=== PATIENT | female | born 1935 | race Caucasian/White ===

== ENCOUNTER → 2017-01-30 | Outpatient (CLI) | payer MEDICARE, BC ==
--- NOTE | 2017-01-30 17:09 | CT ---
EXAMINATION TYPE: CT cervical spine wo con DATE OF EXAM: 01/30/2017 COMPARISON: NONE HISTORY: Bilateral arm and Right sided neck pain CT DLP: 812 mGycm Automated exposure control for dose reduction was used. TECHNIQUE: CT scan of the cervical spine is obtained without contrast, axial images are obtained, sa gittal and coronal reformatted images are also reviewed. FINDINGS: There is degenerative disc space narrowing throughout the cervical spine with variable spur ring of the endplates. This is more noticeable at C6-7. The skull base appears intact. There is multi level hypertrophic cervical facet arthropathy. There is some straightening of the spine at C4-5 level . I see no fracture. IMPRESSION: Multilevel spondylosis. There is some bony spinal stenosis at C5-6 C6-7 due to endplate s pur formation and facet arthropathy. No fracture.
== END | disposition home or self-care (01) ==
LOC: RADCTMAIN 16:34
PROVIDERS: ATTEND Psychiatry & Neurology Neurology
DX: M48.02 Spinal stenosis, cervical region (principal); M47.812 Spondylosis without myelopathy or radiculopathy, cervical region; M46.82 Other specified inflammatory spondylopathies, cervical region
CPT/HCPCS: 72125

== ENCOUNTER → 2017-06-01 | Outpatient (CLI) | payer MEDICARE, BC ==
[2017-06-01 14:05] LABS: INR 2.7 (<1.2); Prothrombin Time 24.2 sec (9.0-12.0)
== END | disposition home or self-care (01) ==
LOC: LABWHC1 13:15
PROVIDERS: ATTEND Psychiatry & Neurology Pain Medicine
DX: Z51.81 Encounter for therapeutic drug level monitoring (principal)
CPT/HCPCS: 36415; 85610

== ENCOUNTER → 2017-08-01 | Outpatient (CLI) | payer BC, MEDICARE ==
[2017-07-31 15:59] VITALS: BMI 33.5
[2017-08-01 13:21] VITALS: BP 115/55; PULSE 63; RESP 18
--- NOTE | 2017-08-01 14:14 | P.HPIM ---
History of Present Illness H&P Date: 08/01/17 Chief Complaint: "all over" pain, worst in neck This is a 81-year-old patient referred by Dr. Kenee for chronic pain all over , worst in neck and head. Patient has been taking medications from Dr. Keene including fentanyl patch 75 mcg/hr q72 and [place] 10 TID medications with very little relief, and the fentanyl patch was recently increased from 50 mcg/hr. Patient has undergone cervical ESIs and also a recent cervical SCS trial without relief. Patient denies adverse drug effects from medications. Patient also denies new-onset weakness, bowel/bladder incontinence, or any other signs or symptoms of cauda equina syndrome. There are no signs of acute intoxication, and no indications of medication diversion or overuse. Patient notes that pain worsens significantly with movement of any kind and improves with rest and occasionally with medication. Patient has used several types of medications for pain, including NSAIDS, OPIOIDS (several). Patient HAS NOT had surgery. Patient HAS had injections previously as indicated above. Patient HAS NOT had physical therapy recently. In addition to above, 13-point review of systems is also negative for chest pain , shortness of breath, changes in vision, changes in hearing, new onset weakness , abdominal pain, diarrhea, extreme fatigue, malaise, fever, skin changes, homicidal or suicidal ideation, or bowel or bladder incontinence. Vital Signs: Reviewed in EMR Gen: WDWN, AAOx3, NAD HEENT: NCAT, EOMI, hearing grossly normal Pulm: resp unlabored Abd: soft, NT, ND Neck: supple, trachea midline ROM in flexion cervical spine: reduced ROM in extension cervical spine: reduced Cervical paravertebral tenderness: + Cervical Facet tenderness: + bilateral There is pain with movement of the neck in any direction. Past Medical History Past Medical History: Atrial Fibrillation, Cancer, Diabetes Mellitus, Hypertension, Osteoarthritis (OA) Additional Past Medical History / Comment(s): PACEMAKER, DIABETES - DIET CONTROLLED, CHRONIC CONSTIPATION, NECK AND SHOULDER PAIN, LIMITED ROM SHOULDERS , HX OF UTERINE CANCER, USES WALKER AND W/C. History of Any Multi-Drug Resistant Organisms: None Reported Past Surgical History: Back Surgery, Cardiac Ablation, Hysterectomy, Joint Replacement, Pacemaker Additional Past Surgical History / Comment(s): JIE HIP REPLACEMENTS (2000 & 2005 ), JIE KNEE REPLACEMENT (1993), LEFT KNEE CAP (1994), PACEMAKER (2001), HYSTERECTOMY (1972), JIE CATARACTS (2004). Past Anesthesia/Blood Transfusion Reactions: Postoperative Nausea & Vomiting ( PONV) Type of Cardiac Device: Permanent Pacemaker Device Placement Date:: 2001 Past Psychological History: Anxiety Smoking Status: Former smoker Past Alcohol Use History: None Reported Additional Past Alcohol Use History / Comment(s): STARTED SMOKING AT 14 YRS OLD AND QUIT AT 34 YRS OLD. SMOKED 1PPD Past Drug Use History: None Reported - Past Family History Father Family Medical History: Cancer Additional Family Medical History / Comment(s): PROSTATE CA Son(s) Family Medical History: Cancer Additional Family Medical History / Comment(s): 2 SONS -PROSTATE CA Daughter(s) Family Medical History: Cancer Additional Family Medical History / Comment(s): BREAST CA Medications and Allergies Home Medications Medication Instructions Recorded Confirmed Type ALPRAZolam [Xanax] 0.5 mg PO BID 01/04/15 07/31/17 History Furosemide [Lasix] 40 mg PO DAILY 01/04/15 07/31/17 History Lisinopril [Zestril] 5 mg PO QAM 01/04/15 07/31/17 History Metoprolol Tartrate [Lopressor] 50 mg PO DAILY 01/04/15 07/31/17 History Multivitamins, Thera [Multivitamin 1 tab PO DAILY 01/04/15 07/31/17 History (formulary)] Spironolactone [Aldactone] 25 mg PO QAM 01/04/15 07/31/17 History Warfarin [Coumadin] 5 mg PO DAILY 01/04/15 07/31/17 History Hydrocodone/Acetaminophen [[place] 1 tab PO TID 12/22/15 08/01/17 History 10-325] Areds 2 tab PO DAILY 07/31/17 History fentaNYL 75MCG/HR PATCH [Duragesic 75 TRANSDERM 08/01/17 History 75MCG/HR] Allergies Allergy/AdvReac Type Severity Reaction Status Date / Time No Known Allergies Allergy Verified 08/01/17 13:00 Physical Exam Vitals: Vital Signs Pulse Resp BP Pulse Ox 08/01/17 13:06 63 18 115/55 93 L Intake and Output 07/31/17 08/01/17 08/01/17 22:59 06:59 14:59 Other: Weight 108.862 kg Results Comments: CT of the cervical spine without contrast dated 01/30/2017 demonstrates multilevel spondylosis with some bony spinal stenosis at C5-C6 and C6-C7 secondary to endplate spur formation and facet disease. Assessment and Plan (1) Cervical spondylosis Current Visit: Yes Status: Acute Code(s): M47.812 - SPONDYLOSIS W/O MYELOPATHY OR RADICULOPATHY, CERVICAL REGION SNOMED Code(s): 433415453 (2) Chronic pain syndrome Current Visit: Yes Status: Acute Code(s): G89.4 - CHRONIC PAIN SYNDROME SNOMED Code(s): 100824671 (3) Opioid-induced hyperalgesia Current Visit: Yes Status: Acute Code(s): R20.8 - OTHER DISTURBANCES OF SKIN SENSATION; T40.2X5A - ADVERSE EFFECT OF OTHER OPIOIDS, INITIAL ENCOUNTER SNOMED Code(s): 43355182 Plan: Plan: 1. Explanation: Opioid and psychological risk scores were reviewed. Diagnoses , prognoses, and multiple treatment options including but not limited to physical therapy, interventional therapies, adjuvant medical therapies, narcotic medication therapies, and surgery were discussed with the patient and all questions were answered to the patient's satisfaction. 2. Opioid agreement: no opioids prescribed today 3. Counseling: The patient was counseled extensively on BODY MASS INDEX, EXERCISE. Specifically, the patient was instructed regarding the importance of weight control, and exercise in the context of both chronic pain and overall health. 4. Procedures: offered cervical MBB, patient refused 5. Consultations: none for now 6. Investigations: none 7. Medications: none prescribed 8. Morphine equivalents per day prescribed: zero 9. Disposition: This patient has had numerous interventional procedures without substantial relief, and has also had increases in her chronic opioids without really any improvement in pain relief. Given the length of time she has been on narcotics, I believe that she has at least a component of opioid- induced hyperalgesia and that she may be better served with decreases in her opioid dosage. I offered cervical medial branch blocks to the patient, but the patient herself is convinced that positioning will be extremely challenging and she does not want to try it. Patient will return to Dr. Keene for further evaluation and will follow up with our clinic as needed. PQRS measures: 1-Patient's medications are documented in the chart. 2-Tobacco use is negative, counseling given 3-Patient has not had a pneumococcal vaccine. 4-Advanced care planning discussed, patient unable to give. 5-Opioid contract NOT signed with the patient. 6-Pain positive, follow-up visit or procedure scheduled 7-Patient's blood pressure measured and documented, and patient will follow up with the primary care due to hypertension. 8-Patient's weight was measured, and body mass index ABOVE the normal limits, and counseling was done. Patient instructed to follow up with PCP. 9-Patient WAS NOT identified as an unhealthy alcohol user. Time with Patient: Greater than 30
== END | disposition home or self-care (01) ==
LOC: PNWHC3 12:52
PROVIDERS: ATTEND Anesthesiology
DX: G89.4 Chronic pain syndrome (principal); M47.812 Spondylosis without myelopathy or radiculopathy, cervical region; T40.2X5A Adverse effect of other opioids, initial encounter; R20.8 Other disturbances of skin sensation; M19.90 Unspecified osteoarthritis, unspecified site; I48.91 Unspecified atrial fibrillation; I10 Essential (primary) hypertension; Z79.01 Long term (current) use of anticoagulants; Z79.891 Long term (current) use of opiate analgesic; Z79.899 Other long term (current) drug therapy; Z87.891 Personal history of nicotine dependence
CPT/HCPCS: 99211

== ENCOUNTER 2017-10-23 15:30 | Inpatient (IN) | payer MEDICARE, BC ==
--- NOTE | 2017-10-23 17:14 | ED ---
General Adult HPI - General Chief complaint: Extremity Injury, Lower Stated complaint: fluid retention sent by PCP Time Seen by Provider: 10/23/17 17:14 Source: patient, family Mode of arrival: ambulatory Limitations: no limitations - History of Present Illness Initial comments: Nikki Lea is an 82-year-old female with past medical history listed below who presents to the emergency department today from her primary care office for evaluation of bilateral lower extremity edema. She reports that she was previously healthy and able ambulate, over the past couple of months she's become increasingly dependent on using a walker and reports that over the past week she's completely limited in her ability to walk and requires assistance at all times. She's noticed progressively worsening in her bilateral lower extremities. She which her primary care physician's office today who noted some erythema and blistering to her lower extremities and expressed concern that she may have infection, he advised her to come to the emergency department for further evaluation. Patient denies any fevers, chills, nausea, vomiting any change in appetite. She denies any chest pain or shortness of breath. She admits that she is minimally active and can only take a few steps due to generalized weakness which is progressively worsened. - Related Data Home Medications Medication Instructions Recorded Confirmed ALPRAZolam [Xanax] 0.5 mg PO BID PRN 01/04/15 10/23/17 Furosemide [Lasix] 40 mg PO BID 01/04/15 10/23/17 Lisinopril [Zestril] 5 mg PO DAILY 01/04/15 10/23/17 Metoprolol Tartrate [Lopressor] 50 mg PO DAILY 01/04/15 10/23/17 Spironolactone [Aldactone] 25 mg PO DAILY 01/04/15 10/23/17 Warfarin [Coumadin] 5 mg PO SUTH 01/04/15 10/23/17 Hydrocodone/Acetaminophen [[place] 1 tab PO Q8H 12/22/15 10/23/17 10-325] fentaNYL 75MCG/HR PATCH [Duragesic 1 patch TRANSDERM Q72H 08/01/17 10/23/17 75MCG/HR] Metoprolol Tartrate [Lopressor] 25 mg PO HS 10/23/17 10/23/17 Vit C/E/Zn/Coppr/Lutein/Zeaxan 1 cap PO BID 10/23/17 10/23/17 [Preservision Areds 2 Softgel] Warfarin [Coumadin] 2.5 mg PO MOTUWEFRSA 10/23/17 10/23/17 Allergies Allergy/AdvReac Type Severity Reaction Status Date / Time No Known Allergies Allergy Verified 10/23/17 17:41 Review of Systems ROS Statement: Those systems with pertinent positive or pertinent negative responses have been documented in the HPI. ROS Other: All systems not noted in ROS Statement are negative. Constitutional: Denies: fever ENT: Denies: throat pain Respiratory: Denies: cough, dyspnea Cardiovascular: Reports: dyspnea on exertion. Denies: chest pain, palpitations Endocrine: Reports: fatigue Gastrointestinal: Denies: abdominal pain, nausea, vomiting Genitourinary: Denies: urgency Musculoskeletal: Reports: back pain (Chronic), arthralgia (Chronic) Skin: Reports: rash, lesions, change in color Neurological: Reports: weakness. Denies: numbness, paresthesias (Generalized) Psychiatric: Denies: anxiety, depression Past Medical History Past Medical History: Atrial Fibrillation, Cancer, Diabetes Mellitus, Hypertension, Osteoarthritis (OA) Additional Past Medical History / Comment(s): PACEMAKER, DIABETES - DIET CONTROLLED, CHRONIC CONSTIPATION, NECK AND SHOULDER PAIN, LIMITED ROM SHOULDERS , HX OF UTERINE CANCER, USES WALKER AND W/C. History of Any Multi-Drug Resistant Organisms: None Reported Past Surgical History: Back Surgery, Cardiac Ablation, Hysterectomy, Joint Replacement, Pacemaker Additional Past Surgical History / Comment(s): JIE HIP REPLACEMENTS (2000 & 2005 ), JIE KNEE REPLACEMENT (1993), LEFT KNEE CAP (1994), PACEMAKER (2001), HYSTERECTOMY (1972), JIE CATARACTS (2004). Past Anesthesia/Blood Transfusion Reactions: Postoperative Nausea & Vomiting ( PONV) Type of Cardiac Device: Permanent Pacemaker Device Placement Date:: 2001 Past Psychological History: Anxiety Smoking Status: Former smoker Past Alcohol Use History: None Reported Past Drug Use History: None Reported - Past Family History Father Family Medical History: Cancer Additional Family Medical History / Comment(s): PROSTATE CA Son(s) Family Medical History: Cancer Additional Family Medical History / Comment(s): 2 SONS -PROSTATE CA Daughter(s) Family Medical History: Cancer Additional Family Medical History / Comment(s): BREAST CA General Exam Limitations: no limitations General appearance: alert Head exam: Present: atraumatic, normocephalic Eye exam: Present: PERRL ENT exam: Present: normal exam Neck exam: Present: normal inspection Respiratory exam: Absent: respiratory distress Cardiovascular Exam: Present: regular rate GI/Abdominal exam: Present: soft. Absent: distended Rectal exam: Present: deferred Extremities exam: Present: tenderness, normal capillary refill, pedal edema (3+) , calf tenderness. Absent: full ROM Back exam: Present: normal inspection Neurological exam: Present: alert, oriented X3, abnormal gait. Absent: normal gait Psychiatric exam: Present: normal affect Skin exam: Present: warm, dry, rash, erythema. Absent: pallor, mottled Course Vital Signs 10/23/17 10/23/17 10/23/17 16:08 19:57 20:16 Temperature 98.2 F 97.6 F Pulse Rate 65 60 74 Respiratory 20 16 18 Rate Blood Pressure 131/56 138/64 141/90 O2 Sat by Pulse 94 L 95 100 Oximetry 10/23/17 21:02 Temperature Pulse Rate 63 Respiratory 16 Rate Blood Pressure 137/60 O2 Sat by Pulse 96 Oximetry Medical Decision Making - Medical Decision Making Patient was seen and evaluated, history was obtained from the patient and review of medical record Patient with progressively worsening inability to ambulate. Bilateral lower extremity edema. Noticed recently some lower extremity redness but no tenderness or weeping. Labs and imaging were ordered Labs with mild leukocytosis, elevated BNP consistent with a diagnosis of congestive heart failure Bilateral lower extremity venous Dopplers were negative for acute DVT During the patient's inability to ambulate, progressively worsening weakness and lower extremity edema I do feel that she needs admission to the hospital for treatment of CHF and evaluation by physical therapy patient care was discussed with her primary care physician Dr. Garcia who agrees with this plan and agrees to accept the patient to his service. - Lab Data Result diagrams: 10/23/17 18:35 10/23/17 18:35 Lab Results 10/23/17 10/23/17 10/23/17 Range/Units 18:35 18:35 18:35 WBC 8.1 (3.8-10.6) k/uL RBC 4.22 (3.80-5.40) m/uL Hgb 13.4 (11.4-16.0) gm/dL Hct 41.0 (34.0-46.0) % MCV 97.2 (80.0-100.0) fL MCH 31.7 (25.0-35.0) pg MCHC 32.6 (31.0-37.0) g/dL RDW 13.3 (11.5-15.5) % Plt Count 160 (150-450) k/uL Neutrophils % 62 % Lymphocytes % 26 % Monocytes % 8 % Eosinophils % 1 % Basophils % 1 % Neutrophils # 5.0 (1.3-7.7) k/uL Lymphocytes # 2.1 (1.0-4.8) k/uL Monocytes # 0.6 (0-1.0) k/uL Eosinophils # 0.1 (0-0.7) k/uL Basophils # 0.1 (0-0.2) k/uL PT (9.0-12.0) sec INR (<1.2) APTT (22.0-30.0) sec Sodium 140 (137-145) mmol/L Potassium 4.7 (3.5-5.1) mmol/L Chloride 100 (98-107) mmol/L Carbon Dioxide 32 H (22-30) mmol/L Anion Gap 8 mmol/L BUN 25 H (7-17) mg/dL Creatinine 0.90 (0.52-1.04) mg/dL Est GFR (CKD-EPI)AfAm 68 (>60 ml/min/1.73 sqM) Est GFR (CKD-EPI)NonAf 59 (>60 ml/min/1.73 sqM) Glucose 105 H (74-99) mg/dL Plasma Lactic Acid Daniel 0.9 (0.7-2.0) mmol/L Calcium 9.7 (8.4-10.2) mg/dL Magnesium 2.3 (1.6-2.3) mg/dL Total Bilirubin 1.2 (0.2-1.3) mg/dL AST 28 (14-36) U/L ALT 31 (9-52) U/L Alkaline Phosphatase 82 (38-126) U/L Troponin I (0.000-0.034) ng/mL NT-Pro-B Natriuret Pep pg/mL Total Protein 6.5 (6.3-8.2) g/dL Albumin 4.1 (3.5-5.0) g/dL Urine Color Urine Appearance (Clear) Urine pH (5.0-8.0) Ur Specific [place] (1.001-1.035) Urine Protein (Negative) Urine Glucose (UA) (Negative) Urine Ketones (Negative) Urine Blood (Negative) Urine Nitrite (Negative) Urine Bilirubin (Negative) Urine Urobilinogen (<2.0) mg/dL Ur Leukocyte Esterase (Negative) Urine RBC (0-5) /hpf Urine WBC (0-5) /hpf Ur Squamous Epith Cells (0-4) /hpf Urine Bacteria (None) /hpf 10/23/17 10/23/17 10/23/17 Range/Units 18:35 18:35 18:35 WBC (3.8-10.6) k/uL RBC (3.80-5.40) m/uL Hgb (11.4-16.0) gm/dL Hct (34.0-46.0) % MCV (80.0-100.0) fL MCH (25.0-35.0) pg MCHC (31.0-37.0) g/dL RDW (11.5-15.5) % Plt Count (150-450) k/uL Neutrophils % % Lymphocytes % % Monocytes % % Eosinophils % % Basophils % % Neutrophils # (1.3-7.7) k/uL Lymphocytes # (1.0-4.8) k/uL Monocytes # (0-1.0) k/uL Eosinophils # (0-0.7) k/uL Basophils # (0-0.2) k/uL PT 27.5 H (9.0-12.0) sec INR 3.1 H (<1.2) APTT 28.3 (22.0-30.0) sec Sodium (137-145) mmol/L Potassium (3.5-5.1) mmol/L Chloride (98-107) mmol/L Carbon Dioxide (22-30) mmol/L Anion Gap mmol/L BUN (7-17) mg/dL Creatinine (0.52-1.04) mg/dL Est GFR (CKD-EPI)AfAm (>60 ml/min/1.73 sqM) Est GFR (CKD-EPI)NonAf (>60 ml/min/1.73 sqM) Glucose (74-99) mg/dL Plasma Lactic Acid Daniel (0.7-2.0) mmol/L Calcium (8.4-10.2) mg/dL Magnesium (1.6-2.3) mg/dL Total Bilirubin (0.2-1.3) mg/dL AST (14-36) U/L ALT (9-52) U/L Alkaline Phosphatase (38-126) U/L Troponin I (0.000-0.034) ng/mL NT-Pro-B Natriuret Pep 2840 pg/mL Total Protein (6.3-8.2) g/dL Albumin (3.5-5.0) g/dL Urine Color Yellow Urine Appearance Cloudy H (Clear) Urine pH 8.0 (5.0-8.0) Ur Specific [place] 1.011 (1.001-1.035) Urine Protein Negative (Negative) Urine Glucose (UA) Negative (Negative) Urine Ketones Negative (Negative) Urine Blood Negative (Negative) Urine Nitrite Negative (Negative) Urine Bilirubin Negative (Negative) Urine Urobilinogen 2.0 (<2.0) mg/dL Ur Leukocyte Esterase Moderate H (Negative) Urine RBC 3 (0-5) /hpf Urine WBC 8 H (0-5) /hpf Ur Squamous Epith Cells 1 (0-4) /hpf Urine Bacteria Few H (None) /hpf 10/23/17 Range/Units 18:53 WBC (3.8-10.6) k/uL RBC (3.80-5.40) m/uL Hgb (11.4-16.0) gm/dL Hct (34.0-46.0) % MCV (80.0-100.0) fL MCH (25.0-35.0) pg MCHC (31.0-37.0) g/dL RDW (11.5-15.5) % Plt Count (150-450) k/uL Neutrophils % % Lymphocytes % % Monocytes % % Eosinophils % % Basophils % % Neutrophils # (1.3-7.7) k/uL Lymphocytes # (1.0-4.8) k/uL Monocytes # (0-1.0) k/uL Eosinophils # (0-0.7) k/uL Basophils # (0-0.2) k/uL PT (9.0-12.0) sec INR (<1.2) APTT (22.0-30.0) sec Sodium (137-145) mmol/L Potassium (3.5-5.1) mmol/L Chloride (98-107) mmol/L Carbon Dioxide (22-30) mmol/L Anion Gap mmol/L BUN (7-17) mg/dL Creatinine (0.52-1.04) mg/dL Est GFR (CKD-EPI)AfAm (>60 ml/min/1.73 sqM) Est GFR (CKD-EPI)NonAf (>60 ml/min/1.73 sqM) Glucose (74-99) mg/dL Plasma Lactic Acid Daniel (0.7-2.0) mmol/L Calcium (8.4-10.2) mg/dL Magnesium (1.6-2.3) mg/dL Total Bilirubin (0.2-1.3) mg/dL AST (14-36) U/L ALT (9-52) U/L Alkaline Phosphatase (38-126) U/L Troponin I 0.026 (0.000-0.034) ng/mL NT-Pro-B Natriuret Pep pg/mL Total Protein (6.3-8.2) g/dL Albumin (3.5-5.0) g/dL Urine Color Urine Appearance (Clear) Urine pH (5.0-8.0) Ur Specific [place] (1.001-1.035) Urine Protein (Negative) Urine Glucose (UA) (Negative) Urine Ketones (Negative) Urine Blood (Negative) Urine Nitrite (Negative) Urine Bilirubin (Negative) Urine Urobilinogen (<2.0) mg/dL Ur Leukocyte Esterase (Negative) Urine RBC (0-5) /hpf Urine WBC (0-5) /hpf Ur Squamous Epith Cells (0-4) /hpf Urine Bacteria (None) /hpf Disposition Clinical Impression: CHF (congestive heart failure), Lower extremity edema, Generalized weakness, Gait difficulty Disposition: ADMITTED IP TO THIS [facility] Referrals: Citlalli Garcia MD [Primary Care Provider] - 1-2 days Decision Time: 21:31
[2017-10-23 19:05] LABS: Basophils # (A) 0.1 k/uL (0-0.2); Basophils % (A) 1 %; Eosinophils # (A) 0.1 k/uL (0-0.7); Eosinophils % (A) 1 %; HGB 13.4 gm/dL (11.4-16.0); Lymphocytes # (A) 2.1 k/uL (1.0-4.8); Lymphocytes % (A) 26 %; MCH 31.7 pg (25.0-35.0); MCHC 32.6 g/dL (31.0-37.0); MCV 97.2 fL (80.0-100.0); Mean Platelet Volume 7.5; Monocytes # (A) 0.6 k/uL (0-1.0); Monocytes % (A) 8 %; Neutrophils % (A) 62 %; Platelet Count 160 k/uL (150-450); RBC 4.22 m/uL (3.80-5.40); RDW 13.3 % (11.5-15.5); WBC 8.1 k/uL (3.8-10.6)
[2017-10-23 19:11] LABS: Appearance,Urine Cloudy (Clear); Bacteria,Urine Few /hpf; Bilirubin,Urine Negative (Negative); Blood,Urine Negative (Negative); Color,Urine Yellow; Glucose,Urine (UA) Negative (Negative); Ketones,Urine Negative (Negative); Leukocyte Esterase,Urine Moderate (Negative); Nitrite,Urine Negative (Negative); Protein,Urine Negative (Negative); RBC,Urine 3 /hpf (0-5); Specific Gravity,Urine 1.011 (1.001-1.035); Squamous Epithelial Cell,Urine 1 /hpf (0-4); WBC,Urine 8 /hpf (0-5)
[2017-10-23 19:15] LABS: INR 3.1 (<1.2); Partial Thromboplastin Time 28.3 sec (22.0-30.0); Prothrombin Time 27.5 sec (9.0-12.0)
[2017-10-23 19:17] LABS: Albumin 4.1 g/dL (3.5-5.0); Calcium 9.7 mg/dL (8.4-10.2); Magnesium 2.3 mg/dL (1.6-2.3); Potassium 4.7 mmol/L (3.5-5.1); Total Bilirubin 1.2 mg/dL (0.2-1.3); Total Protein 6.5 g/dL (6.3-8.2)
[2017-10-23] MEDS ORDERED: FUROSEMIDE 10 MG/ML 2 ML VIAL IV ONE (19:55)
--- NOTE | 2017-10-23 20:17 | US ---
EXAMINATION TYPE: US venous doppler duplex LE BI DATE OF EXAM: 10/23/2017 8:14 PM COMPARISON: NONE CLINICAL HISTORY: Pain. Bilateral edema exam limitations due to body habitus. SIDE PERFORMED: Bilateral TECHNIQUE: The lower extremity deep venous system is examined utilizing real time linear array sonog gerard with graded compression, doppler sonography and color-flow sonography. VESSELS IMAGED: External Iliac Vein (EIV) Common Femoral Vein Deep Femoral Vein Greater Saphenous Vein * Femoral Vein Popliteal Vein Small Saphenous Vein * Proximal Calf Veins (* superficial vessels) Right Leg: Negative for DVT Left Leg: Negative for DVT No evidence of DVT bilateral legs. IMPRESSION: Negative exam. No evidence of deep venous thrombosis in both legs.
[2017-10-23] MEDS ORDERED: NALOXONE 0.4 MG/ML 1 ML VIAL IV PRN (21:33)
[2017-10-23] MEDS ORDERED: HYDROcodone/APAP 10-325MG 1 EACH TAB PO STA (21:47)
[2017-10-23] MEDS ORDERED: HYDROcodone/APAP 10-325MG 1 EACH TAB PO SCH (22:30)
[2017-10-23] MEDS: ceFAZolin 1,000 MG in DEXTROSE/WATER 1 50ML.BAG IVPB SCH (22:57)
[2017-10-23] MEDS: HYDROcodone/APAP 10-325MG 1 EACH TAB PO PRN (22:58)
[2017-10-23] MEDS: ALPRAZolam 0.5 MG TAB PO PRN (22:58)
[2017-10-24] MEDS: FUROSEMIDE 10 MG/ML 2 ML VIAL IV SCH ×4 (04:19→23:31)
[2017-10-24] MEDS: HYDROcodone/APAP 10-325MG 1 EACH TAB PO PRN ×3 (06:45→23:31)
[2017-10-24 09:22] LABS: Basophils % (A) 1 %; Eosinophils # (A) 0.1 k/uL (0-0.7); Eosinophils % (A) 1 %; HGB 12.3 gm/dL (11.4-16.0); Lymphocytes % (A) 18 %; MCH 30.7 pg (25.0-35.0); MCHC 31.5 g/dL (31.0-37.0); MCV 97.5 fL (80.0-100.0); Mean Platelet Volume 8.4; Monocytes # (A) 0.4 k/uL (0-1.0); Monocytes % (A) 7 %; Neutrophils # (A) 3.9 k/uL (1.3-7.7); Neutrophils % (A) 70 %; Platelet Count 150 k/uL (150-450); RDW 13.1 % (11.5-15.5); WBC 5.6 k/uL (3.8-10.6)
[2017-10-24] MEDS: METOPROLOL TARTRATE 50 MG TAB PO SCH (09:30)
[2017-10-24] MEDS: ceFAZolin 1,000 MG in DEXTROSE/WATER 1 50ML.BAG IVPB SCH ×3 (09:30→23:31)
[2017-10-24 09:51] LABS: Albumin 3.6 g/dL (3.5-5.0); Calcium 9.1 mg/dL (8.4-10.2); Potassium 4.6 mmol/L (3.5-5.1); Total Bilirubin 1.4 mg/dL (0.2-1.3); Total Protein 5.7 g/dL (6.3-8.2)
--- NOTE | 2017-10-24 10:31 | ECHOF ---
Referral Reason:chf MEASUREMENTS -------- HEIGHT: 180.3 cm WEIGHT: 127.0 kg BP: 129/56 RVIDd: 5.5 cm (< 3.3) IVSd: 1.3 cm (0.6 - 1.1) LVIDd: 3.9 cm (3.9 - 5.3) LVPWd: 1.3 cm (0.6 - 1.1) IVSs: 2.1 cm LVIDs: 1.7 cm LVPWs: 2.1 cm Ao Diam: 3.1 cm (2.0 - 3.7) AV Cusp: 2.3 cm (1.5 - 2.6) LA Diam: 3.8 cm (2.7 - 3.8) MV EXCURSION: 14.751 mm (> 18.000) MV EF SLOPE: 105 mm/s (70 - 150) EPSS: 0.1 cm MV E Jed: 1.01 m/s MV DecT: 217 ms MV A Jed: 0.43 m/s MV E/A Ratio: 2.37 RAP: 20.00 mmHg RVSP: 81.27 mmHg FINDINGS -------- Sinus rhythm with extra systolic beats. This was a technically good study. The left ventricular size is normal. There is mild concentric left ventricular hypertrophy. Overa ll left ventricular systolic function is normal with, an EF between 55 - 60 %. There is paradoxical /dysynergic septal motion consistent with right ventricular volume overload and/or elevated right sang tricular end-diastolic pressure. The right ventricle is severely enlarged. The left atrium is normal in size. The right atrium is moderately enlarged. Aortic valve is trileaflet and is mildly thickened. The mitral valve leaflets are mildly thickened. Mild mitral regurgitation is present. Severe tricuspid regurgitation present. There is severe pulmonary hypertension. The right ventric ular systolic pressure, as measured by Doppler, is 81.27mmHg. Pulmonic valve appears structurally normal. The aortic root size is normal. The inferior vena cava is dilated with no significant inspiratory collapse which is consistent estima alysia right atrial pressure of >20 mmHg. The pericardium is normal. CONCLUSIONS -------- 1. Sinus rhythm with extra systolic beats. 2. This was a technically good study. 3. The left ventricular size is normal. 4. There is mild concentric left ventricular hypertrophy. 5. Overall left ventricular systolic function is normal with, an EF between 55 - 60 %. 6. There is paradoxical/dysynergic septal motion consistent with right ventricular volume overload an d/or elevated right ventricular end-diastolic pressure. 7. The right ventricle is severely enlarged. 8. The left atrium is normal in size. 9. The right atrium is moderately enlarged. 10. Aortic valve is trileaflet and is mildly thickened. 11. The mitral valve leaflets are mildly thickened. 12. Mild mitral regurgitation is present. 13. Severe tricuspid regurgitation present. 14. There is severe pulmonary hypertension. 15. The right ventricular systolic pressure, as measured by Doppler, is 81.27mmHg. 16. Pulmonic valve appears structurally normal. 17. The aortic root size is normal. 18. The inferior vena cava is dilated with no significant inspiratory collapse which is consistent es timated right atrial pressure of >20 mmHg. 19. The pericardium is normal. MANAGER INTRANET: Estela Herrera RDCS
[2017-10-24 11:26] LABS: INR 3.1 (<1.2); Prothrombin Time 27.8 sec (9.0-12.0)
--- NOTE | 2017-10-24 15:26 | P.HPIM ---
History of Present Illness H&P Date: 10/24/17 This is a 82-year-old female patient of Dr. Hills. She presented to emergency department from her primary care doctor for evaluation of bilateral lower extremity edema and redness. She states that the edema has been progressively getting worse and is limited her ability to walk and now requiring assistance with a walker. Patient has a known medical history of atrial fibrillation in which she takes Coumadin, uterine cancer, diabetes mellitus diet controlled, hypertension, osteoarthritis, pacemaker, back surgery, cardiac ablation and anxiety. The extremity showing no evidence of DVT in bilateral legs. Level of the BNP level 2,840. Patient was given IV Lasix once and cardiology consult was ordered. 2-D echo has also been ordered. Patient was started on hospital for possible cellulitis. Urinary Analysis completed on Admission showed moderate amount of leukocyte Estrace. Urine culture has been ordered. Patient denies chest pain or shortness of breath at this time. Patient denies chest pain or shortness of breath at this time. Denies nausea vomiting or diarrhea. Denies urinary frequency or burning. Patient is eager to go home. Awaiting cardiology consult and 2-D echo completion. We'll continue to monitor patient closely. TSH and Hemoglobin A1c will be ordered. Review of Systems Please refer to HPI otherwise unremarkable Past Medical History Past Medical History: Atrial Fibrillation, Cancer, Diabetes Mellitus, Hypertension, Osteoarthritis (OA) Additional Past Medical History / Comment(s): PACEMAKER, DIABETES - DIET CONTROLLED, CHRONIC CONSTIPATION, NECK AND SHOULDER PAIN, LIMITED ROM SHOULDERS , HX OF UTERINE CANCER, USES WALKER AND W/C. History of Any Multi-Drug Resistant Organisms: None Reported Past Surgical History: Back Surgery, Cardiac Ablation, Hysterectomy, Joint Replacement, Pacemaker Additional Past Surgical History / Comment(s): JIE HIP REPLACEMENTS (2000 & 2005 ), JIE KNEE REPLACEMENT (1993), LEFT KNEE CAP (1994), PACEMAKER (2001), HYSTERECTOMY (1972), JIE CATARACTS (2004). Past Anesthesia/Blood Transfusion Reactions: Postoperative Nausea & Vomiting ( PONV) Type of Cardiac Device: Permanent Pacemaker Device Placement Date:: 2001 Past Psychological History: Anxiety Smoking Status: Former smoker Past Alcohol Use History: None Reported Additional Past Alcohol Use History / Comment(s): STARTED SMOKING AT 14 YRS OLD AND QUIT AT 34 YRS OLD. SMOKED 1PPD Past Drug Use History: None Reported - Past Family History Father Family Medical History: Cancer Additional Family Medical History / Comment(s): PROSTATE CA Son(s) Family Medical History: Cancer Additional Family Medical History / Comment(s): 2 SONS -PROSTATE CA Daughter(s) Family Medical History: Cancer Additional Family Medical History / Comment(s): BREAST CA Medications and Allergies Home Medications Medication Instructions Recorded Confirmed Type ALPRAZolam [Xanax] 0.5 mg PO BID PRN 01/04/15 10/23/17 History Furosemide [Lasix] 40 mg PO BID 01/04/15 10/23/17 History Lisinopril [Zestril] 5 mg PO DAILY 01/04/15 10/23/17 History Metoprolol Tartrate [Lopressor] 50 mg PO DAILY 01/04/15 10/23/17 History Spironolactone [Aldactone] 25 mg PO DAILY 01/04/15 10/23/17 History Warfarin [Coumadin] 5 mg PO SUTH 01/04/15 10/23/17 History Hydrocodone/Acetaminophen [[place] 1 tab PO Q8H 12/22/15 10/23/17 History 10-325] fentaNYL 75MCG/HR PATCH [Duragesic 1 patch TRANSDERM Q72H 08/01/17 10/23/17 History 75MCG/HR] Metoprolol Tartrate [Lopressor] 25 mg PO HS 10/23/17 10/23/17 History Vit C/E/Zn/Coppr/Lutein/Zeaxan 1 cap PO BID 10/23/17 10/23/17 History [Preservision Areds 2 Softgel] Warfarin [Coumadin] 2.5 mg PO MOTUWEFRSA 10/23/17 10/23/17 History Allergies Allergy/AdvReac Type Severity Reaction Status Date / Time No Known Allergies Allergy Verified 10/23/17 17:41 Physical Exam Vitals: Vital Signs Temp Pulse Pulse Resp BP BP Pulse Ox 10/24/17 08:00 97.8 F 92 18 118/60 97 10/24/17 05:20 98.4 F 68 20 129/56 93 L 10/23/17 22:02 62 20 135/59 95 10/23/17 21:57 98.5 F 66 20 144/66 95 10/23/17 21:38 95 10/23/17 21:02 63 16 137/60 96 10/23/17 20:16 74 18 141/90 100 10/23/17 19:57 97.6 F 60 16 138/64 95 10/23/17 16:08 98.2 F 65 20 131/56 94 L Intake and Output 10/23/17 10/24/17 10/24/17 22:59 06:59 14:59 Intake Total 0 Output Total 450 Balance -450 0 Intake: Oral 0 Output: Urine 450 Other: # Voids 2 Weight 108.862 kg 127.3 kg Head normocephalic Neck supple Lungs clear to auscultation bilaterally no wheezing or crackles Heart regular rate and rhythm S1-S2, no rub or gallop Abdomen is soft nontender nondistended positive bowel sounds no hepatosplenomegaly Extremities no edema Neuro alert and orientated to 3 Results CBC & Chem 7: 10/24/17 08:56 10/24/17 08:56 Labs: Abnormal Lab Results - Last 24 Hours (Table) 10/23/17 10/23/17 10/23/17 Range/Units 18:35 18:35 18:35 PT 27.5 H (9.0-12.0) sec INR 3.1 H (<1.2) Carbon Dioxide 32 H (22-30) mmol/L BUN 25 H (7-17) mg/dL Glucose 105 H (74-99) mg/dL Total Bilirubin (0.2-1.3) mg/dL Total Protein (6.3-8.2) g/dL Urine Appearance Cloudy H (Clear) Ur Leukocyte Esterase Moderate H (Negative) Urine WBC 8 H (0-5) /hpf Urine Bacteria Few H (None) /hpf 10/24/17 10/24/17 Range/Units 08:56 10:56 PT 27.8 H (9.0-12.0) sec INR 3.1 H (<1.2) Carbon Dioxide 31 H (22-30) mmol/L BUN 22 H (7-17) mg/dL Glucose 158 H (74-99) mg/dL Total Bilirubin 1.4 H (0.2-1.3) mg/dL Total Protein 5.7 L (6.3-8.2) g/dL Urine Appearance (Clear) Ur Leukocyte Esterase (Negative) Urine WBC (0-5) /hpf Urine Bacteria (None) /hpf Thrombosis Risk Factor Assmnt - Choose All That Apply Each Factor Represents 1 point: Swollen legs (current) Each Risk Factor Represents 3 Points: Age 75 years or older Other congenital or acquired thrombophilia - If yes, enter type in comment: No Thrombosis Risk Factor Assessment Total Risk Factor Score: 4 Thrombosis Risk Factor Assessment Level: Moderate Risk Assessment and Plan Assessment: 1. Dystolic Congestive Heart failure and Severe Pulmonary Hypertension. BNP 2840 on admission. Increase lower extremity edema. Patient started on IV lasix 20mg q8hr. 2D echo completed showing an EF of 55-60% and severe pulmonary hypertension. Cardiology has been consulted. 2. Bilateral Edema and possible cellulites. Venous doppler negative for DVT. Kefazol antibiotic has been ordered. 3. Atrial Fibrillation- Resume home coumadin. INR 3.1. Will continue to monitor. 4. Urinary Tract infection- Urinary Analysis showing positive moderate Leukocyte estrayce. Urine culture ordered. 5. Essential Hypertension. Resume Aldactone, lopressor and Lisinopril 6. Diabetes Mellitus. Diet controlled at home. Hemoglobin A1C has been ordered 7. History of Uterine cancer 8. History of Pacemaker DVT Prophylaxis Coumadin, GI prophylaxis pepcid Time with Patient: Greater than 30 (Greater than 60% of the total time spent in counseling and coordination of care.I performed an examination of the patient and discussed their management with the Nurse Practitioner. I have reviewed the Nurse Practitioner's notes and agree with the documented findings and plan of care)
[2017-10-24] MEDS: ALPRAZolam 0.5 MG TAB PO PRN (15:44)
--- NOTE | 2017-10-24 15:57 | P.CRDCN ---
History of Present Illness Consult date: 10/24/17 Requesting physician: Citlalli Garcia Reason for Consult (text): CHF Chief complaint: progressively worsening lower extremity edema History of present illness: This is a pleasant 82-year-old female patient who follows with Dr. Soto in the office. Has a known history of atrial fibrillation, sick sinus syndrome , status post pacemaker, chronic leg edema, right-sided heart failure, COPD, cor pulmonale. He is unable to her primary care physician's office with complaint of worsening lower extremity edema with blistering. She was subsequently directed to go to the emergency department for further evaluation and treatment. She denies complaints of shortness of breath, dizziness, lightheadedness, chest discomfort, orthopnea or PND. Echocardiogram on admission showed mild concentric LV hypertrophy with normal LV systolic function , ejection fraction between 55-60%. Also showed there is paradoxical/ dysynergic septal motion consistent with right ventricular volume overload and/ or elevated right ventricular end-diastolic pressure, severely enlarged RV, moderately enlarged RA, mild MR, severe tricuspid regurgitation and severe pulmonary hypertension with RVSP of 81.27 mmHg. Most recent echo done in the office in September 2016 showed moderately dilated RV with mildly decreased function , moderate tricuspid regurgitation and mildly increased PASP. Venous Doppler of the lower extremities show no evidence of DVT bilaterally. EKG showed atrial fibrillation with paced ventricular rhythm. She is anticoagulated on warfarin with an INR of 3.1. She is currently on Lasix 20 mg IV push every 8 hours. Laboratory values showed BUN of 22, creatinine 0.85, troponin 0.026, TSH of 2.55 and a NT proBNP of 2840. Accurate I&O's and accurate weight not available. Vital signs have been stable. Upon examination, patient is resting comfortably in bed. She denies complaints of shortness of breath, chest discomfort, dizziness, lightheadedness, orthopnea or PND. She thinks her edema may be somewhat better however remains. Past Medical History Past Medical History: Atrial Fibrillation, Cancer, Diabetes Mellitus, Hypertension, Osteoarthritis (OA) Additional Past Medical History / Comment(s): PACEMAKER, DIABETES - DIET CONTROLLED, CHRONIC CONSTIPATION, NECK AND SHOULDER PAIN, LIMITED ROM SHOULDERS , HX OF UTERINE CANCER, USES WALKER AND W/C. History of Any Multi-Drug Resistant Organisms: None Reported Past Surgical History: Back Surgery, Cardiac Ablation, Hysterectomy, Joint Replacement, Pacemaker Additional Past Surgical History / Comment(s): JIE HIP REPLACEMENTS (2000 & 2005 ), JIE KNEE REPLACEMENT (1993), LEFT KNEE CAP (1994), PACEMAKER (2001), HYSTERECTOMY (1972), JIE CATARACTS (2004). Past Anesthesia/Blood Transfusion Reactions: Postoperative Nausea & Vomiting ( PONV) Type of Cardiac Device: Permanent Pacemaker Device Placement Date:: 2001 Past Psychological History: Anxiety Smoking Status: Former smoker Past Alcohol Use History: None Reported Additional Past Alcohol Use History / Comment(s): STARTED SMOKING AT 14 YRS OLD AND QUIT AT 34 YRS OLD. SMOKED 1PPD Past Drug Use History: None Reported - Past Family History Father Family Medical History: Cancer Additional Family Medical History / Comment(s): PROSTATE CA Son(s) Family Medical History: Cancer Additional Family Medical History / Comment(s): 2 SONS -PROSTATE CA Daughter(s) Family Medical History: Cancer Additional Family Medical History / Comment(s): BREAST CA Medications and Allergies Home Medications Medication Instructions Recorded Confirmed Type ALPRAZolam [Xanax] 0.5 mg PO BID PRN 01/04/15 10/23/17 History Furosemide [Lasix] 40 mg PO BID 01/04/15 10/23/17 History Lisinopril [Zestril] 5 mg PO DAILY 01/04/15 10/23/17 History Metoprolol Tartrate [Lopressor] 50 mg PO DAILY 01/04/15 10/23/17 History Spironolactone [Aldactone] 25 mg PO DAILY 01/04/15 10/23/17 History Warfarin [Coumadin] 5 mg PO SUTH 01/04/15 10/23/17 History Hydrocodone/Acetaminophen [[place] 1 tab PO Q8H 12/22/15 10/23/17 History 10-325] fentaNYL 75MCG/HR PATCH [Duragesic 1 patch TRANSDERM Q72H 08/01/17 10/23/17 History 75MCG/HR] Metoprolol Tartrate [Lopressor] 25 mg PO HS 10/23/17 10/23/17 History Vit C/E/Zn/Coppr/Lutein/Zeaxan 1 cap PO BID 10/23/17 10/23/17 History [Preservision Areds 2 Softgel] Warfarin [Coumadin] 2.5 mg PO MOTUWEFRSA 10/23/17 10/23/17 History Allergies Allergy/AdvReac Type Severity Reaction Status Date / Time No Known Allergies Allergy Verified 10/23/17 17:41 Physical Exam Vitals: Vital Signs Temp Pulse Pulse Resp BP BP Pulse Ox 10/24/17 12:00 97.8 F 90 16 122/64 96 10/24/17 08:00 97.8 F 92 18 118/60 97 10/24/17 05:20 98.4 F 68 20 129/56 93 L 10/23/17 22:02 62 20 135/59 95 10/23/17 21:57 98.5 F 66 20 144/66 95 10/23/17 21:38 95 10/23/17 21:02 63 16 137/60 96 10/23/17 20:16 74 18 141/90 100 10/23/17 19:57 97.6 F 60 16 138/64 95 10/23/17 16:08 98.2 F 65 20 131/56 94 L Intake and Output 10/23/17 10/24/17 10/24/17 22:59 06:59 14:59 Intake Total 0 Output Total 450 Balance -450 0 Intake: Oral 0 Output: Urine 450 Other: # Voids 2 Weight 108.862 kg 127.3 kg PHYSICAL EXAMINATION: HEENT: Head is atraumatic, normocephalic. Pupils equal, round. Neck is supple. There is no elevated jugular venous pressure. HEART EXAMINATION: Heart sounds regular, S1 and S2 normal. No murmur or gallop heard. CHEST EXAMINATION: Lungs reveal diminished air entry bilaterally. No chest wall tenderness is noted on palpation or with deep breathing. ABDOMEN: Soft, nontender. Bowel sounds are heard. No organomegaly noted. EXTREMITIES: 2+ peripheral pulses with evidence of 2+ peripheral edema and erythema and blistering to bilateral lower legs. NEUROLOGIC patient is awake, alert and oriented x3, confusion and short-term memory loss noted. . Results 10/24/17 08:56 10/24/17 08:56 Cardiac Enzymes 10/23/17 10/23/17 10/24/17 Range/Units 18:35 18:53 08:56 AST 28 25 (14-36) U/L Troponin I 0.026 (0.000-0.034) ng/mL Coagulation 10/23/17 10/24/17 Range/Units 18:35 10:56 PT 27.5 H 27.8 H (9.0-12.0) sec APTT 28.3 (22.0-30.0) sec CBC 10/23/17 10/24/17 Range/Units 18:35 08:56 WBC 8.1 5.6 (3.8-10.6) k/uL RBC 4.22 4.00 (3.80-5.40) m/uL Hgb 13.4 12.3 (11.4-16.0) gm/dL Hct 41.0 39.0 (34.0-46.0) % Plt Count 160 150 (150-450) k/uL Comprehensive Metabolic Panel 10/23/17 10/24/17 Range/Units 18:35 08:56 Sodium 140 139 (137-145) mmol/L Potassium 4.7 4.6 (3.5-5.1) mmol/L Chloride 100 101 (98-107) mmol/L Carbon Dioxide 32 H 31 H (22-30) mmol/L BUN 25 H 22 H (7-17) mg/dL Creatinine 0.90 0.85 (0.52-1.04) mg/dL Glucose 105 H 158 H (74-99) mg/dL Calcium 9.7 9.1 (8.4-10.2) mg/dL AST 28 25 (14-36) U/L ALT 31 28 (9-52) U/L Alkaline Phosphatase 82 62 (38-126) U/L Total Protein 6.5 5.7 L (6.3-8.2) g/dL Albumin 4.1 3.6 (3.5-5.0) g/dL Current Medications Generic Name Dose Route Start Last Admin Trade Name Freq PRN Reason Stop Dose Admin Hydrocodone Bitart/Acetaminophen 1 each 10/23/17 22:41 10/24/17 06:45 [place] 10 PO 1 each Q8H PRN Administration Pain Alprazolam 0.5 mg 10/23/17 22:17 10/23/17 22:58 Xanax PO 0.5 mg BID PRN Administration Anxiety Furosemide 20 mg 10/24/17 02:00 10/24/17 09:30 Lasix IV 20 mg Q8HR ISHA Administration Cefazolin Sodium/Dextrose 1, 50 mls @ 100 mls/hr 07/18/18 00:00 10/24/17 09: 30 000 mg/ IV Solution IVPB 100 mls/hr Q8HR ISHA Administration Lisinopril 5 mg 10/25/17 09:00 Zestril PO DAILY ISHA Metoprolol Tartrate 25 mg 10/24/17 21:00 Lopressor PO HS ISHA Metoprolol Tartrate 50 mg 10/24/17 09:00 10/24/17 09:30 Lopressor PO 50 mg DAILY ISHA Administration Multivitamins/Minerals 1 each 10/24/17 21:00 Ivite PO BID ISHA Naloxone HCl 0.2 mg 10/23/17 21:33 Narcan IV Q2M PRN Opioid Reversal Spironolactone 25 mg 10/25/17 09:00 Aldactone PO DAILY ISHA Warfarin Sodium 2.5 mg 10/24/17 18:00 Coumadin PO MOTUWEFRSA ISHA Warfarin Sodium 5 mg 10/25/17 18:00 Coumadin PO SUTH ISHA Intake and Output 10/23/17 10/24/17 10/24/17 22:59 06:59 14:59 Intake Total 0 Output Total 450 Balance -450 0 Intake: Oral 0 Output: Urine 450 Other: # Voids 2 Weight 108.862 kg 127.3 kg 10/24/17 08:56 10/24/17 08:56 EKG Interpretations (text) Atrial fibrillation with paced ventricular rhythm Assessment and Plan Assessment: #1 worsening lower extremity edema #2 right sided heart failure with cor pulmonale #3 history of COPD #4 chronic atrial fibrillation, on Coumadin #5 sick sinus syndrome, status post pacemaker Plan: From Cardiology's perspective, continue to diurese the patient with Lasix 20 mg IV every 8 hours. Monitor renal function, electrolytes, daily weight and intake and output. We will continue to follow the patient provide further recommendations accordingly. ENVIRONMENTAL SCIENTIST note has been reviewed, I agree with a documented findings and plan of care. Patient was seen and examined.
[2017-10-24] MEDS: WARFARIN 2.5 MG TAB PO SCH (18:06)
[2017-10-24 19:30] LABS: Hemoglobin A1C 5.9 % (4.0-6.0)
[2017-10-24] MEDS: VIT A,C & E-LUTEIN-MINERALS 1 EACH TAB PO SCH (19:57)
[2017-10-24] MEDS ORDERED: METOPROLOL TARTRATE 50 MG TAB PO SCH (21:00)
[2017-10-25] MEDS: ALPRAZolam 0.5 MG TAB PO PRN ×2 (03:40→12:26)
[2017-10-25 06:21] LABS: Basophils % (A) 1 %; Eosinophils # (A) 0.1 k/uL (0-0.7); Eosinophils % (A) 2 %; HCT 38.5 % (34.0-46.0); HGB 12.3 gm/dL (11.4-16.0); Lymphocytes # (A) 1.4 k/uL (1.0-4.8); Lymphocytes % (A) 22 %; MCH 30.8 pg (25.0-35.0); MCHC 31.9 g/dL (31.0-37.0); MCV 96.7 fL (80.0-100.0); Monocytes # (A) 0.5 k/uL (0-1.0); Monocytes % (A) 9 %; Neutrophils # (A) 4.1 k/uL (1.3-7.7); Neutrophils % (A) 64 %; Platelet Count 178 k/uL (150-450); RBC 3.98 m/uL (3.80-5.40); RDW 12.9 % (11.5-15.5); WBC 6.3 k/uL (3.8-10.6)
[2017-10-25 06:31] LABS: Albumin 3.5 g/dL (3.5-5.0); Potassium 4.1 mmol/L (3.5-5.1); Total Bilirubin 1.1 mg/dL (0.2-1.3); Total Protein 5.6 g/dL (6.3-8.2)
[2017-10-25 06:36] LABS: INR 2.5 (<1.2); Prothrombin Time 22.5 sec (9.0-12.0)
[2017-10-25] MEDS: HYDROcodone/APAP 10-325MG 1 EACH TAB PO PRN ×3 (07:02→21:41)
[2017-10-25] MEDS: LISINOPRIL 5 MG TAB PO SCH (08:44)
[2017-10-25] MEDS: FUROSEMIDE 10 MG/ML 2 ML VIAL IV SCH ×3 (08:44→22:41)
[2017-10-25] MEDS: SPIRONOLACTONE 25 MG TAB PO SCH (08:45)
[2017-10-25] MEDS: ceFAZolin 1,000 MG in DEXTROSE/WATER 1 50ML.BAG IVPB SCH ×3 (08:45→22:41)
[2017-10-25] MEDS: FAMOTIDINE 20 MG TAB PO SCH (08:45)
[2017-10-25] MEDS: VIT A,C & E-LUTEIN-MINERALS 1 EACH TAB PO SCH ×2 (08:45→20:02)
[2017-10-25] MEDS: METOPROLOL TARTRATE 50 MG TAB PO SCH (08:46)
--- NOTE | 2017-10-25 11:24 | P.PN ---
Subjective Progress Note Date: 10/25/17 This is a 82-year-old female patient of Dr. Hills. She presented to emergency department from her primary care doctor for evaluation of bilateral lower extremity edema and redness. She states that the edema has been progressively getting worse and is limited her ability to walk and now requiring assistance with a walker. Patient has a known medical history of atrial fibrillation in which she takes Coumadin, uterine cancer, diabetes mellitus diet controlled, hypertension, osteoarthritis, pacemaker, back surgery, cardiac ablation and anxiety. The extremity showing no evidence of DVT in bilateral legs. Level of the BNP level 2,840. Patient was given IV Lasix once and cardiology consult was ordered. 2-D echo has also been ordered. Patient was started on hospital for possible cellulitis. Urinary Analysis completed on Admission showed moderate amount of leukocyte Estrace. Urine culture has been ordered. Patient denies chest pain or shortness of breath at this time. Patient denies chest pain or shortness of breath at this time. Denies nausea vomiting or diarrhea. Denies urinary frequency or burning. Patient is eager to go home. Awaiting cardiology consult and 2-D echo completion. We'll continue to monitor patient closely. TSH and Hemoglobin A1c will be ordered. 10/24/2017 she is currently resting in bed comfortably. Cardiology consulted. The echo completed yesterday showing EF of 55-60% and severe pulmonary hypertension. Cardiology recommended continuing diurese the patient with Lasix 20 mg every 8 hours. Spoke to Case management in regards to discharge planning. PT recommending ECF facility. Patient requesting she would like to go home with possible home visiting nursing. Case management to readdress tomorrow. We'll continue physical therapy at this time. Patient remains on Kefzol antibiotic. Patient denies chest pain or shortness of breath. Denies nausea vomiting or diarrhea. Denies any urinary symptoms. Awaiting urine culture due to positive U/A. Objective - Vital Signs Vital signs: Vital Signs Temp 97.8 F 10/25/17 09:04 Pulse 68 10/25/17 09:04 Resp 18 10/25/17 09:04 BP 109/60 10/25/17 09:04 Pulse Ox 95 10/25/17 09:04 Intake & Output 10/24/17 10/25/17 10/25/17 18:59 06:59 18:59 Intake Total 180 650 100 Output Total 800 2500 Balance -620 -1850 100 Weight 129 kg Intake: Intake, IV Titration 50 Amount ceFAZolin 1,000 mg In 50 Dextrose/Water 1 50ml.bag @ 100 mls/hr IVPB Q8HR [facility] Rx#:[id number] Oral 180 600 100 Output: Urine 800 2500 - Exam Head normocephalic Neck supple Lungs clear to auscultation bilaterally no wheezing or crackles Heart regular rate and rhythm S1-S2, no rub or gallop Abdomen is soft nontender nondistended positive bowel sounds no hepatosplenomegaly Extremities no edema. +1 edema bilaterally on the lower extremities. Bilateral erythema to lower extremities Neuro alert and orientated to 3 - Labs CBC & Chem 7: 10/25/17 06:07 10/25/17 06:07 Labs: Abnormal Lab Results - Last 24 Hours (Table) 10/24/17 10/25/17 10/25/17 Range/Units 10:56 06:07 06:07 PT 27.8 H 22.5 H (9.0-12.0) sec INR 3.1 H 2.5 H (<1.2) Carbon Dioxide 34 H (22-30) mmol/L BUN 20 H (7-17) mg/dL Glucose 104 H (74-99) mg/dL Total Protein 5.6 L (6.3-8.2) g/dL Microbiology - Last 24 Hours (Table) 10/24/17 20:51 Urine Culture - Preliminary Urine,Voided 10/23/17 18:35 Blood Culture - Preliminary Blood No Growth after 24 hours Assessment and Plan Assessment: 1. Dystolic Congestive Heart failure and Severe Pulmonary Hypertension. BNP 2840 on admission. Increase lower extremity edema. Patient started on IV lasix 20mg q8hr. 2D echo completed showing an EF of 55-60% and severe pulmonary hypertension. Cardiology has been consulted. Per cardiology continue with Lasix 20 every 8 hours IV at this point. 2. Bilateral Edema and possible cellulites. Venous doppler negative for DVT. Kefazol antibiotic has been ordered. 3. Atrial Fibrillation- Resume home coumadin. INR 3.1. Will continue to monitor. INR 2.5 today continue Coumadin. 4. Urinary Tract infection- Urinary Analysis showing positive moderate Leukocyte estrayce. Urine culture ordered. 5. Essential Hypertension. Resume Aldactone, lopressor and Lisinopril 6. Diabetes Mellitus. Diet controlled at home. Hemoglobin A1C has been ordered. A1c 5.9 7. History of Uterine cancer 8. History of Pacemaker due to sick sinus syndrome. DVT Prophylaxis Coumadin, GI prophylaxis pepcid I performed an examination of the patient and discussed their management with the Nurse Practitioner. I have reviewed the Nurse Practitioner's notes and agree with the documented findings and plan of care
--- NOTE | 2017-10-25 12:22 | P.PN ---
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 Soto in the office. Has a known history of atrial fibrillation, sick sinus syndrome , status post pacemaker, chronic leg edema, right-sided heart failure, COPD, cor pulmonale. He is unable to her primary care physician's office with complaint of worsening lower extremity edema with blistering. She was subsequently directed to go to the emergency department for further evaluation and treatment. She denies complaints of shortness of breath, dizziness, lightheadedness, chest discomfort, orthopnea or PND. Echocardiogram on admission showed mild concentric LV hypertrophy with normal LV systolic function , ejection fraction between 55-60%. Also showed there is paradoxical/ dysynergic septal motion consistent with right ventricular volume overload and/ or elevated right ventricular end-diastolic pressure, severely enlarged RV, moderately enlarged RA, mild MR, severe tricuspid regurgitation and severe pulmonary hypertension with RVSP of 81.27 mmHg. Most recent echo done in the office in September 2016 showed moderately dilated RV with mildly decreased function , moderate tricuspid regurgitation and mildly increased PASP. Venous Doppler of the lower extremities show no evidence of DVT bilaterally. EKG showed atrial fibrillation with paced ventricular rhythm. She is anticoagulated on warfarin. On follow-up with the patient today,She is feeling better. The lower extremities edema has gotten down but she still have significant amount of fluid retention in the legs. No chest pain or chest discomfort and no shortness of breath. The patient has been diuresing very well on the current dose of IV Lasix. Objective - Vital Signs Vital signs: Vital Signs Temp 97.5 F L 10/25/17 11:35 Pulse 65 10/25/17 11:35 Resp 18 10/25/17 11:35 BP 134/60 10/25/17 11:35 Pulse Ox 92 L 10/25/17 11:35 Intake & Output 10/24/17 10/25/17 10/25/17 18:59 06:59 18:59 Intake Total 180 650 100 Output Total 800 2500 Balance -620 -1850 100 Weight 129 kg Intake: Intake, IV Titration 50 Amount ceFAZolin 1,000 mg In 50 Dextrose/Water 1 50ml.bag @ 100 mls/hr IVPB Q8HR [facility] Rx#:[id number] Oral 180 600 100 Output: Urine 800 2500 - Constitutional General appearance: Present: no acute distress - Respiratory Respiratory: bilateral: diminished - Cardiovascular Rhythm: irregularly irregular Heart sounds: normal: S1, S2 - Labs CBC & Chem 7: 10/25/17 06:07 10/25/17 06:07 Labs: Abnormal Lab Results - Last 24 Hours (Table) 10/25/17 10/25/17 Range/Units 06:07 06:07 PT 22.5 H (9.0-12.0) sec INR 2.5 H (<1.2) Carbon Dioxide 34 H (22-30) mmol/L BUN 20 H (7-17) mg/dL Glucose 104 H (74-99) mg/dL Total Protein 5.6 L (6.3-8.2) g/dL Microbiology - Last 24 Hours (Table) 10/24/17 20:51 Urine Culture - Preliminary Urine,Voided 10/23/17 18:35 Blood Culture - Preliminary Blood No Growth after 24 hours Assessment and Plan Assessment: assessment #1 congestive heart failure exacerbation secondary to diastolic dysfunction with predominantly right heart failure #2 cor pulmonale #3 chronic atrial fibrillation with controlled heart rate #4 status post permanent pacemaker implantation Plan #1 the patient has been diuresing well on the current dose of IV Lasix #2 we'll continue monitor the kidney function and electrolytes #3 the echocardiogram as described above #4 continue monitor the weight and input and output #5 follow-up with the patient.
[2017-10-25] MEDS: WARFARIN 5 MG TAB PO SCH (17:00)
[2017-10-25] MEDS: METOPROLOL TARTRATE 25 MG TAB PO SCH (20:02)
[2017-10-26 06:05] LABS: Basophils # (A) 0.1 k/uL (0-0.2); Basophils % (A) 1 %; Eosinophils # (A) 0.2 k/uL (0-0.7); Eosinophils % (A) 3 %; HCT 40.4 % (34.0-46.0); HGB 12.7 gm/dL (11.4-16.0); Lymphocytes # (A) 1.4 k/uL (1.0-4.8); Lymphocytes % (A) 19 %; MCH 30.7 pg (25.0-35.0); MCHC 31.5 g/dL (31.0-37.0); MCV 97.5 fL (80.0-100.0); Monocytes # (A) 0.6 k/uL (0-1.0); Monocytes % (A) 8 %; Neutrophils # (A) 4.8 k/uL (1.3-7.7); Neutrophils % (A) 67 %; Platelet Count 177 k/uL (150-450); RBC 4.14 m/uL (3.80-5.40); RDW 12.9 % (11.5-15.5); WBC 7.1 k/uL (3.8-10.6)
[2017-10-26 06:18] LABS: INR 2.1 (<1.2); Prothrombin Time 18.7 sec (9.0-12.0)
[2017-10-26 06:32] LABS: Albumin 3.5 g/dL (3.5-5.0); Potassium 4.3 mmol/L (3.5-5.1); Total Protein 5.6 g/dL (6.3-8.2)
[2017-10-26] MEDS: SPIRONOLACTONE 25 MG TAB PO SCH (09:37)
[2017-10-26] MEDS: LISINOPRIL 5 MG TAB PO SCH (09:37)
[2017-10-26] MEDS: FUROSEMIDE 10 MG/ML 2 ML VIAL IV SCH ×3 (09:37→23:45)
[2017-10-26] MEDS: FAMOTIDINE 20 MG TAB PO SCH (09:37)
[2017-10-26] MEDS: ceFAZolin 1,000 MG in DEXTROSE/WATER 1 50ML.BAG IVPB SCH ×3 (09:37→23:45)
[2017-10-26] MEDS: VIT A,C & E-LUTEIN-MINERALS 1 EACH TAB PO SCH ×2 (09:37→20:21)
[2017-10-26] MEDS: METOPROLOL TARTRATE 50 MG TAB PO SCH (09:38)
[2017-10-26] MEDS: HYDROcodone/APAP 10-325MG 1 EACH TAB PO PRN ×3 (09:45→23:49)
--- NOTE | 2017-10-26 11:30 | P.PN ---
Subjective Progress Note Date: 10/26/17 This is a 82-year-old female patient of Dr. Hills. She presented to emergency department from her primary care doctor for evaluation of bilateral lower extremity edema and redness. She states that the edema has been progressively getting worse and is limited her ability to walk and now requiring assistance with a walker. Patient has a known medical history of atrial fibrillation in which she takes Coumadin, uterine cancer, diabetes mellitus diet controlled, hypertension, osteoarthritis, pacemaker, back surgery, cardiac ablation and anxiety. The extremity showing no evidence of DVT in bilateral legs. Level of the BNP level 2,840. Patient was given IV Lasix once and cardiology consult was ordered. 2-D echo has also been ordered. Patient was started on hospital for possible cellulitis. Urinary Analysis completed on Admission showed moderate amount of leukocyte Estrace. Urine culture has been ordered. Patient denies chest pain or shortness of breath at this time. Patient denies chest pain or shortness of breath at this time. Denies nausea vomiting or diarrhea. Denies urinary frequency or burning. Patient is eager to go home. Awaiting cardiology consult and 2-D echo completion. We'll continue to monitor patient closely. TSH and Hemoglobin A1c will be ordered. 10/24/2017 she is currently resting in bed comfortably. Cardiology consulted. The echo completed yesterday showing EF of 55-60% and severe pulmonary hypertension. Cardiology recommended continuing diurese the patient with Lasix 20 mg every 8 hours. Spoke to Case management in regards to discharge planning. PT recommending ECF facility. Patient requesting she would like to go home with possible home visiting nursing. Case management to readdress tomorrow. We'll continue physical therapy at this time. Patient remains on Kefzol antibiotic. Patient denies chest pain or shortness of breath. Denies nausea vomiting or diarrhea. Denies any urinary symptoms. Awaiting urine culture due to positive U/A. 10/26/2017 patient still having lower extremity edema. She worked with physical therapy this morning is complaining of arthritic pain throughout her body. She denies any chest pain or shortness of breath. Denies any nausea or vomiting. Reports having bowel movements denies any difficulty urinating. Weight is trending down from 129 kg 224 kg. She remains on IV Lasix 20 mg every 8 hours. Objective - Vital Signs Vital signs: Vital Signs Temp 98.4 F 10/26/17 08:00 Pulse 70 10/26/17 08:00 Resp 18 10/26/17 08:00 BP 131/84 10/26/17 08:00 Pulse Ox 96 10/26/17 08:00 Intake & Output 10/25/17 10/26/17 10/26/17 18:59 06:59 18:59 Intake Total 680 400 118 Output Total 1000 2450 Balance -320 -2050 118 Weight 124 kg Intake: Oral 680 400 118 Output: Urine 1000 2450 - Exam Head normocephalic Neck supple Lungs diminished bilaterally Heart regular rate and rhythm S1-S2, no rub or gallop Abdomen is soft nontender nondistended positive bowel sounds no hepatosplenomegaly Extremities +1 edema bilaterally Neuro alert and orientated to 3 - Labs CBC & Chem 7: 10/26/17 05:38 10/26/17 05:38 Labs: Abnormal Lab Results - Last 24 Hours (Table) 10/26/17 10/26/17 Range/Units 05:38 05:38 PT 18.7 H (9.0-12.0) sec INR 2.1 H (<1.2) Chloride 97 L (98-107) mmol/L Carbon Dioxide 36 H (22-30) mmol/L BUN 23 H (7-17) mg/dL Creatinine 1.08 H (0.52-1.04) mg/dL Glucose 106 H (74-99) mg/dL Total Protein 5.6 L (6.3-8.2) g/dL Microbiology - Last 24 Hours (Table) 10/24/17 20:51 Urine Culture - Final Urine,Voided 10/23/17 18:35 Blood Culture - Preliminary Blood No Growth after 48 hours Assessment and Plan Assessment: 1. Acute on chronic Dystolic Congestive Heart failure exacerbation with severe pulmonary hypertension and severe tricuspid regurgitation noted on echo. BNP 2840 on admission. Echo shows an EF of 50-55%. She remains on IV Lasix 20 mg every 8 hours. Cardiology following. She has had decrease in her weight. 2. Bilateral Edema and possible cellulites. Venous doppler negative for DVT. Kefazol antibiotic has been ordered. 3. Atrial Fibrillation- Resume home coumadin. INR 2.1. Continue Coumadin 4. Urinary Tract infection- urine culture negative. Continue Kefzol 5. Essential Hypertension. Resume Aldactone, lopressor and Lisinopril 6. Diabetes Mellitus. Diet controlled at home. Hemoglobin A1C has been ordered. A1c 5.9 7. History of Uterine cancer 8. History of Pacemaker due to sick sinus syndrome. DVT Prophylaxis Coumadin, GI prophylaxis pepcid Patient is not ready to be transferred off of the sixth floor. She is still requiring close cardiac monitoring and requiring IV Lasix Patient evaluated by physical therapy they're recommending ECF placement. Awaiting PT report for today. Previously patient wanted to go home with home care. staff development manager and social media marketing specialist will be addressing possible ECF placement again with patient and family today I performed an examination of the patient and discussed their management with the physician Lighting Fixtures Decorator. I have reviewed the Physician Lighting Fixtures Decorator's notes and agree with the documented findings and plan of care
--- NOTE | 2017-10-26 12:16 | P.PN ---
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 Soto in the office. Has a known history of atrial fibrillation, sick sinus syndrome , status post pacemaker, chronic leg edema, right-sided heart failure, COPD, cor pulmonale. He is unable to her primary care physician's office with complaint of worsening lower extremity edema with blistering. She was subsequently directed to go to the emergency department for further evaluation and treatment. She denies complaints of shortness of breath, dizziness, lightheadedness, chest discomfort, orthopnea or PND. Echocardiogram on admission showed mild concentric LV hypertrophy with normal LV systolic function , ejection fraction between 55-60%. Also showed there is paradoxical/ dysynergic septal motion consistent with right ventricular volume overload and/ or elevated right ventricular end-diastolic pressure, severely enlarged RV, moderately enlarged RA, mild MR, severe tricuspid regurgitation and severe pulmonary hypertension with RVSP of 81.27 mmHg. Most recent echo done in the office in September 2016 showed moderately dilated RV with mildly decreased function , moderate tricuspid regurgitation and mildly increased PASP. Venous Doppler of the lower extremities show no evidence of DVT bilaterally. EKG showed atrial fibrillation with paced ventricular rhythm. She is anticoagulated on warfarin. On follow-up with the patient today, 11/02/2017, she is feeling better. The lower extremities edema has improved. She still have fluid retention in the lower extremities. She continues to be on Lasix IV and the creatinine is slightly worse today. Denies having any chest pain or chest discomfort. I am going to keep the patient on Lasix IV for additional 24 hour with continue monitor the kidney function and electrolytes. Objective - Vital Signs Vital signs: Vital Signs Temp 98.5 F 10/26/17 11:42 Pulse 67 10/26/17 11:42 Resp 16 10/26/17 11:42 BP 111/56 10/26/17 11:42 Pulse Ox 93 L 10/26/17 11:42 Intake & Output 10/25/17 10/26/17 10/26/17 18:59 06:59 18:59 Intake Total 680 400 218 Output Total 1000 2450 Balance -320 -2049 218 Weight 124 kg Intake: Intake, IV Titration 100 Amount ceFAZolin 1,000 mg In 100 Dextrose/Water 1 50ml.bag @ 100 mls/hr IVPB Q8HR [facility] Rx#:[id number] Oral 680 400 118 Output: Urine 1000 2450 - Constitutional General appearance: Present: no acute distress - Respiratory Respiratory: bilateral: diminished - Cardiovascular Rhythm: irregularly irregular Heart sounds: normal: S1, S2 - Labs CBC & Chem 7: 10/26/17 05:38 10/26/17 05:38 Labs: Abnormal Lab Results - Last 24 Hours (Table) 10/26/17 10/26/17 Range/Units 05:38 05:38 PT 18.7 H (9.0-12.0) sec INR 2.1 H (<1.2) Chloride 97 L (98-107) mmol/L Carbon Dioxide 36 H (22-30) mmol/L BUN 23 H (7-17) mg/dL Creatinine 1.08 H (0.52-1.04) mg/dL Glucose 106 H (74-99) mg/dL Total Protein 5.6 L (6.3-8.2) g/dL Microbiology - Last 24 Hours (Table) 10/24/17 20:51 Urine Culture - Final Urine,Voided 10/23/17 18:35 Blood Culture - Preliminary Blood No Growth after 48 hours Assessment and Plan Assessment: assessment #1 congestive heart failure exacerbation secondary to diastolic dysfunction with predominantly right heart failure #2 severe pulmonary hypertension #3 chronic atrial fibrillation with controlled heart rate #4 status post permanent pacemaker implantation Plan #1 continue the IV diuretics for additional 24 hours #2 we'll continue monitor the kidney function and electrolytes #3 the echocardiogram as described above #4 continue monitor the weight and input and output #5 follow-up with the patient.
[2017-10-26] MEDS: WARFARIN 2.5 MG TAB PO SCH (16:56)
[2017-10-26] MEDS: METOPROLOL TARTRATE 25 MG TAB PO SCH (20:21)
[2017-10-27] MEDS: HYDROcodone/APAP 10-325MG 1 EACH TAB PO PRN ×2 (06:19→21:24)
[2017-10-27 06:48] LABS: Basophils # (A) 0.1 k/uL (0-0.2); Basophils % (A) 1 %; Eosinophils # (A) 0.2 k/uL (0-0.7); Eosinophils % (A) 3 %; Lymphocytes # (A) 2.1 k/uL (1.0-4.8); Lymphocytes % (A) 30 %; MCH 30.5 pg (25.0-35.0); MCHC 31.8 g/dL (31.0-37.0); Mean Platelet Volume 7.1; Monocytes # (A) 0.4 k/uL (0-1.0); Monocytes % (A) 6 %; Neutrophils % (A) 58 %; Platelet Count 179 k/uL (150-450); RBC 4.27 m/uL (3.80-5.40); RDW 12.7 % (11.5-15.5); WBC 6.9 k/uL (3.8-10.6)
[2017-10-27 06:54] LABS: INR 1.7 (<1.2)
[2017-10-27 06:58] LABS: Albumin 3.7 g/dL (3.5-5.0); Potassium 4.4 mmol/L (3.5-5.1); Total Protein 5.8 g/dL (6.3-8.2)
[2017-10-27] MEDS: ceFAZolin 1,000 MG in DEXTROSE/WATER 1 50ML.BAG IVPB SCH ×3 (09:28→23:32)
[2017-10-27] MEDS: FUROSEMIDE 10 MG/ML 2 ML VIAL IV SCH (09:30)
[2017-10-27] MEDS: METOPROLOL TARTRATE 50 MG TAB PO SCH (09:31)
[2017-10-27] MEDS: LISINOPRIL 5 MG TAB PO SCH (09:31)
[2017-10-27] MEDS: FAMOTIDINE 20 MG TAB PO SCH (09:31)
[2017-10-27] MEDS: SPIRONOLACTONE 25 MG TAB PO SCH (09:31)
[2017-10-27] MEDS: VIT A,C & E-LUTEIN-MINERALS 1 EACH TAB PO SCH ×2 (09:31→21:09)
--- NOTE | 2017-10-27 10:45 | P.PN ---
Subjective Progress Note Date: 10/27/17 This is a 82-year-old female patient of Dr. Hills. She presented to emergency department from her primary care doctor for evaluation of bilateral lower extremity edema and redness. She states that the edema has been progressively getting worse and is limited her ability to walk and now requiring assistance with a walker. Patient has a known medical history of atrial fibrillation in which she takes Coumadin, uterine cancer, diabetes mellitus diet controlled, hypertension, osteoarthritis, pacemaker, back surgery, cardiac ablation and anxiety. The extremity showing no evidence of DVT in bilateral legs. Level of the BNP level 2,840. Patient was given IV Lasix once and cardiology consult was ordered. 2-D echo has also been ordered. Patient was started on hospital for possible cellulitis. Urinary Analysis completed on Admission showed moderate amount of leukocyte Estrace. Urine culture has been ordered. Patient denies chest pain or shortness of breath at this time. Patient denies chest pain or shortness of breath at this time. Denies nausea vomiting or diarrhea. Denies urinary frequency or burning. Patient is eager to go home. Awaiting cardiology consult and 2-D echo completion. We'll continue to monitor patient closely. TSH and Hemoglobin A1c will be ordered. 10/24/2017 she is currently resting in bed comfortably. Cardiology consulted. The echo completed yesterday showing EF of 55-60% and severe pulmonary hypertension. Cardiology recommended continuing diurese the patient with Lasix 20 mg every 8 hours. Spoke to Case management in regards to discharge planning. PT recommending ECF facility. Patient requesting she would like to go home with possible home visiting nursing. Case management to readdress tomorrow. We'll continue physical therapy at this time. Patient remains on Kefzol antibiotic. Patient denies chest pain or shortness of breath. Denies nausea vomiting or diarrhea. Denies any urinary symptoms. Awaiting urine culture due to positive U/A. 10/26/2017 patient still having lower extremity edema. She worked with physical therapy this morning is complaining of arthritic pain throughout her body. She denies any chest pain or shortness of breath. Denies any nausea or vomiting. Reports having bowel movements denies any difficulty urinating. Weight is trending down from 129 kg 224 kg. She remains on IV Lasix 20 mg every 8 hours. On 10/27/2017 patient is currently sitting up in chair. Patient does report that edema is improving. Patient expresses that she is anxious at times management is recommending her to go to [facility] for rehab the patient would like to go home. Patient denies chest pain or shortness breath at this time. Weight 121.3 kg down from 124 kg. Creatinine improving from yesterday to 1.01. Patient remains on IV Lasix 20 mg every 8 hours. Initial UA was positive for leukocyte esterase. Urine culture negative. Objective - Vital Signs Vital signs: Vital Signs Temp 97.0 F L 10/27/17 08:00 Pulse 65 10/27/17 08:00 Resp 18 10/27/17 08:00 BP 119/56 10/27/17 08:00 Pulse Ox 96 10/27/17 08:00 Intake & Output 10/26/17 10/27/17 10/27/17 18:59 06:59 18:59 Intake Total 458 400 240 Output Total 700 850 Balance -242 -450 240 Weight 121.3 kg Intake: IV 160 Invasive Line 2 160 Intake, IV Titration 100 Amount ceFAZolin 1,000 mg In 100 Dextrose/Water 1 50ml.bag @ 100 mls/hr IVPB Q8HR [facility] Rx#:[id number] Oral 358 240 240 Output: Urine 700 850 Other: Voiding Method Bedside Commode - Exam Head normocephalic Neck supple Lungs clear to auscultation bilaterally no wheezing or crackles Heart regular rate and rhythm S1-S2, no rub or gallop Abdomen is soft nontender nondistended positive bowel sounds no hepatosplenomegaly Extremities no edema. +1 edema bilaterally on the lower extremities. Bilateral erythema to lower extremities Neuro alert and orientated to 3 - Labs CBC & Chem 7: 10/27/17 06:21 10/27/17 06:21 Labs: Abnormal Lab Results - Last 24 Hours (Table) 10/27/17 10/27/17 Range/Units 06:21 06:21 PT 16.0 H (9.0-12.0) sec INR 1.7 H (<1.2) Chloride 97 L (98-107) mmol/L Carbon Dioxide 34 H (22-30) mmol/L BUN 28 H (7-17) mg/dL Glucose 107 H (74-99) mg/dL Total Protein 5.8 L (6.3-8.2) g/dL Microbiology - Last 24 Hours (Table) 10/23/17 18:35 Blood Culture - Preliminary Blood No Growth after 72 hours Assessment and Plan Assessment: 1. Acute on chronic Dystolic Congestive Heart failure exacerbation with severe pulmonary hypertension and severe tricuspid regurgitation noted on echo. BNP 2840 on admission. Echo shows an EF of 50-55%. She remains on IV Lasix 20 mg every 8 hours. Cardiology following. She has had decrease in her weight. Patient's weight 121.3 kg down from 1.4 kg yesterday. She remains on Lasix 20 mg IV every 8 hours. Cardiology following 2. Bilateral Edema and possible cellulites. Venous doppler negative for DVT. Kefazol antibiotic has been ordered. 3. Atrial Fibrillation- Resume home coumadin. INR 2.1. Continue Coumadin 4. Urinary Tract infection- urine culture negative. Continue Kefzol. Urine culture negative 5. Essential Hypertension. Resume Aldactone, lopressor and Lisinopril 6. Diabetes Mellitus. Diet controlled at home. Hemoglobin A1C has been ordered. A1c 5.9 7. History of Uterine cancer 8. History of Pacemaker due to sick sinus syndrome. DVT Prophylaxis Coumadin, GI prophylaxis pepcid Patient is not ready to be transferred off of the sixth floor. She is still requiring close cardiac monitoring and requiring IV Lasix Patient evaluated by physical therapy they're recommending ECF placement. Awaiting PT report for today. Previously patient wanted to go home with home care. occupational health and safety manager and executive secretary social welfare will be addressing possible ECF placement again with patient and family today I performed an examination of the patient and discussed their management with the Nurse Practitioner. I have reviewed the Nurse Practitioner's notes and agree with the documented findings and plan of care
[2017-10-27] MEDS: ALPRAZolam 0.5 MG TAB PO PRN (11:32)
--- NOTE | 2017-10-27 14:31 | P.PN ---
Progress Note - Text Progress Note Date: 10/27/17 Seen and examined on 10/27/2017 Agree was full note dictated by nurse practitioner Admitted for congestive heart failure echocardiogram reveals evidence of severe pulmonary hypertension Improving gradually Also has evidence of bilateral lower extremity cellulitis Also severe weakness requiring rehab admission after discharge
--- NOTE | 2017-10-27 14:49 | P.PN ---
Subjective Progress Note Date: 10/27/17 This is a pleasant 82-year-old female patient who follows with Dr. Soto in the office. Has a known history of atrial fibrillation, sick sinus syndrome , status post pacemaker, chronic leg edema, right-sided heart failure, COPD, cor pulmonale. He is unable to her primary care physician's office with complaint of worsening lower extremity edema with blistering. She was subsequently directed to go to the emergency department for further evaluation and treatment. She denies complaints of shortness of breath, dizziness, lightheadedness, chest discomfort, orthopnea or PND. Echocardiogram on admission showed mild concentric LV hypertrophy with normal LV systolic function , ejection fraction between 55-60%. Also showed there is paradoxical/ dysynergic septal motion consistent with right ventricular volume overload and/ or elevated right ventricular end-diastolic pressure, severely enlarged RV, moderately enlarged RA, mild MR, severe tricuspid regurgitation and severe pulmonary hypertension with RVSP of 81.27 mmHg. Most recent echo done in the office in September 2016 showed moderately dilated RV with mildly decreased function , moderate tricuspid regurgitation and mildly increased PASP. Venous Doppler of the lower extremities show no evidence of DVT bilaterally. EKG showed atrial fibrillation with paced ventricular rhythm. She is anticoagulated on warfarin. 10/27/2017 Patient seen and examined this morning, sitting up in the chair at bedside. Overall feeling significantly better. Continues to have bilateral peripheral edema however much improved. Her weight is down 3 kg creatinine is 1.0, BUN 28. Discontinue the IV Lasix today and start the patient on Lasix 60 mg by mouth twice a day. On discharge would recommend patient to follow-up with Dr. Soto in the office post discharge. Objective - Vital Signs Vital signs: Vital Signs Temp 97.1 F L 10/27/17 11:25 Pulse 64 10/27/17 11:25 Resp 18 10/27/17 11:25 BP 109/55 10/27/17 11:25 Pulse Ox 94 L 10/27/17 11:25 Intake & Output 10/26/17 10/27/17 10/27/17 18:59 06:59 18:59 Intake Total 458 400 240 Output Total 700 850 100 Balance -242 -450 140 Weight 121.3 kg Intake: IV 160 Invasive Line 2 160 Intake, IV Titration 100 Amount ceFAZolin 1,000 mg In 100 Dextrose/Water 1 50ml.bag @ 100 mls/hr IVPB Q8HR [facility] Rx#:[id number] Oral 358 240 240 Output: Urine 700 850 100 Other: Voiding Method Bedside Commode # Voids 1 - Exam PHYSICAL EXAMINATION: HEENT: Head is atraumatic, normocephalic. Pupils equal, round. Neck is supple. There is no elevated jugular venous pressure. HEART EXAMINATION: Heart sounds regular, S1 and S2 normal. No murmur or gallop heard. CHEST EXAMINATION: Lungs reveal diminished air entry bilaterally. No chest wall tenderness is noted on palpation or with deep breathing. ABDOMEN: Soft, nontender. Bowel sounds are heard. No organomegaly noted. EXTREMITIES: 2+ peripheral pulses with evidence of 1+ peripheral edema and erythema and blistering to bilateral lower legs. NEUROLOGIC patient is awake, alert and oriented x3, confusion and short-term memory loss noted. - Labs CBC & Chem 7: 10/27/17 06:21 10/27/17 06:21 Labs: Abnormal Lab Results - Last 24 Hours (Table) 10/27/17 10/27/17 Range/Units 06:21 06:21 PT 16.0 H (9.0-12.0) sec INR 1.7 H (<1.2) Chloride 97 L (98-107) mmol/L Carbon Dioxide 34 H (22-30) mmol/L BUN 28 H (7-17) mg/dL Glucose 107 H (74-99) mg/dL Total Protein 5.8 L (6.3-8.2) g/dL Microbiology - Last 24 Hours (Table) 10/23/17 18:35 Blood Culture - Preliminary Blood No Growth after 72 hours Assessment and Plan Plan: Assessment: #1 worsening lower extremity edema #2 right sided heart failure with cor pulmonale #3 history of COPD #4 chronic atrial fibrillation, on Coumadin #5 sick sinus syndrome, status post pacemaker Plan Cardiology's perspective, patient may be able to be discharged once cleared by Dr. Cedillo. We will make a follow-up appointment in the office with Dr. Soto post discharge. DNP note has been reviewed, I agree with a documented findings and plan of care. Patient was seen and examined.
[2017-10-27] MEDS: FUROSEMIDE 20 MG TAB PO SCH (15:20)
[2017-10-27] MEDS: WARFARIN 2.5 MG TAB PO SCH (16:46)
[2017-10-27] MEDS ORDERED: WARFARIN 5 MG TAB PO ONE (18:00)
[2017-10-27] MEDS: METOPROLOL TARTRATE 25 MG TAB PO SCH (21:09)
[2017-10-28] MEDS: HYDROcodone/APAP 10-325MG 1 EACH TAB PO PRN ×3 (04:18→19:41)
[2017-10-28 06:33] LABS: Basophils % (A) 1 %; Eosinophils # (A) 0.2 k/uL (0-0.7); Eosinophils % (A) 3 %; HCT 39.1 % (34.0-46.0); HGB 12.6 gm/dL (11.4-16.0); Lymphocytes # (A) 1.7 k/uL (1.0-4.8); Lymphocytes % (A) 25 %; MCHC 32.2 g/dL (31.0-37.0); MCV 96.4 fL (80.0-100.0); Mean Platelet Volume 7.1; Monocytes # (A) 0.6 k/uL (0-1.0); Monocytes % (A) 9 %; Neutrophils # (A) 4.1 k/uL (1.3-7.7); Neutrophils % (A) 60 %; Platelet Count 181 k/uL (150-450); RBC 4.05 m/uL (3.80-5.40); RDW 12.8 % (11.5-15.5); WBC 6.8 k/uL (3.8-10.6)
[2017-10-28 06:46] LABS: Albumin 3.5 g/dL (3.5-5.0); Calcium 9.2 mg/dL (8.4-10.2); Potassium 4.5 mmol/L (3.5-5.1); Total Bilirubin 0.8 mg/dL (0.2-1.3); Total Protein 5.6 g/dL (6.3-8.2)
[2017-10-28 06:49] LABS: INR 1.8 (<1.2); Prothrombin Time 16.8 sec (9.0-12.0)
[2017-10-28] MEDS: FAMOTIDINE 20 MG TAB PO SCH (08:27)
[2017-10-28] MEDS: LISINOPRIL 5 MG TAB PO SCH (08:27)
[2017-10-28] MEDS: SPIRONOLACTONE 25 MG TAB PO SCH (08:27)
[2017-10-28] MEDS: VIT A,C & E-LUTEIN-MINERALS 1 EACH TAB PO SCH ×2 (08:27→19:41)
[2017-10-28] MEDS: FUROSEMIDE 20 MG TAB PO SCH ×2 (08:27→16:52)
[2017-10-28] MEDS: METOPROLOL TARTRATE 50 MG TAB PO SCH (08:27)
[2017-10-28] MEDS: ALPRAZolam 0.5 MG TAB PO PRN (08:37)
--- NOTE | 2017-10-28 09:16 | P.PN ---
Subjective Progress Note Date: 10/28/17 This is a 82-year-old female patient of Dr. Hills. She presented to emergency department from her primary care doctor for evaluation of bilateral lower extremity edema and redness. She states that the edema has been progressively getting worse and is limited her ability to walk and now requiring assistance with a walker. Patient has a known medical history of atrial fibrillation in which she takes Coumadin, uterine cancer, diabetes mellitus diet controlled, hypertension, osteoarthritis, pacemaker, back surgery, cardiac ablation and anxiety. The extremity showing no evidence of DVT in bilateral legs. Level of the BNP level 2,840. Patient was given IV Lasix once and cardiology consult was ordered. 2-D echo has also been ordered. Patient was started on hospital for possible cellulitis. Urinary Analysis completed on Admission showed moderate amount of leukocyte Estrace. Urine culture has been ordered. Patient denies chest pain or shortness of breath at this time. Patient denies chest pain or shortness of breath at this time. Denies nausea vomiting or diarrhea. Denies urinary frequency or burning. Patient is eager to go home. Awaiting cardiology consult and 2-D echo completion. We'll continue to monitor patient closely. TSH and Hemoglobin A1c will be ordered. 10/24/2017 she is currently resting in bed comfortably. Cardiology consulted. The echo completed yesterday showing EF of 55-60% and severe pulmonary hypertension. Cardiology recommended continuing diurese the patient with Lasix 20 mg every 8 hours. Spoke to Case management in regards to discharge planning. PT recommending ECF facility. Patient requesting she would like to go home with possible home visiting nursing. Case management to readdress tomorrow. We'll continue physical therapy at this time. Patient remains on Kefzol antibiotic. Patient denies chest pain or shortness of breath. Denies nausea vomiting or diarrhea. Denies any urinary symptoms. Awaiting urine culture due to positive U/A. 10/26/2017 patient still having lower extremity edema. She worked with physical therapy this morning is complaining of arthritic pain throughout her body. She denies any chest pain or shortness of breath. Denies any nausea or vomiting. Reports having bowel movements denies any difficulty urinating. Weight is trending down from 129 kg 224 kg. She remains on IV Lasix 20 mg every 8 hours. On 10/27/2017 patient is currently sitting up in chair. Patient does report that edema is improving. Patient expresses that she is anxious at times management is recommending her to go to [facility] for rehab the patient would like to go home. Patient denies chest pain or shortness breath at this time. Weight 121.3 kg down from 124 kg. Creatinine improving from yesterday to 1.01. Patient remains on IV Lasix 20 mg every 8 hours. Initial UA was positive for leukocyte esterase. Urine culture negative. On 10/28/2017 patient is alert and oriented 3 she is laying comfortably in bed shortness of breath and lower extremity edema has improved significantly, weight today 121.7 kg IV Lasix was discontinued yesterday and patient was started on Lasix 60 mg by mouth twice daily she is still maintained on IV cefazolin for lower extremity cellulitis. She denies any chest pain no shortness of breath at rest she has fatigue and shortness of breath when she tries to walk she has generalized weakness, she walks with a walker, she is not very steady with her walking, family and case management are working for possible rehab admission, however patient is requesting to be discharged home, will reassess discharge destination tomorrow will meet with patient and her family and decide in that regard to discharge destination, plan for discharge tomorrow. Objective - Vital Signs Vital signs: Vital Signs Temp 97 F L 10/28/17 08:00 Pulse 66 10/28/17 08:00 Resp 16 10/28/17 08:00 BP 121/62 10/28/17 08:00 Pulse Ox 95 10/28/17 08:00 Intake & Output 10/27/17 10/28/17 10/28/17 18:59 06:59 18:59 Intake Total 462 550 240 Output Total 550 Balance -88 550 240 Weight 121.7 kg Intake: IV 20 Invasive Line 3 20 Intake, IV Titration 50 Amount ceFAZolin 1,000 mg In 50 Dextrose/Water 1 50ml.bag @ 100 mls/hr IVPB Q8HR [facility] Rx#:[id number] Oral 462 480 240 Output: Urine 550 Other: Voiding Method Bedside Commode Bedside Commode # Voids 2 2 - Exam Head normocephalic and atraumatic Neck supple no JVD no goiter no lymphadenopathy Lungs clear to auscultation bilaterally no wheezing or crackles Heart regular rate and rhythm S1-S2, no rub or gallop Abdomen is soft nontender nondistended positive bowel sounds no hepatosplenomegaly Extremities +1 edema bilaterally on the lower extremities. Bilateral erythema to lower extremities Neuro alert and orientated to 3 - Labs CBC & Chem 7: 10/28/17 06:02 10/28/17 06:02 Labs: Abnormal Lab Results - Last 24 Hours (Table) 10/28/17 10/28/17 Range/Units 06:02 06:02 PT 16.8 H (9.0-12.0) sec INR 1.8 H (<1.2) Chloride 97 L (98-107) mmol/L Carbon Dioxide 37 H (22-30) mmol/L BUN 28 H (7-17) mg/dL Glucose 112 H (74-99) mg/dL Total Protein 5.6 L (6.3-8.2) g/dL Microbiology - Last 24 Hours (Table) 10/23/17 18:35 Blood Culture - Preliminary Blood No Growth after 96 hours Assessment and Plan Plan: 1. Acute on chronic Dyastolic Congestive Heart failure exacerbation with severe pulmonary hypertension and severe tricuspid regurgitation noted on echo. BNP 2840 on admission. Echo shows an EF of 50-55%. She remains on IV Lasix 20 mg every 8 hours. Cardiology following. She has had decrease in her weight. Patient's weight 121.3 kg down from 1.4 kg yesterday. She remains on Lasix 20 mg IV every 8 hours. Cardiology following 2. Bilateral Edema and possible cellulites. Venous doppler negative for DVT. Kefazol antibiotic has been ordered. 3. Atrial Fibrillation- Resume home coumadin. INR 2.1. Continue Coumadin 4. Urinary Tract infection- urine culture negative. Continue Kefzol. Urine culture negative 5. Essential Hypertension. Resume Aldactone, lopressor and Lisinopril 6. Diabetes Mellitus. Diet controlled at home. Hemoglobin A1C has been ordered. A1c 5.9 7. History of Uterine cancer 8. History of Pacemaker due to sick sinus syndrome. DVT Prophylaxis Coumadin, GI prophylaxis pepcid Patient is not ready to be transferred off of the sixth floor. She is still requiring close cardiac monitoring and requiring IV Lasix Patient evaluated by physical therapy they're recommending ECF placement. Awaiting PT report for today. Previously patient wanted to go home with home care. sales project manager and social work coordinator will be addressing possible ECF placement again with patient and family tomorrow.
[2017-10-28] MEDS: ceFAZolin 1,000 MG in DEXTROSE/WATER 1 50ML.BAG IVPB SCH ×3 (12:47→23:11)
--- NOTE | 2017-10-28 13:25 | PN ---
PROGRESS NOTE Mrs. Lea is an 82-year-old female who was admitted to the hospital with symptoms of progressive dyspnea. She follows with Dr. Soto on a regular basis. She has history of atrial fibrillation, permanent pacemaker implantation, history of COPD. She is feeling better overall. She continued to have some dyspnea. She has not been very active physically. She denies any dizziness or palpitation. She denies any nausea. She continues to be at this time on Pepcid, Lasix 60 mg orally twice a day, Zestril 5 mg daily, metoprolol tartrate 50 mg in the morning, 25 in the afternoon, spironolactone 25 mg daily and Coumadin. PHYSICAL EXAMINATION: Blood pressure 121/60 with a heart rate in the 60s. LUNGS: Clear. Heart irregularly irregular S1, S2. No S3 with systolic murmur. ABDOMEN: Soft and nontender. Extremities with trace edema. LAB DATA: BUN and creatinine 28 and 1.04, potassium 4.5. IMPRESSION: 1. Atrial fibrillation, persistent, anticoagulated. 2. Symptoms of progressive dyspnea with worsening peripheral edema, right-sided failure. 3. Chronic obstructive pulmonary disease. 4. Status post permanent pacemaker implantation. RECOMMENDATION: She will continue present therapy. Increase her level of activity. If she remains stable I am hopeful that she should be able to be discharged home soon and follow as an outpatient with Dr. Soto. AMIRA / BUCK: [id number] /
[2017-10-28] MEDS: WARFARIN 5 MG TAB PO SCH (16:52)
[2017-10-28] MEDS: METOPROLOL TARTRATE 25 MG TAB PO SCH (19:41)
[2017-10-29] MEDS: HYDROcodone/APAP 10-325MG 1 EACH TAB PO PRN ×4 (04:21→23:10)
[2017-10-29] MEDS: ALPRAZolam 0.5 MG TAB PO PRN (04:37)
--- NOTE | 2017-10-29 06:20 | P.CONS ---
History of Present Illness - Chief Complaint Medical debility - History of Present Illness I had the opportunity to see patient for inpatient rehab consultation with regard to medical debility. She was admitted to [facility] October 23 bilateral lower extremity edema, worsening. Seen by cardiology for same. Lower extremity Doppler negative for DVT right and left leg. Patient noted to have diastolic heart failure in the lower extremity edema. PT reports minimal assistance for transfers and gait 30 feet with roller walker. OT reports minimal assistance for upper dressing and maximal assistance for lower dressing , bathing, toileting. Moderate assistance functional mobility. Previous functional history as elicited patient: 82-year-old right-handed white female who is lives in one floor home with . They are retired. They eat out a lot. Reports that they share the laundry. does the driving. Patient describes independent with sitdown shower and more recently sponge bath. Uses 4 wheeled walker for gait. Denies tobacco or alcohol. Dr. dion paniagua regular doctor. Family history of prostate cancer in father. Review of Systems Review of systems: ENT: Denies sneezes or discharge. Eyes: Denies discharge or photophobia. Cardiac: Denies chest pain or palpitation. Pulmonary: Denies cough or shortness of breath. Breast: Denies discharge or lumps. Gastrointestinal: Denies nausea, emesis, constipation, diarrhea. Genitourinary: Denies discharge or frequency. Musculoskeletal: Lower extremity discomforts. Neurologic: Generalized weakness. Endocrine: Denies shakes or sweats. Oncology: Denies cancers. Dermatologic: Denies rash, itching, pruritus. ALLERGY/immunology: Denies sneezes, rashes. Past Medical History Past Medical History: Atrial Fibrillation, Cancer, Diabetes Mellitus, Hypertension, Osteoarthritis (OA) Additional Past Medical History / Comment(s): PACEMAKER, DIABETES - DIET CONTROLLED, CHRONIC CONSTIPATION, NECK AND SHOULDER PAIN, LIMITED ROM SHOULDERS , HX OF UTERINE CANCER, USES WALKER AND W/C. History of Any Multi-Drug Resistant Organisms: None Reported Past Surgical History: Back Surgery, Cardiac Ablation, Hysterectomy, Joint Replacement, Pacemaker Additional Past Surgical History / Comment(s): JIE HIP REPLACEMENTS (2000 & 2005 ), JIE KNEE REPLACEMENT (1993), LEFT KNEE CAP (1994), PACEMAKER (2001), HYSTERECTOMY (1972), JIE CATARACTS (2004). Past Anesthesia/Blood Transfusion Reactions: Postoperative Nausea & Vomiting ( PONV) Type of Cardiac Device: Permanent Pacemaker Device Placement Date:: 2001 Past Psychological History: Anxiety Smoking Status: Former smoker Past Alcohol Use History: None Reported Additional Past Alcohol Use History / Comment(s): STARTED SMOKING AT 14 YRS OLD AND QUIT AT 34 YRS OLD. SMOKED 1PPD Past Drug Use History: None Reported - Past Family History Father Family Medical History: Cancer Additional Family Medical History / Comment(s): PROSTATE CA Son(s) Family Medical History: Cancer Additional Family Medical History / Comment(s): 2 SONS -PROSTATE CA Daughter(s) Family Medical History: Cancer Additional Family Medical History / Comment(s): BREAST CA Medications and Allergies Home Medications Medication Instructions Recorded Confirmed Type ALPRAZolam [Xanax] 0.5 mg PO BID PRN 01/04/15 10/23/17 History Furosemide [Lasix] 40 mg PO BID 01/04/15 10/23/17 History Lisinopril [Zestril] 5 mg PO DAILY 01/04/15 10/23/17 History Metoprolol Tartrate [Lopressor] 50 mg PO DAILY 01/04/15 10/23/17 History Spironolactone [Aldactone] 25 mg PO DAILY 01/04/15 10/23/17 History Warfarin [Coumadin] 5 mg PO SUTH 01/04/15 10/23/17 History Hydrocodone/Acetaminophen [[place] 1 tab PO Q8H 12/22/15 10/23/17 History 10-325] fentaNYL 75MCG/HR PATCH [Durages[place] 1 patch TRANSDERM Q72H 08/01/17 10/23/17 History 75MCG/HR] Metoprolol Tartrate [Lopressor] 25 mg PO HS 10/23/17 10/23/17 History Vit C/E/Zn/Coppr/Lutein/Zeaxan 1 cap PO BID 10/23/17 10/23/17 History [Preservision Areds 2 Softgel] Warfarin [Coumadin] 2.5 mg PO MOTUWEFRSA 10/23/17 10/23/17 History Allergies Allergy/AdvReac Type Severity Reaction Status Date / Time No Known Allergies Allergy Verified 10/23/17 17:41 Physical Exam Vitals: Vital Signs Temp Pulse Resp BP Pulse Ox 10/29/17 04:00 72 20 140/63 95 10/29/17 00:00 62 20 119/58 94 L 10/28/17 20:00 97.4 F L 63 18 113/58 95 10/28/17 15:52 16 10/28/17 12:00 64 16 115/59 93 L 10/28/17 11:35 16 10/28/17 08:00 97 F L 66 16 121/62 95 Intake and Output 10/28/17 10/28/17 10/29/17 14:59 22:59 06:59 Intake Total 462 222 Output Total 200 800 200 Balance 869 -578 -200 Intake: Oral 462 222 Output: Urine 200 800 200 Other: Voiding Method Bedside Commode Bedside Commode # Voids 4 5 Weight 121.5 kg Skin: Discoloration changes and edema changes forelegs. General: Obese build and comfortable appearance. Head: Normocephalic, atraumatic. Eyes: Symmetric. Pupils equal round. Ears: Symmetric. Hearing within normal limits. Mouth: Clear. Neck: Supple. Carotid without bruit. Cardiac: Regular rate and rhythm. Lungs: Clear anteriorly and posteriorly. Abdomen: Soft active nontender, overweight. Extremities: Overweight. Marked limitation at shoulders. Neurological: Mental status: Alert, cooperative, pleasant. Cranial nerves: Symmetric facial tone and trapezius. Motor: Poor elevation of arms and able to elevate the legs off of bed. Sensation: Intact throughout. DTRs: Symmetric and equal throughout. Mobility: Would require physical assistance to sit up. Results CBC & Chem 7: 10/28/17 06:02 10/28/17 06:02 Labs: Abnormal Lab Results - Last 24 Hours (Table) 10/28/17 10/28/17 Range/Units 06:02 06:02 PT 16.8 H (9.0-12.0) sec INR 1.8 H (<1.2) Chloride 97 L (98-107) mmol/L Carbon Dioxide 37 H (22-30) mmol/L BUN 28 H (7-17) mg/dL Glucose 112 H (74-99) mg/dL Total Protein 5.6 L (6.3-8.2) g/dL Microbiology - Last 24 Hours (Table) 10/23/17 18:35 Blood Culture - Preliminary Blood No Growth after 120 hours Assessment and Plan (1) CHF (congestive heart failure) Current Visit: Yes Status: Acute Code(s): I50.9 - HEART FAILURE, UNSPECIFIED SNOMED Code(s): 77637068 (2) Lower extremity edema Current Visit: Yes Status: Acute Code(s): R60.0 - LOCALIZED EDEMA SNOMED Code(s): 513603798 (3) Opioid-induced hyperalgesia Current Visit: No Status: Acute Code(s): R20.8 - OTHER DISTURBANCES OF SKIN SENSATION; T40.2X5A - ADVERSE EFFECT OF OTHER OPIOIDS, INITIAL ENCOUNTER SNOMED Code(s): 93834766 Plan: Impression: 1. Medical debility. 2. Lower extremity edema. 3. Diastolic heart failure. 4. Opioid-induced hyperalgesia. 5. Morbid obesity. 6. Hypertension. 7. Diabetes. 8. Osteoarthritis. 9. Atrial fibrillation. Comments and plan: At this time PT and OT are ongoing. Patient currently has safety concerns and would require assistance for discharge or return home. Must determine 's goals for patient to return to home.
[2017-10-29] MEDS: ceFAZolin 1,000 MG in DEXTROSE/WATER 1 50ML.BAG IVPB SCH ×3 (08:29→23:10)
[2017-10-29] MEDS: FAMOTIDINE 20 MG TAB PO SCH (08:32)
[2017-10-29] MEDS: FUROSEMIDE 20 MG TAB PO SCH ×2 (08:32→15:49)
[2017-10-29] MEDS: LISINOPRIL 5 MG TAB PO SCH (08:32)
[2017-10-29] MEDS: METOPROLOL TARTRATE 50 MG TAB PO SCH (08:33)
[2017-10-29] MEDS: SPIRONOLACTONE 25 MG TAB PO SCH (08:33)
[2017-10-29] MEDS: VIT A,C & E-LUTEIN-MINERALS 1 EACH TAB PO SCH ×2 (08:33→19:32)
[2017-10-29 11:18] LABS: Basophils % (A) 1 %; Eosinophils # (A) 0.2 k/uL (0-0.7); Eosinophils % (A) 3 %; HCT 39.1 % (34.0-46.0); HGB 12.5 gm/dL (11.4-16.0); Lymphocytes # (A) 1.3 k/uL (1.0-4.8); Lymphocytes % (A) 21 %; MCH 30.8 pg (25.0-35.0); Mean Platelet Volume 7.7; Monocytes # (A) 0.6 k/uL (0-1.0); Monocytes % (A) 9 %; Neutrophils # (A) 3.8 k/uL (1.3-7.7); Neutrophils % (A) 64 %; Platelet Count 188 k/uL (150-450); RBC 4.07 m/uL (3.80-5.40); RDW 12.8 % (11.5-15.5)
[2017-10-29 11:21] LABS: INR 2.4 (<1.2); Prothrombin Time 21.8 sec (9.0-12.0)
[2017-10-29 11:29] LABS: Albumin 3.5 g/dL (3.5-5.0); Calcium 9.3 mg/dL (8.4-10.2); Potassium 4.6 mmol/L (3.5-5.1); Total Bilirubin 0.8 mg/dL (0.2-1.3); Total Protein 5.7 g/dL (6.3-8.2)
--- NOTE | 2017-10-29 13:54 | P.PN ---
Subjective Progress Note Date: 10/29/17 This is a 82-year-old female patient of Dr. Hills. She presented to emergency department from her primary care doctor for evaluation of bilateral lower extremity edema and redness. She states that the edema has been progressively getting worse and is limited her ability to walk and now requiring assistance with a walker. Patient has a known medical history of atrial fibrillation in which she takes Coumadin, uterine cancer, diabetes mellitus diet controlled, hypertension, osteoarthritis, pacemaker, back surgery, cardiac ablation and anxiety. The extremity showing no evidence of DVT in bilateral legs. Level of the BNP level 2,840. Patient was given IV Lasix once and cardiology consult was ordered. 2-D echo has also been ordered. Patient was started on hospital for possible cellulitis. Urinary Analysis completed on Admission showed moderate amount of leukocyte Estrace. Urine culture has been ordered. Patient denies chest pain or shortness of breath at this time. Patient denies chest pain or shortness of breath at this time. Denies nausea vomiting or diarrhea. Denies urinary frequency or burning. Patient is eager to go home. Awaiting cardiology consult and 2-D echo completion. We'll continue to monitor patient closely. TSH and Hemoglobin A1c will be ordered. 10/24/2017 she is currently resting in bed comfortably. Cardiology consulted. The echo completed yesterday showing EF of 55-60% and severe pulmonary hypertension. Cardiology recommended continuing diurese the patient with Lasix 20 mg every 8 hours. Spoke to Case management in regards to discharge planning. PT recommending ECF facility. Patient requesting she would like to go home with possible home visiting nursing. Case management to readdress tomorrow. We'll continue physical therapy at this time. Patient remains on Kefzol antibiotic. Patient denies chest pain or shortness of breath. Denies nausea vomiting or diarrhea. Denies any urinary symptoms. Awaiting urine culture due to positive U/A. 10/26/2017 patient still having lower extremity edema. She worked with physical therapy this morning is complaining of arthritic pain throughout her body. She denies any chest pain or shortness of breath. Denies any nausea or vomiting. Reports having bowel movements denies any difficulty urinating. Weight is trending down from 129 kg 224 kg. She remains on IV Lasix 20 mg every 8 hours. On 10/27/2017 patient is currently sitting up in chair. Patient does report that edema is improving. Patient expresses that she is anxious at times management is recommending her to go to [facility] for rehab the patient would like to go home. Patient denies chest pain or shortness breath at this time. Weight 121.3 kg down from 124 kg. Creatinine improving from yesterday to 1.01. Patient remains on IV Lasix 20 mg every 8 hours. Initial UA was positive for leukocyte esterase. Urine culture negative. On 10/28/2017 patient is alert and oriented 3 she is laying comfortably in bed shortness of breath and lower extremity edema has improved significantly, weight today 121.7 kg IV Lasix was discontinued yesterday and patient was started on Lasix 60 mg by mouth twice daily she is still maintained on IV cefazolin for lower extremity cellulitis. She denies any chest pain no shortness of breath at rest she has fatigue and shortness of breath when she tries to walk she has generalized weakness, she walks with a walker, she is not very steady with her walking, family and case management are working for possible rehab admission, however patient is requesting to be discharged home, will reassess discharge destination tomorrow will meet with patient and her family and decide in that regard to discharge destination, plan for discharge tomorrow. 10/29/2017 patient is A & O x3 currently lying in bed with no distress. Patient does express that she is getting anxious with having to wear the monitor and is reluctant to go to [facility] for rehab. Patient states she is willing to go because her family and would like her to go there to get some physical therapy. Blood culture positive for gram positive cocci in clusters. Hold on discharge at this time. Dr. Jackson been consulted for infectious disease. currently on Kefzol antibiotic. Urine culture negative area Coumadin has been changed to 5 mg by mouth every other day along with 2.5 every other day. Awaiting infectious disease consult. Objective - Vital Signs Vital signs: Vital Signs Temp 97.4 F L 10/29/17 08:00 Pulse 62 10/29/17 12:00 Resp 14 10/29/17 12:00 BP 127/59 10/29/17 11:58 Pulse Ox 96 10/29/17 11:58 Intake & Output 10/28/17 10/29/17 10/29/17 18:59 06:59 18:59 Intake Total 684 240 Output Total 1000 200 Balance -316 -200 240 Weight 121.5 kg Intake: Oral 684 240 Output: Urine 1000 200 Other: Voiding Method Bedside Commode Bedside Commode # Voids 4 5 - Exam Head normocephalic Neck supple Lungs clear to auscultation bilaterally no wheezing or crackles Heart regular rate and rhythm S1-S2, no rub or gallop Abdomen is soft nontender nondistended positive bowel sounds no hepatosplenomegaly Extremities no edema. +1 edema bilaterally on the lower extremities. Bilateral erythema to lower extremities Neuro alert and orientated to 3 - Labs CBC & Chem 7: 10/29/17 10:50 10/29/17 10:50 Labs: Abnormal Lab Results - Last 24 Hours (Table) 10/29/17 10/29/17 Range/Units 10:50 10:50 PT 21.8 H (9.0-12.0) sec INR 2.4 H (<1.2) Chloride 97 L (98-107) mmol/L Carbon Dioxide 36 H (22-30) mmol/L BUN 25 H (7-17) mg/dL Glucose 111 H (74-99) mg/dL Total Protein 5.7 L (6.3-8.2) g/dL Microbiology - Last 24 Hours (Table) 10/23/17 18:35 Blood Culture Gram Stain - Preliminary Blood 10/23/17 18:35 Blood Culture - Final Blood Assessment and Plan Assessment: 1. Acute on chronic Dyastolic Congestive Heart failure exacerbation with severe pulmonary hypertension and severe tricuspid regurgitation noted on echo. BNP 2840 on admission. Echo shows an EF of 50-55%. She remains on IV Lasix 20 mg every 8 hours. Cardiology following. She has had decrease in her weight. Patient's weight 121.3 kg down from 1.4 kg yesterday. She remains on Lasix 20 mg IV every 8 hours. Cardiology following. Patient has been switched to 60 mg Lasix by mouth twice a day 2. Bilateral Edema and possible cellulites. Venous doppler negative for DVT. Kefazol antibiotic has been ordered. Blood culture showing gram-positive cocci in clusters. Dr. Jackson per infectious disease has been consulted 3. Atrial Fibrillation- Resume home coumadin. INR 2.1. Continue Coumadin. Coumadin order has been changed to 5 mg by mouth every other day along 2.5 every other day 4. Urinary Tract infection- urine culture negative. Continue Kefzol. Urine culture negative 5. Essential Hypertension. Resume Aldactone, lopressor and Lisinopril 6. Diabetes Mellitus. Diet controlled at home. Hemoglobin A1C has been ordered. A1c 5.9 7. History of Uterine cancer 8. History of Pacemaker due to sick sinus syndrome. DVT Prophylaxis Coumadin, GI prophylaxis pepcid Discharge to [facility] currently on hold. Awaiting infectious disease consult. Patient may be transferred off the 6th floor.
--- NOTE | 2017-10-29 14:56 | P.PN ---
Subjective Progress Note Date: 10/29/17 This is a pleasant 82-year-old female patient who follows with Dr. Soto in the office. Has a known history of atrial fibrillation, sick sinus syndrome , status post pacemaker, chronic leg edema, right-sided heart failure, COPD, cor pulmonale. He is unable to her primary care physician's office with complaint of worsening lower extremity edema with blistering. She was subsequently directed to go to the emergency department for further evaluation and treatment. She denies complaints of shortness of breath, dizziness, lightheadedness, chest discomfort, orthopnea or PND. Echocardiogram on admission showed mild concentric LV hypertrophy with normal LV systolic function , ejection fraction between 55-60%. Also showed there is paradoxical/ dysynergic septal motion consistent with right ventricular volume overload and/ or elevated right ventricular end-diastolic pressure, severely enlarged RV, moderately enlarged RA, mild MR, severe tricuspid regurgitation and severe pulmonary hypertension with RVSP of 81.27 mmHg. Most recent echo done in the office in September 2016 showed moderately dilated RV with mildly decreased function , moderate tricuspid regurgitation and mildly increased PASP. Venous Doppler of the lower extremities show no evidence of DVT bilaterally. EKG showed atrial fibrillation with paced ventricular rhythm. She is anticoagulated on warfarin. 10/27/2017 Patient seen and examined this morning, sitting up in the chair at bedside. Overall feeling significantly better. Continues to have bilateral peripheral edema however much improved. Her weight is down 3 kg creatinine is 1.0, BUN 28. Discontinue the IV Lasix today and start the patient on Lasix 60 mg by mouth twice a day. On discharge would recommend patient to follow-up with Dr. Soto in the office post discharge. 10/29/2017 Patient seen and examined today, overall doing better. Arrangements are being made for possible discharge home today. Edema has significantly improved. INR is 2.4 today, BUN 25, creatinine 0.9, potassium 4.6. Objective - Vital Signs Vital signs: Vital Signs Temp 97.4 F L 10/29/17 08:00 Pulse 62 10/29/17 12:00 Resp 14 10/29/17 12:00 BP 127/59 10/29/17 11:58 Pulse Ox 96 10/29/17 11:58 Intake & Output 10/28/17 10/29/17 10/29/17 18:59 06:59 18:59 Intake Total 684 240 Output Total 1000 200 Balance -316 -200 240 Weight 121.5 kg Intake: Oral 684 240 Output: Urine 1000 200 Other: Voiding Method Bedside Commode Bedside Commode # Voids 4 5 - Exam PHYSICAL EXAMINATION: HEENT: Head is atraumatic, normocephalic. Pupils equal, round. Neck is supple. There is no elevated jugular venous pressure. HEART EXAMINATION: Heart sounds regular, S1 and S2 normal. No murmur or gallop heard. CHEST EXAMINATION: Lungs reveal diminished air entry bilaterally. No chest wall tenderness is noted on palpation or with deep breathing. ABDOMEN: Soft, nontender. Bowel sounds are heard. No organomegaly noted. EXTREMITIES: 2+ peripheral pulses with trace evidence of peripheral edema and erythema and blistering to bilateral lower legs. NEUROLOGIC patient is awake, alert and oriented x3, confusion and short-term memory loss noted. - Labs CBC & Chem 7: 10/29/17 10:50 10/29/17 10:50 Labs: Abnormal Lab Results - Last 24 Hours (Table) 10/29/17 10/29/17 Range/Units 10:50 10:50 PT 21.8 H (9.0-12.0) sec INR 2.4 H (<1.2) Chloride 97 L (98-107) mmol/L Carbon Dioxide 36 H (22-30) mmol/L BUN 25 H (7-17) mg/dL Glucose 111 H (74-99) mg/dL Total Protein 5.7 L (6.3-8.2) g/dL Microbiology - Last 24 Hours (Table) 10/23/17 18:35 Blood Culture Gram Stain - Preliminary Blood 10/23/17 18:35 Blood Culture - Final Blood Assessment and Plan Plan: Assessment: #1 worsening lower extremity edema #2 right sided heart failure with cor pulmonale #3 history of COPD #4 chronic atrial fibrillation, on Coumadin #5 sick sinus syndrome, status post pacemaker Plan Cardiology's perspective, patient may be able to be discharged once cleared by Dr. Garcia. We will make a follow-up appointment in the office with Dr. Soto post discharge. DNP note has been reviewed, I agree with a documented findings and plan of care. Patient was seen and examined.
[2017-10-29] MEDS ORDERED: WARFARIN 2.5 MG TAB PO SCH (18:00)
[2017-10-29] MEDS: METOPROLOL TARTRATE 25 MG TAB PO SCH (19:33)
[2017-10-30 05:59] LABS: Basophils # (A) 0.1 k/uL (0-0.2); Basophils % (A) 1 %; Eosinophils # (A) 0.2 k/uL (0-0.7); Eosinophils % (A) 3 %; HCT 42.3 % (34.0-46.0); HGB 13.5 gm/dL (11.4-16.0); Lymphocytes # (A) 2.2 k/uL (1.0-4.8); Lymphocytes % (A) 32 %; MCH 30.7 pg (25.0-35.0); MCHC 31.9 g/dL (31.0-37.0); MCV 96.3 fL (80.0-100.0); Mean Platelet Volume 7.3; Monocytes # (A) 0.5 k/uL (0-1.0); Monocytes % (A) 8 %; Neutrophils # (A) 3.9 k/uL (1.3-7.7); Neutrophils % (A) 55 %; Platelet Count 207 k/uL (150-450); RBC 4.39 m/uL (3.80-5.40); RDW 12.7 % (11.5-15.5)
[2017-10-30 06:11] LABS: Calcium 9.4 mg/dL (8.4-10.2); Potassium 4.5 mmol/L (3.5-5.1); Total Bilirubin 1.1 mg/dL (0.2-1.3); Total Protein 6.4 g/dL (6.3-8.2)
--- NOTE | 2017-10-30 06:11 | CONS ---
CONSULTATION DATE OF SERVICE: 10/29/2017 REASON FOR CONSULTATION: Positive blood culture. HISTORY OF PRESENT ILLNESS: The patient is an 82-year-old female who presented to the ER at [facility] on 10/23/2017 with chief complaints of bilateral lower extremity swelling and blister formation. The patient said it had been getting worse for a week or 2 prior to presentation to hospital and subsequently developed some superficial blister. However, there was no significant redness to the leg area. The patient did have some dull aching pain to the leg more of a 2 to 3 out of 10, but no radiation. The patient denies any high-grade fever, rigors and chills. With these symptoms the patient has been evaluated. She did have lower extremity Doppler, was negative for DVT. She has been diagnosed with acute congestive heart failure. The patient was started on Lasix. She did have blood cultures obtained, which are now coming back positive with a gram-positive cocci in clusters. She was empirically treated with cefazolin, however, was put on hold today and Infectious Disease was consulted for further recommendation regarding antibiotic therapy. The patient currently denies having any fever, rigors and chills. The patient did have a left chest wall pacemaker, bilateral hip and knee replaced. Currently none of these sites have any swelling or any redness. REVIEW OF SYSTEMS: CONSTITUTIONAL: Positive for weakness and no fever. EYES: No complaint. ENT: No complaint. RESPIRATORY: As per HPI. CARDIOVASCULAR: As per HPI. GENITOURINARY: No complaint. GASTROINTESTINAL: No complaint. MUSCULOSKELETAL: No complaint. INTEGUMENTARY: No complaint. PSYCHOLOGICAL: No complaint. ENDOCRINE: No complaint. NEUROLOGIC: No complaint. PAST MEDICAL HISTORY: Atrial fibrillation, diabetes mellitus, hypertension, osteoarthritis. PAST SURGICAL HISTORY: Back surgery, cardiac ablation, hysterectomy, bilateral knee and hip replacement and a pacemaker placement. SOCIAL HISTORY: Remote history of smoking, quit at 34 years old. No drinking or drug use. FAMILY HISTORY: Father history of prostate cancer. Two sons with history of prostate cancer. One daughter with history of breast cancer. ALLERGIES: No known drug allergies. MEDICATION: Medications include the patient is currently on [place], Xanax, Cefazolin 1 gram q.8. She is on Pepcid, Duragesic patch, Lasix, Zestril, Lopressor, Narcan, Aldactone, Coumadin. PHYSICAL EXAMINATION: On examination, her blood pressure is 123/60 with a pulse of 63, temperature is 97.4, and no fever during this admission. She is 94% on room air. General description is an elderly female up in the bed in no distress. No tachypnea or accessory muscle of respiration use. HEENT examination shows no pallor or scleral icterus. Oral mucous membrane is dry. No pharyngeal erythema or thrush. NECK: Trachea central. No thyromegaly. LUNGS: Unlabored breathing, clear to auscultation with crackles. HEART: S1, S2, irregular rate and rhythm. ABDOMEN: Soft, no tenderness. No guarding or rigidity. EXTREMITIES: Some trace edema of feet. No definite cellulitis. MUSCULOSKELETAL SYSTEM: No swelling noted at the hip or the knee and replacement sites and the left chest wall pacemaker site looks clean. NEUROLOGICALLY: The patient is awake, alert, oriented x3. Mood and affect normal. LABS: Hemoglobin is 12.5, white count 6.0, BUN of 25, creatinine 0.90. DIAGNOSTIC IMPRESSION AND PLAN: The patient with positive blood culture with gram-positive cocci in clusters. The patient has been admitted hospital predominantly with symptoms of bilateral extremity swelling likely fluid load and congestive heart failure. The patient currently does not have any fever or elevated white count could be more likely a Staph epi or a coagulase-negative staph likely a skin contaminant rather than a true pathogen as the patient currently has no clinical focus of this bacteremia. PLAN: 1. Blood culture times two has been repeated. 2. Currently on that may be continued. 3. If the culture finalized with Staph epi or coagulase-negative staph recommend discontinuation of antibiotic and no further workup. Family was present at bedside. Their questions and concerns were answered. MMODL / IJN: [id number] /
[2017-10-30] MEDS: HYDROcodone/APAP 10-325MG 1 EACH TAB PO PRN ×3 (06:23→20:00)
[2017-10-30] MEDS: FUROSEMIDE 20 MG TAB PO SCH ×2 (08:21→15:24)
[2017-10-30] MEDS: FAMOTIDINE 20 MG TAB PO SCH (08:21)
[2017-10-30] MEDS: SPIRONOLACTONE 25 MG TAB PO SCH (08:22)
[2017-10-30] MEDS: LISINOPRIL 5 MG TAB PO SCH (08:22)
[2017-10-30] MEDS: METOPROLOL TARTRATE 50 MG TAB PO SCH (08:22)
[2017-10-30] MEDS: VIT A,C & E-LUTEIN-MINERALS 1 EACH TAB PO SCH ×2 (08:22→20:00)
[2017-10-30] MEDS: ceFAZolin 1,000 MG in DEXTROSE/WATER 1 50ML.BAG IVPB SCH ×3 (08:23→23:23)
--- NOTE | 2017-10-30 12:14 | P.PN ---
Subjective Progress Note Date: 10/30/17 This is a 82-year-old female patient of Dr. Hills. She presented to emergency department from her primary care doctor for evaluation of bilateral lower extremity edema and redness. She states that the edema has been progressively getting worse and is limited her ability to walk and now requiring assistance with a walker. Patient has a known medical history of atrial fibrillation in which she takes Coumadin, uterine cancer, diabetes mellitus diet controlled, hypertension, osteoarthritis, pacemaker, back surgery, cardiac ablation and anxiety. The extremity showing no evidence of DVT in bilateral legs. Level of the BNP level 2,840. Patient was given IV Lasix once and cardiology consult was ordered. 2-D echo has also been ordered. Patient was started on hospital for possible cellulitis. Urinary Analysis completed on Admission showed moderate amount of leukocyte Estrace. Urine culture has been ordered. Patient denies chest pain or shortness of breath at this time. Patient denies chest pain or shortness of breath at this time. Denies nausea vomiting or diarrhea. Denies urinary frequency or burning. Patient is eager to go home. Awaiting cardiology consult and 2-D echo completion. We'll continue to monitor patient closely. TSH and Hemoglobin A1c will be ordered. 10/24/2017 she is currently resting in bed comfortably. Cardiology consulted. The echo completed yesterday showing EF of 55-60% and severe pulmonary hypertension. Cardiology recommended continuing diurese the patient with Lasix 20 mg every 8 hours. Spoke to Case management in regards to discharge planning. PT recommending ECF facility. Patient requesting she would like to go home with possible home visiting nursing. Case management to readdress tomorrow. We'll continue physical therapy at this time. Patient remains on Kefzol antibiotic. Patient denies chest pain or shortness of breath. Denies nausea vomiting or diarrhea. Denies any urinary symptoms. Awaiting urine culture due to positive U/A. 10/26/2017 patient still having lower extremity edema. She worked with physical therapy this morning is complaining of arthritic pain throughout her body. She denies any chest pain or shortness of breath. Denies any nausea or vomiting. Reports having bowel movements denies any difficulty urinating. Weight is trending down from 129 kg 224 kg. She remains on IV Lasix 20 mg every 8 hours. On 10/27/2017 patient is currently sitting up in chair. Patient does report that edema is improving. Patient expresses that she is anxious at times management is recommending her to go to [facility] for rehab the patient would like to go home. Patient denies chest pain or shortness breath at this time. Weight 121.3 kg down from 124 kg. Creatinine improving from yesterday to 1.01. Patient remains on IV Lasix 20 mg every 8 hours. Initial UA was positive for leukocyte esterase. Urine culture negative. On 10/28/2017 patient is alert and oriented 3 she is laying comfortably in bed shortness of breath and lower extremity edema has improved significantly, weight today 121.7 kg IV Lasix was discontinued yesterday and patient was started on Lasix 60 mg by mouth twice daily she is still maintained on IV cefazolin for lower extremity cellulitis. She denies any chest pain no shortness of breath at rest she has fatigue and shortness of breath when she tries to walk she has generalized weakness, she walks with a walker, she is not very steady with her walking, family and case management are working for possible rehab admission, however patient is requesting to be discharged home, will reassess discharge destination tomorrow will meet with patient and her family and decide in that regard to discharge destination, plan for discharge tomorrow. 10/29/2017 patient is A & O x3 currently lying in bed with no distress. Patient does express that she is getting anxious with having to wear the monitor and is reluctant to go to [facility] for rehab. Patient states she is willing to go because her family and would like her to go there to get some physical therapy. Blood culture positive for gram positive cocci in clusters. Hold on discharge at this time. Dr. Jackson been consulted for infectious disease. currently on Kefzol antibiotic. Urine culture negative . Coumadin has been changed to 5 mg by mouth every other day along with 2.5 every other day. Awaiting infectious disease consult. 10/30/2017 patient is currently a recurrent in no distress. Denies chest pain or shortness of breath at this time. Dr. Jackson been consulted for positive blood culture. Orders for blood cultures 2 has been placed per ID. Patient remains on Kefzol IV antibiotics. Awaiting blood culture results. Plans for patient to go to [facility] for physical therapy Objective - Vital Signs Vital signs: Vital Signs Temp 97.4 F L 07/23/18 23:00 Pulse 61 10/30/17 08:00 Resp 18 10/30/17 08:00 BP 121/53 10/30/17 06:30 Pulse Ox 95 10/30/17 06:30 Intake & Output 10/29/17 10/30/17 10/30/17 18:59 06:59 18:59 Intake Total 480 150 120 Output Total 1300 100 Balance 480 -1150 20 Weight 118.5 kg Intake: Oral 480 150 120 Output: Urine 1300 100 Other: Voiding Method Bedside Commode # Voids 1 # Bowel Movements 0 - Exam Head normocephalic Neck supple Lungs clear to auscultation bilaterally no wheezing or crackles Heart regular rate and rhythm S1-S2, no rub or gallop Abdomen is soft nontender nondistended positive bowel sounds no hepatosplenomegaly Extremities no edema. +1 edema bilaterally on the lower extremities. Bilateral erythema to lower extremities Neuro alert and orientated to 3 - Labs CBC & Chem 7: 10/30/17 05:49 10/30/17 05:49 Labs: Abnormal Lab Results - Last 24 Hours (Table) 10/30/17 Range/Units 05:49 Chloride 96 L (98-107) mmol/L Carbon Dioxide 34 H (22-30) mmol/L BUN 30 H (7-17) mg/dL Glucose 112 H (74-99) mg/dL Microbiology - Last 24 Hours (Table) 10/23/17 18:35 Blood Culture Gram Stain - Preliminary Blood Assessment and Plan Assessment: 1. Acute on chronic Dyastolic Congestive Heart failure exacerbation with severe pulmonary hypertension and severe tricuspid regurgitation noted on echo. BNP 2840 on admission. Echo shows an EF of 50-55%. She remains on IV Lasix 20 mg every 8 hours. Cardiology following. She has had decrease in her weight. Patient's weight 121.3 kg down from 1.4 kg yesterday. She remains on Lasix 20 mg IV every 8 hours. Cardiology following. Patient has been switched to 60 mg Lasix by mouth twice a day 2. Bilateral Edema and possible cellulites. Venous doppler negative for DVT. Kefazol antibiotic has been ordered. 3. Atrial Fibrillation- Resume home coumadin. INR 2.1. Continue Coumadin. Coumadin order has been changed to 5 mg by mouth every other day along 2.5 every other day 4. Urinary Tract infection- urine culture negative. Continue Kefzol. Urine culture negative 5. Essential Hypertension. Resume Aldactone, lopressor and Lisinopril 6. Diabetes Mellitus. Diet controlled at home. Hemoglobin A1C has been ordered. A1c 5.9 7. History of Uterine cancer 8. History of Pacemaker due to sick sinus syndrome. 9. Blood culture positive for gram-positive cocci in clusters. Dr. Jackson per infectious disease has been consulted. Blood cultures 2 have been repeated. If the culture finalized with staph epi or coagulase-negative staph recommend discontinuation of antibiotic was per Dr. Jackson. DVT Prophylaxis Coumadin, GI prophylaxis pepcid Discharge to [facility] currently on hold. Awaiting infectious disease consult. Patient may be transferred off the 6th floor. I performed an examination of the patient and discussed their management with the Nurse Practitioner. I have reviewed the Nurse Practitioner's notes and agree with the documented findings and plan of care
[2017-10-30 12:23] LABS: INR 2.4 (<1.2); Prothrombin Time 21.4 sec (9.0-12.0)
--- NOTE | 2017-10-30 14:05 | P.PN ---
Subjective Progress Note Date: 10/30/17 This is a pleasant 82-year-old female patient who follows with Dr. Soto in the office. Has a known history of atrial fibrillation, sick sinus syndrome , status post pacemaker, chronic leg edema, right-sided heart failure, COPD, cor pulmonale. He is unable to her primary care physician's office with complaint of worsening lower extremity edema with blistering. She was subsequently directed to go to the emergency department for further evaluation and treatment. She denies complaints of shortness of breath, dizziness, lightheadedness, chest discomfort, orthopnea or PND. Echocardiogram on admission showed mild concentric LV hypertrophy with normal LV systolic function , ejection fraction between 55-60%. Also showed there is paradoxical/ dysynergic septal motion consistent with right ventricular volume overload and/ or elevated right ventricular end-diastolic pressure, severely enlarged RV, moderately enlarged RA, mild MR, severe tricuspid regurgitation and severe pulmonary hypertension with RVSP of 81.27 mmHg. Most recent echo done in the office in September 2016 showed moderately dilated RV with mildly decreased function , moderate tricuspid regurgitation and mildly increased PASP. Venous Doppler of the lower extremities show no evidence of DVT bilaterally. EKG showed atrial fibrillation with paced ventricular rhythm. She is anticoagulated on warfarin. 10/27/2017 Patient seen and examined this morning, sitting up in the chair at bedside. Overall feeling significantly better. Continues to have bilateral peripheral edema however much improved. Her weight is down 3 kg creatinine is 1.0, BUN 28. Discontinue the IV Lasix today and start the patient on Lasix 60 mg by mouth twice a day. On discharge would recommend patient to follow-up with Dr. Soto in the office post discharge. 10/29/2017 Patient seen and examined today, overall doing better. Arrangements are being made for possible discharge home today. Edema has significantly improved. INR is 2.4 today, BUN 25, creatinine 0.9, potassium 4.6. 10/30/2017 Patient seen and examined today, no complaints, other than she is unsure of exactly where she is going post discharge. INR 2.4, sodium 138, potassium 4.5, BUN 30, creatinine 0.9. Objective - Vital Signs Vital signs: Vital Signs Temp 97.4 F L 10/29/17 23:00 Pulse 61 10/30/17 08:00 Resp 18 10/30/17 08:00 BP 121/53 10/30/17 06:30 Pulse Ox 95 10/30/17 06:30 Intake & Output 10/29/17 10/30/17 10/30/17 18:59 06:59 18:59 Intake Total 480 150 360 Output Total 1300 100 Balance 480 -1150 260 Weight 118.5 kg Intake: Oral 480 150 360 Output: Urine 1300 100 Other: Voiding Method Bedside Commode # Voids 1 # Bowel Movements 0 - Exam PHYSICAL EXAMINATION: HEENT: Head is atraumatic, normocephalic. Pupils equal, round. Neck is supple. There is no elevated jugular venous pressure. HEART EXAMINATION: Heart sounds regular, S1 and S2 normal. No murmur or gallop heard. CHEST EXAMINATION: Lungs reveal diminished air entry bilaterally. No chest wall tenderness is noted on palpation or with deep breathing. ABDOMEN: Soft, nontender. Bowel sounds are heard. No organomegaly noted. EXTREMITIES: 2+ peripheral pulses with trace evidence of peripheral edema and erythema and blistering to bilateral lower legs. NEUROLOGIC patient is awake, alert and oriented x3, confusion and short-term memory loss noted. - Labs CBC & Chem 7: 10/30/17 05:49 10/30/17 05:49 Labs: Abnormal Lab Results - Last 24 Hours (Table) 10/30/17 10/30/17 Range/Units 05:49 05:49 PT 21.4 H (9.0-12.0) sec INR 2.4 H (<1.2) Chloride 96 L (98-107) mmol/L Carbon Dioxide 34 H (22-30) mmol/L BUN 30 H (7-17) mg/dL Glucose 112 H (74-99) mg/dL Microbiology - Last 24 Hours (Table) 10/23/17 18:35 Blood Culture Gram Stain - Preliminary Blood Assessment and Plan Plan: Assessment: #1 worsening lower extremity edema #2 right sided heart failure with cor pulmonale #3 history of COPD #4 chronic atrial fibrillation, on Coumadin #5 sick sinus syndrome, status post pacemaker Plan Cardiology's perspective, patient may be able to be discharged once cleared by Dr. Garcia. We will make a follow-up appointment in the office with Dr. Soto post discharge. We will follow this patient with you now on an as- needed basis only, please don't hesitate to call with any questions. DNP note has been reviewed, I agree with a documented findings and plan of care. Patient was seen and examined.
[2017-10-30] MEDS: ALPRAZolam 0.5 MG TAB PO PRN ×2 (15:16→20:00)
[2017-10-30 16:33] LABS: Glucose,Whole Blood 134 mg/dL (75-99)
[2017-10-30] MEDS ORDERED: WARFARIN 5 MG TAB PO SCH (18:00)
[2017-10-30] MEDS: METOPROLOL TARTRATE 25 MG TAB PO SCH (20:00)
--- NOTE | 2017-10-30 22:41 | PN ---
PROGRESS NOTE DATE OF SERVICE: 10/30/2017 REASON FOR FOLLOWUP: Positive blood culture. INTERVAL HISTORY: The patient is afebrile. She is breathing comfortably. Denies significant chest pain. Occasional cough. No abdominal pain. Leg swelling has decreased. No open wounds or any drainage. EXAMINATION: Blood pressure is 113/54, pulse of 68, temperature of 98. She is 96% on room air. General description is an elderly female, lying in bed in no distress. RESPIRATORY SYSTEM: Unlabored breathing. Clear to auscultation anteriorly. HEART: S1, S2. Regular rate and rhythm. ABDOMEN: Soft. No tenderness. EXTREMITIES: Some minimal swelling, but no redness. LABS: Hemoglobin 13.5, white count 7.0. BUN of 30, creatinine 0.96. Blood cultures with coagulase-negative Staph. Repeat blood culture has been negative. DIAGNOSTIC IMPRESSION AND PLAN: Patient with a positive blood culture with coagulase-negative staphylococcus, likely skin contamination. Patient blood culture has been negative. No need for any further workup for the same. The patient is cleared discharge from infectious disease standpoint. No need for antibiotic on discharge. MMODL / IJN: [id number] /
[2017-10-30 23:44] VITALS: RESP 18
[2017-10-31] MEDS: HYDROcodone/APAP 10-325MG 1 EACH TAB PO PRN ×2 (03:54→11:28)
[2017-10-31 06:41] LABS: Basophils # (A) 0.1 k/uL (0-0.2); Basophils % (A) 1 %; Eosinophils # (A) 0.2 k/uL (0-0.7); Eosinophils % (A) 3 %; HCT 40.7 % (34.0-46.0); HGB 12.7 gm/dL (11.4-16.0); Lymphocytes # (A) 1.6 k/uL (1.0-4.8); Lymphocytes % (A) 27 %; MCHC 31.2 g/dL (31.0-37.0); MCV 96.1 fL (80.0-100.0); Mean Platelet Volume 7.2; Monocytes # (A) 0.5 k/uL (0-1.0); Monocytes % (A) 9 %; Neutrophils # (A) 3.3 k/uL (1.3-7.7); Neutrophils % (A) 57 %; Platelet Count 191 k/uL (150-450); RBC 4.23 m/uL (3.80-5.40); RDW 12.7 % (11.5-15.5); WBC 5.8 k/uL (3.8-10.6)
[2017-10-31 06:54] LABS: INR 2.9 (<1.2); Prothrombin Time 25.7 sec (9.0-12.0)
[2017-10-31 07:10] LABS: Albumin 3.5 g/dL (3.5-5.0); Calcium 9.2 mg/dL (8.4-10.2); Potassium 4.2 mmol/L (3.5-5.1); Total Protein 5.6 g/dL (6.3-8.2)
[2017-10-31] MEDS: LISINOPRIL 5 MG TAB PO SCH (08:37)
[2017-10-31] MEDS: FUROSEMIDE 20 MG TAB PO SCH (08:37)
[2017-10-31] MEDS: VIT A,C & E-LUTEIN-MINERALS 1 EACH TAB PO SCH (08:38)
[2017-10-31] MEDS: SPIRONOLACTONE 25 MG TAB PO SCH (08:38)
[2017-10-31] MEDS: FAMOTIDINE 20 MG TAB PO SCH (08:38)
[2017-10-31] MEDS: ceFAZolin 1,000 MG in DEXTROSE/WATER 1 50ML.BAG IVPB SCH ×2 (08:38→12:02)
[2017-10-31] MEDS: METOPROLOL TARTRATE 50 MG TAB PO SCH (08:38)
[2017-10-31 08:40] VITALS: BP 119/46; PULSE 64; TEMP 97.7
[2017-10-31 10:03] VITALS: BMI 36.4
--- NOTE | 2017-10-31 11:19 | US ---
EXAMINATION TYPE: US venous doppler duplex UE RT DATE OF EXAM: 10/31/2017 COMPARISON: NONE CLINICAL HISTORY: swelling. SIDE PERFORMED: Right Patient in a lot of pain and shaking with arm adducted. Right Arm: Negative for DVT Basil v not seen due to patients inability to well adduct arm. IMPRESSION: 1. Right upper extremity deep venous ultrasound negative for deep venous thrombosis.
--- NOTE | 2017-10-31 12:20 | PN ---
PROGRESS NOTE DATE OF SERVICE: 10/31/2017 REASON FOR FOLLOWUP VISIT: Positive blood culture. INTERVAL HISTORY: The patient is afebrile. She is breathing comfortably. Denies having any chest pain. No shortness of breath or cough. No abdominal pain, no diarrhea. PHYSICAL EXAMINATION: Blood pressure 119/46 with a pulse of 64, temperature 97.7, she is 92% on room air. General description is an elderly female, lying in bed in no distress. HEENT EXAMINATION: No pallor or scleral icterus. Oral mucosa is dry. LUNGS: Unlabored breathing, clear to auscultation anteriorly. HEART: S1, S2. Regular rate and rhythm. ABDOMEN: Soft, no tenderness. LEGS: Some swelling but no redness. LABS: Hemoglobin is 12.7, white count of 5.8. BUN of 31, creatinine 1.12. DIAGNOSTIC IMPRESSION AND PLAN: 1. Patient with a positive blood culture coagulase-negative Staph. Follow up blood culture has been negative likely for skin contamination. No need for any antibiotic therapy. 2. Lower extremity mostly with swelling but no cellulitis. He with mild cellulitis on admission and has been adequately treated has recommend no antibiotic on discharge. This was discussed with the admitting team. MMODL / IJN: [id number] /
--- NOTE | 2017-10-31 13:20 | P.DS ---
Providers Date of admission: 10/24/17 12:21 Expected date of discharge: 10/31/17 Attending physician: Citlalli Garcia Consults: 10/23/17 22:15 Consult Physician Stat Consulting Provider: Eddi Huang Consult Reason/Comments: CHF Do you want consulting provider notified?: Yes, Notify in am 10/27/17 14:34 Consult Physician Routine Consulting Provider: Darian Polo Consult Reason/Comments: possible rehab admission Do you want consulting provider notified?: Yes 10/29/17 13:23 Consult Physician Routine Consulting Provider: Kobi Jackson Consult Reason/Comments: positive blood culture gram positive cocci in clusters Do you want consulting provider notified?: Yes Primary care physician: Cit[facility]allibubba Carm[facility]Jose [facility] Course: Discharge diagnosis 1. Acute on chronic Dyastolic Congestive Heart failure exacerbation with severe pulmonary hypertension and severe tricuspid regurgitation noted on echo. BNP 2840 on admission. Echo shows an EF of 50-55%. She remains on IV Lasix 20 mg every 8 hours. Cardiology following. She has had decrease in her weight. Patient's weight 121.3 kg down from 1.4 kg yesterday. She remains on Lasix 20 mg IV every 8 hours. Cardiology following. Patient has been switched to 60 mg Lasix by mouth twice a day. Cleared discharge from cardiology standpoint. Patient will be dischareg on Lasix 60 mg twice a day 2. Bilateral Edema and possible cellulites. Venous doppler negative for DVT. Kefazol antibiotic has been ordered. 3. Atrial Fibrillation- Resume home coumadin. INR 2.1. Continue Coumadin. Coumadin order has been changed to 5 mg by mouth every other day along 2.5 every other day 4. Urinary Tract infection- urine culture negative. Continue Kefzol. Urine culture negative. Antibiotics will be DC'd per infectious disease 5. Essential Hypertension. Resume Aldactone, lopressor and Lisinopril 6. Diabetes Mellitus. Diet controlled at home. Hemoglobin A1C has been ordered. A1c 5.9 7. History of Uterine cancer 8. History of Pacemaker due to sick sinus syndrome. 9. Blood culture positive for gram-positive cocci in clusters. Dr. Jackson per infectious disease has been consulted. Blood cultures 2 have been repeated. If the culture finalized with staph epi or coagulase-negative staph recommend discontinuation of antibiotic was per Dr. Jackson. Per Dr. Jackson patient is cleared for discharge and does not require antibiotics upon discharge Patient getting discharged to [facility] and will be followed by Dr. Hills Hospital Course This is a 82-year-old female patient of Dr. Hills. She presented to emergency department from her primary care doctor for evaluation of bilateral lower extremity edema and redness. She states that the edema has been progressively getting worse and is limited her ability to walk and now requiring assistance with a walker. Patient has a known medical history of atrial fibrillation in which she takes Coumadin, uterine cancer, diabetes mellitus diet controlled, hypertension, osteoarthritis, pacemaker, back surgery, cardiac ablation and anxiety. The extremity showing no evidence of DVT in bilateral legs. Level of the BNP level 2,840. Patient was given IV Lasix once and cardiology consult was ordered. 2-D echo has also been ordered. Patient was started on hospital for possible cellulitis. Urinary Analysis completed on Admission showed moderate amount of leukocyte Estrace. Urine culture has been ordered. Patient denies chest pain or shortness of breath at this time. Patient denies chest pain or shortness of breath at this time. Denies nausea vomiting or diarrhea. Denies urinary frequency or burning. Patient is eager to go home. Awaiting cardiology consult and 2-D echo completion. We'll continue to monitor patient closely. TSH and Hemoglobin A1c will be ordered. 10/24/2017 she is currently resting in bed comfortably. Cardiology consulted. The echo completed yesterday showing EF of 55-60% and severe pulmonary hypertension. Cardiology recommended continuing diurese the patient with Lasix 20 mg every 8 hours. Spoke to Case management in regards to discharge planning. PT recommending ECF facility. Patient requesting she would like to go home with possible home visiting nursing. Case management to readdress tomorrow. We'll continue physical therapy at this time. Patient remains on Kefzol antibiotic. Patient denies chest pain or shortness of breath. Denies nausea vomiting or diarrhea. Denies any urinary symptoms. Awaiting urine culture due to positive U/A. 10/26/2017 patient still having lower extremity edema. She worked with physical therapy this morning is complaining of arthritic pain throughout her body. She denies any chest pain or shortness of breath. Denies any nausea or vomiting. Reports having bowel movements denies any difficulty urinating. Weight is trending down from 129 kg 224 kg. She remains on IV Lasix 20 mg every 8 hours. On 10/27/2017 patient is currently sitting up in chair. Patient does report that edema is improving. Patient expresses that she is anxious at times management is recommending her to go to [facility] for rehab the patient would like to go home. Patient denies chest pain or shortness breath at this time. Weight 121.3 kg down from 124 kg. Creatinine improving from yesterday to 1.01. Patient remains on IV Lasix 20 mg every 8 hours. Initial UA was positive for leukocyte esterase. Urine culture negative. On 10/28/2017 patient is alert and oriented 3 she is laying comfortably in bed shortness of breath and lower extremity edema has improved significantly, weight today 121.7 kg IV Lasix was discontinued yesterday and patient was started on Lasix 60 mg by mouth twice daily she is still maintained on IV cefazolin for lower extremity cellulitis. She denies any chest pain no shortness of breath at rest she has fatigue and shortness of breath when she tries to walk she has generalized weakness, she walks with a walker, she is not very steady with her walking, family and case management are working for possible rehab admission, however patient is requesting to be discharged home, will reassess discharge destination tomorrow will meet with patient and her family and decide in that regard to discharge destination, plan for discharge tomorrow. 10/29/2017 patient is A & O x3 currently lying in bed with no distress. Patient does express that she is getting anxious with having to wear the monitor and is reluctant to go to [facility] for rehab. Patient states she is willing to go because her family and would like her to go there to get some physical therapy. Blood culture positive for gram positive cocci in clusters. Hold on discharge at this time. Dr. Jackson been consulted for infectious disease. currently on Kefzol antibiotic. Urine culture negative . Coumadin has been changed to 5 mg by mouth every other day along with 2.5 every other day. Awaiting infectious disease consult. 10/30/2017 patient is currently a recurrent in no distress. Denies chest pain or shortness of breath at this time. Dr. Jackson been consulted for positive blood culture. Orders for blood cultures 2 has been placed per ID. Patient remains on Kefzol IV antibiotics. Awaiting blood culture results. Plans for patient to go to [facility] for physical therapy On 10/31/2017 patient has been cleared for discharge from cardiology. Infectious disease cleared patient for discharge without antibiotics. Right arm swollen from IV infiltration. Improved from yesterday. Doppler negative for DVT. Patient will be going to [facility] and will be followed by Dr. Hills. Patient Condition at Discharge: Stable Plan - Discharge Summary Discharge Rx Participant: No New Discharge Prescriptions: New Furosemide [Lasix] 60 mg PO BID@0900,1600 tab Warfarin [Coumadin] 5 mg PO Q48H tab Warfarin [Coumadin] 2.5 mg PO Q48H tab Continue Spironolactone [Aldactone] 25 mg PO DAILY Lisinopril [Zestril] 5 mg PO DAILY Metoprolol Tartrate [Lopressor] 50 mg PO DAILY fentaNYL 75MCG/HR PATCH [Duragesic 75MCG/HR] 1 patch TRANSDERM Q72H Metoprolol Tartrate [Lopressor] 25 mg PO HS Vit C/E/Zn/Coppr/Lutein/Zeaxan [Preservision Areds 2 Softgel] 1 cap PO BID ALPRAZolam [Xanax] 0.5 mg PO BID PRN #6 tab PRN Reason: Anxiety Hydrocodone/Acetaminophen [[place] 10-325] 1 tab PO Q8H #9 tablet Discontinued Furosemide [Lasix] 40 mg PO BID Warfarin [Coumadin] 5 mg PO SUTH Warfarin [Coumadin] 2.5 mg PO [id number] Discharge Medication List Lisinopril [Zestril] 5 mg PO DAILY 01/04/15 [History] Metoprolol Tartrate [Lopressor] 50 mg PO DAILY 01/04/15 [History] Spironolactone [Aldactone] 25 mg PO DAILY 01/04/15 [History] fentaNYL 75MCG/HR PATCH [Duragesic 75MCG/HR] 1 patch TRANSDERM Q72H 08/01/17 [ History] Metoprolol Tartrate [Lopressor] 25 mg PO HS 10/23/17 [History] Vit C/E/Zn/Coppr/Lutein/Zeaxan [Preservision Areds 2 Softgel] 1 cap PO BID 10/23 [History] ALPRAZolam [Xanax] 0.5 mg PO BID PRN #6 tab 10/31/17 [Rx] Furosemide [Lasix] 60 mg PO BID@0900,1600 tab 10/31/17 [Rx] Hydrocodone/Acetaminophen [[place] 10-325] 1 tab PO Q8H #9 tablet 10/31/17 [Rx] Warfarin [Coumadin] 2.5 mg PO Q48H tab 10/31/17 [Rx] Warfarin [Coumadin] 5 mg PO Q48H tab 10/31/17 [Rx] Follow up Appointment(s)/Referral(s): Minh Hills MD [STAFF PHYSICIAN] - () Taylor Soto MD [STAFF PHYSICIAN] - 1 Week [facility] Visiting Nurse, [NON-STAFF] - Patient Instructions/Handouts: Heart Failure (DC), Low Sodium Diet (DC), Edema (DC) Activity/Diet/Wound Care/Special Instructions: ECF on D/C Discharge Disposition: TRANSFER TO SNF/ECF
== END 2017-10-31 15:28 | DRG 292 ==
LOC: EC 15:30 → 6SEL 21:33 → INTOOBSV 21:33 → OBSVTOIN 10-24 12:21
PROVIDERS: ADMIT Internal Medicine; ATTEND Internal Medicine
DX: I11.0 Hypertensive heart disease with heart failure (principal); N39.0 Urinary tract infection, site not specified; L03.115 Cellulitis of right lower limb; L03.116 Cellulitis of left lower limb; I50.33 Acute on chronic diastolic (congestive) heart failure; I50.813 Acute on chronic right heart failure; I27.29 Other secondary pulmonary hypertension; I27.81 Cor pulmonale (chronic); J44.9 Chronic obstructive pulmonary disease, unspecified; E66.01 Morbid (severe) obesity due to excess calories; I48.2 Chronic atrial fibrillation; I08.1 Rheumatic disorders of both mitral and tricuspid valves; G89.29 Other chronic pain; M25.519 Pain in unspecified shoulder; M54.2 Cervicalgia; E11.9 Type 2 diabetes mellitus without complications; F41.9 Anxiety disorder, unspecified; M19.91 Primary osteoarthritis, unspecified site; R20.8 Other disturbances of skin sensation; T40.2X5A Adverse effect of other opioids, initial encounter; K59.09 Other constipation; Z68.36 Body mass index [BMI] 36.0-36.9, adult; Z71.3 Dietary counseling and surveillance; Z79.01 Long term (current) use of anticoagulants; Z79.891 Long term (current) use of opiate analgesic; Z79.899 Other long term (current) drug therapy; Z95.0 Presence of cardiac pacemaker; Z90.710 Acquired absence of both cervix and uterus; Z96.643 Presence of artificial hip joint, bilateral; Z96.653 Presence of artificial knee joint, bilateral; Z85.42 Personal history of malignant neoplasm of other parts of uterus; Z87.891 Personal history of nicotine dependence; Z98.42 Cataract extraction status, left eye; Z98.41 Cataract extraction status, right eye; Z80.42 Family history of malignant neoplasm of prostate; Z80.3 Family history of malignant neoplasm of breast
CPT/HCPCS: 36415; 80053; 81001; 83036; 83605; 83735; 83880; 84443; 84484; 85025; 85610; 85730; 87040; 87077; 87086; 87186; 93306; 93970; 94760; 96374; 99284

== ENCOUNTER 2017-11-06 16:31 | Inpatient (IN) | payer MEDICARE, BC ==
[2017-11-06] MEDS ORDERED: LORazepam 2 MG/ML INJ IV STA (17:02)
[2017-11-06] MEDS ORDERED: IPRATROPIUM-ALBUTEROL 3 ML NEB INHALATION STA (17:02)
[2017-11-06] MEDS ORDERED: MORPHINE SULFATE 4 MG/ML SYRINGE IVP STA (17:02)
--- NOTE | 2017-11-06 17:08 | ED ---
General Adult HPI - General Chief complaint: Shortness of Breath Stated complaint: Difficulty Breathing Time Seen by Provider: 11/06/17 16:44 Source: patient, EMS, RN notes reviewed, old records reviewed Mode of arrival: EMS Limitations: no limitations - History of Present Illness Initial comments: This is a 82-year-old female the ER for evaluation. Patient was significant shortness of breath. Unable to catch her breath. No chest pain. Patient has history of heart disease history of lung disease. Patient has been bedbound since recent hospitalization, prior was walking with walker. Patient significant shortness of breath started today unable to catch her breath and low oxygen per staff at longterm in the low 80s. Patient states her symptoms are improved her breathing treatment and oxygen therapy, currently still complaining of mild shortness of breath and anxiety - Related Data Home Medications Medication Instructions Recorded Confirmed Lisinopril [Zestril] 5 mg PO DAILY 01/04/15 11/06/17 Metoprolol Tartrate [Lopressor] 25 mg PO HS 01/04/15 11/06/17 Spironolactone [Aldactone] 25 mg PO DAILY 01/04/15 11/06/17 Metoprolol Tartrate [Lopressor] 50 mg PO DAILY 10/23/17 11/06/17 Vit C/E/Zn/Coppr/Lutein/Zeaxan 1 cap PO BID 10/23/17 11/06/17 [Preservision Areds 2 Softgel] Bisacodyl [Dulcolax] 10 mg RECTAL DAILY PRN 11/06/17 11/06/17 Furosemide [Lasix] 60 mg PO BID@0600,1400 11/06/17 11/06/17 Hydrocodone/Acetaminophen [[place] 1 tab PO Q8H PRN 11/06/17 11/06/17 10-325] Magnesium Hydroxide [Milk of 7,200 mg PO DAILY PRN 11/06/17 11/06/17 Magnesia Concentrate] Na Phos,M-B/Na Phos,Di-Ba [Fleet 133 ml RECTAL ONCE PRN 11/06/17 11/06/17 Adult] Ondansetron HCl [Zofran] 4 mg PO Q6H PRN 11/06/17 11/06/17 PARoxetine [Paxil] 20 mg PO DAILY 07/31/18 07/31/18 fentaNYL 50MCG/HR PATCH [Duragesic 50 mcg TRANSDERM Q72H 11/06/17 11/06/17 50MCG/HR] Previous Rx's Medication Instructions Recorded ALPRAZolam [Xanax] 0.5 mg PO BID PRN #6 tab 10/31/17 Warfarin [Coumadin] 2.5 mg PO Q48H tab 10/31/17 Warfarin [Coumadin] 5 mg PO Q48H tab 10/31/17 Allergies Allergy/AdvReac Type Severity Reaction Status Date / Time No Known Allergies Allergy Verified 11/06/17 16:50 Review of Systems ROS Statement: Those systems with pertinent positive or pertinent negative responses have been documented in the HPI. ROS Other: All systems not noted in ROS Statement are negative. Past Medical History Past Medical History: Atrial Fibrillation, Cancer, Diabetes Mellitus, Hypertension, Osteoarthritis (OA) Additional Past Medical History / Comment(s): PACEMAKER, DIABETES - DIET CONTROLLED, CHRONIC CONSTIPATION, NECK AND SHOULDER PAIN, LIMITED ROM SHOULDERS , HX OF UTERINE CANCER, USES WALKER AND W/C. History of Any Multi-Drug Resistant Organisms: None Reported Past Surgical History: Back Surgery, Cardiac Ablation, Hysterectomy, Joint Replacement, Pacemaker Additional Past Surgical History / Comment(s): JIE HIP REPLACEMENTS (2000 & 2005 ), JIE KNEE REPLACEMENT (1993), LEFT KNEE CAP (1994), PACEMAKER (2001), HYSTERECTOMY (1972), JIE CATARACTS (2004). Past Anesthesia/Blood Transfusion Reactions: Postoperative Nausea & Vomiting ( PONV) Type of Cardiac Device: Permanent Pacemaker Device Placement Date:: 2001 Past Psychological History: Anxiety Smoking Status: Former smoker Past Alcohol Use History: None Reported Past Drug Use History: None Reported - Past Family History Father Family Medical History: Cancer Additional Family Medical History / Comment(s): PROSTATE CA Son(s) Family Medical History: Cancer Additional Family Medical History / Comment(s): 2 SONS -PROSTATE CA Daughter(s) Family Medical History: Cancer Additional Family Medical History / Comment(s): BREAST CA General Exam Limitations: no limitations General appearance: alert, in no apparent distress, in distress, obese Head exam: Present: atraumatic, normocephalic, normal inspection Eye exam: Present: normal appearance, PERRL, EOMI. Absent: scleral icterus, conjunctival injection, periorbital swelling ENT exam: Present: normal exam, mucous membranes moist Neck exam: Present: normal inspection. Absent: tenderness, meningismus, lymphadenopathy Respiratory exam: Present: respiratory distress, wheezes, rales, accessory muscle use, decreased breath sounds, prolonged expiratory. Absent: rhonchi, stridor Cardiovascular Exam: Present: regular rate, normal rhythm, normal heart sounds. Absent: systolic murmur, diastolic murmur, rubs, gallop, clicks GI/Abdominal exam: Present: soft, normal bowel sounds. Absent: distended, tenderness, guarding, rebound, rigid Extremities exam: Present: normal inspection, full ROM, normal capillary refill. Absent: tenderness, pedal edema, joint swelling, calf tenderness Back exam: Present: normal inspection Neurological exam: Present: alert, oriented X3, CN II-XII intact Psychiatric exam: Present: normal affect, normal mood Skin exam: Present: warm, dry, intact, normal color. Absent: rash Course Vital Signs 11/06/17 11/06/17 11/06/17 16:44 16:54 17:21 Temperature 97.4 F L Pulse Rate 66 60 Respiratory 18 20 Rate Blood Pressure 129/58 O2 Sat by Pulse 94 L Oximetry 11/06/17 17:28 Temperature Pulse Rate 69 Respiratory Rate Blood Pressure O2 Sat by Pulse Oximetry - Reevaluation(s) Reevaluation #1: 11/06/17 18:10 FH respiratory failure secondary to CHF and COPD Reevaluation #2: 11/06/17 18:10 Oxygen is improved with breathing treatment here in the ER Reevaluation #3: 11/06/17 18:10 Medical record and prior hospitalization or thoroughly reviewed EKG Findings - EKG Comments: EKG Findings:: EKG shows rhythm of 61 rate of 61, MT 100, QRS 100, QTC 416 Medical Decision Making - Medical Decision Making 82 female the ER with comorbidities including significant for distress COPD CHF. Patient will be admitted for treatment of COPD and CHF, PTOT - Lab Data Result diagrams: 11/06/17 16:50 11/06/17 16:50 Lab Results 11/06/17 11/06/17 11/06/17 Range/Units 16:50 16:50 16:50 WBC 10.6 (3.8-10.6) k/uL RBC 4.47 (3.80-5.40) m/uL Hgb 13.8 (11.4-16.0) gm/dL Hct 43.3 (34.0-46.0) % MCV 96.9 (80.0-100.0) fL MCH 30.8 (25.0-35.0) pg MCHC 31.8 (31.0-37.0) g/dL RDW 12.5 (11.5-15.5) % Plt Count 187 (150-450) k/uL Neutrophils % 82 % Lymphocytes % 11 % Monocytes % 5 % Eosinophils % 1 % Basophils % 0 % Neutrophils # 8.7 H (1.3-7.7) k/uL Lymphocytes # 1.2 (1.0-4.8) k/uL Monocytes # 0.5 (0-1.0) k/uL Eosinophils # 0.1 (0-0.7) k/uL Basophils # 0.1 (0-0.2) k/uL PT (9.0-12.0) sec INR (<1.2) APTT (22.0-30.0) sec Sodium 132 L (137-145) mmol/L Potassium 4.9 (3.5-5.1) mmol/L Chloride 93 L (98-107) mmol/L Carbon Dioxide 30 (22-30) mmol/L Anion Gap 9 mmol/L BUN 46 H (7-17) mg/dL Creatinine 1.45 H (0.52-1.04) mg/dL Est GFR (CKD-EPI)AfAm 38 (>60 ml/min/1.73 sqM) Est GFR (CKD-EPI)NonAf 33 (>60 ml/min/1.73 sqM) Glucose 156 H (74-99) mg/dL Calcium 9.2 (8.4-10.2) mg/dL Magnesium 2.2 (1.6-2.3) mg/dL Total Bilirubin 0.9 (0.2-1.3) mg/dL AST 38 H (14-36) U/L ALT 33 (9-52) U/L Alkaline Phosphatase 82 (38-126) U/L Total Creatine Kinase 27 L (30-135) U/L CK-MB (CK-2) 1.0 (0.0-2.4) ng/mL CK-MB (CK-2) Rel Index 3.7 Troponin I 0.017 (0.000-0.034) ng/mL NT-Pro-B Natriuret Pep pg/mL Total Protein 6.2 L (6.3-8.2) g/dL Albumin 4.0 (3.5-5.0) g/dL 11/06/17 11/06/17 Range/Units 16:50 16:50 WBC (3.8-10.6) k/uL RBC (3.80-5.40) m/uL Hgb (11.4-16.0) gm/dL Hct (34.0-46.0) % MCV (80.0-100.0) fL MCH (25.0-35.0) pg MCHC (31.0-37.0) g/dL RDW (11.5-15.5) % Plt Count (150-450) k/uL Neutrophils % % Lymphocytes % % Monocytes % % Eosinophils % % Basophils % % Neutrophils # (1.3-7.7) k/uL Lymphocytes # (1.0-4.8) k/uL Monocytes # (0-1.0) k/uL Eosinophils # (0-0.7) k/uL Basophils # (0-0.2) k/uL PT 66.5 H (9.0-12.0) sec INR 7.2 H* (<1.2) APTT 30.9 H (22.0-30.0) sec Sodium (137-145) mmol/L Potassium (3.5-5.1) mmol/L Chloride (98-107) mmol/L Carbon Dioxide (22-30) mmol/L Anion Gap mmol/L BUN (7-17) mg/dL Creatinine (0.52-1.04) mg/dL Est GFR (CKD-EPI)AfAm (>60 ml/min/1.73 sqM) Est GFR (CKD-EPI)NonAf (>60 ml/min/1.73 sqM) Glucose (74-99) mg/dL Calcium (8.4-10.2) mg/dL Magnesium (1.6-2.3) mg/dL Total Bilirubin (0.2-1.3) mg/dL AST (14-36) U/L ALT (9-52) U/L Alkaline Phosphatase (38-126) U/L Total Creatine Kinase (30-135) U/L CK-MB (CK-2) (0.0-2.4) ng/mL CK-MB (CK-2) Rel Index Troponin I (0.000-0.034) ng/mL NT-Pro-B Natriuret Pep 2710 pg/mL Total Protein (6.3-8.2) g/dL Albumin (3.5-5.0) g/dL - Radiology Data Radiology results: report reviewed (Chest x-ray is positive for CHF), image reviewed Disposition Clinical Impression: CHF (congestive heart failure), Generalized weakness, Acute exacerbation of chronic obstructive airways disease Disposition: ADMITTED IP TO THIS HOSP Condition: Fair Referrals: Minh Hills MD [Primary Care Provider] - 1-2 days
[2017-11-06 17:19] LABS: Basophils # (A) 0.1 k/uL (0-0.2); Basophils % (A) 0 %; Eosinophils # (A) 0.1 k/uL (0-0.7); Eosinophils % (A) 1 %; HCT 43.3 % (34.0-46.0); HGB 13.8 gm/dL (11.4-16.0); Lymphocytes # (A) 1.2 k/uL (1.0-4.8); Lymphocytes % (A) 11 %; MCH 30.8 pg (25.0-35.0); MCHC 31.8 g/dL (31.0-37.0); MCV 96.9 fL (80.0-100.0); Monocytes # (A) 0.5 k/uL (0-1.0); Monocytes % (A) 5 %; Neutrophils # (A) 8.7 k/uL (1.3-7.7); Neutrophils % (A) 82 %; Platelet Count 187 k/uL (150-450); RBC 4.47 m/uL (3.80-5.40); RDW 12.5 % (11.5-15.5); WBC 10.6 k/uL (3.8-10.6)
[2017-11-06 17:31] LABS: Calcium 9.2 mg/dL (8.4-10.2); Magnesium 2.2 mg/dL (1.6-2.3); Potassium 4.9 mmol/L (3.5-5.1); Total Bilirubin 0.9 mg/dL (0.2-1.3); Total Protein 6.2 g/dL (6.3-8.2)
[2017-11-06 17:34] LABS: Partial Thromboplastin Time 30.9 sec (22.0-30.0)
[2017-11-06 17:35] LABS: Prothrombin Time 66.5 sec (9.0-12.0)
[2017-11-06 17:39] LABS: INR 7.2 (<1.2)
[2017-11-06 17:56] LABS: Troponin I 0.017 ng/mL (0.000-0.034)
--- NOTE | 2017-11-06 18:00 | XR ---
EXAMINATION TYPE: XR chest 2V DATE OF EXAM: 11/06/2017 COMPARISON: 01/01/2015 HISTORY: Difficulty breathing TECHNIQUE: Frontal and lateral views of the chest are obtained. FINDINGS: The heart is markedly enlarged as seen on the prior. Stable sclerotic area overlies a mid thoracic vertebral body in comparison to exam of 2014. Single lead left-sided cardiac device is noted . There is new mild interstitial prominence likely related to interstitial edema. No sizable pleural effusion or pneumothorax. Extensive degenerative changes of the shoulders and mild degenerative gnozales es of the thorax with osseous demineralization are noted. IMPRESSION: Mild interstitial pulmonary edema and redemonstration of marked cardiomegaly suggests underlying deco mpensated congestive heart failure.
[2017-11-06] MEDS: FUROSEMIDE 10 MG/ML 4 ML VIAL IV SCH ×2 (19:09→23:10)
[2017-11-06] MEDS ORDERED: ONDANSETRON 4 MG/2 ML VIAL IVP STA (19:21)
[2017-11-06] MEDS: IPRATROPIUM-ALBUTEROL 3 ML NEB INHALATION SCH ×2 (20:06→23:44)
[2017-11-06] MEDS ORDERED: MAGNESIUM HYDROXIDE 2,400 MG/10 ML CUP PO PRN (20:34)
[2017-11-06] MEDS ORDERED: ONDANSETRON 4 MG/2 ML VIAL IVP PRN (20:36)
[2017-11-06 20:41] LABS: Glucose,Whole Blood 143 mg/dL (75-99)
[2017-11-06] MEDS: INSULIN ASPART 100 UNIT/ML 1 ML 10 ML VIAL SQ SCH (21:30)
[2017-11-06] MEDS: METOPROLOL TARTRATE 25 MG TAB PO SCH (21:34)
[2017-11-06] MEDS ORDERED: PHYTONADIONE 10 MG in SODIUM CHLORIDE 0.9% 50 ML IVPB ONE (22:00)
[2017-11-06 23:45] LABS: Creatine Kinase 30 U/L (30-135)
[2017-11-06 23:56] LABS: Creatine Kinase MB 1.3 ng/mL (0.0-2.4)
[2017-11-07] MEDS: IPRATROPIUM-ALBUTEROL 3 ML NEB INHALATION SCH ×5 (03:35→19:26)
[2017-11-07 05:47] LABS: Glucose,Whole Blood 136 mg/dL (75-99)
[2017-11-07 06:39] LABS: Basophils % (A) 0 %; Eosinophils # (A) 0.1 k/uL (0-0.7); Eosinophils % (A) 1 %; HCT 40.4 % (34.0-46.0); HGB 12.6 gm/dL (11.4-16.0); Lymphocytes # (A) 0.6 k/uL (1.0-4.8); Lymphocytes % (A) 3 %; MCH 29.9 pg (25.0-35.0); MCHC 31.1 g/dL (31.0-37.0); MCV 96.1 fL (80.0-100.0); Mean Platelet Volume 7.3; Monocytes # (A) 0.6 k/uL (0-1.0); Monocytes % (A) 3 %; Neutrophils # (A) 17.7 k/uL (1.3-7.7); Neutrophils % (A) 92 %; Platelet Count 201 k/uL (150-450); RDW 12.5 % (11.5-15.5); WBC 19.2 k/uL (3.8-10.6)
[2017-11-07] MEDS: INSULIN ASPART 100 UNIT/ML 1 ML 10 ML VIAL SQ SCH ×4 (06:40→21:07)
[2017-11-07 06:53] LABS: Prothrombin Time 84.2 sec (9.0-12.0)
[2017-11-07 06:59] LABS: Creatine Kinase <20 U/L (30-135)
[2017-11-07 07:00] LABS: Calcium 8.8 mg/dL (8.4-10.2)
[2017-11-07 07:10] LABS: Creatine Kinase MB 0.9 ng/mL (0.0-2.4); Troponin I 0.032 ng/mL (0.000-0.034)
[2017-11-07] MEDS: FUROSEMIDE 10 MG/ML 4 ML VIAL IV SCH (08:27)
[2017-11-07] MEDS: METOPROLOL TARTRATE 50 MG TAB PO SCH (08:28)
[2017-11-07] MEDS ORDERED: PHYTONADIONE 10 MG in SODIUM CHLORIDE 0.9% 50 ML IVPB STA (08:32)
[2017-11-07] MEDS ORDERED: SPIRONOLACTONE 25 MG TAB PO SCH (09:00)
[2017-11-07] MEDS ORDERED: LISINOPRIL 5 MG TAB PO SCH (09:00)
[2017-11-07 11:04] LABS: Appearance,Urine Cloudy (Clear); Bacteria,Urine Rare /hpf; Bilirubin,Urine Negative (Negative); Blood,Urine Negative (Negative); Color,Urine Yellow; Glucose,Urine (UA) Negative (Negative); Hyaline Casts,Urine 61 /lpf (0-2); Ketones,Urine Negative (Negative); Leukocyte Esterase,Urine Large (Negative); Mucus,Urine Rare /hpf; Nitrite,Urine Negative (Negative); Protein,Urine Negative (Negative); RBC,Urine 3 /hpf (0-5); Squamous Epithelial Cell,Urine 5 /hpf (0-4); Urobilinogen,Urine <2.0 mg/dL (<2.0); WBC,Urine 6 /hpf (0-5)
[2017-11-07] MEDS ORDERED: VANCOMYCIN IV PER PHARMACY 1 EACH MISC MISCELLANE PRN (11:28)
--- NOTE | 2017-11-07 11:38 | P.CRDCN ---
History of Present Illness Consult date: 11/07/17 Requesting physician: Citlalli Garcia Consult reason: congestive heart failure Chief complaint: Weakness, nausea and vomiting History of present illness: This is a pleasant 82-year-old female patient who follows with Dr. Soto in the office. She has history of right-sided heart failure, COPD, chronic persistent atrial fibrillation, on Coumadin for anticoagulation, cor pulmonale, was recently in the hospital just discharged to an ECF over a week ago. According to the patient, since her discharge she's been having episodes of vomiting, she's been nauseous since discharge. She presents back to the hospital with symptoms of nausea and vomiting and extreme weakness. Her breathing overall has been stable, at the time of my examination this morning, she is lying flat in bed with no shortness of breath, extremely weak, positive nausea. Chest x-ray film was reviewed, does not reveal any significant congestive heart failure. EKG shows atrial fibrillation with nonspecific ST-T wave changes, unchanged from recent. Blood pressure on arrival here 128/58 with a heart rate in the 60s, 94% on 2 L of oxygen. White blood cell count 10.6 , 19.2 this morning, hemoglobin 13.8 yesterday, 12.6 this morning, platelet count 201. INR on admission 7.2, 9.0 this morning. Sodium 133, potassium 5.0, chloride 96, BUN 46 and creatinine 1.4 on admission, 50 and 1.8 this morning. BNP level 2710. Troponins 0.020, 0.032. Patient appears to be dehydrated, she was initiated on IV Lasix in the emergency room, we will discontinue this. Past Medical History Past Medical History: Atrial Fibrillation, Cancer, Diabetes Mellitus, Hypertension, Osteoarthritis (OA) Additional Past Medical History / Comment(s): PACEMAKER, DIABETES - DIET CONTROLLED, CHRONIC CONSTIPATION, NECK AND SHOULDER PAIN, LIMITED ROM SHOULDERS , HX OF UTERINE CANCER, USES WALKER AND W/C. History of Any Multi-Drug Resistant Organisms: None Reported Past Surgical History: Back Surgery, Cardiac Ablation, Hysterectomy, Joint Replacement, Pacemaker Additional Past Surgical History / Comment(s): JIE HIP REPLACEMENTS (2000 & 2005 ), JIE KNEE REPLACEMENT (1993), LEFT KNEE CAP (1994), PACEMAKER (2001), HYSTERECTOMY (1972), JIE CATARACTS (2004). Past Anesthesia/Blood Transfusion Reactions: Postoperative Nausea & Vomiting ( PONV) Type of Cardiac Device: Permanent Pacemaker Device Placement Date:: 2001 Past Psychological History: Anxiety Smoking Status: Former smoker Past Alcohol Use History: None Reported Additional Past Alcohol Use History / Comment(s): STARTED SMOKING AT 14 YRS OLD AND QUIT AT 34 YRS OLD. SMOKED 1PPD Past Drug Use History: None Reported - Past Family History Father Family Medical History: Cancer Additional Family Medical History / Comment(s): PROSTATE CA Son(s) Family Medical History: Cancer Additional Family Medical History / Comment(s): 2 SONS -PROSTATE CA Daughter(s) Family Medical History: Cancer Additional Family Medical History / Comment(s): BREAST CA Medications and Allergies Home Medications Medication Instructions Recorded Confirmed Type Lisinopril [Zestril] 5 mg PO DAILY 01/04/15 11/06/17 History Metoprolol Tartrate [Lopressor] 25 mg PO HS 01/04/15 11/06/17 History Spironolactone [Aldactone] 25 mg PO DAILY 01/04/15 11/06/17 History Metoprolol Tartrate [Lopressor] 50 mg PO DAILY 10/23/17 11/06/17 History Vit C/E/Zn/Coppr/Lutein/Zeaxan 1 cap PO BID 10/23/17 11/06/17 History [Preservision Areds 2 Softgel] ALPRAZolam [Xanax] 0.5 mg PO BID PRN #6 tab 10/31/17 11/06/17 Rx Warfarin [Coumadin] 2.5 mg PO Q48H tab 10/31/17 11/06/17 Rx Warfarin [Coumadin] 5 mg PO Q48H tab 10/31/17 11/06/17 Rx Bisacodyl [Dulcolax] 10 mg RECTAL DAILY PRN 11/06/17 11/06/17 History Furosemide [Lasix] 60 mg PO BID@0600,1400 11/06/17 11/06/17 History Hydrocodone/Acetaminophen [[place] 1 tab PO Q8H PRN 11/06/17 11/06/17 History 10-325] Magnesium Hydroxide [Milk of 7,200 mg PO DAILY PRN 11/06/17 11/06/17 History Magnesia Concentrate] Na Phos,M-B/Na Phos,Di-Ba [Fleet 133 ml RECTAL ONCE PRN 11/06/17 11/06/17 History Adult] Ondansetron HCl [Zofran] 4 mg PO Q6H PRN 11/06/17 11/06/17 History PARoxetine [Paxil] 20 mg PO DAILY 11/06/17 11/06/17 History fentaNYL 50MCG/HR PATCH [Duragesic 50 mcg TRANSDERM Q72H 11/06/17 11/06/17 History 50MCG/HR] Allergies Allergy/AdvReac Type Severity Reaction Status Date / Time No Known Allergies Allergy Verified 11/06/17 16:50 Physical Exam Vitals: Vital Signs Temp Pulse Pulse Pulse Resp BP BP 11/07/17 08:13 88 16 11/07/17 08:05 85 16 11/07/17 08:00 96.6 F L 94 18 116/58 11/07/17 04:00 97.6 F 70 88 21 97/49 11/07/17 03:53 67 11/07/17 03:35 68 11/07/17 00:00 84 87 16 97/52 11/06/17 23:57 74 11/06/17 23:44 68 11/06/17 21:00 93 72 19 11/06/17 20:20 72 11/06/17 20:08 73 11/06/17 19:32 71 20 127/60 11/06/17 19:02 72 20 124/64 11/06/17 18:47 98.1 F 72 19 120/58 11/06/17 18:38 69 18 145/67 11/06/17 17:28 69 11/06/17 17:21 60 11/06/17 16:54 20 11/06/17 16:44 97.4 F L 66 18 129/58 Pulse Ox 11/07/17 08:13 11/07/17 08:05 11/07/17 08:00 90 L 11/07/17 04:00 95 11/07/17 03:53 11/07/17 03:35 11/07/17 00:00 93 L 11/06/17 23:57 11/06/17 23:44 11/06/17 21:00 11/06/17 20:20 11/06/17 20:08 11/06/17 19:32 94 L 11/06/17 19:02 91 L 07/31/18 18:47 95 11/06/17 18:38 89 L 11/06/17 17:28 11/06/17 17:21 11/06/17 16:54 11/06/17 16:44 94 L Intake and Output 11/06/17 11/07/17 11/07/17 22:59 06:59 14:59 Intake Total 10 330 0 Output Total 250 Balance 10 80 0 Intake: IV 10 40 0.9 20 Invasive Line 1 10 20 Intake, IV Titration 50 Amount Phytonadione 10 mg In 50 Sodium Chloride 0.9% 50 ml @ 100 mls/hr IVPB ONCE ONE Rx#:[id number] Oral 240 0 Output: Urine 250 Other: Voiding Method Bedside Commode Bedside Commode # Voids 2 1 Weight 108.832 kg 120 kg PHYSICAL EXAMINATION: 82-year-old female, appears very weak and frail today HEENT: Head is atraumatic, normocephalic. Pupils equal, round. Neck is supple. There is no elevated jugular venous pressure. HEART EXAMINATION: Heart sounds regular, S1 and S2 normal. No murmur or gallop heard. CHEST EXAMINATION: Lungs reveal diminished air entry bilaterally. No chest wall tenderness is noted on palpation or with deep breathing. ABDOMEN: Soft, nontender. Bowel sounds are heard. No organomegaly noted. EXTREMITIES: 2+ peripheral pulses with trace evidence of peripheral edema and erythema and blistering to bilateral lower legs. NEUROLOGIC patient is awake, alert and oriented x3, confusion and short-term memory loss noted. Results 11/07/17 06:21 11/07/17 06:21 Cardiac Enzymes 11/06/17 11/06/17 11/06/17 Range/Units 16:50 16:50 23:02 AST 38 H (14-36) U/L CK-MB (CK-2) 1.0 1.3 (0.0-2.4) ng/mL Troponin I 0.017 EDUCATION PROFESSOR (0.000-0.034) ng/mL 11/07/17 11/07/17 Range/Units 00:42 06:21 AST (14-36) U/L CK-MB (CK-2) 0.9 (0.0-2.4) ng/mL Troponin I 0.020 0.032 (0.000-0.034) ng/mL Coagulation 11/06/17 11/07/17 Range/Units 16:50 06:21 PT 66.5 H 84.2 H (9.0-12.0) sec APTT 30.9 H (22.0-30.0) sec CBC 11/06/17 11/07/17 Range/Units 16:50 06:21 WBC 10.6 19.2 H (3.8-10.6) k/uL RBC 4.47 4.20 (3.80-5.40) m/uL Hgb 13.8 12.6 (11.4-16.0) gm/dL Hct 43.3 40.4 (34.0-46.0) % Plt Count 187 201 (150-450) k/uL Comprehensive Metabolic Panel 11/06/17 11/07/17 Range/Units 16:50 06:21 Sodium 132 L 133 L (137-145) mmol/L Potassium 4.9 5.0 (3.5-5.1) mmol/L Chloride 93 L 96 L (98-107) mmol/L Carbon Dioxide 30 28 (22-30) mmol/L BUN 46 H 50 H (7-17) mg/dL Creatinine 1.45 H 1.86 H (0.52-1.04) mg/dL Glucose 156 H 131 H (74-99) mg/dL Calcium 9.2 8.8 (8.4-10.2) mg/dL AST 38 H (14-36) U/L ALT 33 (9-52) U/L Alkaline Phosphatase 82 (38-126) U/L Total Protein 6.2 L (6.3-8.2) g/dL Albumin 4.0 (3.5-5.0) g/dL Current Medications Generic Name Dose Route Start Last Admin Trade Name Freq PRN Reason Stop Dose Admin Hydrocodone Bitart/Acetaminophen 1 each 11/06/17 20:34 [place] 10 PO Q8H PRN moderate Pain Albuterol/Ipratropium 3 ml 11/06/17 20:00 11/07/17 08:05 Duoneb 0.5 Mg-3 Mg/3 Ml Soln INHALATION 3 ml RT-Q4H ISHA Administration Alprazolam 0.5 mg 11/06/17 20:34 Xanax PO BID PRN Anxiety Famotidine 20 mg 08/02/18 09:00 Pepcid PO DAILY ISHA Fentanyl 1 patch 11/07/17 09:00 11/07/17 08:24 Duragesic 50mcg/Hr Patch TRANSDERM 1 patch Q72H ISHA Administration Furosemide 40 mg 11/06/17 18:15 11/07/17 08:27 Lasix IV 40 mg Q8HR ISHA Administration Insulin Aspart 0 unit 11/06/17 21:00 11/07/17 06:40 Novolog SQ Not Given ACHS [facility] Protocol Magnesium Hydroxide 7,200 mg 11/06/17 20:34 Milk Of Magnesia PO DAILY PRN CONSTIPATION Metoprolol Tartrate 25 mg 11/06/17 21:00 11/06/17 21:34 Lopressor PO 25 mg HS ISHA Administration Metoprolol Tartrate 50 mg 11/07/17 09:00 11/07/17 08:28 Lopressor PO 50 mg DAILY ISHA Administration Ondansetron HCl 4 mg 11/06/17 20:36 11/06/17 21:45 Zofran IVP 4 mg Q6HR PRN Administration Nausea And Vomiting Spironolactone 25 mg 11/07/17 09:00 11/07/17 08:24 Aldactone PO 25 mg DAILY ISHA Administration Intake and Output 11/06/17 11/07/17 11/07/17 22:59 06:59 14:59 Intake Total 10 330 0 Output Total 250 Balance 10 80 0 Intake: IV 10 40 0.9 20 Invasive Line 1 10 20 Intake, IV Titration 50 Amount Phytonadione 10 mg In 50 Sodium Chloride 0.9% 50 ml @ 100 mls/hr IVPB ONCE ONE Rx#:[id number] Oral 240 0 Output: Urine 250 Other: Voiding Method Bedside Commode Bedside Commode # Voids 2 1 Weight 108.832 kg 120 kg 11/07/17 06:21 11/07/17 06:21 EKG Interpretations (text) EKG shows atrial fibrillation with a controlled ventricular response Assessment and Plan Plan: Assessment and plan #1 symptoms of persistent nausea and vomiting with evidence of dehydration #2 history of right-sided heart failure with cor pulmonale, no active heart failure on this admission. #3 elevated INR, likely secondary to persistent vomiting #4 chronic persistent atrial fibrillation , on Coumadin for anticoagulation #5 sinus syndrome, status post pacemaker implantation #6 COPD #7 history of uterine cancer #8 elevated white blood cell count, patient did have recent positive blood culture, Staphylococcus auricularis Plan We will hold the patient's Coumadin, discontinue the IV Lasix and hold oral diuretics at this time. Hydrate the patient. Continue to monitor daily lytes BUN and creatinine, PT/INRs. Further recommendations to follow. DNP note has been reviewed, I agree with a documented findings and plan of care. Patient was seen and examined.
[2017-11-07 11:49] LABS: Glucose,Whole Blood 151 mg/dL (75-99)
[2017-11-07] MEDS ORDERED: VANCOMYCIN 2,000 MG in SODIUM CHLORIDE 0.9% 500 ML IVPB ONE (12:00)
[2017-11-07 14:11] VITALS: BMI 36.8
[2017-11-07 14:14] LABS: Hemoglobin A1C 5.8 % (4.0-6.0)
--- NOTE | 2017-11-07 14:57 | P.HPIM ---
<Jenae Stephen P - Last Filed: 11/07/17 14:42> History of Present Illness H&P Date: 11/07/17 Chief Complaint: Shortness of breath This is a 82-year-old patient of Dr. Hills. Patient has been residing at [facility] for physical therapy. Patient presented with significant shortness of breath patient also presented with a low SpO2 in the 80s. Patient has a known past medical history of atrial fibrillation which she is maintained on Coumadin, diabetes mellitus, hypertension, osteoarthritis, pacemaker, uterine cancer, chronic back pain and anxiety. Patient was started on 40 mg IV Lasix every 8 hours. INR on admission 7.2. Vitamin K had been ordered. Repeat INR increasing to 9 additional 10 mg of vitamin K have been ordered. Hemoglobin stable 12.6. Patient reports no signs of bleeding. Patient did have a bowel movement that was normal. Chest x-ray completed showing mild interstitial pulmonary edema and redemonstration of marked cardiomegaly suggest underlying decompensated congestive heart failure. Cardiology services have been consulted. Pulmonary services also consulted. WBC increasing to 19.2. Urine sputum and blood cultures have been ordered. Patient currently denies chest pain at this time does state improvement with shortness of breath earlier. Patient does report that the past week correction she's had nausea and unable to hold down food along with poor appetite. GI services have been consulted and computed tomography scan of abdomen has been ordered. Review of Systems Please refer to HPI otherwise unremarkable Past Medical History Past Medical History: Atrial Fibrillation, Cancer, Diabetes Mellitus, Hypertension, Osteoarthritis (OA) Additional Past Medical History / Comment(s): PACEMAKER, DIABETES - DIET CONTROLLED, CHRONIC CONSTIPATION, NECK AND SHOULDER PAIN, LIMITED ROM SHOULDERS , HX OF UTERINE CANCER, USES WALKER AND W/C. History of Any Multi-Drug Resistant Organisms: None Reported Past Surgical History: Back Surgery, Cardiac Ablation, Hysterectomy, Joint Replacement, Pacemaker Additional Past Surgical History / Comment(s): JIE HIP REPLACEMENTS (2000 & 2005 ), JIE KNEE REPLACEMENT (1993), LEFT KNEE CAP (1994), PACEMAKER (2001), HYSTERECTOMY (1972), JIE CATARACTS (2004). Past Anesthesia/Blood Transfusion Reactions: Postoperative Nausea & Vomiting ( PONV) Type of Cardiac Device: Permanent Pacemaker Device Placement Date:: 2001 Past Psychological History: Anxiety Smoking Status: Former smoker Past Alcohol Use History: None Reported Additional Past Alcohol Use History / Comment(s): STARTED SMOKING AT 14 YRS OLD AND QUIT AT 34 YRS OLD. SMOKED 1PPD Past Drug Use History: None Reported - Past Family History Father Family Medical History: Cancer Additional Family Medical History / Comment(s): PROSTATE CA Son(s) Family Medical History: Cancer Additional Family Medical History / Comment(s): 2 SONS -PROSTATE CA Daughter(s) Family Medical History: Cancer Additional Family Medical History / Comment(s): BREAST CA Medications and Allergies Home Medications Medication Instructions Recorded Confirmed Type Lisinopril [Zestril] 5 mg PO DAILY 01/04/15 11/06/17 History Metoprolol Tartrate [Lopressor] 25 mg PO HS 01/04/15 11/06/17 History Spironolactone [Aldactone] 25 mg PO DAILY 01/04/15 11/06/17 History Metoprolol Tartrate [Lopressor] 50 mg PO DAILY 10/23/17 11/06/17 History Vit C/E/Zn/Coppr/Lutein/Zeaxan 1 cap PO BID 10/23/17 11/06/17 History [Preservision Areds 2 Softgel] ALPRAZolam [Xanax] 0.5 mg PO BID PRN #6 tab 10/31/17 11/06/17 Rx Warfarin [Coumadin] 2.5 mg PO Q48H tab 10/31/17 11/06/17 Rx Warfarin [Coumadin] 5 mg PO Q48H tab 10/31/17 11/06/17 Rx Bisacodyl [Dulcolax] 10 mg RECTAL DAILY PRN 11/06/17 11/06/17 History Furosemide [Lasix] 60 mg PO BID@0600,1400 11/06/17 11/06/17 History Hydrocodone/Acetaminophen [[place] 1 tab PO Q8H PRN 11/06/17 11/06/17 History 10-325] Magnesium Hydroxide [Milk of 7,200 mg PO DAILY PRN 11/06/17 11/06/17 History Magnesia Concentrate] Na Phos,M-B/Na Phos,Di-Ba [Fleet 133 ml RECTAL ONCE PRN 11/06/17 11/06/17 History Adult] Ondansetron HCl [Zofran] 4 mg PO Q6H PRN 11/06/17 11/06/17 History PARoxetine [Paxil] 20 mg PO DAILY 11/06/17 11/06/17 History fentaNYL 50MCG/HR PATCH [Duragesic 50 mcg TRANSDERM Q72H 11/06/17 11/06/17 History 50MCG/HR] Allergies Allergy/AdvReac Type Severity Reaction Status Date / Time No Known Allergies Allergy Verified 11/06/17 16:50 Physical Exam Vitals: Vital Signs Temp Pulse Pulse Pulse Resp BP BP 11/07/17 08:13 88 16 11/07/17 08:05 85 16 11/07/17 08:00 96.6 F L 94 18 116/58 11/07/17 04:00 97.6 F 70 88 21 97/49 11/07/17 03:53 67 11/07/17 03:35 68 11/07/17 00:00 84 87 16 97/52 11/06/17 23:57 74 11/06/17 23:44 68 11/06/17 21:00 93 72 19 11/06/17 20:20 72 11/06/17 20:08 73 11/06/17 19:32 71 20 127/60 11/06/17 19:02 72 20 124/64 11/06/17 18:47 98.1 F 72 19 120/58 11/06/17 18:38 69 18 145/67 11/06/17 17:28 69 11/06/17 17:21 60 11/06/17 16:54 20 11/06/17 16:44 97.4 F L 66 18 129/58 Pulse Ox 11/07/17 08:13 11/07/17 08:05 11/07/17 08:00 90 L 11/07/17 04:00 95 11/07/17 03:53 11/07/17 03:35 11/07/17 00:00 93 L 11/06/17 23:57 11/06/17 23:44 11/06/17 21:00 11/06/17 20:20 11/06/17 20:08 11/06/17 19:32 94 L 11/06/17 19:02 91 L 11/06/17 18:47 95 11/06/17 18:38 89 L 11/06/17 17:28 11/06/17 17:21 11/06/17 16:54 07/31/18 16:44 94 L Intake and Output 11/06/17 11/07/17 11/07/17 22:59 06:59 14:59 Intake Total 10 330 Output Total 250 Balance 10 80 Intake: IV 10 40 0.9 20 Invasive Line 1 10 20 Intake, IV Titration 50 Amount Phytonadione 10 mg In 50 Sodium Chloride 0.9% 50 ml @ 100 mls/hr IVPB ONCE ONE Rx#:[id number] Oral 240 Output: Urine 250 Other: Voiding Method Bedside Commode Bedside Commode # Voids 2 1 Weight 108.832 kg 120 kg Results CBC & Chem 7: 11/07/17 06:21 11/07/17 06:21 Labs: Abnormal Lab Results - Last 24 Hours (Table) 11/06/17 11/06/17 11/06/17 Range/Units 16:50 16:50 16:50 WBC (3.8-10.6) k/uL Neutrophils # 8.7 H (1.3-7.7) k/uL Lymphocytes # (1.0-4.8) k/uL PT (9.0-12.0) sec INR (<1.2) APTT (22.0-30.0) sec Sodium 132 L (137-145) mmol/L Chloride 93 L (98-107) mmol/L BUN 46 H (7-17) mg/dL Creatinine 1.45 H (0.52-1.04) mg/dL Glucose 156 H (74-99) mg/dL POC Glucose (mg/dL) (75-99) mg/dL AST 38 H (14-36) U/L Total Creatine Kinase 27 L (30-135) U/L Total Protein 6.2 L (6.3-8.2) g/dL 11/06/17 11/06/17 11/07/17 Range/Units 16:50 20:39 05:45 WBC (3.8-10.6) k/uL Neutrophils # (1.3-7.7) k/uL Lymphocytes # (1.0-4.8) k/uL PT 66.5 H (9.0-12.0) sec INR 7.2 H* (<1.2) APTT 30.9 H (22.0-30.0) sec Sodium (137-145) mmol/L Chloride (98-107) mmol/L BUN (7-17) mg/dL Creatinine (0.52-1.04) mg/dL Glucose (74-99) mg/dL POC Glucose (mg/dL) 143 H 136 H (75-99) mg/dL AST (14-36) U/L Total Creatine Kinase (30-135) U/L Total Protein (6.3-8.2) g/dL 11/07/17 11/07/17 11/07/17 Range/Units 06:21 06:21 06:21 WBC 19.2 H (3.8-10.6) k/uL Neutrophils # 17.7 H (1.3-7.7) k/uL Lymphocytes # 0.6 L (1.0-4.8) k/uL PT 84.2 H (9.0-12.0) sec INR 9.0 H* (<1.2) APTT (22.0-30.0) sec Sodium (137-145) mmol/L Chloride (98-107) mmol/L BUN (7-17) mg/dL Creatinine (0.52-1.04) mg/dL Glucose (74-99) mg/dL POC Glucose (mg/dL) (75-99) mg/dL AST (14-36) U/L Total Creatine Kinase <20 L (30-135) U/L Total Protein (6.3-8.2) g/dL 11/07/17 Range/Units 06:21 WBC (3.8-10.6) k/uL Neutrophils # (1.3-7.7) k/uL Lymphocytes # (1.0-4.8) k/uL PT (9.0-12.0) sec INR (<1.2) APTT (22.0-30.0) sec Sodium 133 L (137-145) mmol/L Chloride 96 L (98-107) mmol/L BUN 50 H (7-17) mg/dL Creatinine 1.86 H (0.52-1.04) mg/dL Glucose 131 H (74-99) mg/dL POC Glucose (mg/dL) (75-99) mg/dL AST (14-36) U/L Total Creatine Kinase (30-135) U/L Total Protein (6.3-8.2) g/dL Thrombosis Risk Factor Assmnt - Choose All That Apply Any of the Below Risk Factors Present?: Yes Each Factor Represents 1 point: Abnormal pulmonary function (COPD), Medical pt on bed rest, Obesity (BMI >25), Swollen legs (current) Other Risk Factors: Yes Each Risk Factor Represents 3 Points: Age 75 years or older Thrombosis Risk Factor Assessment Total Risk Factor Score: 7 Thrombosis Risk Factor Assessment Level: High Risk Assessment and Plan Assessment: 1. 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 Chest is x -ray completed showing mild interstitial pulmonary edema and redemonstration of marked cardiomegaly suggest underlying decompensated congestive heart failure. BNP 2710. Cardiology services have been consulted. Patient currently on 40 mg IV Lasix every 8 hours. Troponin level 0.017, 0.020. Pulmonary services and also been consulted. Per cardiology lisinopril, Lasix and oral diuretics have been discontinued due to kidney function and dehydration 2. Atrial fibrillation- she was maintained on Coumadin. INR 7.2. Patient treated with Vit K. Repeat INR 9.0 patient was given an additional 10 mg vitamin K. Patient maintained on metoprolol 3. Essential hypertension. Patient on Lopressor. Lisinopril discontinued due to increase in creatinine 4. Diabetes mellitus. Diet controlled at home. Last hemoglobin A1c 5.9. Sliding scale insulin has been ordered during hospitalization 5. Elevated INR. Possibly related to poor oral intake and vomiting. INR 7.2. Patient treated with Vit K. Repeat INR 9.0 patient was given an additional 10 mg vitamin K. patient was maintained on 2.5 mg of Coumadin every other day and 5 mg Coumadin every other day. 6. Acute kidney injury. Creatinine 1.86 and bun 50. Lisinopril, Lasix and oral diuretics will be held at this time per cardiology 7. Leukocytosis. WBC 19.2. Blood, urine and sputum cultures have been ordered. Vancomycin and zosyn have been added. Dr. Jackson per infectious disease has been consulted 8. History of permenant pacemaker 9. Anxiety continue Xanax 10. Nausea and vomiting. CT of abdomen and pelvis has been ordered. GI services have been consulted. IV fluids have been ordered. GI prophylaxis Pepcid Time with Patient: Greater than 30 (Greater than 60% of the total time spent in counseling and coordination of care. I performed an examination of the patient and discussed their management with the Nurse Practitioner. I have reviewed the Nurse Practitioner's notes and agree with the documented findings and plan of care) <Kim Parada A - Last Filed: 11/07/17 14:59> Physical Exam Osteopathic Statement: *. No significant issues noted on an osteopathic structural exam other than those noted in the History and Physical/Consult. Vitals: Vital Signs Temp Pulse Pulse Pulse Resp BP BP 11/07/17 11:57 88 16 11/07/17 11:46 85 16 11/07/17 11:30 97.6 F 75 18 92/60 11/07/17 08:13 88 16 11/07/17 08:05 85 16 11/07/17 08:00 96.6 F L 94 18 116/58 11/07/17 04:00 97.6 F 70 88 21 97/49 11/07/17 03:53 67 11/07/17 03:35 68 11/07/17 00:00 84 87 16 97/52 11/06/17 23:57 74 11/06/17 23:44 68 11/06/17 21:00 93 72 19 11/06/17 20:20 72 11/06/17 20:08 73 11/06/17 19:32 71 20 127/60 11/06/17 19:02 72 20 124/64 11/06/17 18:47 98.1 F 72 19 120/58 11/06/17 18:38 69 18 145/67 11/06/17 17:28 69 11/06/17 17:21 60 11/06/17 16:54 20 11/06/17 16:44 97.4 F L 66 18 129/58 Pulse Ox 11/07/17 11:57 11/07/17 11:46 11/07/17 11:30 90 L 11/07/17 08:13 11/07/17 08:05 11/07/17 08:00 90 L 11/07/17 04:00 95 11/07/17 03:53 11/07/17 03:35 11/07/17 00:00 93 L 11/06/17 23:57 11/06/17 23:44 11/06/17 21:00 11/06/17 20:20 11/06/17 20:08 11/06/17 19:32 94 L 11/06/17 19:02 91 L 11/06/17 18:47 95 11/06/17 18:38 89 L 11/06/17 17:28 11/06/17 17:21 11/06/17 16:54 11/06/17 16:44 94 L Intake and Output 11/06/17 11/07/17 11/07/17 22:59 06:59 14:59 Intake Total 10 330 236 Output Total 250 Balance 10 80 236 Intake: IV 10 40 0.9 20 Invasive Line 1 10 20 Intake, IV Titration 50 Amount Phytonadione 10 mg In 50 Sodium Chloride 0.9% 50 ml @ 100 mls/hr IVPB ONCE ONE Rx#:[id number] Oral 240 236 Output: Urine 250 Other: Voiding Method Bedside Commode Bedside Commode # Voids 2 1 2 Weight 108.832 kg 120 kg 120 kg Results CBC & Chem 7: 11/07/17 06:21 11/07/17 06:21 Labs: Abnormal Lab Results - Last 24 Hours (Table) 11/06/17 11/06/17 11/06/17 Range/Units 16:50 16:50 16:50 WBC (3.8-10.6) k/uL Neutrophils # 8.7 H (1.3-7.7) k/uL Lymphocytes # (1.0-4.8) k/uL PT (9.0-12.0) sec INR (<1.2) APTT (22.0-30.0) sec Sodium 132 L (137-145) mmol/L Chloride 93 L (98-107) mmol/L BUN 46 H (7-17) mg/dL Creatinine 1.45 H (0.52-1.04) mg/dL Glucose 156 H (74-99) mg/dL POC Glucose (mg/dL) (75-99) mg/dL AST 38 H (14-36) U/L Total Creatine Kinase 27 L (30-135) U/L Total Protein 6.2 L (6.3-8.2) g/dL Urine Appearance (Clear) Ur Leukocyte Esterase (Negative) Urine WBC (0-5) /hpf Ur Squamous Epith Cells (0-4) /hpf Urine Bacteria (None) /hpf Hyaline Casts (0-2) /lpf Urine Mucus (None) /hpf 11/06/17 11/06/17 11/07/17 Range/Units 16:50 20:39 05:45 WBC (3.8-10.6) k/uL Neutrophils # (1.3-7.7) k/uL Lymphocytes # (1.0-4.8) k/uL PT 66.5 H (9.0-12.0) sec INR 7.2 H* (<1.2) APTT 30.9 H (22.0-30.0) sec Sodium (137-145) mmol/L Chloride (98-107) mmol/L BUN (7-17) mg/dL Creatinine (0.52-1.04) mg/dL Glucose (74-99) mg/dL POC Glucose (mg/dL) 143 H 136 H (75-99) mg/dL AST (14-36) U/L Total Creatine Kinase (30-135) U/L Total Protein (6.3-8.2) g/dL Urine Appearance (Clear) Ur Leukocyte Esterase (Negative) Urine WBC (0-5) /hpf Ur Squamous Epith Cells (0-4) /hpf Urine Bacteria (None) /hpf Hyaline Casts (0-2) /lpf Urine Mucus (None) /hpf 11/07/17 11/07/17 11/07/17 Range/Units 06:21 06:21 06:21 WBC 19.2 H (3.8-10.6) k/uL Neutrophils # 17.7 H (1.3-7.7) k/uL Lymphocytes # 0.6 L (1.0-4.8) k/uL PT 84.2 H (9.0-12.0) sec INR 9.0 H* (<1.2) APTT (22.0-30.0) sec Sodium (137-145) mmol/L Chloride (98-107) mmol/L BUN (7-17) mg/dL Creatinine (0.52-1.04) mg/dL Glucose (74-99) mg/dL POC Glucose (mg/dL) (75-99) mg/dL AST (14-36) U/L Total Creatine Kinase <20 L (30-135) U/L Total Protein (6.3-8.2) g/dL Urine Appearance (Clear) Ur Leukocyte Esterase (Negative) Urine WBC (0-5) /hpf Ur Squamous Epith Cells (0-4) /hpf Urine Bacteria (None) /hpf Hyaline Casts (0-2) /lpf Urine Mucus (None) /hpf 11/07/17 11/07/17 11/07/17 Range/Units 06:21 10:25 11:47 WBC (3.8-10.6) k/uL Neutrophils # (1.3-7.7) k/uL Lymphocytes # (1.0-4.8) k/uL PT (9.0-12.0) sec INR (<1.2) APTT (22.0-30.0) sec Sodium 133 L (137-145) mmol/L Chloride 96 L (98-107) mmol/L BUN 50 H (7-17) mg/dL Creatinine 1.86 H (0.52-1.04) mg/dL Glucose 131 H (74-99) mg/dL POC Glucose (mg/dL) 151 H (75-99) mg/dL AST (14-36) U/L Total Creatine Kinase (30-135) U/L Total Protein (6.3-8.2) g/dL Urine Appearance Cloudy H (Clear) Ur Leukocyte Esterase Large H (Negative) Urine WBC 6 H (0-5) /hpf Ur Squamous Epith Cells 5 H (0-4) /hpf Urine Bacteria Rare H (None) /hpf Hyaline Casts 61 H (0-2) /lpf Urine Mucus Rare H (None) /hpf Microbiology - Last 24 Hours (Table) 11/07/17 10:25 Urine Culture - Preliminary Urine,Voided Assessment and Plan Assessment: Patient seen and examined. INR greater than 9. Patient was given multiple doses of vitamin K. Repeat INR this evening. for signs and symptoms of bleeding. Patient apparently has been having nausea, vomiting To [facility]. She states she is unsure when the last time she ate or drank anything. The patient is intravascularly volume depleted. Initiate gentle IV fluid hydration. Nystatin powder. Place Carlson catheter for strict I's and O's. Check lactic acid. Check CT of the abdomen and pelvis. Hold all anticoagulation. SCDs for DVT prophylaxis. GI prophylaxis with Protonix. Continue Vanco and Zosyn. ID, GI, cardiology has been consult it. Continue to monitor the patient very closely. Hold Lasix. Hold lisinopril due to acute kidney injury. ~Kim Parada, DO
[2017-11-07 15:31] LABS: INR 2.1 (<1.2)
--- NOTE | 2017-11-07 15:44 | CT ---
EXAMINATION TYPE: CT abdomen pelvis wo con DATE OF EXAM: 11/07/2017 HISTORY: abdominal pain, nausea, vomiting CT DLP: 1281.0 mGycm. Automated Exposure Control for Dose Reduction was Utilized. TECHNIQUE: CT scan of the abdomen and pelvis is performed without oral or IV contrast. COMPARISON: NONE FINDINGS: Within the limitations of a non-contrast study, the following observations are made. LUNG BASES: Cardiomegaly is present there is moderate to severe right greater than left atrial dilata tion. There is mild to moderate right ventricular dilatation. There is partial visualization of right -sided pacemaker. There are tiny bilateral pleural effusions. There are scattered areas of consolidat ion and/or atelectasis in both bases with slight subcentimeter nodularity identified. Cannot exclude underlying infection. LIVER/GB: Gallbladder is dilated with distended peripheral margins. Dependent density could reflect s mall stones and/or gallbladder sludge. No surrounding inflammatory changes evident. No suspicious sosa iary dilatation is noted. PANCREAS: No significant abnormality is seen. SPLEEN: Some calcifications are scattered throughout somewhat small sized spleen presumed product of old granulomatous disease. ADRENALS: No significant abnormality is seen. KIDNEYS: Some cortical thinning in both kidneys is seen. There is prominent right renal pelvis withou t calyceal dilatation BOWEL: Diverticula are seen in the sigmoid colon. No suspicious small or large bowel dilatation is pr esent GENITAL ORGANS: No gross abnormality seen. LYMPH NODES: No greater than 1cm abdominal or pelvic lymph nodes are appreciated. OSSEOUS STRUCTURES: Osseous structures are demineralized. Metallic hardware from bilateral hip arthro plasties causes streak artifact limiting evaluation of pelvic structures. There is moderate to severe multilevel spurring and disc space narrowing with multilevel vacuum disc phenomenon throughout the t horacolumbar spine. There is relative sparing of disc space narrowing L4-L5 level. There is multileve l facet arthropathy. OTHER: There is moderate calcified plaque of the abdominal aorta extending into branch vessels. There is adjacent right lateral periaortic calcification of uncertain etiology in the lower abdominal aort a. Adjacent IVC is prominent particularly infrahepatic portion of uncertain significance. IMPRESSION: 1. No bowel obstruction. Sigmoid colonic diverticulosis without convincing CT evidence for acute dive rticulitis. 2. Hydropic gallbladder with dependent sludge and/or small stones, no surrounding inflammatory change identified on CT to suggest acute cholecystitis. 3. Correlate for CHF exacerbation as there is cardiomegaly with tiny bilateral pleural effusions. Can not exclude areas of acute infiltrate in both lung bases. Correlate clinically.
[2017-11-07] MEDS: PIPERACILLIN-TAZOBACTAM 3.375 GM in DEXTROSE/WATER 1 50ML.BAG IVPB SCH ×2 (15:50→23:56)
[2017-11-07] MEDS: SODIUM CHLORIDE 0.9% 1,000 ML IV SCH (15:50)
[2017-11-07 16:26] LABS: Glucose,Whole Blood 130 mg/dL (75-99)
[2017-11-07 20:50] LABS: Glucose,Whole Blood 123 mg/dL (75-99)
[2017-11-07] MEDS: NYSTATIN 100,000UNIT/GM CREAM 30 GM TUBE TOPICAL SCH (21:12)
[2017-11-07] MEDS: METOPROLOL TARTRATE 25 MG TAB PO SCH (22:22)
--- NOTE | 2017-11-07 23:23 | CONS ---
CONSULTATION DATE OF SERVICE: 11/07/2017 REASON FOR CONSULTATION: Sepsis and antibiotic recommendation. HISTORY OF PRESENT ILLNESS: The patient is an 82-year-old female who was recently admitted at [facility] for fluid overload and underlying cardiac condition. At that time the patient did have evidence of a positive blood culture which was later finalized as Staph epi and disregarded as contamination. Subsequently patient was transferred to [facility] for rehabilitation. The patient apparently was doing well for the first few days. However, apparently one day while the patient was trying to eat she apparently must have taken a big bite and started choking, per the daughter, who provided most of the history. It was very hard to have that piece of food coughed up. Since then the patient seemed to be having some shortness of breath and a congested cough. Yesterday the report shows her to be hypoxic with oxygen saturation of 70%. The patient was complaining of increasing shortness of breath; hence the patient was rushed to the [facility] ER. On arrival in the ER the patient had a chest x-ray obtained which shows mild interstitial pulmonary edema re-demonstration of marked cardiomegaly suggestive of underlying decompensated congestive heart failure. Patient did not have any high-grade fever. Her white count on admission was normal; however this morning white count is up to 19.2. Patient's urine was slightly positive. A CT of the abdomen and pelvis was ordered which shows bilateral basilar infiltrates suspicious for infection, hydrops gallbladder, sigmoid diverticulosis but no diverticulitis. Infectious Disease was consulted for further recommendation regarding antibiotic therapy. REVIEW OF SYSTEMS: CONSTITUTIONAL: Positive for weakness. Some chills. EYES: No complaint. ENT: No complaint. RESPIRATORY: As per HPI. CARDIOVASCULAR: As per HPI. GENITOURINARY: No complaint. GASTROINTESTINAL: No complaint. MUSCULOSKELETAL: No complaint. INTEGUMENTARY: No complaint. PSYCHOLOGICAL: No complaint. ENDOCRINE: No complaint. NEUROLOGICAL: No complaint. PAST MEDICAL HISTORY: 1. Atrial fibrillation. 2. Diabetes mellitus. 3. Hypertension. 4. Osteoarthritis. 5. Congestive heart failure. PAST SURGICAL HISTORY: 1. Back surgery. 2. Cardiac ablation. 3. Hysterectomy. 4. Bilateral knee and hip replacement. 5. Pacemaker placement. SOCIAL HISTORY: . [facility] in the [facility]. Prior to that she was living with her . Remote history of smoking; quit 36 years ago. No drinking or drug use. FAMILY HISTORY: Father with history of prostate cancer. Two sons also with a history of prostate cancer. One daughter with a history of breast cancer. ALLERGIES: NO KNOWN DRUG ALLERGIES. CURRENT MEDICATIONS: 1. Colony. 2. DuoNeb. 3. Xanax. 4. Pepcid. 5. Duragesic patch. 6. NovoLog. 7. Milk of Magnesia. 8. Lopressor. 9. Mycostatin cream. 10.Zofran. 11.Zosyn. 12.Vancomycin. PHYSICAL EXAMINATION: Blood pressure is 97/55 with pulse of 74, temperature 97.8. She is 90% on 5 L nasal cannula. General description is an elderly female up in the bed in no distress. No tachypnea or accessory muscle of respiration use. HEENT examination shows no pallor or scleral icterus. Oral mucosa membrane is dry. No pharyngeal erythema or thrush. NECK: Trachea is central. There is no thyromegaly. LUNGS: Unlabored breathing with coarse breath sounds at the bases bilaterally. No wheeze. HEART: S1, S2. Regular rate and rhythm. ABDOMEN: Soft. No tenderness. No guarding or rigidity. EXTREMITIES: No edema of the feet. SKIN EXAMINATION: No rash or mass palpable. Neurologically patient is awake, alert, oriented x3. Mood and affect normal. LABS: Hemoglobin is 12.6, white count of 19,000. BUN is 50, creatinine 1.86. Electrolytes have been normal. Chest x-ray and CT report as mentioned above. DIAGNOSTIC IMPRESSION AND PLAN: 1. Patient admitted to hospital with hypoxemia, increasing shortness of breath which is likely multifactorial with a question of possible fluid overload; however, underlying gram-negative aspiration pneumonia not entirely excluded, as the patient apparently did have a coughing episode after eating a big piece of food in a patient who has been in and out of the hospital and is a [facility] admission. Need to cover for resistant gram-negative pathogen. Less likely a gram-positive pathogen such as MRSA. 2. Patient known to have borderline kidney function and high risk of nephrotoxicity from the vancomycin. PLAN: 1. We will try to obtain sputum for Gram stain culture and sensitivity. 2. Patient will be treated with Zosyn 3.375 grams q.8 hours. However, discontinue the vancomycin to decrease the risk of nephrotoxicity. 3. Swallow evaluation. 4. We will follow up on clinical condition and culture to further adjust medication if needed. Thank you for this consultation. Will follow this patient along with you. Family present at the bedside. Their questions were answered. MMODL / IJN: [id number] /
[2017-11-08] MEDS: IPRATROPIUM-ALBUTEROL 3 ML NEB INHALATION SCH ×6 (00:33→20:01)
[2017-11-08 05:48] LABS: Basophils % (A) 0 %; Eosinophils # (A) 0.1 k/uL (0-0.7); Eosinophils % (A) 0 %; HCT 38.5 % (34.0-46.0); Lymphocytes % (A) 7 %; MCH 30.1 pg (25.0-35.0); MCHC 31.2 g/dL (31.0-37.0); MCV 96.4 fL (80.0-100.0); Monocytes # (A) 0.6 k/uL (0-1.0); Monocytes % (A) 4 %; Neutrophils # (A) 13.1 k/uL (1.3-7.7); Neutrophils % (A) 87 %; Platelet Count 167 k/uL (150-450); RBC 3.99 m/uL (3.80-5.40); RDW 12.5 % (11.5-15.5)
[2017-11-08 05:56] LABS: INR 1.3 (<1.2); Prothrombin Time 12.5 sec (9.0-12.0)
[2017-11-08 05:57] LABS: Glucose,Whole Blood 111 mg/dL (75-99)
[2017-11-08 06:00] LABS: Albumin 3.3 g/dL (3.5-5.0); Calcium 8.7 mg/dL (8.4-10.2); Potassium 4.7 mmol/L (3.5-5.1); Total Bilirubin 1.5 mg/dL (0.2-1.3); Total Protein 5.4 g/dL (6.3-8.2)
[2017-11-08] MEDS ORDERED: VANCOMYCIN 1,750 MG in SODIUM CHLORIDE 0.9% 500 ML IVPB SCH (06:00)
[2017-11-08] MEDS: INSULIN ASPART 100 UNIT/ML 1 ML 10 ML VIAL SQ SCH ×4 (06:02→22:22)
[2017-11-08] MEDS: METOPROLOL TARTRATE 50 MG TAB PO SCH (07:43)
[2017-11-08] MEDS: PIPERACILLIN-TAZOBACTAM 3.375 GM in DEXTROSE/WATER 1 50ML.BAG IVPB SCH ×3 (07:43→23:48)
[2017-11-08] MEDS: NYSTATIN 100,000UNIT/GM CREAM 30 GM TUBE TOPICAL SCH ×2 (07:44→22:25)
[2017-11-08] MEDS ORDERED: FAMOTIDINE 20 MG TAB PO SCH (09:00)
[2017-11-08] MEDS: HYDROcodone/APAP 10-325MG 1 EACH TAB PO PRN ×2 (10:28→22:21)
[2017-11-08] MEDS: SODIUM CHLORIDE 0.9% 1,000 ML IV SCH (10:29)
--- NOTE | 2017-11-08 10:57 | P.PN ---
Addendum entered and electronically signed by Ann Bhatia PA-C 11/08/17 14: 52: check abdominal US for further evaluation of the gallbladder. Decrease IV fluids to 20 cc/hr Check CXR in AM consult Dr. Polo for possible inpatient rehab Original Note: <Ann Bhatia - Last Filed: 11/08/17 10:40> Subjective Progress Note Date: 11/08/17 This is a 82-year-old patient of Dr. Hills. Patient has been residing at [facility] for physical therapy. Patient presented with significant shortness of breath patient also presented with a low SpO2 in the 80s. Patient has a known past medical history of atrial fibrillation which she is maintained on Coumadin, diabetes mellitus, hypertension, osteoarthritis, pacemaker, uterine cancer, chronic back pain and anxiety. Patient was started on 40 mg IV Lasix every 8 hours. INR on admission 7.2. Vitamin K had been ordered. Repeat INR increasing to 9 additional 10 mg of vitamin K have been ordered. Hemoglobin stable 12.6. Patient reports no signs of bleeding. Patient did have a bowel movement that was normal. Chest x-ray completed showing mild interstitial pulmonary edema and redemonstration of marked cardiomegaly suggest underlying decompensated congestive heart failure. Cardiology services have been consulted. Pulmonary services also consulted. WBC increasing to 19.2. Urine sputum and blood cultures have been ordered. Patient currently denies chest pain at this time does state improvement with shortness of breath earlier. Patient does report that the past week alf she's had nausea and unable to hold down food along with poor appetite. GI services have been consulted and computed tomography scan of abdomen has been ordered. 11/08/2017 patient is lying in bed. She is requiring about 5 L of oxygen satting at 92%. She is complaining of pain all over her body. She reports that she always has pain and this is not new. She denies any chest pain. Denies shortness of breath. Does have a cough. Denies any nausea or vomiting. Patient seen by speech therapy they will possibly be proceeding with a modified barium swallow Objective - Vital Signs Vital signs: Vital Signs Temp 97.8 F 11/08/17 07:38 Pulse 84 11/08/17 08:17 Resp 18 11/08/17 07:38 BP 118/59 11/08/17 07:38 Pulse Ox 92 L 11/08/17 08:03 Intake & Output 11/07/17 11/08/17 11/08/17 18:59 06:59 18:59 Intake Total 476 50 450 Output Total 325 Balance 476 -275 450 Weight 120 kg Intake: Intake, IV Titration 50 450 Amount Piperacillin-Tazobactam 3 50 .375 gm In Dextrose/Water 1 50ml.bag @ 12.5 mls/hr IVPB Q8HR ISHA Rx#: [id number] Sodium Chloride 0.9% 1, 50 400 000 ml @ 50 mls/hr IV . Q20H ISHA Rx#:[id number] Oral 476 Output: Urine 325 Other: Voiding Method Indwelling Catheter Indwelling Catheter # Voids 2 1 - Exam Head normocephalic Neck supple Lungs diminished bilaterally Heart regular rate and rhythm S1-S2, no rub or gallop Abdomen is soft nontender nondistended positive bowel sounds no hepatosplenomegaly Extremities no edema Neuro alert and orientated to 3 - Labs CBC & Chem 7: 11/08/17 05:21 11/08/17 05:21 Labs: Abnormal Lab Results - Last 24 Hours (Table) 11/07/17 11/07/17 11/07/17 Range/Units 10:25 11:47 15:09 WBC (3.8-10.6) k/uL Neutrophils # (1.3-7.7) k/uL PT 19.0 H (9.0-12.0) sec INR 2.1 H (<1.2) Sodium (137-145) mmol/L Chloride (98-107) mmol/L BUN (7-17) mg/dL Creatinine (0.52-1.04) mg/dL Glucose (74-99) mg/dL POC Glucose (mg/dL) 151 H (75-99) mg/dL Total Bilirubin (0.2-1.3) mg/dL Total Protein (6.3-8.2) g/dL Albumin (3.5-5.0) g/dL Urine Appearance Cloudy H (Clear) Ur Leukocyte Esterase Large H (Negative) Urine WBC 6 H (0-5) /hpf Ur Squamous Epith Cells 5 H (0-4) /hpf Urine Bacteria Rare H (None) /hpf Hyaline Casts 61 H (0-2) /lpf Urine Mucus Rare H (None) /hpf 08/01/18 08/01/18 08/02/18 Range/Units 16:24 20:48 05:21 WBC 15.0 H (3.8-10.6) k/uL Neutrophils # 13.1 H (1.3-7.7) k/uL PT (9.0-12.0) sec INR (<1.2) Sodium (137-145) mmol/L Chloride (98-107) mmol/L BUN (7-17) mg/dL Creatinine (0.52-1.04) mg/dL Glucose (74-99) mg/dL POC Glucose (mg/dL) 130 H 123 H (75-99) mg/dL Total Bilirubin (0.2-1.3) mg/dL Total Protein (6.3-8.2) g/dL Albumin (3.5-5.0) g/dL Urine Appearance (Clear) Ur Leukocyte Esterase (Negative) Urine WBC (0-5) /hpf Ur Squamous Epith Cells (0-4) /hpf Urine Bacteria (None) /hpf Hyaline Casts (0-2) /lpf Urine Mucus (None) /hpf 11/08/17 11/08/17 11/08/17 Range/Units 05:21 05:21 05:55 WBC (3.8-10.6) k/uL Neutrophils # (1.3-7.7) k/uL PT 12.5 H (9.0-12.0) sec INR 1.3 H (<1.2) Sodium 131 L (137-145) mmol/L Chloride 94 L (98-107) mmol/L BUN 61 H (7-17) mg/dL Creatinine 1.80 H (0.52-1.04) mg/dL Glucose 107 H (74-99) mg/dL POC Glucose (mg/dL) 111 H (75-99) mg/dL Total Bilirubin 1.5 H (0.2-1.3) mg/dL Total Protein 5.4 L (6.3-8.2) g/dL Albumin 3.3 L (3.5-5.0) g/dL Urine Appearance (Clear) Ur Leukocyte Esterase (Negative) Urine WBC (0-5) /hpf Ur Squamous Epith Cells (0-4) /hpf Urine Bacteria (None) /hpf Hyaline Casts (0-2) /lpf Urine Mucus (None) /hpf Microbiology - Last 24 Hours (Table) 11/07/17 17:20 Gram Stain - Preliminary Sputum 11/07/17 10:25 Urine Culture - Preliminary Urine,Voided Assessment and Plan Assessment: 1. 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 Chest is x -ray completed showing mild interstitial pulmonary edema and redemonstration of marked cardiomegaly suggest underlying decompensated congestive heart failure. BNP 2710. Cardiology services have been consulted. Troponin level 0.017, 0.020. Pulmonary services and also been consulted. Per cardiology lisinopril, Lasix and oral diuretics have been discontinued due to kidney function and dehydration 2. Atrial fibrillation- she was maintained on Coumadin. INR 7.2. Patient treated with Vit K. Repeat INR 9.0 patient was given an additional 10 mg vitamin K. Patient maintained on metoprolol. INR down to 1.3 after vitamin K. Will give Coumadin 5 mg tonight. 3. Essential hypertension. Patient on Lopressor. Lisinopril discontinued due to increase in creatinine 4. Diabetes mellitus. Diet controlled at home. Last hemoglobin A1c 5.9. Sliding scale insulin has been ordered during hospitalization 5. Elevated INR. Possibly related to poor oral intake and vomiting. INR 7.2. Patient treated with Vit K. Repeat INR 9.0 patient was given an additional 10 mg vitamin K. 6. Acute kidney injury. Creatinine 1.86 and bun 50. Lisinopril, Lasix and oral diuretics will be held at this time per cardiology. Creatinine 1.80. Continue IV fluids 7. Possible aspiration pneumonia per infectious disease. Patient having leukocytosis and shortness of breath. They'll discontinue the vancomycin and continued on IV Zosyn. Patient requiring 5 L of oxygen. White count down from 19.2-15. Leukocytosis. WBC 19.2. Blood, urine and sputum cultures have been ordered. Vancomycin and zosyn have been added. Dr. Jackson per infectious disease has been consulted. Computed tomography scan of the abdomen still reporting evidence to correlate for CHF exacerbation with tiny bilateral pleural effusions. Cannot exclude acute infiltrate in both lungs. We'll follow -up with another chest x-ray 8. History of permenant pacemaker 9. Anxiety continue Xanax 10. Nausea and vomiting. Appears to be resolved. However, patient's having poor oral intake. Computed tomography scan shows no bowel obstruction. Does reveal hydropic gallbladder with dependent sludge and/or small stones. No evidence of an acute cholecystitis. Awaiting GI evaluation 11. Acute hypoxic respiratory failure possibly related to pneumonia I performed an examination of the patient and discussed their management with the physician Stockroom Supervisor. I have reviewed the Physician Stockroom Supervisor's notes and agree with the documented findings and plan of care Dr. Garcia is on vacation starting November 06. Dr. Parada and Dr. EDIN Suarez will be covering the service <Kim Parada - Last Filed: 11/08/17 15:42> Objective - Vital Signs Vital signs: Vital Signs Temp 97.0 F L 11/08/17 11:36 Pulse 80 11/08/17 11:48 Resp 20 11/08/17 11:36 BP 127/73 11/08/17 11:36 Pulse Ox 90 L 11/08/17 11:36 Intake & Output 11/07/17 11/08/17 11/08/17 18:59 06:59 18:59 Intake Total 476 50 950 Output Total 325 800 Balance 476 -275 150 Weight 120 kg Intake: Intake, IV Titration 50 450 Amount Piperacillin-Tazobactam 3 50 .375 gm In Dextrose/Water 1 50ml.bag @ 12.5 mls/hr IVPB Q8HR ISHA Rx#: [id number] Sodium Chloride 0.9% 1, 50 400 000 ml @ 20 mls/hr IV . Q24H ISHA Rx#:[id number] Oral 476 500 Output: Urine 325 800 Other: Voiding Method Indwelling Catheter Indwelling Catheter # Voids 2 1 - Labs CBC & Chem 7: 11/08/17 05:21 11/08/17 05:21 Labs: Abnormal Lab Results - Last 24 Hours (Table) 11/07/17 11/07/17 11/08/17 Range/Units 16:24 20:48 05:21 WBC 15.0 H (3.8-10.6) k/uL Neutrophils # 13.1 H (1.3-7.7) k/uL PT (9.0-12.0) sec INR (<1.2) Sodium (137-145) mmol/L Chloride (98-107) mmol/L BUN (7-17) mg/dL Creatinine (0.52-1.04) mg/dL Glucose (74-99) mg/dL POC Glucose (mg/dL) 130 H 123 H (75-99) mg/dL Total Bilirubin (0.2-1.3) mg/dL Total Protein (6.3-8.2) g/dL Albumin (3.5-5.0) g/dL 11/08/17 11/08/17 11/08/17 Range/Units 05:21 05:21 05:55 WBC (3.8-10.6) k/uL Neutrophils # (1.3-7.7) k/uL PT 12.5 H (9.0-12.0) sec INR 1.3 H (<1.2) Sodium 131 L (137-145) mmol/L Chloride 94 L (98-107) mmol/L BUN 61 H (7-17) mg/dL Creatinine 1.80 H (0.52-1.04) mg/dL Glucose 107 H (74-99) mg/dL POC Glucose (mg/dL) 111 H (75-99) mg/dL Total Bilirubin 1.5 H (0.2-1.3) mg/dL Total Protein 5.4 L (6.3-8.2) g/dL Albumin 3.3 L (3.5-5.0) g/dL 11/08/17 Range/Units 11:26 WBC (3.8-10.6) k/uL Neutrophils # (1.3-7.7) k/uL PT (9.0-12.0) sec INR (<1.2) Sodium (137-145) mmol/L Chloride (98-107) mmol/L BUN (7-17) mg/dL Creatinine (0.52-1.04) mg/dL Glucose (74-99) mg/dL POC Glucose (mg/dL) 158 H (75-99) mg/dL Total Bilirubin (0.2-1.3) mg/dL Total Protein (6.3-8.2) g/dL Albumin (3.5-5.0) g/dL Microbiology - Last 24 Hours (Table) 11/07/17 10:25 Urine Culture - Preliminary Urine,Voided Gram Neg Bacilli Gram Neg Bacilli#2 11/07/17 11:23 Blood Culture - Preliminary Blood No Growth after 24 hours 11/07/17 17:20 Gram Stain - Preliminary Sputum Assessment and Plan Assessment: Patient seen and examined. Patient states she is feeling much better today. INR 1.3. No signs or symptoms of bleeding. Hemoglobin has been stable. Patient will be started back on her home dose of Coumadin. Continue antibiotics for urinary tract infection. Speech lingers pathology for swallow evaluation. Check morning chest x-ray. Decrease IV fluids to 20 mL per hour. Consult PT and OT. Consult Dr. Brenner. Patient is complaining of upset stomach after eating today. GI is following. ~Kim Parada DO
[2017-11-08 11:28] LABS: Glucose,Whole Blood 158 mg/dL (75-99)
--- NOTE | 2017-11-08 12:22 | P.PN ---
Subjective Progress Note Date: 11/08/17 This is a pleasant 82-year-old female patient who follows with Dr. Soto in the office. She has history of right-sided heart failure, COPD, chronic persistent atrial fibrillation, on Coumadin for anticoagulation, cor pulmonale, was recently in the hospital just discharged to an ECF over a week ago. According to the patient, since her discharge she's been having episodes of vomiting, she's been nauseous since discharge. She presents back to the hospital with symptoms of nausea and vomiting and extreme weakness. Her breathing overall has been stable, at the time of my examination this morning, she is lying flat in bed with no shortness of breath, extremely weak, positive nausea. Chest x-ray film was reviewed, does not reveal any significant congestive heart failure. EKG shows atrial fibrillation with nonspecific ST-T wave changes, unchanged from recent. Blood pressure on arrival here 128/58 with a heart rate in the 60s, 94% on 2 L of oxygen. White blood cell count 10.6 , 19.2 this morning, hemoglobin 13.8 yesterday, 12.6 this morning, platelet count 201. INR on admission 7.2, 9.0 this morning. Sodium 133, potassium 5.0, chloride 96, BUN 46 and creatinine 1.4 on admission, 50 and 1.8 this morning. BNP level 2710. Troponins 0.020, 0.032. Patient appears to be dehydrated, she was initiated on IV Lasix in the emergency room, we will discontinue this. 11/08/2017 Patient seen and examined this morning, no further episodes of vomiting, still continues to be nauseated and feeling extremely weak. White blood cell count 15 , hemoglobin 12, platelet count 167. INR today 1.3. Sodium 131, potassium 4.7 , BUN 61, creatinine 1.8. CAT scan of the abdomen was performed which did not reveal any evidence of bowel obstruction, sigmoid colonic diverticulosis without acute diverticulitis. Hypertrophic gallbladder with dependent sludge and/or stones with no surrounding inflammatory change identified. Blood pressure 127/70 with a heart rate in the 70s, 90% on 5 L of oxygen. Objective - Vital Signs Vital signs: Vital Signs Temp 97.0 F L 11/08/17 11:36 Pulse 80 11/08/17 11:48 Resp 20 11/08/17 11:36 BP 127/73 11/08/17 11:36 Pulse Ox 90 L 11/08/17 11:36 Intake & Output 11/07/17 11/08/17 11/08/17 18:59 06:59 18:59 Intake Total 476 50 450 Output Total 325 Balance 476 -275 450 Weight 120 kg Intake: Intake, IV Titration 50 450 Amount Piperacillin-Tazobactam 3 50 .375 gm In Dextrose/Water 1 50ml.bag @ 12.5 mls/hr IVPB Q8HR ISHA Rx#: [id number] Sodium Chloride 0.9% 1, 50 400 000 ml @ 50 mls/hr IV . Q20H ISHA Rx#:[id number] Oral 476 Output: Urine 325 Other: Voiding Method Indwelling Catheter Indwelling Catheter # Voids 2 1 - Exam PHYSICAL EXAMINATION: 82-year-old female, appears very weak and frail today HEENT: Head is atraumatic, normocephalic. Pupils equal, round. Neck is supple. There is no elevated jugular venous pressure. HEART EXAMINATION: Heart sounds regular, S1 and S2 normal. No murmur or gallop heard. CHEST EXAMINATION: Lungs reveal diminished air entry bilaterally. No chest wall tenderness is noted on palpation or with deep breathing. ABDOMEN: Soft, nontender. Bowel sounds are heard. No organomegaly noted. EXTREMITIES: 2+ peripheral pulses with trace evidence of peripheral edema and erythema and blistering to bilateral lower legs. NEUROLOGIC patient is awake, alert and oriented x3, confusion and short-term memory loss noted. - Labs CBC & Chem 7: 11/08/17 05:21 11/08/17 05:21 Labs: Abnormal Lab Results - Last 24 Hours (Table) 11/07/17 11/07/17 11/07/17 Range/Units 15:09 16:24 20:48 WBC (3.8-10.6) k/uL Neutrophils # (1.3-7.7) k/uL PT 19.0 H (9.0-12.0) sec INR 2.1 H (<1.2) Sodium (137-145) mmol/L Chloride (98-107) mmol/L BUN (7-17) mg/dL Creatinine (0.52-1.04) mg/dL Glucose (74-99) mg/dL POC Glucose (mg/dL) 130 H 123 H (75-99) mg/dL Total Bilirubin (0.2-1.3) mg/dL Total Protein (6.3-8.2) g/dL Albumin (3.5-5.0) g/dL 11/08/17 11/08/17 11/08/17 Range/Units 05:21 05:21 05:21 WBC 15.0 H (3.8-10.6) k/uL Neutrophils # 13.1 H (1.3-7.7) k/uL PT 12.5 H (9.0-12.0) sec INR 1.3 H (<1.2) Sodium 131 L (137-145) mmol/L Chloride 94 L (98-107) mmol/L BUN 61 H (7-17) mg/dL Creatinine 1.80 H (0.52-1.04) mg/dL Glucose 107 H (74-99) mg/dL POC Glucose (mg/dL) (75-99) mg/dL Total Bilirubin 1.5 H (0.2-1.3) mg/dL Total Protein 5.4 L (6.3-8.2) g/dL Albumin 3.3 L (3.5-5.0) g/dL 11/08/17 11/08/17 Range/Units 05:55 11:26 WBC (3.8-10.6) k/uL Neutrophils # (1.3-7.7) k/uL PT (9.0-12.0) sec INR (<1.2) Sodium (137-145) mmol/L Chloride (98-107) mmol/L BUN (7-17) mg/dL Creatinine (0.52-1.04) mg/dL Glucose (74-99) mg/dL POC Glucose (mg/dL) 111 H 158 H (75-99) mg/dL Total Bilirubin (0.2-1.3) mg/dL Total Protein (6.3-8.2) g/dL Albumin (3.5-5.0) g/dL Microbiology - Last 24 Hours (Table) 11/07/17 17:20 Gram Stain - Preliminary Sputum 11/07/17 10:25 Urine Culture - Preliminary Urine,Voided Assessment and Plan Plan: Assessment and plan #1 symptoms of persistent nausea and vomiting with evidence of dehydration #2 history of right-sided heart failure with cor pulmonale, no active heart failure on this admission. #3 elevated INR, likely secondary to persistent vomiting #4 chronic persistent atrial fibrillation , on Coumadin for anticoagulation #5 sinus syndrome, status post pacemaker implantation #6 COPD #7 history of uterine cancer #8 elevated white blood cell count, patient did have recent positive blood culture, Staphylococcus auricularis Plan INR today is 1.3, we will resume patient's Coumadin. Check lytes BUN and creatinine in the morning. DNP note has been reviewed, I agree with a documented findings and plan of care. Patient was seen and examined.
--- NOTE | 2017-11-08 12:25 | P.CONS ---
History of Present Illness - Reason for Consult Consult date: 11/08/17 nausea vomiting Requesting physician: Citlalli Garcia - History of Present Illness 82-year-old female admitted with shortness of breath history of atrial fibrillation maintained on Coumadin, uterine carcinoma, diabetes, and anxiety. Consult requested for nausea vomiting. Patient states yesterday she developed increased nausea with multiple episodes of nonbloody emesis without abdominal pain. No fever or chills. No history of peptic ulcer disease or gastric bowel surgeries. Appetite has been poor over the last week or so. Admission white count 10.6 increased to 19.2 presently 15. Hemoglobin 12. Platelet 167. INR 7.2 on admission increased to 9.0 presently 1.3. Sodium 132. Potassium 4.9. BUN 46 per creatinine 1.4. LFTs unremarkable. CT abdomen no bowel obstruction colonic diverticulosis without evidence of diverticulitis. Hydropic gallbladder with stones no inflammatory changes. Presently she feels better no emesis this morning. Mild nausea. No recent EGD. Review of Systems Constitutional: Denies fever, chills, sweats, weight gain, or loss. HEENT: Negative for migraines, blurred vision or loss, earaches, drainage, tinnitus, oral mucosal lesions, dysphagia, or odynophagia. CARDIAC: Negative for chest pain, arrhythmias, or palpitation. RESPIRATORY: Admitted with shortness of breath, denies hemoptysis, cough, or sputum production. GI: See HPI for pertinent findings. : Negative for hematuria, urgency, frequency, polyuria, or dysuria. GYNc: Negative vaginal discharge. MUSCULOSKELETAL: Negative for muscle aches, swelling, arthritis, and arthralgias. NEUROLOGIC: Negative for stroke or TIA. ENDOCRINE: Negative for thyroid problems. SKIN: Negative for rash or itching. PSYCHIATRIC: Negative history for depression and anxiety Past Medical History Past Medical History: Atrial Fibrillation, Cancer, Diabetes Mellitus, Hypertension, Osteoarthritis (OA) Additional Past Medical History / Comment(s): PACEMAKER, DIABETES - DIET CONTROLLED, CHRONIC CONSTIPATION, NECK AND SHOULDER PAIN, LIMITED ROM SHOULDERS , HX OF UTERINE CANCER, USES WALKER AND W/C. History of Any Multi-Drug Resistant Organisms: None Reported Past Surgical History: Back Surgery, Cardiac Ablation, Hysterectomy, Joint Replacement, Pacemaker Additional Past Surgical History / Comment(s): JIE HIP REPLACEMENTS (2000 & 2005 ), JIE KNEE REPLACEMENT (1993), LEFT KNEE CAP (1994), PACEMAKER (2001), HYSTERECTOMY (1972), JIE CATARACTS (2004). Past Anesthesia/Blood Transfusion Reactions: Postoperative Nausea & Vomiting ( PONV) Type of Cardiac Device: Permanent Pacemaker Device Placement Date:: 2001 Past Psychological History: Anxiety Smoking Status: Former smoker Past Alcohol Use History: None Reported Additional Past Alcohol Use History / Comment(s): STARTED SMOKING AT 14 YRS OLD AND QUIT AT 34 YRS OLD. SMOKED 1PPD Past Drug Use History: None Reported - Past Family History Father Family Medical History: Cancer Additional Family Medical History / Comment(s): PROSTATE CA Son(s) Family Medical History: Cancer Additional Family Medical History / Comment(s): 2 SONS -PROSTATE CA Daughter(s) Family Medical History: Cancer Additional Family Medical History / Comment(s): BREAST CA Medications and Allergies Home Medications Medication Instructions Recorded Confirmed Type Lisinopril [Zestril] 5 mg PO DAILY 01/04/15 11/06/17 History Metoprolol Tartrate [Lopressor] 25 mg PO HS 01/04/15 11/06/17 History Spironolactone [Aldactone] 25 mg PO DAILY 01/04/15 11/06/17 History Metoprolol Tartrate [Lopressor] 50 mg PO DAILY 10/23/17 11/06/17 History Vit C/E/Zn/Coppr/Lutein/Zeaxan 1 cap PO BID 10/23/17 11/06/17 History [Preservision Areds 2 Softgel] ALPRAZolam [Xanax] 0.5 mg PO BID PRN #6 tab 10/31/17 11/06/17 Rx Warfarin [Coumadin] 2.5 mg PO Q48H tab 10/31/17 11/06/17 Rx Warfarin [Coumadin] 5 mg PO Q48H tab 10/31/17 11/06/17 Rx Bisacodyl [Dulcolax] 10 mg RECTAL DAILY PRN 11/06/17 11/06/17 History Furosemide [Lasix] 60 mg PO BID@0600,1400 11/06/17 11/06/17 History Hydrocodone/Acetaminophen [[place] 1 tab PO Q8H PRN 11/06/17 11/06/17 History 10-325] Magnesium Hydroxide [Milk of 7,200 mg PO DAILY PRN 11/06/17 11/06/17 History Magnesia Concentrate] Na Phos,M-B/Na Phos,Di-Ba [Fleet 133 ml RECTAL ONCE PRN 11/06/17 11/06/17 History Adult] Ondansetron HCl [Zofran] 4 mg PO Q6H PRN 11/06/17 11/06/17 History PARoxetine [Paxil] 20 mg PO DAILY 11/06/17 11/06/17 History fentaNYL 50MCG/HR PATCH [Duragesic 50 mcg TRANSDERM Q72H 11/06/17 11/06/17 History 50MCG/HR] Allergies Allergy/AdvReac Type Severity Reaction Status Date / Time No Known Allergies Allergy Verified 11/06/17 16:50 Physical Exam Vitals: Vital Signs Temp Pulse Pulse Pulse Resp BP Pulse Ox 11/08/17 11:48 80 11/08/17 11:36 97.0 F L 76 20 127/73 90 L 11/08/17 08:17 84 11/08/17 08:03 80 92 L 11/08/17 07:38 97.8 F 90 18 118/59 94 L 11/08/17 04:12 74 11/08/17 04:02 76 11/08/17 04:00 98.1 F 81 81 18 111/60 91 L 11/08/17 00:45 76 11/08/17 00:33 76 11/08/17 00:00 97.6 F 77 77 18 116/45 91 L 11/07/17 20:10 97.8 F 74 20 97/55 90 L 11/07/17 19:39 80 11/07/17 19:26 79 92 L 11/07/17 15:27 97.0 F L 77 18 138/81 90 L Intake and Output 11/07/17 11/08/17 11/08/17 22:59 06:59 14:59 Intake Total 290 450 Output Total 325 Balance 290 -325 450 Intake: Intake, IV Titration 50 450 Amount Piperacillin-Tazobactam 3 50 .375 gm In Dextrose/Water 1 50ml.bag @ 12.5 mls/hr IVPB Q8HR [facility] Rx#: [id number] Sodium Chloride 0.9% 1, 50 400 000 ml @ 50 mls/hr IV . Q20H [facility] Rx#:[id number] Oral 240 Output: Urine 325 Other: Voiding Method Indwelling Catheter Indwelling Catheter Indwelling Catheter # Voids 1 General appearance: The patient is alert, oriented, in no acute distress. HET: Head is normocephalic and atraumatic. Pupils are equal and reactive. Oropharynx is clear without lesions. Neck: Supple without lymphadenopathy. Trachea midline. Heart: S1 S2. Regular rate and rhythm. Lungs: No crackles or wheezes are heard. Abdomen: Soft, nontender, nondistended with bowel sounds. No peritoneal signs. No palpable organomegaly or masses. Extremities: Normal skin color and turgor. No cyanosis, rash, ulceration, clubbing, or edema. Radial and pedal pulses are 2/4 bilaterally. Neurological: No focal deficits. Strength and sensation are grossly intact. Results CBC & Chem 7: 11/09/17 05:15 11/09/17 05:15 Labs: Abnormal Lab Results - Last 24 Hours (Table) 11/07/17 11/07/17 11/07/17 Range/Units 15:09 16:24 20:48 WBC (3.8-10.6) k/uL Neutrophils # (1.3-7.7) k/uL PT 19.0 H (9.0-12.0) sec INR 2.1 H (<1.2) Sodium (137-145) mmol/L Chloride (98-107) mmol/L BUN (7-17) mg/dL Creatinine (0.52-1.04) mg/dL Glucose (74-99) mg/dL POC Glucose (mg/dL) 130 H 123 H (75-99) mg/dL Total Bilirubin (0.2-1.3) mg/dL Total Protein (6.3-8.2) g/dL Albumin (3.5-5.0) g/dL 11/08/17 11/08/17 11/08/17 Range/Units 05:21 05:21 05:21 WBC 15.0 H (3.8-10.6) k/uL Neutrophils # 13.1 H (1.3-7.7) k/uL PT 12.5 H (9.0-12.0) sec INR 1.3 H (<1.2) Sodium 131 L (137-145) mmol/L Chloride 94 L (98-107) mmol/L BUN 61 H (7-17) mg/dL Creatinine 1.80 H (0.52-1.04) mg/dL Glucose 107 H (74-99) mg/dL POC Glucose (mg/dL) (75-99) mg/dL Total Bilirubin 1.5 H (0.2-1.3) mg/dL Total Protein 5.4 L (6.3-8.2) g/dL Albumin 3.3 L (3.5-5.0) g/dL 11/08/17 11/08/17 Range/Units 05:55 11:26 WBC (3.8-10.6) k/uL Neutrophils # (1.3-7.7) k/uL PT (9.0-12.0) sec INR (<1.2) Sodium (137-145) mmol/L Chloride (98-107) mmol/L BUN (7-17) mg/dL Creatinine (0.52-1.04) mg/dL Glucose (74-99) mg/dL POC Glucose (mg/dL) 111 H 158 H (75-99) mg/dL Total Bilirubin (0.2-1.3) mg/dL Total Protein (6.3-8.2) g/dL Albumin (3.5-5.0) g/dL Microbiology - Last 24 Hours (Table) 11/07/17 17:20 Gram Stain - Preliminary Sputum 11/07/17 10:25 Urine Culture - Preliminary Urine,Voided CT scan - abdomen: report reviewed (Dr. Farooq) Assessment and Plan Assessment: Impression: 1. Nausea vomiting decreased appetite. Etiology unclear. 2. Warfarin-induced coagulopathy history of atrial fibrillation. 3. CHF exacerbation. 4. Shortness of breath possible pneumonia. 5. Mild hyperbilirubinemia suspect secondary to CHF and passive venous congestion. Recommendations: 1. Protonix 40 mg IV daily. Low-dose Reglan 5 g IV every 8 hours. Full liquid diet. Consideration for inpatient EGD her symptoms do not improve. We' ll follow closely with you. Thank you for this kind referral and the opportunity to participate in the care of your patient. This consultation was discussed with Dr. Farooq. The impression and plan of care have been directed as dictated.
[2017-11-08] MEDS: PANTOPRAZOLE 40 MG/10 ML VIAL IVP SCH (12:50)
[2017-11-08] MEDS: METOCLOPRAMIDE 5 MG/ML 2 ML VIAL IVP SCH ×2 (12:50→22:21)
[2017-11-08] MEDS: HEPARIN SODIUM,PORCINE 5,000 UNIT/ML 1 ML VIAL SQ SCH ×2 (15:20→23:49)
--- NOTE | 2017-11-08 16:37 | P.CONS ---
History of Present Illness - Chief Complaint Medical debility - History of Present Illness I had the opportunity to see patient for inpatient consultation with regard to medical debility. She was admitted [facility] November 06 with emesis, shortness of breath, acute on chronic CHF. Seen by cardiology for CHF and atrial fibrillation with controlled response. Chest x-ray with edema in's cardiomegaly consistent with CHF. CT of abdomen and pelvis demonstrates gallbladder sludge, CHF, effusions and cardiomegaly. PT reports two-person total assistance for functional mobility. OT reports maximal assistance for upper dressing and bathing and total assistance for lower dressing and toileting and two-person total assistance for functional mobility. Note that I have recently evaluated patient for possible inpatient rehab, hospitalization last month. Did except for inpatient rehab and declined by patient and/or family due to endurance issues. Patient transferred to [facility]. Previous functional history: 82-year-old right-handed white female, , one floor home with , retired. He out a lot. Share the laundry. does driving. Patient previously independent with sitdown shower or sponge bath and 4 wheeled walker. No tobacco or alcohol. Of course more recently was at [facility]. Family history prostate cancer in father. Review of Systems Review of systems: ENT: Denies sneezes or discharge. Eyes: Denies discharge or photophobia. Cardiac: Denies chest pain or palpitation. Pulmonary: Mild to moderate shortness of breath. Breast: Denies discharge or lumps. Gastrointestinal: Denies nausea, emesis, constipation, diarrhea. Genitourinary: Denies discharge or frequency. Musculoskeletal: Denies muscle or bone aches. Neurologic: Generalized weakness. Endocrine: Denies shakes or sweats. Oncology: Denies cancers. Dermatologic: Denies rash, itching, pruritus. ALLERGY/immunology: Denies sneezes, rashes. Past Medical History Past Medical History: Atrial Fibrillation, Cancer, Diabetes Mellitus, Hypertension, Osteoarthritis (OA) Additional Past Medical History / Comment(s): PACEMAKER, DIABETES - DIET CONTROLLED, CHRONIC CONSTIPATION, NECK AND SHOULDER PAIN, LIMITED ROM SHOULDERS , HX OF UTERINE CANCER, USES WALKER AND W/C. History of Any Multi-Drug Resistant Organisms: None Reported Past Surgical History: Back Surgery, Cardiac Ablation, Hysterectomy, Joint Replacement, Pacemaker Additional Past Surgical History / Comment(s): JIE HIP REPLACEMENTS (2000 & 2005 ), JIE KNEE REPLACEMENT (1993), LEFT KNEE CAP (1994), PACEMAKER (2001), HYSTERECTOMY (1972), JIE CATARACTS (2004). Past Anesthesia/Blood Transfusion Reactions: Postoperative Nausea & Vomiting ( PONV) Type of Cardiac Device: Permanent Pacemaker Device Placement Date:: 2001 Past Psychological History: Anxiety Smoking Status: Former smoker Past Alcohol Use History: None Reported Additional Past Alcohol Use History / Comment(s): STARTED SMOKING AT 14 YRS OLD AND QUIT AT 34 YRS OLD. SMOKED 1PPD Past Drug Use History: None Reported - Past Family History Father Family Medical History: Cancer Additional Family Medical History / Comment(s): PROSTATE CA Son(s) Family Medical History: Cancer Additional Family Medical History / Comment(s): 2 SONS -PROSTATE CA Daughter(s) Family Medical History: Cancer Additional Family Medical History / Comment(s): BREAST CA Medications and Allergies Home Medications Medication Instructions Recorded Confirmed Type Lisinopril [Zestril] 5 mg PO DAILY 01/04/15 11/06/17 History Metoprolol Tartrate [Lopressor] 25 mg PO HS 01/04/15 11/06/17 History Spironolactone [Aldactone] 25 mg PO DAILY 01/04/15 11/06/17 History Metoprolol Tartrate [Lopressor] 50 mg PO DAILY 10/23/17 11/06/17 History Vit C/E/Zn/Coppr/Lutein/Zeaxan 1 cap PO BID 10/23/17 11/06/17 History [Preservision Areds 2 Softgel] ALPRAZolam [Xanax] 0.5 mg PO BID PRN #6 tab 10/31/17 11/06/17 Rx Warfarin [Coumadin] 2.5 mg PO Q48H tab 10/31/17 11/06/17 Rx Warfarin [Coumadin] 5 mg PO Q48H tab 10/31/17 11/06/17 Rx Bisacodyl [Dulcolax] 10 mg RECTAL DAILY PRN 11/06/17 11/06/17 History Furosemide [Lasix] 60 mg PO BID@0600,1400 11/06/17 11/06/17 History Hydrocodone/Acetaminophen [[place] 1 tab PO Q8H PRN 11/06/17 11/06/17 History 10-325] Magnesium Hydroxide [Milk of 7,200 mg PO DAILY PRN 11/06/17 11/06/17 History Magnesia Concentrate] Na Phos,M-B/Na Phos,Di-Ba [Fleet 133 ml RECTAL ONCE PRN 11/06/17 11/06/17 History Adult] Ondansetron HCl [Zofran] 4 mg PO Q6H PRN 11/06/17 11/06/17 History PARoxetine [Paxil] 20 mg PO DAILY 11/06/17 11/06/17 History fentaNYL 50MCG/HR PATCH [Duragesic 50 mcg TRANSDERM Q72H 11/06/17 11/06/17 History 50MCG/HR] Allergies Allergy/AdvReac Type Severity Reaction Status Date / Time No Known Allergies Allergy Verified 11/06/17 16:50 Physical Exam Vitals: Vital Signs Temp Pulse Pulse Pulse Resp BP Pulse Ox 11/08/17 16:27 80 11/08/17 16:04 82 94 L 11/08/17 15:44 97.3 F L 80 20 108/62 94 L 11/08/17 11:48 80 11/08/17 11:36 97.0 F L 76 20 127/73 90 L 11/08/17 08:17 84 11/08/17 08:03 80 92 L 11/08/17 07:38 97.8 F 90 18 118/59 94 L 11/08/17 04:12 74 11/08/17 04:02 76 11/08/17 04:00 98.1 F 81 81 18 111/60 91 L 11/08/17 00:45 76 11/08/17 00:33 76 11/08/17 00:00 97.6 F 77 77 18 116/45 91 L 11/07/17 20:10 97.8 F 74 20 97/55 90 L 11/07/17 19:39 80 11/07/17 19:26 79 92 L Intake and Output 11/08/17 11/08/17 11/08/17 06:59 14:59 22:59 Intake Total 950 Output Total 325 800 Balance -325 150 Intake: Intake, IV Titration 450 Amount Piperacillin-Tazobactam 3 50 .375 gm In Dextrose/Water 1 50ml.bag @ 12.5 mls/hr IVPB Q8HR [facility] Rx#: [id number] Sodium Chloride 0.9% 1, 400 000 ml @ 20 mls/hr IV . Q24H [facility] Rx#:[id number] Oral 500 Output: Urine 325 800 Other: Voiding Method Indwelling Catheter Indwelling Catheter Indwelling Catheter # Voids 1 Skin: Atrophic, intact. General: Obese build and comfortable appearance. Head: Normocephalic, atraumatic. Eyes: Symmetric. Pupils equal round. Ears: Symmetric. Hearing within normal limits. Mouth: Clear. Neck: Supple. Carotid without bruit. Cardiac: Regular rate and rhythm. Lungs: Clear anteriorly and posteriorly. Abdomen: Soft active nontender. Extremities: Normal tone. Discoloration changes noted forelegs. Moderate plus arthritic changes throughout. Neurological: Mental status: Alert, cooperative, pleasant. Cranial nerves: Symmetric facial tone and trapezius. Motor: Able to elevate arms and legs off of bed. Sensation: Intact throughout. DTRs: Symmetric and equal throughout. Mobility: Requires maximal to total assistance for bed mobility. Results CBC & Chem 7: 11/08/17 05:21 11/08/17 05:21 Labs: Abnormal Lab Results - Last 24 Hours (Table) 11/07/17 11/08/17 11/08/17 Range/Units 20:48 05:21 05:21 WBC 15.0 H (3.8-10.6) k/uL Neutrophils # 13.1 H (1.3-7.7) k/uL PT 12.5 H (9.0-12.0) sec INR 1.3 H (<1.2) Sodium (137-145) mmol/L Chloride (98-107) mmol/L BUN (7-17) mg/dL Creatinine (0.52-1.04) mg/dL Glucose (74-99) mg/dL POC Glucose (mg/dL) 123 H (75-99) mg/dL Total Bilirubin (0.2-1.3) mg/dL Total Protein (6.3-8.2) g/dL Albumin (3.5-5.0) g/dL 11/08/17 11/08/17 11/08/17 Range/Units 05:21 05:55 11:26 WBC (3.8-10.6) k/uL Neutrophils # (1.3-7.7) k/uL PT (9.0-12.0) sec INR (<1.2) Sodium 131 L (137-145) mmol/L Chloride 94 L (98-107) mmol/L BUN 61 H (7-17) mg/dL Creatinine 1.80 H (0.52-1.04) mg/dL Glucose 107 H (74-99) mg/dL POC Glucose (mg/dL) 111 H 158 H (75-99) mg/dL Total Bilirubin 1.5 H (0.2-1.3) mg/dL Total Protein 5.4 L (6.3-8.2) g/dL Albumin 3.3 L (3.5-5.0) g/dL Microbiology - Last 24 Hours (Table) 11/07/17 10:25 Urine Culture - Preliminary Urine,Voided Gram Neg Bacilli Gram Neg Bacilli#2 11/07/17 11:23 Blood Culture - Preliminary Blood No Growth after 24 hours 11/07/17 17:20 Gram Stain - Preliminary Sputum Assessment and Plan (1) Acute exacerbation of chronic obstructive airways disease Current Visit: Yes Status: Acute Code(s): J44.1 - CHRONIC OBSTRUCTIVE PULMONARY DISEASE W (ACUTE) EXACERBATION SNOMED Code(s): 056755745 Plan: Impression: 1. Medical debility. 2. Acute on chronic CHF. 3. Atrial fibrillation with controlled response per 4. Cervical spondylosis. Comments and plan: At this time PT and OT are ongoing. Safety concerns noted. Patient with significant endurance issues and do not believe she could tolerate inpatient rehab at this time. Should consider return to [facility] with 24 hour care multiple persons.
[2017-11-08 16:44] LABS: Glucose,Whole Blood 133 mg/dL (75-99)
[2017-11-08] MEDS ORDERED: WARFARIN 5 MG TAB PO SCH (18:00)
[2017-11-08] MEDS ORDERED: WARFARIN 5 MG TAB PO ONE (18:00)
--- NOTE | 2017-11-08 19:37 | XR ---
EXAMINATION TYPE: XR chest 1V portable DATE OF EXAM: 11/08/2017 COMPARISON: 11/06/2017 HISTORY: Chest pain TECHNIQUE: Single frontal view of the chest is obtained. FINDINGS: Heart is enlarged. There is some pulmonary vascular congestion. There is slight blunting o f costophrenic angles. There are chest leads. There is left axillary pacemaker with the lead tip over the right ventricle. IMPRESSION: There is congestive heart failure with pleural effusions. Right lower lobe pneumonia is possible. Heart failure is worse than last exam.
[2017-11-08 20:59] LABS: Glucose,Whole Blood 144 mg/dL (75-99)
[2017-11-08] MEDS: METOPROLOL TARTRATE 25 MG TAB PO SCH (22:09)
--- NOTE | 2017-11-08 22:46 | PN ---
PROGRESS NOTE DATE OF SERVICE: 11/08/2017 REASON FOR FOLLOWUP: Possible aspiration pneumonia. INTERVAL HISTORY: The patient is currently afebrile. She is breathing comfortably. She continues to have some congested cough but is not bringing up any sputum. No chest pain. No abdominal pain. No diarrhea. PHYSICAL EXAMINATION: Her blood pressure is 108/62 with a pulse of 80, temperature 97.3. She is 94% on 5 L nasal cannula. General description is an elderly female lying in bed in no distress. RESPIRATORY SYSTEM: Unlabored breathing with decreased breath sounds in the bases. No wheeze. HEART: S1, S2. Regular rate and rhythm. ABDOMEN: Soft. No tenderness. EXTREMITIES: No edema of the feet. LABS: Hemoglobin is 12, white count of 15,000. BUN of 61, creatinine 1.80. Urine is showing a gram-negative. Sputum culture is currently pending. DIAGNOSTIC IMPRESSION AND PLAN: Patient admitted to hospital with hypoxemia. Source is likely multifactorial in this patient who does have a congested cough with a prior episode of choking on food particles; could be related to possible aspiration pneumonia. Patient is currently covered with Zosyn. That will be continued. Will follow up on the sputum culture and clinical condition and adjust antibiotic further if needed. Continue with supportive care. MMODL / IJN: [id number] /
[2017-11-09] MEDS: IPRATROPIUM-ALBUTEROL 3 ML NEB INHALATION SCH ×6 (00:30→20:16)
[2017-11-09] MEDS: METOCLOPRAMIDE 5 MG/ML 2 ML VIAL IVP SCH ×3 (06:20→20:42)
[2017-11-09] MEDS: INSULIN ASPART 100 UNIT/ML 1 ML 10 ML VIAL SQ SCH ×4 (06:22→21:04)
[2017-11-09 06:23] LABS: Glucose,Whole Blood 117 mg/dL (75-99)
[2017-11-09 06:31] LABS: INR 1.2 (<1.2); Prothrombin Time 11.3 sec (9.0-12.0)
[2017-11-09 06:36] LABS: Albumin 3.1 g/dL (3.5-5.0); Calcium 8.8 mg/dL (8.4-10.2); Potassium 4.5 mmol/L (3.5-5.1); Total Bilirubin 1.8 mg/dL (0.2-1.3); Total Protein 5.1 g/dL (6.3-8.2)
[2017-11-09 06:40] LABS: Basophils % (A) 0 %; Eosinophils # (A) 0.1 k/uL (0-0.7); Eosinophils % (A) 1 %; HCT 37.7 % (34.0-46.0); HGB 12.1 gm/dL (11.4-16.0); Lymphocytes % (A) 9 %; MCH 31.3 pg (25.0-35.0); MCHC 32.2 g/dL (31.0-37.0); MCV 97.3 fL (80.0-100.0); Mean Platelet Volume 7.6; Monocytes # (A) 0.6 k/uL (0-1.0); Monocytes % (A) 5 %; Neutrophils # (A) 9.5 k/uL (1.3-7.7); Neutrophils % (A) 84 %; Platelet Count 146 k/uL (150-450); RBC 3.87 m/uL (3.80-5.40); RDW 12.5 % (11.5-15.5); WBC 11.2 k/uL (3.8-10.6)
--- NOTE | 2017-11-09 09:57 | P.PN ---
Subjective Progress Note Date: 11/09/17 Principal diagnosis: Nausea vomiting Admitted with heart failure possible pneumonia acute kidney injury. No emesis still having nausea. Generalized pain all over her body. Nothing by mouth for ultrasound today. White count 11.2. Hemoglobin 12.1. BUN 47. Creatinine 1.3. Transaminases normal. Total bilirubin 1.8. Objective - Vital Signs Vital signs: Vital Signs Temp 97.5 F L 11/09/17 08:00 Pulse 93 11/09/17 08:00 Resp 20 11/09/17 08:00 BP 112/44 11/09/17 08:00 Pulse Ox 95 11/09/17 04:00 Intake & Output 11/08/17 11/09/17 11/09/17 18:59 06:59 18:59 Intake Total 1186 Output Total 800 1950 Balance 386 -1950 Intake: Intake, IV Titration 450 Amount Piperacillin-Tazobactam 3 50 .375 gm In Dextrose/Water 1 50ml.bag @ 12.5 mls/hr IVPB Q8HR [facility] Rx#: [id number] Sodium Chloride 0.9% 1, 400 000 ml @ 20 mls/hr IV . Q24H [facility] Rx#:[id number] Oral 736 Output: Urine 800 1950 Uretheral ([place]) 1300 Other: Voiding Method Indwelling Catheter Indwelling Catheter # Voids 1 - Exam General appearance: The patient is alert, oriented, in no acute distress. HET: Head is normocephalic and atraumatic. Pupils are equal and reactive. Oropharynx is clear without lesions. Neck: Supple without lymphadenopathy. Trachea midline. Heart: S1 S2. Regular rate and rhythm. Lungs: No crackles or wheezes are heard. Abdomen: Soft, very mild diffuse tenderness across the midabdomen, nondistended with bowel sounds. No peritoneal signs. No palpable organomegaly or masses. Extremities: Normal skin color and turgor. No cyanosis, rash, ulceration, clubbing, or edema. Radial and pedal pulses are 2/4 bilaterally. Neurological: No focal deficits. Strength and sensation are grossly intact. - Labs CBC & Chem 7: 11/09/17 05:15 11/09/17 05:15 Labs: Abnormal Lab Results - Last 24 Hours (Table) 11/08/17 11/08/17 11/08/17 Range/Units 11:26 16:42 20:54 WBC (3.8-10.6) k/uL Plt Count (150-450) k/uL Neutrophils # (1.3-7.7) k/uL INR (<1.2) Sodium (137-145) mmol/L Chloride (98-107) mmol/L BUN (7-17) mg/dL Creatinine (0.52-1.04) mg/dL Glucose (74-99) mg/dL POC Glucose (mg/dL) 158 H 133 H 144 H (75-99) mg/dL Total Bilirubin (0.2-1.3) mg/dL Total Protein (6.3-8.2) g/dL Albumin (3.5-5.0) g/dL 11/09/17 11/09/17 11/09/17 Range/Units 05:15 05:15 05:15 WBC 11.2 H (3.8-10.6) k/uL Plt Count 146 L (150-450) k/uL Neutrophils # 9.5 H (1.3-7.7) k/uL INR 1.2 H (<1.2) Sodium 135 L (137-145) mmol/L Chloride 96 L (98-107) mmol/L BUN 47 H (7-17) mg/dL Creatinine 1.37 H (0.52-1.04) mg/dL Glucose 109 H (74-99) mg/dL POC Glucose (mg/dL) (75-99) mg/dL Total Bilirubin 1.8 H (0.2-1.3) mg/dL Total Protein 5.1 L (6.3-8.2) g/dL Albumin 3.1 L (3.5-5.0) g/dL 11/09/17 Range/Units 06:20 WBC (3.8-10.6) k/uL Plt Count (150-450) k/uL Neutrophils # (1.3-7.7) k/uL INR (<1.2) Sodium (137-145) mmol/L Chloride (98-107) mmol/L BUN (7-17) mg/dL Creatinine (0.52-1.04) mg/dL Glucose (74-99) mg/dL POC Glucose (mg/dL) 117 H (75-99) mg/dL Total Bilirubin (0.2-1.3) mg/dL Total Protein (6.3-8.2) g/dL Albumin (3.5-5.0) g/dL Microbiology - Last 24 Hours (Table) 11/07/17 10:25 Urine Culture - Preliminary Urine,Voided Gram Neg Bacilli Gram Neg Bacilli#2 11/07/17 11:23 Blood Culture - Preliminary Blood No Growth after 24 hours Assessment and Plan Assessment: Impression: 1. Nausea vomiting decreased appetite. Ultrasound abdomen pending if unremarkable suggest HIDA scan for further workup of GI symptoms. 2. Warfarin-induced coagulopathy history of atrial fibrillation. 3. CHF exacerbation. 4. Shortness of breath possible pneumonia. 5. Mild hyperbilirubinemia suspect secondary to CHF passive venous congestion with normal transaminases. Recommendations: 1. Ultrasound abdomen pending. Protonix 40 mg IV daily. Low-dose Reglan 5 g IV every 8 hours. Liquid diet as tolerated. Consideration for inpatient EGD if her symptoms do not improve. We'll follow closely with you. Assessment and plan a care discussed with Dr. Duffy
[2017-11-09] MEDS: HEPARIN SODIUM,PORCINE 5,000 UNIT/ML 1 ML VIAL SQ SCH ×3 (10:19→23:38)
[2017-11-09] MEDS: PIPERACILLIN-TAZOBACTAM 3.375 GM in DEXTROSE/WATER 1 50ML.BAG IVPB SCH ×3 (10:19→23:38)
[2017-11-09] MEDS: PANTOPRAZOLE 40 MG/10 ML VIAL IVP SCH (10:20)
[2017-11-09] MEDS: METOPROLOL TARTRATE 50 MG TAB PO SCH (10:20)
[2017-11-09] MEDS: SODIUM CHLORIDE 0.9% 1,000 ML IV SCH (10:21)
[2017-11-09] MEDS: NYSTATIN 100,000UNIT/GM CREAM 30 GM TUBE TOPICAL SCH ×2 (10:22→20:42)
--- NOTE | 2017-11-09 11:24 | US ---
EXAMINATION TYPE: US abdomen complete DATE OF EXAM: 11/09/2017 COMPARISON: CT abdomen 11/07/2017 CLINICAL HISTORY: abnormal CT scan gallbladder with sludge. NPO EXAM MEASUREMENTS: Liver Length: 14.6 cm Gallbladder Wall: 0.2 cm CHD: 0.4 cm Spleen: 9.6 cm Right Kidney: 10.3 x 4.2 x 5.1 cm Left Kidney: 10.7 x 5.5 x 6.1 cm Limited exam. Patient unable to turn on side. GB LLD deferred. Suboptimal exam due to patient p osition. Pancreas: Main pancreatic duct 1.8 mm. Tail not well visualized due to overlying bowel gas Liver: wnl as visualized Gallbladder: Folds seen. Appears enlarged in size = 13.2 cm. Echogenic focus seen with shadow = 2. 8 cm Evidence for sonographic Tompkins's sign: neg CBD: Obscured by overlying bowel gas CHD: wnl Spleen: wnl Right Kidney: medial anechoic lesion extending outward from hilum = 5.7 x 2.6 x 2.4 cm. Left Kidney: Limited visualization . Imaging was performed between ribs. Upper IVC: Appears prominent = 2.7 cm Abd Aorta: Distal portion obscured by overlying bowel gas IMPRESSION: 1. Cholelithiasis. Acute cholecystitis is not identified. 2. Anechoic area within the right kidney at the hilum. May be the extrarenal pelvis from the CT exami nation. Follow-up with ultrasound is recommended to confirm stability.
--- NOTE | 2017-11-09 11:25 | XR ---
EXAMINATION TYPE: XR chest 2V DATE OF EXAM: 11/09/2017 COMPARISON: 11/08/2017 INDICATION: CHF TECHNIQUE: Frontal and lateral views of the chest are obtained. FINDINGS: The heart size is enlarged. The pulmonary vasculature is normal. Mild infiltrate is at the right lower lobe. Correlate for atelectasis or pneumonia. Atypical pulmonar y edema is considered less likely without additional findings of CHF. Electronic device overlies lef t chest. IMPRESSION: 1. Mild right lower lobe infiltrate which is nonspecific. Atelectasis and pneumonia most likely withi n the differential.
--- NOTE | 2017-11-09 11:51 | P.PN ---
<Ann Bhatia - Last Filed: 11/09/17 11:44> Subjective Progress Note Date: 11/09/17 This is a 82-year-old patient of Dr. Hills. Patient has been residing at [facility] for physical therapy. Patient presented with significant shortness of breath patient also presented with a low SpO2 in the 80s. Patient has a known past medical history of atrial fibrillation which she is maintained on Coumadin, diabetes mellitus, hypertension, osteoarthritis, pacemaker, uterine cancer, chronic back pain and anxiety. Patient was started on 40 mg IV Lasix every 8 hours. INR on admission 7.2. Vitamin K had been ordered. Repeat INR increasing to 9 additional 10 mg of vitamin K have been ordered. Hemoglobin stable 12.6. Patient reports no signs of bleeding. Patient did have a bowel movement that was normal. Chest x-ray completed showing mild interstitial pulmonary edema and redemonstration of marked cardiomegaly suggest underlying decompensated congestive heart failure. Cardiology services have been consulted. Pulmonary services also consulted. WBC increasing to 19.2. Urine sputum and blood cultures have been ordered. Patient currently denies chest pain at this time does state improvement with shortness of breath earlier. Patient does report that the past week long-term she's had nausea and unable to hold down food along with poor appetite. GI services have been consulted and computed tomography scan of abdomen has been ordered. 11/08/2017 patient is lying in bed. She is requiring about 5 L of oxygen satting at 92%. She is complaining of pain all over her body. She reports that she always has pain and this is not new. She denies any chest pain. Denies shortness of breath. Does have a cough. Denies any nausea or vomiting. Patient seen by speech therapy they will possibly be proceeding with a modified barium swallow 11/09/2017 patient is scheduled for modified barium swallow today. Patient reports that she is feeling better. She still has some cough and shortness of breath. Requiring 5 L oxygen satting at 95%. Chest x-ray from yesterday had shown congestive heart failure with pleural effusions. Right lower lobe pneumonia is possible. Repeat chest x-ray from this morning shows mild right lower lobe infiltrate. Patient is on Zosyn for possible aspiration pneumonia. Her nausea is improving. She's had no further episodes of emesis. White count has dropped from 15-11.2. INR subtherapeutic at 1.2 creatinine improved from 1.8-1.37 Objective - Vital Signs Vital signs: Vital Signs Temp 97.5 F L 11/09/17 08:00 Pulse 93 11/09/17 08:00 Resp 20 11/09/17 08:00 BP 112/44 11/09/17 08:00 Pulse Ox 95 11/09/17 04:00 Intake & Output 11/08/17 11/09/17 11/09/17 18:59 06:59 18:59 Intake Total 1186 480 Output Total 800 1950 Balance 386 -1950 480 Weight 120 kg Intake: Intake, IV Titration 450 Amount Piperacillin-Tazobactam 3 50 .375 gm In Dextrose/Water 1 50ml.bag @ 12.5 mls/hr IVPB Q8HR ISHA Rx#: [id number] Sodium Chloride 0.9% 1, 400 000 ml @ 20 mls/hr IV . Q24H ISHA Rx#:[id number] Oral 736 480 Output: Urine 800 1950 Uretheral (Carlson) 1300 Other: Voiding Method Indwelling Catheter Indwelling Catheter # Voids 1 - Exam Head normocephalic Neck supple Lungs diminished bilaterally Heart regular rate and rhythm S1-S2, no rub or gallop Abdomen is soft nontender nondistended positive bowel sounds no hepatosplenomegaly Extremities no edema Neuro alert and orientated to 3 - Labs CBC & Chem 7: 11/09/17 05:15 11/09/17 05:15 Labs: Abnormal Lab Results - Last 24 Hours (Table) 11/08/17 11/08/17 11/09/17 Range/Units 16:42 20:54 05:15 WBC 11.2 H (3.8-10.6) k/uL Plt Count 146 L (150-450) k/uL Neutrophils # 9.5 H (1.3-7.7) k/uL INR (<1.2) Sodium (137-145) mmol/L Chloride (98-107) mmol/L BUN (7-17) mg/dL Creatinine (0.52-1.04) mg/dL Glucose (74-99) mg/dL POC Glucose (mg/dL) 133 H 144 H (75-99) mg/dL Total Bilirubin (0.2-1.3) mg/dL Total Protein (6.3-8.2) g/dL Albumin (3.5-5.0) g/dL 11/09/17 11/09/17 11/09/17 Range/Units 05:15 05:15 06:20 WBC (3.8-10.6) k/uL Plt Count (150-450) k/uL Neutrophils # (1.3-7.7) k/uL INR 1.2 H (<1.2) Sodium 135 L (137-145) mmol/L Chloride 96 L (98-107) mmol/L BUN 47 H (7-17) mg/dL Creatinine 1.37 H (0.52-1.04) mg/dL Glucose 109 H (74-99) mg/dL POC Glucose (mg/dL) 117 H (75-99) mg/dL Total Bilirubin 1.8 H (0.2-1.3) mg/dL Total Protein 5.1 L (6.3-8.2) g/dL Albumin 3.1 L (3.5-5.0) g/dL Microbiology - Last 24 Hours (Table) 11/07/17 10:25 Urine Culture - Final Urine,Voided Klebsiella pneumoniae Citrobacter farmeri 11/07/17 11:23 Blood Culture - Preliminary Blood No Growth after 24 hours Assessment and Plan Assessment: 1. 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 Chest is x -ray completed showing mild interstitial pulmonary edema and redemonstration of marked cardiomegaly suggest underlying decompensated congestive heart failure. BNP 2710. Cardiology services have been consulted. Troponin level 0.017, 0.020. Pulmonary services and also been consulted. Per cardiology lisinopril, Lasix and oral diuretics have been discontinued due to kidney function and dehydration 2. Atrial fibrillation- she was maintained on Coumadin. INR 7.2. Patient treated with Vit K. Repeat INR 9.0 patient was given an additional 10 mg vitamin K. Patient maintained on metoprolol. INR 1.2 we'll give Coumadin 5mg tonight. Check PT/INR in a.m. 3. Essential hypertension. Patient on Lopressor. Lisinopril discontinued due to increase in creatinine 4. Diabetes mellitus. Diet controlled at home. Last hemoglobin A1c 5.9. Sliding scale insulin has been ordered during hospitalization 5. Elevated INR. Possibly related to poor oral intake and vomiting. INR 7.2. Patient treated with Vit K. Repeat INR 9.0 patient was given an additional 10 mg vitamin K. 6. Acute kidney injury. Creatinine 1.86 and bun 50. Lisinopril, Lasix and oral diuretics will be held at this time per cardiology. Creatinine has decreased to 1.37. Continue with IV fluids at KVO 7. Possible aspiration pneumonia per infectious disease. Patient having leukocytosis and shortness of breath. They'll discontinue the vancomycin and continued on IV Zosyn. Patient requiring 5 L of oxygen. White count down from 19.2-15. Leukocytosis. WBC 19.2. Blood, urine and sputum cultures have been ordered. Vancomycin and zosyn have been added. Dr. Jackson per infectious disease has been consulted. Computed tomography scan of the abdomen still reporting evidence to correlate for CHF exacerbation with tiny bilateral pleural effusions. Cannot exclude acute infiltrate in both lungs. Repeat chest x-ray showing mild right lower lobe infiltrate. 8. History of permenant pacemaker 9. Anxiety continue Xanax 10. Nausea and vomiting. Patient had no further vomiting. Occasional has nausea. GI is following. They've added Reglan and Protonix. Continue with liquid diet. If continues to have symptoms GI may proceed with inpatient EGD 11. Acute hypoxic respiratory failure possibly related to pneumonia 12. Mild hyperbilirubinemia suspect secondary to CHF passive venous congestion with normal LFTs per GI I performed an examination of the patient and discussed their management with the physician Clarifier Operator Helper. I have reviewed the Physician Clarifier Operator Helper's notes and agree with the documented findings and plan of care Dr. Garcia is on vacation starting November 06. Dr. Parada and Dr. EDIN Suarez will be covering the service <Kim Parada A - Last Filed: 11/09/17 14:12> Objective - Vital Signs Vital signs: Vital Signs Temp 97.5 F L 11/09/17 08:00 Pulse 93 11/09/17 08:00 Resp 20 11/09/17 08:00 BP 112/44 11/09/17 08:00 Pulse Ox 95 11/09/17 04:00 Intake & Output 11/08/17 11/09/17 11/09/17 18:59 06:59 18:59 Intake Total 1186 480 Output Total 800 1950 Balance 386 -1950 480 Weight 120 kg Intake: Intake, IV Titration 450 Amount Piperacillin-Tazobactam 3 50 .375 gm In Dextrose/Water 1 50ml.bag @ 12.5 mls/hr IVPB Q8HR ISHA Rx#: [id number] Sodium Chloride 0.9% 1, 400 000 ml @ 20 mls/hr IV . Q24H ISHA Rx#:[id number] Oral 736 480 Output: Urine 800 1950 Uretheral (Carlson) 1300 Other: Voiding Method Indwelling Catheter Indwelling Catheter # Voids 1 - Labs CBC & Chem 7: 11/09/17 05:15 11/09/17 05:15 Labs: Abnormal Lab Results - Last 24 Hours (Table) 11/08/17 11/08/17 11/09/17 Range/Units 16:42 20:54 05:15 WBC 11.2 H (3.8-10.6) k/uL Plt Count 146 L (150-450) k/uL Neutrophils # 9.5 H (1.3-7.7) k/uL INR (<1.2) Sodium (137-145) mmol/L Chloride (98-107) mmol/L BUN (7-17) mg/dL Creatinine (0.52-1.04) mg/dL Glucose (74-99) mg/dL POC Glucose (mg/dL) 133 H 144 H (75-99) mg/dL Total Bilirubin (0.2-1.3) mg/dL Total Protein (6.3-8.2) g/dL Albumin (3.5-5.0) g/dL 11/09/17 11/09/17 11/09/17 Range/Units 05:15 05:15 06:20 WBC (3.8-10.6) k/uL Plt Count (150-450) k/uL Neutrophils # (1.3-7.7) k/uL INR 1.2 H (<1.2) Sodium 135 L (137-145) mmol/L Chloride 96 L (98-107) mmol/L BUN 47 H (7-17) mg/dL Creatinine 1.37 H (0.52-1.04) mg/dL Glucose 109 H (74-99) mg/dL POC Glucose (mg/dL) 117 H (75-99) mg/dL Total Bilirubin 1.8 H (0.2-1.3) mg/dL Total Protein 5.1 L (6.3-8.2) g/dL Albumin 3.1 L (3.5-5.0) g/dL 11/09/17 Range/Units 12:15 WBC (3.8-10.6) k/uL Plt Count (150-450) k/uL Neutrophils # (1.3-7.7) k/uL INR (<1.2) Sodium (137-145) mmol/L Chloride (98-107) mmol/L BUN (7-17) mg/dL Creatinine (0.52-1.04) mg/dL Glucose (74-99) mg/dL POC Glucose (mg/dL) 222 H (75-99) mg/dL Total Bilirubin (0.2-1.3) mg/dL Total Protein (6.3-8.2) g/dL Albumin (3.5-5.0) g/dL Microbiology - Last 24 Hours (Table) 11/07/17 11:23 Blood Culture - Preliminary Blood No Growth after 48 hours 11/07/17 17:20 Gram Stain - Preliminary Sputum Sputum Culture - Preliminary Gram Neg Bacilli 11/07/17 10:25 Urine Culture - Final Urine,Voided Klebsiella pneumoniae Citrobacter farmeri Assessment and Plan Assessment: Patient seen and examined. Patient states she is feeling little bit better. She is asking for something to eat. She states she does feel hungry today. She did pass her swallow evaluation. She is on Zosyn for pneumonia and UTI. Urine culture growing Klebsiella and Citrobacter. Sputum positive for gram- negative bacilli. Antibiotics per ID. Coumadin dosing for INR goal 2-3. Advance diet to full liquid diet. Pending the patient's tolerance of her diet consider HIDA scan per GI. ~Kim Parada DO
[2017-11-09 12:17] LABS: Glucose,Whole Blood 222 mg/dL (75-99)
--- NOTE | 2017-11-09 14:27 | P.PN ---
Subjective Progress Note Date: 11/09/17 This is a pleasant 82-year-old female patient who follows with Dr. Soto in the office. She has history of right-sided heart failure, COPD, chronic persistent atrial fibrillation, on Coumadin for anticoagulation, cor pulmonale, was recently in the hospital just discharged to an ECF over a week ago. According to the patient, since her discharge she's been having episodes of vomiting, she's been nauseous since discharge. She presents back to the hospital with symptoms of nausea and vomiting and extreme weakness. Her breathing overall has been stable, at the time of my examination this morning, she is lying flat in bed with no shortness of breath, extremely weak, positive nausea. Chest x-ray film was reviewed, does not reveal any significant congestive heart failure. EKG shows atrial fibrillation with nonspecific ST-T wave changes, unchanged from recent. Blood pressure on arrival here 128/58 with a heart rate in the 60s, 94% on 2 L of oxygen. White blood cell count 10.6 , 19.2 this morning, hemoglobin 13.8 yesterday, 12.6 this morning, platelet count 201. INR on admission 7.2, 9.0 this morning. Sodium 133, potassium 5.0, chloride 96, BUN 46 and creatinine 1.4 on admission, 50 and 1.8 this morning. BNP level 2710. Troponins 0.020, 0.032. Patient appears to be dehydrated, she was initiated on IV Lasix in the emergency room, we will discontinue this. 11/08/2017 Patient seen and examined this morning, no further episodes of vomiting, still continues to be nauseated and feeling extremely weak. White blood cell count 15 , hemoglobin 12, platelet count 167. INR today 1.3. Sodium 131, potassium 4.7 , BUN 61, creatinine 1.8. CAT scan of the abdomen was performed which did not reveal any evidence of bowel obstruction, sigmoid colonic diverticulosis without acute diverticulitis. Hypertrophic gallbladder with dependent sludge and/or stones with no surrounding inflammatory change identified. Blood pressure 127/70 with a heart rate in the 70s, 90% on 5 L of oxygen. 11/09/2017 Patient seen and examined this morning, much less nauseated today. Blood pressure 04/20/1941 with a heart rate in the 80s to 90s. BUN 47, creatinine 1.3 , potassium 4.5. Objective - Vital Signs Vital signs: Vital Signs Temp 97.5 F L 11/09/17 08:00 Pulse 93 11/09/17 08:00 Resp 20 11/09/17 08:00 BP 112/44 11/09/17 08:00 Pulse Ox 95 11/09/17 04:00 Intake & Output 11/08/17 11/09/17 11/09/17 18:59 06:59 18:59 Intake Total 1186 480 Output Total 800 1950 Balance 386 -1950 480 Weight 120 kg Intake: Intake, IV Titration 450 Amount Piperacillin-Tazobactam 3 50 .375 gm In Dextrose/Water 1 50ml.bag @ 12.5 mls/hr IVPB Q8HR ISHA Rx#: [id number] Sodium Chloride 0.9% 1, 400 000 ml @ 20 mls/hr IV . Q24H ISHA Rx#:[id number] Oral 736 480 Output: Urine 800 1950 Uretheral (Carlson) 1300 Other: Voiding Method Indwelling Catheter Indwelling Catheter # Voids 1 - Exam PHYSICAL EXAMINATION: 82-year-old female, appears very weak and frail today HEENT: Head is atraumatic, normocephalic. Pupils equal, round. Neck is supple. There is no elevated jugular venous pressure. HEART EXAMINATION: Heart sounds regular, S1 and S2 normal. No murmur or gallop heard. CHEST EXAMINATION: Lungs reveal diminished air entry bilaterally. No chest wall tenderness is noted on palpation or with deep breathing. ABDOMEN: Soft, nontender. Bowel sounds are heard. No organomegaly noted. EXTREMITIES: 2+ peripheral pulses with trace evidence of peripheral edema and erythema and blistering to bilateral lower legs. NEUROLOGIC patient is awake, alert and oriented x3, confusion and short-term memory loss noted. - Labs CBC & Chem 7: 11/09/17 05:15 11/09/17 05:15 Labs: Abnormal Lab Results - Last 24 Hours (Table) 11/08/17 11/08/17 11/09/17 Range/Units 16:42 20:54 05:15 WBC 11.2 H (3.8-10.6) k/uL Plt Count 146 L (150-450) k/uL Neutrophils # 9.5 H (1.3-7.7) k/uL INR (<1.2) Sodium (137-145) mmol/L Chloride (98-107) mmol/L BUN (7-17) mg/dL Creatinine (0.52-1.04) mg/dL Glucose (74-99) mg/dL POC Glucose (mg/dL) 133 H 144 H (75-99) mg/dL Total Bilirubin (0.2-1.3) mg/dL Total Protein (6.3-8.2) g/dL Albumin (3.5-5.0) g/dL 11/09/17 11/09/17 11/09/17 Range/Units 05:15 05:15 06:20 WBC (3.8-10.6) k/uL Plt Count (150-450) k/uL Neutrophils # (1.3-7.7) k/uL INR 1.2 H (<1.2) Sodium 135 L (137-145) mmol/L Chloride 96 L (98-107) mmol/L BUN 47 H (7-17) mg/dL Creatinine 1.37 H (0.52-1.04) mg/dL Glucose 109 H (74-99) mg/dL POC Glucose (mg/dL) 117 H (75-99) mg/dL Total Bilirubin 1.8 H (0.2-1.3) mg/dL Total Protein 5.1 L (6.3-8.2) g/dL Albumin 3.1 L (3.5-5.0) g/dL 11/09/17 Range/Units 12:15 WBC (3.8-10.6) k/uL Plt Count (150-450) k/uL Neutrophils # (1.3-7.7) k/uL INR (<1.2) Sodium (137-145) mmol/L Chloride (98-107) mmol/L BUN (7-17) mg/dL Creatinine (0.52-1.04) mg/dL Glucose (74-99) mg/dL POC Glucose (mg/dL) 222 H (75-99) mg/dL Total Bilirubin (0.2-1.3) mg/dL Total Protein (6.3-8.2) g/dL Albumin (3.5-5.0) g/dL Microbiology - Last 24 Hours (Table) 11/07/17 11:23 Blood Culture - Preliminary Blood No Growth after 48 hours 11/07/17 17:20 Gram Stain - Preliminary Sputum Sputum Culture - Preliminary Gram Neg Bacilli 11/07/17 10:25 Urine Culture - Final Urine,Voided Klebsiella pneumoniae Citrobacter farmeri Assessment and Plan Plan: Assessment and plan #1 symptoms of persistent nausea and vomiting with evidence of dehydration #2 history of right-sided heart failure with cor pulmonale, no active heart failure on this admission. #3 elevated INR, likely secondary to persistent vomiting #4 chronic persistent atrial fibrillation , on Coumadin for anticoagulation #5 sinus syndrome, status post pacemaker implantation #6 COPD #7 history of uterine cancer #8 elevated white blood cell count, patient did have recent positive blood culture, Staphylococcus auricularis Plan INR today is 1.2, she will receive 5 mg of Coumadin today. We will continue the rest of her medications. Documented findings and plan of care. Patient was seen and examined.
--- NOTE | 2017-11-09 14:38 | FL ---
COMPARISON: NONE DATE OF EXAM: 11/09/2017 HISTORY: Dysphasia A number of thin and thick substances were ingested under the care of the department of speech pathol ogy. There is no evidence of aspiration or penetration. There is no evidence of obstruction. Next Approximately 1.2 minutes of fluoroscopy provided. IMPRESSION: 1. No evidence of aspiration or penetration.
[2017-11-09 17:12] LABS: Glucose,Whole Blood 95 mg/dL (75-99)
[2017-11-09] MEDS: HYDROcodone/APAP 10-325MG 1 EACH TAB PO PRN (17:57)
[2017-11-09] MEDS ORDERED: WARFARIN 2.5 MG TAB PO SCH (18:00)
[2017-11-09] MEDS ORDERED: WARFARIN 5 MG TAB PO ONE (18:00)
[2017-11-09] MEDS: METOPROLOL TARTRATE 25 MG TAB PO SCH (20:42)
[2017-11-09 20:44] LABS: Glucose,Whole Blood 170 mg/dL (75-99)
[2017-11-09] MEDS: ALPRAZolam 0.5 MG TAB PO PRN (22:02)
--- NOTE | 2017-11-09 23:44 | PN ---
PROGRESS NOTE DATE OF SERVICE: 11/09/2017. REASON FOR FOLLOWUP: Possible aspiration pneumonia and UTI. INTERVAL HISTORY: The patient is afebrile. She seems to be breathing more comfortably. Cough has decreased in intensity. No chest pain. No abdominal pain and no diarrhea. EXAMINATION: Her blood pressure is 113/71 with a pulse of 74, temperature of 98. She is 94% on 5L nasal cannula. General description is an elderly female lying in bed in no distress. RESPIRATORY SYSTEM: Unlabored breathing with decreased breath sounds in the bases. No wheeze. HEART: S1, S2. Regular rate and rhythm. ABDOMEN: Soft, nontender. LABS: White count down to 11.2 with a BUN of 47, creatinine is 1.37. Urine with Klebsiella and Citrobacter. Sputum culture showing gram-negative. DIAGNOSTIC IMPRESSION AND PLAN: 1. Patient admitted to the hospital with hypoxemia, which is likely multifactorial in this patient noted have a component of possible pneumonia, concern for possible aspiration. The patient did pass the barium swallow, though currently on Zosyn that should be continued while waiting for the sputum culture to finalize. 2. Urinary tract infection, urine showing Citrobacter and Klebsiella, currently covered with the antibiotic patient is already on. Continue supportive care. MMODL / IJN: [id number] /
[2017-11-10] MEDS: IPRATROPIUM-ALBUTEROL 3 ML NEB INHALATION SCH ×6 (00:05→19:16)
[2017-11-10] MEDS: HYDROcodone/APAP 10-325MG 1 EACH TAB PO PRN ×3 (03:24→20:45)
[2017-11-10] MEDS: METOCLOPRAMIDE 5 MG/ML 2 ML VIAL IVP SCH ×3 (06:03→20:46)
[2017-11-10 06:04] LABS: Glucose,Whole Blood 132 mg/dL (75-99)
[2017-11-10 06:06] LABS: Basophils % (A) 0 %; Eosinophils # (A) 0.1 k/uL (0-0.7); Eosinophils % (A) 1 %; HCT 38.6 % (34.0-46.0); HGB 12.1 gm/dL (11.4-16.0); Lymphocytes # (A) 1.1 k/uL (1.0-4.8); Lymphocytes % (A) 11 %; MCH 30.3 pg (25.0-35.0); MCHC 31.5 g/dL (31.0-37.0); MCV 96.3 fL (80.0-100.0); Mean Platelet Volume 7.4; Monocytes # (A) 0.5 k/uL (0-1.0); Monocytes % (A) 5 %; Neutrophils # (A) 7.9 k/uL (1.3-7.7); Neutrophils % (A) 80 %; Platelet Count 162 k/uL (150-450); RBC 4.01 m/uL (3.80-5.40); RDW 12.4 % (11.5-15.5); WBC 9.8 k/uL (3.8-10.6)
[2017-11-10 06:12] LABS: INR 1.2 (<1.2); Prothrombin Time 11.8 sec (9.0-12.0)
[2017-11-10 06:16] LABS: Albumin 3.2 g/dL (3.5-5.0); Calcium 9.1 mg/dL (8.4-10.2); Potassium 4.7 mmol/L (3.5-5.1); Total Bilirubin 1.8 mg/dL (0.2-1.3); Total Protein 5.4 g/dL (6.3-8.2)
[2017-11-10] MEDS: INSULIN ASPART 100 UNIT/ML 1 ML 10 ML VIAL SQ SCH ×4 (06:42→20:55)
[2017-11-10] MEDS: SODIUM CHLORIDE 0.9% 1,000 ML IV SCH (06:44)
[2017-11-10] MEDS: HEPARIN SODIUM,PORCINE 5,000 UNIT/ML 1 ML VIAL SQ SCH ×3 (09:17→23:08)
[2017-11-10] MEDS: PIPERACILLIN-TAZOBACTAM 3.375 GM in DEXTROSE/WATER 1 50ML.BAG IVPB SCH (09:17)
[2017-11-10] MEDS: PANTOPRAZOLE 40 MG/10 ML VIAL IVP SCH (09:18)
[2017-11-10] MEDS: NYSTATIN 100,000UNIT/GM CREAM 30 GM TUBE TOPICAL SCH ×2 (09:18→20:46)
[2017-11-10] MEDS: METOPROLOL TARTRATE 50 MG TAB PO SCH (09:18)
[2017-11-10 12:21] LABS: Glucose,Whole Blood 123 mg/dL (75-99)
--- NOTE | 2017-11-10 12:33 | PN ---
PROGRESS NOTE DATE OF SERVICE: November 10, 2017 Patient is an 82-year-old pleasant white female admitted to the hospital with possible aspiration pneumonia and UTI. Presently on broad-spectrum antibiotics. She was having abdominal pain, nausea, vomiting since admission to the hospital and hence we are consulted in regards to this issue. The patient has been on a clear liquid diet, presently tolerating well. She denies any symptoms. She was given some full liquids as per the nursing staff and she has been doing well. She had 2 bowel movements this morning. No abdominal pain. PHYSICAL EXAMINATION: She appears comfortable. No apparent distress. VITAL SIGNS: Stable. Blood pressure is 132/81, pulse rate 90, temperature 97.4. HEENT examination unremarkable. Conjunctivae pink. Sclerae anicteric. Oral cavity no lesions. Neck no JVD or lymph node enlargement. Chest was clear to auscultation. HEART: Regular rate and rhythm. ABDOMEN: Obese with bowel sounds were positive. It was nontender nondistended. Liver and spleen were not palpable. Bowel sounds are positive. Extremities no pedal edema. Skin no rashes. NEUROLOGIC: Alert and oriented x3. No focal deficits. LAB DATA: From today, CBC with diff is within normal limits. PT/INR is 1.2. Basic metabolic panel is normal. BUN is 37, creatinine is 0.9. ALT, AST are normal. T-bilirubin is 1.8. She did have an ultrasound of the abdomen done yesterday that showed evidence of gallstones but no evidence of acute cholecystitis. IMPRESSION: 1. This is a patient admitted to hospital for possible pneumonia/urinary tract infection presently on broad-spectrum antibiotics and overall her symptoms are gradually improving. She was having nausea, vomiting for the last few days, but has completely resolved. She was on clear liquid diet yesterday and this morning was on full liquid diet, tolerating well. Most likely her symptoms could be related to underlying pneumonia/urinary tract infection. 2. History of congestive heart failure. 3. Morbid obesity. RECOMMENDATIONS: 1. Since the nausea and vomiting has resolved. We will advance the diet as tolerated. 2. Continue with PPIs and Zofran as needed. 3. No need for any endoscopic intervention. At this time, we will sign off. Please call us if needed. Thank you for this consultation. MMODL / IJN: [id number] /
--- NOTE | 2017-11-10 12:48 | PN ---
PROGRESS NOTE DATE OF SERVICE: 11/10/2017. She continues to have shortness of breath and feels quite weak at this time. On physical examination: Respiratory rate is 18, pulse rate 90, temperature 97.4, blood pressure 144/81, O2 saturation on 3 L by nasal cannula is 93%. HEENT is unremarkable. Chest reveals scattered rhonchi. Cardiovascular system reveals an S1, S2. Abdomen is soft. There is no edema. IMPRESSION: 1. Congestive heart failure. 2. Ischemic cardiomyopathy. 3. Atrial fibrillation. 4. Diabetes mellitus. 5. Aspiration pneumonia. 6. Previous permanent pacemaker. 7. Anxiety. Continue antibiotics. Supportive care. Increase her activity level. Appreciate cardiology and ID recommendations and evaluation. MMODL / IJN: [id number] /
[2017-11-10] MEDS: AMPICILLIN-SULBACTAM 3 GM in SODIUM CHLORIDE 0.9% 100 ML IVPB SCH ×2 (17:04→23:09)
[2017-11-10 17:10] LABS: Glucose,Whole Blood 133 mg/dL (75-99)
[2017-11-10] MEDS ORDERED: WARFARIN 5 MG TAB PO ONE (18:45)
[2017-11-10] MEDS ORDERED: IPRATROPIUM-ALBUTEROL 3 ML NEB INHALATION PRN (20:24)
[2017-11-10] MEDS: ALPRAZolam 0.5 MG TAB PO PRN (20:46)
[2017-11-10] MEDS: METOPROLOL TARTRATE 25 MG TAB PO SCH (20:46)
[2017-11-10 21:07] LABS: Glucose,Whole Blood 123 mg/dL (75-99)
[2017-11-11] MEDS: METOCLOPRAMIDE 5 MG/ML 2 ML VIAL IVP SCH ×3 (05:25→21:56)
[2017-11-11 06:19] LABS: Glucose,Whole Blood 107 mg/dL (75-99)
--- NOTE | 2017-11-11 06:28 | PN ---
PROGRESS NOTE DATE OF SERVICE: 11/10/2017 REASON FOR FOLLOWUP: 1. Gram-negative pneumonia. 2. Urinary tract infection. INTERVAL HISTORY: The patient is afebrile. She has been breathing comfortably. Cough decreased. Denies any chest pain, abdominal pain. No diarrhea. EXAMINATION: Blood pressure 110/70 with a pulse of 87, temperature 97.8. She is 94% on 2 L nasal cannula. General description is an elderly female up in the bed in no distress. Respiratory system: Unlabored breathing. Clear to auscultation anteriorly. Heart S1, S2. Regular rate and rhythm. Abdomen soft, no tenderness. LABS: Hemoglobin is 12.1, white count 9.8. BUN of 37, creatinine 0.90, sputum with Klebsiella pneumoniae that is sensitive to Unasyn. Urine culture with Klebsiella pneumoniae and Citrobacter. Blood culture has been negative. DIAGNOSTIC IMPRESSION AND PLAN: Patient admitted to the hospital with hypoxemia. The patient did have a congested cough with underlying pneumonia likely aspiration in etiology. The patient antibiotic has been transitioned to Unasyn 3 g q.6h that will be transitioned to oral Augmentin on discharge. Continue supportive care. MMODL / IJN: [id number] /
[2017-11-11] MEDS: HYDROcodone/APAP 10-325MG 1 EACH TAB PO PRN ×3 (06:41→23:24)
[2017-11-11] MEDS: PANTOPRAZOLE 40 MG TABLET PO SCH (06:41)
[2017-11-11] MEDS: AMPICILLIN-SULBACTAM 3 GM in SODIUM CHLORIDE 0.9% 100 ML IVPB SCH ×4 (06:42→23:24)
[2017-11-11] MEDS: SODIUM CHLORIDE 0.9% 1,000 ML IV SCH (06:42)
[2017-11-11] MEDS: INSULIN ASPART 100 UNIT/ML 1 ML 10 ML VIAL SQ SCH ×4 (06:42→21:56)
[2017-11-11 06:43] LABS: Basophils % (A) 0 %; Eosinophils # (A) 0.2 k/uL (0-0.7); Eosinophils % (A) 2 %; HCT 41.4 % (34.0-46.0); HGB 12.7 gm/dL (11.4-16.0); Lymphocytes # (A) 1.1 k/uL (1.0-4.8); Lymphocytes % (A) 14 %; MCHC 30.7 g/dL (31.0-37.0); MCV 97.8 fL (80.0-100.0); Mean Platelet Volume 7.9; Monocytes # (A) 0.9 k/uL (0-1.0); Monocytes % (A) 12 %; Neutrophils # (A) 5.2 k/uL (1.3-7.7); Neutrophils % (A) 69 %; Platelet Count 200 k/uL (150-450); RBC 4.24 m/uL (3.80-5.40); RDW 12.4 % (11.5-15.5); WBC 7.6 k/uL (3.8-10.6)
[2017-11-11 06:52] LABS: INR 1.6 (<1.2); Prothrombin Time 14.6 sec (9.0-12.0)
[2017-11-11 07:17] LABS: Albumin 3.1 g/dL (3.5-5.0); Potassium 4.9 mmol/L (3.5-5.1); Total Bilirubin 1.1 mg/dL (0.2-1.3); Total Protein 5.4 g/dL (6.3-8.2)
[2017-11-11] MEDS: IPRATROPIUM-ALBUTEROL 3 ML NEB INHALATION SCH ×4 (07:42→20:24)
[2017-11-11] MEDS: NYSTATIN 100,000UNIT/GM CREAM 30 GM TUBE TOPICAL SCH ×2 (08:14→21:58)
[2017-11-11] MEDS: METOPROLOL TARTRATE 50 MG TAB PO SCH (08:15)
[2017-11-11] MEDS: HEPARIN SODIUM,PORCINE 5,000 UNIT/ML 1 ML VIAL SQ SCH ×3 (08:15→23:23)
[2017-11-11 11:54] LABS: Glucose,Whole Blood 130 mg/dL (75-99)
[2017-11-11 17:30] LABS: Glucose,Whole Blood 123 mg/dL (75-99)
[2017-11-11] MEDS: WARFARIN 5 MG TAB PO SCH (17:32)
--- NOTE | 2017-11-11 18:24 | P.PN ---
Subjective Progress Note Date: 11/11/17 Principal diagnosis: Ischemic cardiomyopathy, chronic atrial fibrillation, diabetes mellitus, aspiration pneumonia, generalized anxiety disorder, congestive heart failure 11/11/2017, patient seen eval examined during the rounds overall doing fairly well patient INR remains subtherapeutic 5 mg of Coumadin is being given hemodynamic status is stable labs medication and radiographic studies reviewed This is a pleasant 82-year-old female patient history of right-sided heart failure, COPD, chronic persistent atrial fibrillation, on Coumadin for anticoagulation, cor pulmonale, was recently in the hospital just discharged to an [facility] over a week ago. According to the patient, since her discharge she's been having episodes of vomiting, she's been nauseous since discharge. She presents back to the hospital with symptoms of nausea and vomiting and extreme weakness. Her breathing overall has been stable, Blood pressure on arrival here 128/58 with a heart rate in the 60s, 94% on 2 L of oxygen. White blood cell count 10.6, 19.2 this morning, hemoglobin 13.8 yesterday, 12.6 this morning , platelet count 201. INR on admission 7.2, Objective - Vital Signs Vital signs: Vital Signs Temp 97.4 F L 11/11/17 15:30 Pulse 80 11/11/17 15:33 Resp 18 11/11/17 18:08 BP 117/58 11/11/17 15:30 Pulse Ox 90 L 11/11/17 18:08 Intake & Output 11/10/17 11/11/17 11/11/17 18:59 06:59 18:59 Intake Total 1100 520 Output Total 900 500 Balance 1100 -380 -500 Intake: IV 180 0.9 180 Intake, IV Titration 260 100 Amount Ampicillin-Sulbactam 3 gm 100 100 In Sodium Chloride 0.9% 100 ml @ 100 mls/hr IVPB Q6HR ISHA Rx#:[id number] Sodium Chloride 0.9% 1, 160 000 ml @ 20 mls/hr IV . Q24H ISHA Rx#:[id number] Oral 840 240 Output: Urine 900 500 Straight 350 Other: Voiding Method Indwelling Catheter Indwelling Catheter Indwelling Catheter # Voids 1 1 - Exam HEENT: Head is atraumatic, normocephalic. Pupils equal, round. Neck is supple. There is no elevated jugular venous pressure. HEART EXAMINATION: Heart sounds regular, S1 and S2 normal. No murmur or gallop heard. CHEST EXAMINATION: Lungs reveal diminished air entry bilaterally. No chest wall tenderness is noted on palpation or with deep breathing. ABDOMEN: Soft, nontender. Bowel sounds are heard. No organomegaly noted. EXTREMITIES: 2+ peripheral pulses with trace evidence of peripheral edema and erythema and blistering to bilateral lower legs. NEUROLOGIC patient is awake, alert and oriented x3, confusion and short-term memory loss noted. - Labs CBC & Chem 7: 11/11/17 06:21 11/11/17 06:21 Labs: Abnormal Lab Results - Last 24 Hours (Table) 11/10/17 11/11/17 11/11/17 Range/Units 20:54 06:16 06:21 MCHC 30.7 L (31.0-37.0) g/dL PT (9.0-12.0) sec INR (<1.2) Sodium (137-145) mmol/L Carbon Dioxide (22-30) mmol/L BUN (7-17) mg/dL Glucose (74-99) mg/dL POC Glucose (mg/dL) 123 H 107 H (75-99) mg/dL Total Protein (6.3-8.2) g/dL Albumin (3.5-5.0) g/dL 11/11/17 11/11/17 11/11/17 Range/Units 06:21 06:36 11:40 MCHC (31.0-37.0) g/dL PT 14.6 H (9.0-12.0) sec INR 1.6 H (<1.2) Sodium 135 L (137-145) mmol/L Carbon Dioxide 31 H (22-30) mmol/L BUN 29 H (7-17) mg/dL Glucose 115 H (74-99) mg/dL POC Glucose (mg/dL) 130 H (75-99) mg/dL Total Protein 5.4 L (6.3-8.2) g/dL Albumin 3.1 L (3.5-5.0) g/dL 11/11/17 Range/Units 17:08 MCHC (31.0-37.0) g/dL PT (9.0-12.0) sec INR (<1.2) Sodium (137-145) mmol/L Carbon Dioxide (22-30) mmol/L BUN (7-17) mg/dL Glucose (74-99) mg/dL POC Glucose (mg/dL) 123 H (75-99) mg/dL Total Protein (6.3-8.2) g/dL Albumin (3.5-5.0) g/dL Microbiology - Last 24 Hours (Table) 11/07/17 11:23 Blood Culture - Preliminary Blood No Growth after 96 hours Assessment and Plan Assessment: Acute exacerbation of CHF due to acute on chronic diastolic heart failure Paroxysmal atrial fibrillation Super therapeutic INR is now subtherapeutic Coumadin is being dosed Hypertension hypertensive cardiovascular disease Diabetes mellitus 1 acute renal failure stage III Aspiration pneumonia Generalized anxiety disorder Plan: Continue to dose Coumadin him INR around 2 Pain management with [place] as needed and fentanyl patch as using before Bronchodilators Short-term short-acting anxiolytics IV Unasyn for aspiration pneumonia DVT prophylaxis Optimize therapy for a diastolic heart failure continue gentle diuresis monitor renal functions closely Time with Patient: Greater than 30
--- NOTE | 2017-11-11 18:49 | PN ---
PROGRESS NOTE DATE OF SERVICE: 11/11/2017 She was seen on November2017. She has been hemodynamically stable. She is less short of breath and is lying flat in bed. On physical examination, her respiratory rate is 16, pulse rate of 72, blood pressure 106/73, O2 saturation on 1.5 L by nasal cannula is 93%. HEENT reveals pupils are equal. Chest reveals decreased breath sounds. Occasional rhonchi. Cardiovascular system is S1, S2. Abdomen is soft. There is 1+ to 2+ pedal edema. Sodium is 135, potassium 4.9, chloride 99, bicarb 31, BUN 29, creatinine 0.8. White count 7.6, hemoglobin of 12.7. IMPRESSION: At this time: 1. Congestive heart failure. 2. Ischemic cardiomyopathy. 3. Atrial fibrillation. 4. Diabetes mellitus. 5. Aspiration pneumonia. 6. Status post permanent pacemaker placement. 7. Anxiety. RECOMMENDATIONS: Continue antibiotics. Supportive care. Optimize the fluid status. Increase her activity level. Depending on how she does, we shall make further changes to her care. MMTIMBOL / IJN: [id number] /
[2017-11-11 21:00] LABS: Glucose,Whole Blood 159 mg/dL (75-99)
[2017-11-11] MEDS: METOPROLOL TARTRATE 25 MG TAB PO SCH (21:56)
--- NOTE | 2017-11-11 23:04 | PN ---
PROGRESS NOTE DATE OF SERVICE: 11/11/2017. REASON FOR FOLLOWUP: 1. Klebsiella pneumonia. 2. Urinary tract infection. INTERVAL HISTORY: The patient is currently afebrile. She has been breathing more comfortably. Denies significant chest pain. Occasional cough. No abdominal pain. No diarrhea. EXAMINATION: Blood pressure 117/58, pulse of 80, temperature 97.4. She is 90% on room air. GENERAL DESCRIPTION: An elderly female lying in bed in no distress. RESPIRATORY SYSTEM: Unlabored breathing with decreased breath sounds in the bases. No wheeze. HEART: S1, S2. Regular rate and rhythm. ABDOMEN: Soft, no tenderness. LABS: Hemoglobin is 12.7, white count 7.6, BUN of 29, creatinine 0.80. IMPRESSION/PLAN: 1. Patient with Klebsiella pneumoniae, right-sided pneumonia, likely aspiration in etiology. He is currently on Unasyn. 2. Patient with Klebsiella and Citrobacter urinary tract infection, currently covered with Unasyn. 3. Plan will be to finish therapy with oral Augmentin for another week with close outpatient followup. MMODL / IJN: [id number] /
[2017-11-11] MEDS: ALPRAZolam 0.5 MG TAB PO PRN (23:31)
[2017-11-12] MEDS: METOCLOPRAMIDE 5 MG/ML 2 ML VIAL IVP SCH ×3 (05:19→22:22)
[2017-11-12] MEDS: AMPICILLIN-SULBACTAM 3 GM in SODIUM CHLORIDE 0.9% 100 ML IVPB SCH ×4 (05:43→23:29)
[2017-11-12] MEDS: HYDROcodone/APAP 10-325MG 1 EACH TAB PO PRN ×2 (06:37→14:19)
[2017-11-12] MEDS: SODIUM CHLORIDE 0.9% 1,000 ML IV SCH (06:54)
[2017-11-12] MEDS: INSULIN ASPART 100 UNIT/ML 1 ML 10 ML VIAL SQ SCH ×4 (07:38→22:17)
[2017-11-12] MEDS: HEPARIN SODIUM,PORCINE 5,000 UNIT/ML 1 ML VIAL SQ SCH ×3 (07:43→23:29)
[2017-11-12] MEDS: PANTOPRAZOLE 40 MG TABLET PO SCH (07:43)
[2017-11-12] MEDS: METOPROLOL TARTRATE 50 MG TAB PO SCH (07:43)
[2017-11-12] MEDS: NYSTATIN 100,000UNIT/GM CREAM 30 GM TUBE TOPICAL SCH ×2 (07:44→22:25)
[2017-11-12 08:08] LABS: Glucose,Whole Blood 113 mg/dL (75-99)
[2017-11-12 08:12] LABS: Prothrombin Time 18.3 sec (9.0-12.0)
[2017-11-12] MEDS: IPRATROPIUM-ALBUTEROL 3 ML NEB INHALATION SCH ×4 (08:43→19:44)
[2017-11-12] MEDS: ALPRAZolam 0.5 MG TAB PO PRN (11:46)
--- NOTE | 2017-11-12 12:33 | P.PN ---
Subjective Progress Note Date: 11/12/17 Interval history: 11/12/2017 patient is being seen examined and evaluated today on rounds. She is resting up in bed on 2-3 L of supplemental oxygen via nasal cannula. She continues to have shortness of breath with exertion and activity. She continues to be hemodynamically stable. He denies any sputum production. She is afebrile no further complaints. Objective - Vital Signs Vital signs: Vital Signs Temp 97.9 F 11/12/17 06:53 Pulse 82 11/12/17 08:55 Resp 22 11/12/17 06:53 BP 123/56 11/12/17 06:53 Pulse Ox 90 L 11/12/17 06:53 Intake & Output 11/11/17 11/12/17 11/12/17 18:59 06:59 18:59 Output Total 500 500 Balance -500 -500 Weight 119.9 kg Output: Urine 500 500 Straight 350 Other: Voiding Method Indwelling Catheter Indwelling Catheter # Voids 1 2 1 # Bowel Movements 0 - Exam GENERAL EXAM: Alert, comfortable in no apparent distress. HEAD: Normocephalic. EYES: Normal reaction of pupils, equal size. NOSE: Clear with pink turbinates. THROAT: No erythema or exudates. NECK: No masses, no JVD. CHEST: No chest wall deformity. LUNGS: Decreased breath sounds bilaterally with occasional rhonchi. CVS: S1 and S2 normal with no audible mumurs, regular rhythm. ABDOMEN: No hepatosplenomegaly, normal bowel sounds, no guarding or rigidity. EXTREMITIES: +1-2 edema noted, pedal pulses palpable. CENTRAL NERVOUS SYSTEM: No focal deficits, tone is normal in all 4 extremities. - Labs CBC & Chem 7: 11/11/17 06:21 11/11/17 06:21 Labs: Abnormal Lab Results - Last 24 Hours (Table) 11/11/17 11/11/17 11/12/17 Range/Units 17:08 20:58 07:36 PT (9.0-12.0) sec INR (<1.2) POC Glucose (mg/dL) 123 H 159 H 113 H (75-99) mg/dL 11/12/17 Range/Units 07:39 PT 18.3 H (9.0-12.0) sec INR 2.0 H (<1.2) POC Glucose (mg/dL) (75-99) mg/dL Microbiology - Last 24 Hours (Table) 11/07/17 11:23 Blood Culture - Preliminary Blood No Growth after 96 hours Assessment and Plan Assessment: Assessment Congestive heart failure Ischemic cardiomyopathy A. fib Diabetes mellitus Aspiration pneumonia Status post permanent pacemaker placement Anxiety Acute on chronic hypoxic respiratory failure requiring supplemental oxygen Plan Medications have been reviewed and will be continued as ordered. Recheck labs in the morning Infectious disease consult Continue with pulmonary hygiene, coughing and deep breathing exercises, and supportive care. Supplemental oxygen to maintain oxygen saturations of 92% or better. Continue nebulizer treatments. GI and DVT prophylaxis. Increase activity as tolerated PT and OT We will continue to monitor labs/results and adjust treatment as necessary. Further recommendations pending. I performed an examination of the patient and discussed their management with the nurse practitioner. I have reviewed the nurse practitioner's note and agree with the documented findings and plan of care.
[2017-11-12 12:58] LABS: Glucose,Whole Blood 113 mg/dL (75-99)
[2017-11-12] MEDS: WARFARIN 5 MG TAB PO SCH (17:13)
[2017-11-12 17:23] LABS: Glucose,Whole Blood 119 mg/dL (75-99)
--- NOTE | 2017-11-12 19:13 | P.PN ---
Subjective Progress Note Date: 11/12/17 Principal diagnosis: Ischemic cardiomyopathy, chronic atrial fibrillation, diabetes mellitus, aspiration pneumonia, generalized anxiety disorder, congestive heart failure 11/12/2017, patient seen eval examined during the rounds, still on supplemental oxygen short of breath overall hemodynamically stable remains afebrile sats are in low 90s to high 80s get short of breath on activity and exertion medications reviewed patient is being dosed with Coumadin INR isn't therapeutic range 11/11/2017, patient seen eval examined during the rounds overall doing fairly well patient INR remains subtherapeutic 5 mg of Coumadin is being given hemodynamic status is stable labs medication and radiographic studies reviewed This is a pleasant 82-year-old female patient history of right-sided heart failure, COPD, chronic persistent atrial fibrillation, on Coumadin for anticoagulation, cor pulmonale, was recently in the hospital just discharged to an [facility] over a week ago. According to the patient, since her discharge she's been having episodes of vomiting, she's been nauseous since discharge. She presents back to the hospital with symptoms of nausea and vomiting and extreme weakness. Her breathing overall has been stable, Blood pressure on arrival here 128/58 with a heart rate in the 60s, 94% on 2 L of oxygen. White blood cell count 10.6, 19.2 this morning, hemoglobin 13.8 yesterday, 12.6 this morning , platelet count 201. INR on admission 7.2, Objective - Vital Signs Vital signs: Vital Signs Temp 97.6 F 11/12/17 13:56 Pulse 74 11/12/17 13:56 Resp 18 11/12/17 13:56 BP 101/56 11/12/17 13:56 Pulse Ox 96 11/12/17 13:56 Intake & Output 11/12/17 11/12/17 11/13/17 06:59 18:59 06:59 Intake Total 240 Output Total 500 425 Balance -500 -185 Weight 119.9 kg 119.9 kg Intake: Oral 240 Output: Urine 500 425 Other: Voiding Method Indwelling Catheter Indwelling Catheter # Voids 2 1 # Bowel Movements 0 - Exam HEENT: Head is atraumatic, normocephalic. Pupils equal, round. Neck is supple. There is no elevated jugular venous pressure. HEART EXAMINATION: Heart sounds regular, S1 and S2 normal. No murmur or gallop heard. CHEST EXAMINATION: Lungs reveal diminished air entry bilaterally. No chest wall tenderness is noted on palpation or with deep breathing. ABDOMEN: Soft, nontender. Bowel sounds are heard. No organomegaly noted. EXTREMITIES: 2+ peripheral pulses with trace evidence of peripheral edema and erythema and blistering to bilateral lower legs. NEUROLOGIC patient is awake, alert and oriented x3, confusion and short-term memory loss noted. - Labs CBC & Chem 7: 11/11/17 06:21 11/11/17 06:21 Labs: Abnormal Lab Results - Last 24 Hours (Table) 11/11/17 11/12/17 11/12/17 Range/Units 20:58 07:36 07:39 PT 18.3 H (9.0-12.0) sec INR 2.0 H (<1.2) POC Glucose (mg/dL) 159 H 113 H (75-99) mg/dL 11/12/17 11/12/17 Range/Units 12:48 17:12 PT (9.0-12.0) sec INR (<1.2) POC Glucose (mg/dL) 113 H 119 H (75-99) mg/dL Microbiology - Last 24 Hours (Table) 11/07/17 11:23 Blood Culture - Preliminary Blood No Growth after 120 hours Assessment and Plan Assessment: Acute exacerbation of CHF due to acute on chronic diastolic heart failure Paroxysmal atrial fibrillation Super therapeutic INR is now therapeutic Coumadin is being dosed Hypertension hypertensive cardiovascular disease Diabetes mellitus 1 acute renal failure stage III Aspiration pneumonia Generalized anxiety disorder Plan: Continue to dose Coumadin him INR around 2 Pain management with [place] as needed and fentanyl patch as using before Bronchodilators Short-term short-acting anxiolytics IV Unasyn for aspiration pneumonia DVT prophylaxis Optimize therapy for a diastolic heart failure continue gentle diuresis monitor renal functions closely Time with Patient: Greater than 30
[2017-11-12 20:48] LABS: Glucose,Whole Blood 162 mg/dL (75-99)
[2017-11-12] MEDS: METOPROLOL TARTRATE 25 MG TAB PO SCH (22:18)
[2017-11-12] MEDS: KETOROLAC 30 MG/ML 1 ML VIAL IVP PRN (22:18)
--- NOTE | 2017-11-12 23:59 | PN ---
PROGRESS NOTE DATE OF SERVICE: 11/12/2017. REASON FOR FOLLOWUP: 1. Klebsielleae pneumonia. 2. UTI. INTERVAL HISTORY: The patient is afebrile. She is breathing comfortably. Denies significant chest pain. Did have some cough, not bringing up sputum. No abdominal pain. No diarrhea. PHYSICAL EXAMINATION: Blood pressure was 101/56, pulse 74, temperature 97.6. GENERAL DESCRIPTION: An elderly female, lying in bed, in no distress. RESPIRATORY SYSTEM: Unlabored breathing. Clear to auscultation anteriorly. HEART: S1, S2. Regular rate and rhythm. ABDOMEN: Bowel sounds normal. LABS: INR was 2.0. IMPRESSION: The patient with possible aspiration, sputum with Klebsiella, also Klebsiella in the urine. Currently on Unasyn, transitioned to oral Augmentin to finish course of therapy. Continue supportive care. MMODL / IJN: [id number] /
[2017-11-13] MEDS: AMPICILLIN-SULBACTAM 3 GM in SODIUM CHLORIDE 0.9% 100 ML IVPB SCH ×4 (05:18→23:07)
[2017-11-13] MEDS: KETOROLAC 30 MG/ML 1 ML VIAL IVP PRN ×2 (05:19→15:14)
[2017-11-13] MEDS: METOCLOPRAMIDE 5 MG/ML 2 ML VIAL IVP SCH ×3 (05:20→21:15)
[2017-11-13] MEDS: SODIUM CHLORIDE 0.9% 1,000 ML IV SCH (05:25)
[2017-11-13 07:37] LABS: Basophils % (A) 0 %; Eosinophils # (A) 0.2 k/uL (0-0.7); Eosinophils % (A) 4 %; HCT 38.4 % (34.0-46.0); HGB 11.9 gm/dL (11.4-16.0); Lymphocytes # (A) 1.4 k/uL (1.0-4.8); Lymphocytes % (A) 22 %; MCH 29.9 pg (25.0-35.0); MCHC 30.8 g/dL (31.0-37.0); MCV 97.1 fL (80.0-100.0); Mean Platelet Volume 6.9; Monocytes # (A) 0.4 k/uL (0-1.0); Monocytes % (A) 6 %; Neutrophils # (A) 4.2 k/uL (1.3-7.7); Neutrophils % (A) 65 %; Platelet Count 203 k/uL (150-450); RBC 3.96 m/uL (3.80-5.40); RDW 12.4 % (11.5-15.5); WBC 6.5 k/uL (3.8-10.6)
[2017-11-13 07:39] LABS: Glucose,Whole Blood 111 mg/dL (75-99)
[2017-11-13 07:39] LABS: INR 2.7 (<1.2); Prothrombin Time 23.8 sec (9.0-12.0)
[2017-11-13] MEDS: INSULIN ASPART 100 UNIT/ML 1 ML 10 ML VIAL SQ SCH ×4 (07:56→21:16)
[2017-11-13 08:22] LABS: Albumin 2.7 g/dL (3.5-5.0); Calcium 8.8 mg/dL (8.4-10.2); Potassium 4.9 mmol/L (3.5-5.1); Total Bilirubin 0.6 mg/dL (0.2-1.3); Total Protein 4.9 g/dL (6.3-8.2)
[2017-11-13] MEDS: IPRATROPIUM-ALBUTEROL 3 ML NEB INHALATION SCH ×4 (09:05→19:20)
[2017-11-13] MEDS: PANTOPRAZOLE 40 MG TABLET PO SCH (09:41)
[2017-11-13] MEDS: METOPROLOL TARTRATE 50 MG TAB PO SCH (09:41)
[2017-11-13] MEDS: HEPARIN SODIUM,PORCINE 5,000 UNIT/ML 1 ML VIAL SQ SCH ×3 (09:41→23:07)
[2017-11-13] MEDS: NYSTATIN 100,000UNIT/GM CREAM 30 GM TUBE TOPICAL SCH ×2 (09:41→21:06)
[2017-11-13] MEDS: HYDROcodone/APAP 10-325MG 1 EACH TAB PO PRN ×2 (09:44→17:49)
--- NOTE | 2017-11-13 11:14 | P.PN ---
Subjective Progress Note Date: 11/13/17 Interval history: 11/12/2017 patient is being seen examined and evaluated today on rounds. She is resting up in bed on 2-3 L of supplemental oxygen via nasal cannula. She continues to have shortness of breath with exertion and activity. She continues to be hemodynamically stable. He denies any sputum production. She is afebrile no further complaints. 11/13/2017patient is being seen examined and evaluated today on rounds. She does get short of breath with exertion and activity, she is now on room air. Her INR today is 2.7. She is growing Klebsiella in her urine and her sputum. Infectious diseases adjusting antibiotics, and has recommended transition to oral Augmentin on discharge. He has been afebrile no further complaints. Hemodynamically stable Objective - Vital Signs Vital signs: Vital Signs Temp 98.2 F 11/13/17 05:30 Pulse 77 11/13/17 05:30 Resp 16 11/13/17 05:30 BP 122/59 11/13/17 05:30 Pulse Ox 92 L 11/13/17 05:30 Intake & Output 11/12/17 11/13/17 11/13/17 18:59 06:59 18:59 Intake Total 240 Output Total 425 500 Balance -185 -500 Weight 119.9 kg 115 kg Intake: Oral 240 Output: Urine 425 500 Other: Voiding Method Indwelling Catheter Indwelling Catheter # Voids 1 # Bowel Movements 0 - Exam GENERAL EXAM: Alert, comfortable in no apparent distress. HEAD: Normocephalic. EYES: Normal reaction of pupils, equal size. NOSE: Clear with pink turbinates. THROAT: No erythema or exudates. NECK: No masses, no JVD. CHEST: No chest wall deformity. LUNGS: Decreased breath sounds bilaterally with occasional rhonchi. improving CVS: S1 and S2 normal with no audible mumurs, regular rhythm. ABDOMEN: No hepatosplenomegaly, normal bowel sounds, no guarding or rigidity. EXTREMITIES: +1-2 edema noted, pedal pulses palpable. CENTRAL NERVOUS SYSTEM: No focal deficits, tone is normal in all 4 extremities. - Labs CBC & Chem 7: 11/13/17 07:23 11/13/17 07:23 Labs: Abnormal Lab Results - Last 24 Hours (Table) 11/12/17 11/12/17 11/12/17 Range/Units 12:48 17:12 20:43 MCHC (31.0-37.0) g/dL PT (9.0-12.0) sec INR (<1.2) Sodium (137-145) mmol/L BUN (7-17) mg/dL Glucose (74-99) mg/dL POC Glucose (mg/dL) 113 H 119 H 162 H (75-99) mg/dL Total Protein (6.3-8.2) g/dL Albumin (3.5-5.0) g/dL 11/13/17 11/13/17 11/13/17 Range/Units 07:23 07:23 07:23 MCHC 30.8 L (31.0-37.0) g/dL PT 23.8 H (9.0-12.0) sec INR 2.7 H (<1.2) Sodium 136 L (137-145) mmol/L BUN 28 H (7-17) mg/dL Glucose 104 H (74-99) mg/dL POC Glucose (mg/dL) (75-99) mg/dL Total Protein 4.9 L (6.3-8.2) g/dL Albumin 2.7 L (3.5-5.0) g/dL 11/13/17 Range/Units 07:24 MCHC (31.0-37.0) g/dL PT (9.0-12.0) sec INR (<1.2) Sodium (137-145) mmol/L BUN (7-17) mg/dL Glucose (74-99) mg/dL POC Glucose (mg/dL) 111 H (75-99) mg/dL Total Protein (6.3-8.2) g/dL Albumin (3.5-5.0) g/dL Microbiology - Last 24 Hours (Table) 11/07/17 11:23 Blood Culture - Preliminary Blood No Growth after 120 hours Assessment and Plan Assessment: Assessment Congestive heart failure Ischemic cardiomyopathy A. fib Diabetes mellitus Aspiration pneumonia Status post permanent pacemaker placement Anxiety Acute on chronic hypoxic respiratory failure requiring supplemental oxygen Plan Patient is cleared from a pulmonary standpoint for discharge Medications have been reviewed and will be continued as ordered. Recheck labs in the morning Infectious disease consult Continue with pulmonary hygiene, coughing and deep breathing exercises, and supportive care. Supplemental oxygen to maintain oxygen saturations of 92% or better. Continue nebulizer treatments. GI and DVT prophylaxis. Increase activity as tolerated PT and OT We will continue to monitor labs/results and adjust treatment as necessary. Further recommendations pending. I performed an examination of the patient and discussed their management with the nurse practitioner. I have reviewed the nurse practitioner's note and agree with the documented findings and plan of care.
[2017-11-13 13:26] LABS: Glucose,Whole Blood 104 mg/dL (75-99)
--- NOTE | 2017-11-13 14:54 | PN ---
PROGRESS NOTE DATE OF SERVICE: 11/13/2017. REASON FOR FOLLOWUP: 1. Klebsiella aspiration pneumonia. 2. UTI. INTERVAL HISTORY: The patient is afebrile. She is breathing comfortably on room air. Denies significant chest pain or any cough. No abdominal pain and no diarrhea. EXAMINATION: Blood pressure 122/59 with a pulse of 77, temperature 98.2. She is 92% on room air. General description is a elderly female, lying in bed in no distress. RESPIRATORY SYSTEM: Unlabored breathing. Clear to auscultation anteriorly. HEART: S1, S2. Regular rate and rhythm. ABDOMEN: Soft, no tenderness. LABS: Hemoglobin 11.8, white count 6.5, BUN of 28, creatinine 0.80. DIAGNOSTIC IMPRESSION AND PLAN: Patient with Klebsiella aspiration pneumonia with Klebsiella urinary tract infection on Unasyn that can be transitioned to oral Augmentin for about a week to finish a course of therapy. Plan of care discussed with the nurse practitioner for the admitting team. Continue supportive care. MMODL / IJN: [id number] /
[2017-11-13 16:32] LABS: Glucose,Whole Blood 132 mg/dL (75-99)
--- NOTE | 2017-11-13 19:28 | P.PN ---
Subjective Progress Note Date: 11/13/17 Principal diagnosis: Ischemic cardiomyopathy, chronic atrial fibrillation, diabetes mellitus, aspiration pneumonia, generalized anxiety disorder, congestive heart failure 11/13/2017, patient seen eval reexamined during the rounds clinically patient has been doing well awake and alert breathing comfortably no obvious distress is present she is less short of breath today relatively, patient INR is slightly on the higher range the Coumadin dose is being adjusted will hold it today and give a lower dose tomorrow will hold Coumadin if INR is still elevated , noted capsular is present in both his urine and sputum, patient is being treated with oral Augmentin now 11/12/2017, patient seen eval examined during the rounds, still on supplemental oxygen short of breath overall hemodynamically stable remains afebrile sats are in low 90s to high 80s get short of breath on activity and exertion medications reviewed patient is being dosed with Coumadin INR isn't therapeutic range 11/11/2017, patient seen eval examined during the rounds overall doing fairly well patient INR remains subtherapeutic 5 mg of Coumadin is being given hemodynamic status is stable labs medication and radiographic studies reviewed This is a pleasant 82-year-old female patient history of right-sided heart failure, COPD, chronic persistent atrial fibrillation, on Coumadin for anticoagulation, cor pulmonale, was recently in the hospital just discharged to an [facility] over a week ago. According to the patient, since her discharge she's been having episodes of vomiting, she's been nauseous since discharge. She presents back to the hospital with symptoms of nausea and vomiting and extreme weakness. Her breathing overall has been stable, Blood pressure on arrival here 128/58 with a heart rate in the 60s, 94% on 2 L of oxygen. White blood cell count 10.6, 19.2 this morning, hemoglobin 13.8 yesterday, 12.6 this morning , platelet count 201. INR on admission 7.2, Objective - Vital Signs Vital signs: Vital Signs Temp 97.7 F 11/13/17 15:00 Pulse 76 11/13/17 15:56 Resp 20 11/13/17 15:00 BP 107/69 11/13/17 15:00 Pulse Ox 94 L 11/13/17 15:00 Intake & Output 11/13/17 11/13/17 11/14/17 06:59 18:59 06:59 Output Total 500 275 Balance -500 -275 Weight 115 kg Output: Urine 500 275 Other: Voiding Method Indwelling Catheter Indwelling Catheter # Bowel Movements 0 - Exam HEENT: Head is atraumatic, normocephalic. Pupils equal, round. Neck is supple. There is no elevated jugular venous pressure. HEART EXAMINATION: Heart sounds regular, S1 and S2 normal. No murmur or gallop heard. CHEST EXAMINATION: Lungs reveal diminished air entry bilaterally. No chest wall tenderness is noted on palpation or with deep breathing. ABDOMEN: Soft, nontender. Bowel sounds are heard. No organomegaly noted. EXTREMITIES: 2+ peripheral pulses with trace evidence of peripheral edema and erythema and blistering to bilateral lower legs. NEUROLOGIC patient is awake, alert and oriented x3, confusion and short-term memory loss noted. - Labs CBC & Chem 7: 11/13/17 07:11/13/17 07:23 Labs: Abnormal Lab Results - Last 24 Hours (Table) 11/12/17 11/13/17 11/13/17 Range/Units 20:43 07:23 07:23 MCHC 30.8 L (31.0-37.0) g/dL PT 23.8 H (9.0-12.0) sec INR 2.7 H (<1.2) Sodium (137-145) mmol/L BUN (7-17) mg/dL Glucose (74-99) mg/dL POC Glucose (mg/dL) 162 H (75-99) mg/dL Total Protein (6.3-8.2) g/dL Albumin (3.5-5.0) g/dL 11/13/17 11/13/17 11/13/17 Range/Units 07:23 07:24 13:16 MCHC (31.0-37.0) g/dL PT (9.0-12.0) sec INR (<1.2) Sodium 136 L (137-145) mmol/L BUN 28 H (7-17) mg/dL Glucose 104 H (74-99) mg/dL POC Glucose (mg/dL) 111 H 104 H (75-99) mg/dL Total Protein 4.9 L (6.3-8.2) g/dL Albumin 2.7 L (3.5-5.0) g/dL 11/13/17 Range/Units 16:31 MCHC (31.0-37.0) g/dL PT (9.0-12.0) sec INR (<1.2) Sodium (137-145) mmol/L BUN (7-17) mg/dL Glucose (74-99) mg/dL POC Glucose (mg/dL) 132 H (75-99) mg/dL Total Protein (6.3-8.2) g/dL Albumin (3.5-5.0) g/dL Microbiology - Last 24 Hours (Table) 11/07/17 11:23 Blood Culture - Final Blood No Growth after 144 hours Assessment and Plan Assessment: Acute exacerbation of CHF due to acute on chronic diastolic heart failure Paroxysmal atrial fibrillation Klebsiella purulent tracheobronchitis Klebsiella and Citrobacter urinary tract infection Super therapeutic INR is now therapeutic Coumadin is being dosed Hypertension hypertensive cardiovascular disease Diabetes mellitus 1 acute renal failure stage III Aspiration pneumonia Generalized anxiety disorder Plan: Continue to dose Coumadin him INR around 2 to 2.5 Pain management with [place] as needed and fentanyl patch as using before Bronchodilators Short-term short-acting anxiolytics Oral Augmentin for Klebsiella urinary tract infection and Klebsiella tracheobronchitis DVT prophylaxis Optimize therapy for a diastolic heart failure continue gentle diuresis monitor renal functions closely Time with Patient: Greater than 30
[2017-11-13 20:45] LABS: Glucose,Whole Blood 209 mg/dL (75-99)
[2017-11-13] MEDS: METOPROLOL TARTRATE 25 MG TAB PO SCH (21:05)
[2017-11-13] MEDS: ALPRAZolam 0.5 MG TAB PO PRN (21:15)
[2017-11-14] MEDS: METOCLOPRAMIDE 5 MG/ML 2 ML VIAL IVP SCH ×2 (05:22→13:32)
[2017-11-14] MEDS: AMPICILLIN-SULBACTAM 3 GM in SODIUM CHLORIDE 0.9% 100 ML IVPB SCH ×3 (05:22→16:29)
[2017-11-14] MEDS: HYDROcodone/APAP 10-325MG 1 EACH TAB PO PRN ×2 (06:53→16:22)
[2017-11-14] MEDS: IPRATROPIUM-ALBUTEROL 3 ML NEB INHALATION SCH ×3 (07:34→16:23)
[2017-11-14 07:41] LABS: Glucose,Whole Blood 102 mg/dL (75-99)
[2017-11-14 08:18] LABS: Basophils % (A) 1 %; Eosinophils # (A) 0.2 k/uL (0-0.7); Eosinophils % (A) 4 %; HCT 37.8 % (34.0-46.0); INR 2.4 (<1.2); Lymphocytes # (A) 1.2 k/uL (1.0-4.8); Lymphocytes % (A) 20 %; MCH 30.6 pg (25.0-35.0); MCHC 31.7 g/dL (31.0-37.0); MCV 96.5 fL (80.0-100.0); Mean Platelet Volume 6.7; Monocytes # (A) 0.5 k/uL (0-1.0); Monocytes % (A) 8 %; Neutrophils # (A) 3.9 k/uL (1.3-7.7); Neutrophils % (A) 66 %; Platelet Count 177 k/uL (150-450); Prothrombin Time 21.8 sec (9.0-12.0); RBC 3.92 m/uL (3.80-5.40); RDW 12.6 % (11.5-15.5); WBC 5.9 k/uL (3.8-10.6)
[2017-11-14] MEDS: INSULIN ASPART 100 UNIT/ML 1 ML 10 ML VIAL SQ SCH ×2 (08:39→13:30)
[2017-11-14] MEDS: HEPARIN SODIUM,PORCINE 5,000 UNIT/ML 1 ML VIAL SQ SCH ×2 (08:39→16:18)
[2017-11-14] MEDS: PANTOPRAZOLE 40 MG TABLET PO SCH (08:39)
[2017-11-14] MEDS: SODIUM CHLORIDE 0.9% 1,000 ML IV SCH (08:39)
[2017-11-14 08:40] LABS: Albumin 2.7 g/dL (3.5-5.0); Calcium 8.7 mg/dL (8.4-10.2); Potassium 4.6 mmol/L (3.5-5.1); Total Bilirubin 0.7 mg/dL (0.2-1.3); Total Protein 4.6 g/dL (6.3-8.2)
[2017-11-14] MEDS: METOPROLOL TARTRATE 50 MG TAB PO SCH (08:40)
[2017-11-14] MEDS: NYSTATIN 100,000UNIT/GM CREAM 30 GM TUBE TOPICAL SCH (08:40)
--- NOTE | 2017-11-14 10:26 | P.PN ---
Subjective Progress Note Date: 11/14/17 Interval history: 11/12/2017 patient is being seen examined and evaluated today on rounds. She is resting up in bed on 2-3 L of supplemental oxygen via nasal cannula. She continues to have shortness of breath with exertion and activity. She continues to be hemodynamically stable. He denies any sputum production. She is afebrile no further complaints. 11/13/2017patient is being seen examined and evaluated today on rounds. She does get short of breath with exertion and activity, she is now on room air. Her INR today is 2.7. She is growing Klebsiella in her urine and her sputum. Infectious diseases adjusting antibiotics, and has recommended transition to oral Augmentin on discharge. He has been afebrile no further complaints. Hemodynamically stable 11/14/17- patient is being seen examined and evaluated today on rounds. She is resting up in bed on room air. Her breathing continues to improve. Shortness of breath with exertion and activity however continually improved. Does have a cough that has been nonproductive overnight. Her INR today is 2.4. Discharge planning underway. Patient states overall she feels better. Objective - Vital Signs Vital signs: Vital Signs Temp 97.9 F 11/14/17 06:10 Pulse 71 11/14/17 06:10 Resp 18 11/14/17 06:10 BP 134/62 11/14/17 06:10 Pulse Ox 92 L 11/14/17 06:10 Intake & Output 11/13/17 11/14/17 11/14/17 18:59 06:59 18:59 Output Total 275 550 Balance -275 -550 Weight 141.5 kg Output: Urine 275 550 Other: Voiding Method Indwelling Catheter Indwelling Catheter Indwelling Catheter # Bowel Movements 0 0 - Exam GENERAL EXAM: Alert, comfortable in no apparent distress. HEAD: Normocephalic. EYES: Normal reaction of pupils, equal size. NOSE: Clear with pink turbinates. THROAT: No erythema or exudates. NECK: No masses, no JVD. CHEST: No chest wall deformity. LUNGS: Decreased breath sounds bilaterally with occasional rhonchi. improving CVS: S1 and S2 normal with no audible mumurs, regular rhythm. ABDOMEN: No hepatosplenomegaly, normal bowel sounds, no guarding or rigidity. EXTREMITIES: +1 edema noted, pedal pulses palpable. CENTRAL NERVOUS SYSTEM: No focal deficits, tone is normal in all 4 extremities. - Labs CBC & Chem 7: 11/14/17 08:00 11/14/17 08:00 Labs: Abnormal Lab Results - Last 24 Hours (Table) 11/13/17 11/13/17 11/13/17 Range/Units 13:16 16:31 20:44 PT (9.0-12.0) sec INR (<1.2) Sodium (137-145) mmol/L BUN (7-17) mg/dL Glucose (74-99) mg/dL POC Glucose (mg/dL) 104 H 132 H 209 H (75-99) mg/dL Total Protein (6.3-8.2) g/dL Albumin (3.5-5.0) g/dL 11/14/17 11/14/17 11/14/17 Range/Units 07:25 08:00 08:00 PT 21.8 H (9.0-12.0) sec INR 2.4 H (<1.2) Sodium 136 L (137-145) mmol/L BUN 33 H (7-17) mg/dL Glucose 101 H (74-99) mg/dL POC Glucose (mg/dL) 102 H (75-99) mg/dL Total Protein 4.6 L (6.3-8.2) g/dL Albumin 2.7 L (3.5-5.0) g/dL Microbiology - Last 24 Hours (Table) 11/07/17 11:23 Blood Culture - Final Blood No Growth after 144 hours Assessment and Plan Assessment: Assessment Congestive heart failure Ischemic cardiomyopathy A. fib Diabetes mellitus Aspiration pneumonia Status post permanent pacemaker placement Anxiety Acute on chronic hypoxic respiratory failure requiring supplemental oxygen Plan Patient is cleared from a pulmonary standpoint for discharge Medications have been reviewed and will be continued as ordered. Infectious disease consult Continue with pulmonary hygiene, coughing and deep breathing exercises, and supportive care. Supplemental oxygen to maintain oxygen saturations of 92% or better. Continue nebulizer treatments. GI and DVT prophylaxis. Increase activity as tolerated PT and OT We will continue to monitor labs/results and adjust treatment as necessary. Further recommendations pending. I performed an examination of the patient and discussed their management with the nurse practitioner. I have reviewed the nurse practitioner's note and agree with the documented findings and plan of care.
[2017-11-14] MEDS: KETOROLAC 30 MG/ML 1 ML VIAL IVP PRN (11:03)
[2017-11-14 12:05] LABS: Glucose,Whole Blood 163 mg/dL (75-99)
--- NOTE | 2017-11-14 14:31 | PN ---
PROGRESS NOTE DATE OF SERVICE: 11/14/2017. REASON FOR FOLLOWUP: 1. Klebsiella aspiration pneumonia. 2. UTI. INTERVAL HISTORY: The patient is currently afebrile. She is breathing comfortably. Denies significant chest pain. Occasional abdominal pain. No nausea, no vomiting and no diarrhea. EXAMINATION: Blood pressure 134/52 with a pulse of 71. Temperature 97.9. She is 92% on room air. General description is an elderly female lying in bed in no distress. RESPIRATORY SYSTEM: Unlabored breathing. Clear to auscultation anteriorly. HEART: S1, S2. Regular rate and rhythm. ABDOMEN: Soft, no tenderness. LABS: White count normal 5.9 with a BUN of 33, creatinine 0.83. DIAGNOSTIC IMPRESSION AND PLAN: Patient with aspiration pneumonia. Sputum has been Klebsiella associated Klebsiella urinary tract infection, currently on Unasyn that will be transitioned to oral Augmentin for another week to finish a course of therapy. Continue supportive care. MMODL / IJN: [id number] /
--- NOTE | 2017-11-14 15:16 | P.DS ---
Providers Date of admission: 11/06/17 18:08 Expected date of discharge: 11/14/17 Attending physician: Citlalli Garcia Consults: 11/06/17 18:08 Consult Physician Routine Consulting Provider: Umer Landaverde Consult Reason/Comments: chf Do you want consulting provider notified?: Yes 11/07/17 09:46 Consult Physician Routine Consulting Provider: Kim Parada Consult Reason/Comments: COPD, possible pneumonia Do you want consulting provider notified?: Yes 11/07/17 11:26 Consult Physician Routine Consulting Provider: Kobi Jackson Consult Reason/Comments: elevated WBC, + UA Do you want consulting provider notified?: Yes 11/08/17 14:48 Consult Physician Routine Consulting Provider: Darian Polo Consult Reason/Comments: inpatient rehab Do you want consulting provider notified?: Yes Primary care physician: Minh Hills [facility] Course: Discharge diagnosis Assessment: Acute exacerbation of CHF due to acute on chronic diastolic heart failure Lasix has been restarted at 40 mg twice a day. Paroxysmal atrial fibrillation. Coumadin ordered 2.5 mg daily. Will check INR every other day until therapeutic and then weekly Klebsiella purulent tracheobronchitis. She will be discharged home on Augmentin per Dr. Jackson Klebsiella and Citrobacter urinary tract infection patient will be discharged home on Augmentin per Dr. Jackson Super therapeutic INR is now therapeutic Coumadin is being dosed. Patient was discharged home on Coumadin 2.5 mg daily and will be adjusted accordingly Hypertension hypertensive cardiovascular disease Diabetes mellitus 1 acute renal failure stage III Aspiration pneumonia Generalized anxiety disorder Plan: Continue to dose Coumadin him INR around 2 to 2.5 Pain management with [place] as needed and fentanyl patch as using before Bronchodilators Oral Augmentin for Klebsiella urinary tract infection and Klebsiella tracheobronchitis Hosptial course Ischemic cardiomyopathy, chronic atrial fibrillation, diabetes mellitus, aspiration pneumonia, generalized anxiety disorder, congestive heart failure 11/14/2017 patient will be discharged back to [facility]. Patient will be sent home on Coumadin 2.5 mg daily by mouth. INR will be checked in 2 days and adjusted accordingly. Patient will also be discharged with [place] catheter due to urinary retention and and further evaluation will be completed at [facility]. Patient will be followed by Dr. Hills. Patient has been cleared for discharge from pulmonary standpoint. Discussed case with Dr. Jackson per infectious disease patient will be discharged home on Augmentin for 1 week for Klebsiella in the urine and sputum. Nausea and vomiting has completely resolved. 11/13/2017, patient seen eval reexamined during the rounds clinically patient has been doing well awake and alert breathing comfortably no obvious distress is present she is less short of breath today relatively, patient INR is slightly on the higher range the Coumadin dose is being adjusted will hold it today and give a lower dose tomorrow will hold Coumadin if INR is still elevated , noted capsular is present in both his urine and sputum, patient is being treated with oral Augmentin now 11/12/2017, patient seen eval examined during the rounds, still on supplemental oxygen short of breath overall hemodynamically stable remains afebrile sats are in low 90s to high 80s get short of breath on activity and exertion medications reviewed patient is being dosed with Coumadin INR isn't therapeutic range 11/11/2017, patient seen eval examined during the rounds overall doing fairly well patient INR remains subtherapeutic 5 mg of Coumadin is being given hemodynamic status is stable labs medication and radiographic studies reviewed This is a pleasant 82-year-old female patient history of right-sided heart failure, COPD, chronic persistent atrial fibrillation, on Coumadin for anticoagulation, cor pulmonale, was recently in the hospital just discharged to an [facility] over a week ago. According to the patient, since her discharge she's been having episodes of vomiting, she's been nauseous since discharge. She presents back to the hospital with symptoms of nausea and vomiting and extreme weakness. Her breathing overall has been stable, Blood pressure on arrival here 128/58 with a heart rate in the 60s, 94% on 2 L of oxygen. White blood cell count 10.6, 19.2 this morning, hemoglobin 13.8 yesterday, 12.6 this morning , platelet count 201. INR on admission 7.2, Patient Condition at Discharge: Stable Plan - Discharge Summary Discharge Rx Participant: No New Discharge Prescriptions: New Ipratropium-Albuterol Nebulize [Duoneb 0.5 mg-3 mg/3 ml Soln] 3 ml INHALATION RT-QID ampul.neb Ipratropium-Albuterol Nebulize [Duoneb 0.5 mg-3 mg/3 ml Soln] 3 ml INHALATION RT-Q2H PRN ampul.neb PRN Reason: Shortness Of Breath Or Wheezing Nystatin 100,000Unit/gm Cream [Mycostatin Cream] 1 applic TOPICAL BID #1 tube Warfarin [Coumadin] 2.5 mg PO DAILY@1800 tab Amoxic-Pot Clav 875-125Mg [Augmentin 875-125] 1 tab PO Q12HR 7 Days #14 tablet Continue Spironolactone [Aldactone] 25 mg PO DAILY Metoprolol Tartrate [Lopressor] 25 mg PO HS Metoprolol Tartrate [Lopressor] 50 mg PO DAILY Vit C/E/Zn/Coppr/Lutein/Zeaxan [Preservision Areds 2 Softgel] 1 cap PO BID Magnesium Hydroxide [Milk of Magnesia Concentrate] 7,200 mg PO DAILY PRN PRN Reason: CONSTIPATION Na Phos,M-B/Na Phos,Di-Ba [Fleet Adult] 133 ml RECTAL ONCE PRN PRN Reason: Constipation Bisacodyl [Dulcolax] 10 mg RECTAL DAILY PRN PRN Reason: Constipation PARoxetine [Paxil] 20 mg PO DAILY Ondansetron HCl [Zofran] 4 mg PO Q6H PRN PRN Reason: Nausea ALPRAZolam [Xanax] 0.5 mg PO BID PRN #6 tab PRN Reason: Anxiety fentaNYL 50MCG/HR PATCH [Duragesic 50MCG/HR] 50 mcg TRANSDERM Q72H #1 patch Hydrocodone/Acetaminophen [[place] 10-325] 1 tab PO Q8H PRN #9 tablet PRN Reason: Pain Changed Furosemide [Lasix] 40 mg PO BID@0600,1400 #60 tab Discontinued Lisinopril [Zestril] 5 mg PO DAILY Warfarin [Coumadin] 5 mg PO Q48H tab Warfarin [Coumadin] 2.5 mg PO Q48H tab Discharge Medication List Metoprolol Tartrate [Lopressor] 25 mg PO HS 01/04/15 [History] Spironolactone [Aldactone] 25 mg PO DAILY 01/04/15 [History] Metoprolol Tartrate [Lopressor] 50 mg PO DAILY 10/23/17 [History] Vit C/E/Zn/Coppr/Lutein/Zeaxan [Preservision Areds 2 Softgel] 1 cap PO BID 10/23 [History] Bisacodyl [Dulcolax] 10 mg RECTAL DAILY PRN 11/06/17 [History] Magnesium Hydroxide [Milk of Magnesia Concentrate] 7,200 mg PO DAILY PRN [History] Na Phos,M-B/Na Phos,Di-Ba [Fleet Adult] 133 ml RECTAL ONCE PRN 11/06/17 [History ] Ondansetron HCl [Zofran] 4 mg PO Q6H PRN 11/06/17 [History] PARoxetine [Paxil] 20 mg PO DAILY 11/06/17 [History] ALPRAZolam [Xanax] 0.5 mg PO BID PRN #6 tab 11/14/17 [Rx] Amoxic-Pot Clav 875-125Mg [Augmentin 875-125] 1 tab PO Q12HR 7 Days #14 tablet 11/14/17 [Rx] Furosemide [Lasix] 40 mg PO BID@0600,1400 #60 tab 11/14/17 [Rx] Hydrocodone/Acetaminophen [[place] 10-325] 1 tab PO Q8H PRN #9 tablet 11/14/17 [Rx ] Ipratropium-Albuterol Nebulize [Duoneb 0.5 mg-3 mg/3 ml Soln] 3 ml INHALATION RT -Q2H PRN ampul.neb 11/14/17 [Rx] Ipratropium-Albuterol Nebulize [Duoneb 0.5 mg-3 mg/3 ml Soln] 3 ml INHALATION RT -QID ampul.neb 11/14/17 [Rx] Nystatin 100,000Unit/gm Cream [Mycostatin Cream] 1 applic TOPICAL BID #1 tube [Rx] Warfarin [Coumadin] 2.5 mg PO DAILY@1800 tab 11/14/17 [Rx] fentaNYL 50MCG/HR PATCH [Duragesic 50MCG/HR] 50 mcg TRANSDERM Q72H #1 patch 11/24 [Rx] Follow up Appointment(s)/Referral(s): Kim Parada DO [Doctor of Osteopathic Medicine] - 1-2 Days Minh Hills MD [Primary Care Provider] - 1-2 days Umer Landaverde MD [STAFF PHYSICIAN] - 1 Week Ambulatory/Diagnostic Orders: Prothrombin Time INR [LAB.AMB] Time Frame: 2 Days, Location: None Selected Activity/Diet/Wound Care/Special Instructions: ECF on D/C Discharge Disposition: TRANSFER TO SNF/ECF
[2017-11-14 15:21] VITALS: BP 106/54; PULSE 65; RESP 20; TEMP 98.7
[2017-11-14] MEDS ORDERED: WARFARIN 2.5 MG TAB PO SCH (18:00)
== END 2017-11-14 16:48 | DRG 177 ==
LOC: EC 16:31 → 6SEL 18:08 → 4MS4W 11-11 22:25
PROVIDERS: ADMIT Internal Medicine; ATTEND Internal Medicine
DX: J15.0 Pneumonia due to Klebsiella pneumoniae (principal); I50.33 Acute on chronic diastolic (congestive) heart failure; J96.21 Acute and chronic respiratory failure with hypoxia; J44.0 Chronic obstructive pulmonary disease with (acute) lower respiratory infection; K82.1 Hydrops of gallbladder; N17.9 Acute kidney failure, unspecified; N39.0 Urinary tract infection, site not specified; R17 Unspecified jaundice; Z68.41 Body mass index [BMI] 40.0-44.9, adult; J44.1 Chronic obstructive pulmonary disease with (acute) exacerbation; J69.0 Pneumonitis due to inhalation of food and vomit; I11.0 Hypertensive heart disease with heart failure; E11.9 Type 2 diabetes mellitus without complications; E66.01 Morbid (severe) obesity due to excess calories; E86.0 Dehydration; F41.1 Generalized anxiety disorder; I25.5 Ischemic cardiomyopathy; I27.81 Cor pulmonale (chronic); I48.2 Chronic atrial fibrillation; M47.812 Spondylosis without myelopathy or radiculopathy, cervical region; R79.1 Abnormal coagulation profile; T45.515A Adverse effect of anticoagulants, initial encounter; Z74.01 Bed confinement status; Z79.01 Long term (current) use of anticoagulants; Z79.899 Other long term (current) drug therapy; Z80.3 Family history of malignant neoplasm of breast; Z80.42 Family history of malignant neoplasm of prostate; Z85.42 Personal history of malignant neoplasm of other parts of uterus; Z87.891 Personal history of nicotine dependence; Z90.710 Acquired absence of both cervix and uterus; Z95.0 Presence of cardiac pacemaker; Z96.653 Presence of artificial knee joint, bilateral; Z96.643 Presence of artificial hip joint, bilateral; R11.2 Nausea with vomiting, unspecified; J40 Bronchitis, not specified as acute or chronic; Z98.42 Cataract extraction status, left eye; Z98.41 Cataract extraction status, right eye
CPT/HCPCS: 36415; 71045; 71046; 74176; 74230; 76700; 80048; 80053; 81001; 82550; 82553; 83036; 83605; 83735; 83880; 84484; 85025; 85610; 85730; 87040; 87070; 87077; 87086; 87186; 87205; 93005; 94640; 94760; 96374; 96375; 99285

== ENCOUNTER 2018-04-26 23:40 | Inpatient (IN) | payer MEDICARE, BC ==
[2018-04-27] MEDS ORDERED: SODIUM CHLORIDE 0.9% 500 ML 500 ML IV ONE (00:32)
--- NOTE | 2018-04-27 00:41 | ED ---
Recheck HPI - General Chief Complaint: Recheck/Abnormal Lab/Rx Stated Complaint: Altered LOC/MITALI Time Seen by Provider: 04/27/18 00:24 Source: patient, RN notes reviewed, old records reviewed Mode of arrival: EMS Limitations: altered mental status - History of Present Illness Initial Comments: 82-year-old female presents returns today for altered mental status. She is normally a and O 3. According to nursing staff she's been more confused. She also had low oxygen oxygen saturations. She went to a mild headache. History difficult to obtain due to patient's altered mental status and generalized weakness. They present the Patient is a DO NOT RESUSCITATE. - Related Data Home Medications Medication Instructions Recorded Confirmed Metoprolol Tartrate [Lopressor] 25 mg PO HS 01/04/15 11/06/17 Spironolactone [Aldactone] 25 mg PO DAILY 01/04/15 11/06/17 Metoprolol Tartrate [Lopressor] 50 mg PO DAILY 10/23/17 11/06/17 Vit C/E/Zn/Coppr/Lutein/Zeaxan 1 cap PO BID 10/23/17 11/06/17 [Preservision Areds 2 Softgel] Bisacodyl [Dulcolax] 10 mg RECTAL DAILY PRN 11/06/17 11/06/17 Magnesium Hydroxide [Milk of 7,200 mg PO DAILY PRN 11/06/17 11/06/17 Magnesia Concentrate] Na Phos,M-B/Na Phos,Di-Ba [Fleet 133 ml RECTAL ONCE PRN 11/06/17 11/06/17 Adult] Ondansetron HCl [Zofran] 4 mg PO Q6H PRN 11/06/17 11/06/17 PARoxetine [Paxil] 20 mg PO DAILY 11/06/17 11/06/17 Previous Rx's Medication Instructions Recorded ALPRAZolam [Xanax] 0.5 mg PO BID PRN #6 tab 11/14/17 Amoxic-Pot Clav 875-125Mg 1 tab PO Q12HR 7 Days #14 tablet 11/14/17 [Augmentin 875-125] Furosemide [Lasix] 40 mg PO BID@0600,1400 #60 tab 11/14/17 Hydrocodone/Acetaminophen [[place] 1 tab PO Q8H PRN #9 tablet 11/14/17 10-325] Ipratropium-Albuterol Nebulize 3 ml INHALATION RT-Q2H PRN 11/14/17 [Duoneb 0.5 mg-3 mg/3 ml Soln] ampul.neb Ipratropium-Albuterol Nebulize 3 ml INHALATION RT-QID ampul.neb 11/14/17 [Duoneb 0.5 mg-3 mg/3 ml Soln] Nystatin 100,000Unit/gm Cream 1 applic TOPICAL BID #1 tube 11/14/17 [Mycostatin Cream] Warfarin [Coumadin] 2.5 mg PO DAILY@1800 tab 11/14/17 fentaNYL 50MCG/HR PATCH [Duragesic 50 mcg TRANSDERM Q72H #1 patch 11/14/17 50MCG/HR] Allergies Allergy/AdvReac Type Severity Reaction Status Date / Time No Known Allergies Allergy Verified 11/06/17 16:50 Review of Systems ROS Statement: Those systems with pertinent positive or pertinent negative responses have been documented in the HPI. ROS Other: All systems not noted in ROS Statement are negative. Past Medical History Past Medical History: Atrial Fibrillation, Cancer, Diabetes Mellitus, Hypertension, Osteoarthritis (OA) Additional Past Medical History / Comment(s): PACEMAKER, DIABETES - DIET CONTROLLED, CHRONIC CONSTIPATION, NECK AND SHOULDER PAIN, LIMITED ROM SHOULDERS , HX OF UTERINE CANCER, USES WALKER AND W/C. History of Any Multi-Drug Resistant Organisms: None Reported Past Surgical History: Back Surgery, Cardiac Ablation, Hysterectomy, Joint Replacement, Pacemaker Additional Past Surgical History / Comment(s): JIE HIP REPLACEMENTS (2000 & 2005 ), JIE KNEE REPLACEMENT (1993), LEFT KNEE CAP (1994), PACEMAKER (2001), HYSTERECTOMY (1972), JIE CATARACTS (2004). Past Anesthesia/Blood Transfusion Reactions: Postoperative Nausea & Vomiting ( PONV) Type of Cardiac Device: Permanent Pacemaker Device Placement Date:: 2001 Past Psychological History: Anxiety Smoking Status: Former smoker Past Alcohol Use History: None Reported Past Drug Use History: None Reported - Past Family History Father Family Medical History: Cancer Additional Family Medical History / Comment(s): PROSTATE CA Son(s) Family Medical History: Cancer Additional Family Medical History / Comment(s): 2 SONS -PROSTATE CA Daughter(s) Family Medical History: Cancer Additional Family Medical History / Comment(s): BREAST CA General Exam - General Exam Comments Initial Comments: 82-year-old female. Alert and oriented 2. Limitations: altered mental status General appearance: alert, in no apparent distress Head exam: Present: atraumatic, normocephalic, normal inspection Eye exam: Present: normal appearance, PERRL, EOMI. Absent: scleral icterus, conjunctival injection, periorbital swelling ENT exam: Present: normal exam, mucous membranes moist Neck exam: Present: normal inspection. Absent: tenderness, meningismus, lymphadenopathy Respiratory exam: Present: decreased breath sounds. Absent: normal lung sounds bilaterally, respiratory distress, wheezes, rales, rhonchi, stridor Cardiovascular Exam: Present: regular rate, normal rhythm, normal heart sounds. Absent: systolic murmur, diastolic murmur, rubs, gallop, clicks GI/Abdominal exam: Present: soft, normal bowel sounds. Absent: distended, tenderness, guarding, rebound, rigid Extremities exam: Present: normal inspection, full ROM, normal capillary refill. Absent: tenderness, pedal edema, joint swelling, calf tenderness Back exam: Present: normal inspection Neurological exam: Present: alert, oriented X3, CN II-XII intact Course Vital Signs 04/26/18 04/26/18 04/27/18 23:46 23:54 00:00 Pulse Rate 65 Respiratory 16 Rate Blood Pressure 147/86 147/86 147/86 O2 Sat by Pulse 90 L 100 Oximetry 04/27/18 04/27/18 04/27/18 00:30 01:00 01:30 Pulse Rate 70 76 Respiratory Rate Blood Pressure 147/86 147/86 147/86 O2 Sat by Pulse 95 92 L Oximetry 04/27/18 04/27/18 04/27/18 02:00 02:18 02:30 Pulse Rate 64 63 69 Respiratory 16 Rate Blood Pressure 147/86 148/81 148/81 O2 Sat by Pulse 96 98 97 Oximetry 04/27/18 04/27/18 04/27/18 02:54 03:00 03:06 Pulse Rate 66 60 70 Respiratory 20 16 Rate Blood Pressure 148/81 O2 Sat by Pulse 98 Oximetry 04/27/18 04/27/18 04/27/18 03:30 04:00 04:12 Pulse Rate 67 78 Respiratory 16 Rate Blood Pressure 131/108 131/108 136/98 O2 Sat by Pulse 96 97 95 Oximetry 04/27/18 04/27/18 04/27/18 04:30 05:00 05:14 Pulse Rate 64 64 Respiratory 18 Rate Blood Pressure 136/98 136/98 O2 Sat by Pulse 97 98 Oximetry 04/27/18 05:50 Pulse Rate 67 Respiratory 18 Rate Blood Pressure 129/97 O2 Sat by Pulse 96 Oximetry - Reevaluation(s) Reevaluation #1: 04/27/18 04:55 Patient is a very difficult IV start. Multiple times for blood work were obtained this time. Chest x-ray was completed did show evidence of bilateral pneumonia Patient was given a dose of Rocephin and DuoNeb treatment. Blood cultures were obtained from lab. We'll attempt femoral stick with Dr. Cameron. Medical Decision Making - Medical Decision Making A 2-year-old female present department today with low oxygen saturation and increased confusion. Chest x-ray shows of the bilateral infiltrate. Multiple times were completed to establish IV with difficulty. Initially Patient had a femoral central line placed in the right groin by Dr. Cameron. Blood work was obtained from this. Patient was given a dose of Rocephin through the IV. Urinalysis is also positive for infection. Blood culture and urine culture obtained. Patient will be admitted at this time for pneumonia and UTI altered mental status. - Lab Data Lab Results 04/27/18 04/27/18 04/27/18 Range/Units 01:44 01:55 01:55 POC Glucose (mg/dL) 110 H (75-99) mg/dL POC Glu [employer] ID [place] Sheets Plasma Lactic Acid Daniel 1.0 (0.7-2.0) mmol/L NT-Pro-B Natriuret Pep 1810 pg/mL Urine Color Urine Appearance (Clear) Urine pH (5.0-8.0) Ur Specific [place] (1.001-1.035) Urine Protein (Negative) Urine Glucose (UA) (Negative) Urine Ketones (Negative) Urine Blood (Negative) Urine Nitrite (Negative) Urine Bilirubin (Negative) Urine Urobilinogen (<2.0) mg/dL Ur Leukocyte Esterase (Negative) Urine RBC (0-5) /hpf Urine WBC (0-5) /hpf Urine WBC Clumps (None) /hpf Urine Opiates Screen (NotDetected) Ur Oxycodone Screen (NotDetected) Urine Methadone Screen (NotDetected) Ur Propoxyphene Screen (NotDetected) Ur Barbiturates Screen (NotDetected) U Tricyclic Antidepress (NotDetected) Ur Phencyclidine Scrn (NotDetected) Ur Amphetamines Screen (NotDetected) U Methamphetamines Scrn (NotDetected) U Benzodiazepines Scrn (NotDetected) Urine Cocaine Screen (NotDetected) U Marijuana (THC) Screen (NotDetected) 04/27/18 Range/Units 02:41 POC Glucose (mg/dL) (75-99) mg/dL POC Glu [employer] ID Plasma Lactic Acid Daniel (0.7-2.0) mmol/L NT-Pro-B Natriuret Pep pg/mL Urine Color Yellow Urine Appearance Turbid H (Clear) Urine pH 6.0 (5.0-8.0) Ur Specific [place] 1.010 (1.001-1.035) Urine Protein 1+ H (Negative) Urine Glucose (UA) Negative (Negative) Urine Ketones Negative (Negative) Urine Blood Small H (Negative) Urine Nitrite Positive H (Negative) Urine Bilirubin Negative (Negative) Urine Urobilinogen <2.0 (<2.0) mg/dL Ur Leukocyte Esterase Large H (Negative) Urine RBC 17 H (0-5) /hpf Urine WBC >182 H (0-5) /hpf Urine WBC Clumps Moderate H (None) /hpf Urine Opiates Screen Detected H (NotDetected) Ur Oxycodone Screen Not Detected (NotDetected) Urine Methadone Screen Not Detected (NotDetected) Ur Propoxyphene Screen Not Detected (NotDetected) Ur Barbiturates Screen Not Detected (NotDetected) U Tricyclic Antidepress Not Detected (NotDetected) Ur Phencyclidine Scrn Not Detected (NotDetected) Ur Amphetamines Screen Not Detected (NotDetected) U Methamphetamines Scrn Not Detected (NotDetected) U Benzodiazepines Scrn Detected H (NotDetected) Urine Cocaine Screen Not Detected (NotDetected) U Marijuana (THC) Screen Not Detected (NotDetected) 04/27/18 04:54 EKG shows ventricular fibrillation with RVR with occasional ventricular paced complexes with PVCs. Low voltage QRS. T wave abnormality considering inferior ischemia. Abnormal EKG noted. Ventricular rate of 102 bpm. DC interval is undetectable. QRS duration 102 ms. QT QTc is 390/518 ms. - Radiology Data Radiology results: report reviewed Chest x-ray shows bilateral lower lobe pulmonary infiltrates and atelectasis. Atelectasis more than left exam. No gross heart failure. Stable cardiomegaly. Her blood sugar. No acute intracranial normality. Disposition Clinical Impression: Generalized weakness, Altered mental status, Pneumonia, UTI (urinary tract infection) Disposition: ADMITTED IP TO THIS HOSP Condition: Stable Is patient prescribed a controlled substance at d/c from ED?: No Referrals: Minh Hills MD [Primary Care Provider] - 1-2 days Time of Disposition: 06:16
[2018-04-27] MEDS: SODIUM CHLORIDE 0.9% 1,000 ML IV SCH ×3 (01:04→16:11)
[2018-04-27 01:45] LABS: Glucose,Whole Blood 110 mg/dL (75-99)
--- NOTE | 2018-04-27 01:47 | XR ---
EXAMINATION TYPE: XR chest 2V DATE OF EXAM: 04/27/2018 COMPARISON: 11/09/2017 HISTORY: Altered mental status TECHNIQUE: Frontal and lateral views of the chest are obtained. FINDINGS: There are mild infiltrates at the lung bases. There is poor inspiration. There is no heart failure. Heart is enlarged. There is left axillary pacemaker with the lead tip over the right ventri amos. Thoracic aorta is atheromatous. IMPRESSION: Bilateral lower lobe pulmonary infiltrates and atelectasis. Atelectasis is more than las t exam. No gross heart failure seen. Stable cardiomegaly.
--- NOTE | 2018-04-27 01:49 | CT ---
EXAMINATION TYPE: CT brain wo con DATE OF EXAM: 04/27/2018 COMPARISON: 12/22/2015 HISTORY: AMS CT DLP: 1197.4 mGycm Automated exposure control for dose reduction was used. FINDINGS: There is cerebral cortical atrophy. There is no mass effect nor midline shift. There is no sign of in tracranial hemorrhage. The calvarium is intact. Skull base is intact. IMPRESSION: CEREBRAL ATROPHY. NO ACUTE INTRACRANIAL ABNORMALITY.
[2018-04-27] MEDS ORDERED: IPRATROPIUM-ALBUTEROL 3 ML NEB INHALATION STA (02:03)
[2018-04-27 03:01] LABS: Appearance,Urine Turbid (Clear); Bilirubin,Urine Negative (Negative); Blood,Urine Small (Negative); Color,Urine Yellow; Glucose,Urine (UA) Negative (Negative); Ketones,Urine Negative (Negative); Leukocyte Esterase,Urine Large (Negative); Nitrite,Urine Positive (Negative); Protein,Urine 1+ (Negative); RBC,Urine 17 /hpf (0-5); Urobilinogen,Urine <2.0 mg/dL (<2.0); WBC,Urine >182 /hpf (0-5)
[2018-04-27 03:07] LABS: Amphetamine Screen,Urine Not Detected (NotDetected); Barbiturate Screen,Urine Not Detected (NotDetected); Benzodiazepines Screen,Urine Detected (NotDetected); Cocaine Screen,Urine Not Detected (NotDetected); Methadone Screen, Urine Not Detected (NotDetected); Opiate Screen,Urine Detected (NotDetected); Oxycodone Screen, Urine Not Detected (NotDetected); Phencyclidine Screen,Urine Not Detected (NotDetected); Tricyclic Antidepressant,Urine Not Detected (NotDetected); Urn Cannabinoid Scrn Not Detected (NotDetected)
[2018-04-27] MEDS ORDERED: NALOXONE 0.4 MG/ML 1 ML VIAL IV PRN (06:16)
[2018-04-27] MEDS ORDERED: ACETAMINOPHEN TAB 325 MG TAB PO PRN ×2 (06:16→13:50)
[2018-04-27] MEDS ORDERED: ONDANSETRON 4 MG/2 ML VIAL IVP PRN (06:16)
[2018-04-27] MEDS ORDERED: oxyCODONE-APAP 5-325MG 1 EACH TAB PO PRN (06:16)
[2018-04-27] MEDS ORDERED: IBUPROFEN 400 MG TAB PO PRN (06:16)
[2018-04-27] MEDS ORDERED: LEVOFLOXACIN 750MG-D5W PMX 750 MG in DEXTROSE/WATER 1 150ML.BAG IVPB SCH (07:15)
[2018-04-27] MEDS: PIPERACILLIN-TAZOBACTAM 3.375 GM in SODIUM CHLORIDE 0.9% 100 ML IVPB SCH ×3 (08:32→23:49)
[2018-04-27] MEDS ORDERED: PANTOPRAZOLE 40 MG/10 ML VIAL IV SCH (09:00)
[2018-04-27 11:44] LABS: Glucose,Whole Blood 80 mg/dL (75-99)
[2018-04-27] MEDS: traMADol 50 MG TAB PO PRN (13:23)
[2018-04-27] MEDS ORDERED: MAGNESIUM HYDROXIDE 2,400 MG/10 ML CUP PO PRN (13:50)
[2018-04-27] MEDS ORDERED: NYSTATIN 100,000UNIT/GM CREAM 30 GM TUBE TOPICAL PRN (13:50)
[2018-04-27] MEDS ORDERED: ALPRAZolam 0.5 MG TAB PO PRN (13:50)
[2018-04-27] MEDS ORDERED: BENZOCAINE/MENTHOL LOZENG 1 EACH LOZENGE MUCOUS MEM PRN (13:50)
[2018-04-27] MEDS ORDERED: IPRATROPIUM-ALBUTEROL 3 ML NEB INHALATION PRN (13:50)
[2018-04-27] MEDS ORDERED: ONDANSETRON 4 MG TAB PO PRN (13:50)
[2018-04-27] MEDS ORDERED: BISACODYL 10 MG SUPP RECTAL PRN (13:50)
[2018-04-27] MEDS ORDERED: NA PHOS,M-B/NA PHOS,DI-BA 133 ML ENEMA RECTAL PRN (13:50)
--- NOTE | 2018-04-27 14:13 | P.HPIM ---
History of Present Illness H&P Date: 04/27/18 Nikki Lea is an 82-year-old female patient of Dr. Hills who is currently at [facility] and was noticed to have worsening mental status with confusion, she was sent to [facility] emergency room, she was evaluated by Dr. Samuel and was found to have evidence of urinary tract infection and evidence of bilateral basilar lung infiltrate suggestive of pneumonia, she was started on IV antibiotic and was admitted to telemetry floor. Urine analysis revealed more than 182 white blood cell in the high power field, CBC and CMP are still pending, lactic acid is still pending. Past Medical History Past Medical History: Atrial Fibrillation, Cancer, Diabetes Mellitus, Hypertension, Osteoarthritis (OA) Additional Past Medical History / Comment(s): PACEMAKER, DIABETES - DIET CONTROLLED, CHRONIC CONSTIPATION, NECK AND SHOULDER PAIN, LIMITED ROM SHOULDERS , HX OF UTERINE CANCER, USES WALKER AND W/C. History of Any Multi-Drug Resistant Organisms: None Reported Past Surgical History: Back Surgery, Cardiac Ablation, Hysterectomy, Joint Replacement, Pacemaker Additional Past Surgical History / Comment(s): JIE HIP REPLACEMENTS (2000 & 2005 ), JIE KNEE REPLACEMENT (1993), LEFT KNEE CAP (1994), PACEMAKER (2001), HYSTERECTOMY (1972), JIE CATARACTS (2004). Past Anesthesia/Blood Transfusion Reactions: Postoperative Nausea & Vomiting ( PONV) Type of Cardiac Device: Permanent Pacemaker Device Placement Date:: 2001 Smoking Status: Former smoker - Past Family History Father Family Medical History: Cancer Additional Family Medical History / Comment(s): PROSTATE CA Son(s) Family Medical History: Cancer Additional Family Medical History / Comment(s): 2 SONS -PROSTATE CA Daughter(s) Family Medical History: Cancer Additional Family Medical History / Comment(s): BREAST CA Medications and Allergies Home Medications Medication Instructions Recorded Confirmed Type Spironolactone [Aldactone] 25 mg PO DAILY 01/04/15 04/27/18 History Metoprolol Tartrate [Lopressor] 50 mg PO DAILY 10/23/17 04/27/18 History Vit C/E/Zn/Coppr/Lutein/Zeaxan 1 cap PO BID 10/23/17 04/27/18 History [Preservision Areds 2 Softgel] Bisacodyl [Dulcolax] 10 mg RECTAL DAILY PRN 11/06/17 04/27/18 History Magnesium Hydroxide [Milk of 7,200 mg PO DAILY PRN 11/06/17 04/27/18 History Magnesia Concentrate] Na Phos,M-B/Na Phos,Di-Ba [Fleet 133 ml RECTAL ONCE PRN 11/06/17 04/27/18 History Adult] Ondansetron HCl [Zofran] 4 mg PO Q6H PRN 11/06/17 04/27/18 History PARoxetine [Paxil] 20 mg PO DAILY 11/06/17 04/27/18 History ALPRAZolam [Xanax] 0.5 mg PO BID PRN #6 tab 11/14/17 04/27/18 Rx Hydrocodone/Acetaminophen [[place] 1 tab PO Q8H PRN #9 tablet 11/14/17 04/27/18 Rx 10-325] Ipratropium-Albuterol Nebulize 3 ml INHALATION RT-Q2H PRN 11/14/17 04/27/18 Rx [Duoneb 0.5 mg-3 mg/3 ml Soln] ampul.neb fentaNYL 50MCG/HR PATCH [Duragesic 50 mcg TRANSDERM Q72H #1 patch 11/14/1704/27 Rx 50MCG/HR] Acetaminophen [Tylenol 8 Hour] 650 mg PO Q4H PRN 04/27/18 04/27/18 History Benzocaine/Menthol Lozeng [Cepacol 1 lozenge PO Q8H PRN 04/27/18 04/27/18 History lozenge] Docusate [Colace] 200 mg PO DAILY PRN 04/27/18 04/27/18 History Furosemide [Lasix] 40 mg PO BID@0800,1700 04/27/18 04/27/18 History Gabapentin [Neurontin] 100 mg PO TID 04/27/18 04/27/18 History Nystatin 1 applic TOPICAL DIRECTED PRN 04/27/18 04/27/18 History Warfarin [Coumadin] 2.5 mg PO MOTUSA 04/27/18 04/27/18 History Warfarin [Coumadin] 5 mg PO SUWETHFR 04/27/18 04/27/18 History Allergies Allergy/AdvReac Type Severity Reaction Status Date / Time No Known Allergies Allergy Verified 04/27/18 08:39 Physical Exam Vitals: Vital Signs Temp Pulse Pulse Resp BP BP Pulse Ox 04/27/18 10:00 16 04/27/18 09:30 97.4 F L 80 16 102/66 100 04/27/18 08:42 98 F 04/27/18 08:00 59 L 16 138/87 97 04/27/18 07:37 97.8 F 67 16 138/87 96 04/27/18 06:43 61 16 108/61 98 04/27/18 05:50 67 18 129/97 96 04/27/18 05:14 64 18 98 04/27/18 05:00 64 136/98 04/27/18 04:30 136/98 97 04/27/18 04:12 78 16 136/98 95 04/27/18 04:00 67 131/108 97 04/27/18 03:30 131/108 96 04/27/18 03:06 70 04/27/18 03:00 60 16 148/81 98 04/27/18 02:54 66 20 04/27/18 02:30 69 148/81 97 04/27/18 02:18 63 16 148/81 98 04/27/18 02:00 64 147/86 96 04/27/18 01:30 147/86 92 L 04/27/18 01:00 76 147/86 04/27/18 00:30 70 147/86 95 04/27/18 00:00 147/86 100 04/26/18 23:54 65 16 147/86 90 L 04/26/18 23:46 147/86 Intake and Output 04/26/18 04/27/18 04/27/18 22:59 06:59 14:59 Intake Total 150 Balance 150 Intake: IV 150 Levofloxacin 750Mg-D5w 150 Pmx 750 mg In Dextrose/ Water 1 150ml.bag @ 100 mls/hr IVPB Q24H [facility] Rx#: [id number] Other: Weight 99.79 kg In general patient is alert slightly confused in no apparent distress HEENT head normocephalic and atraumatic Neck is supple no JVD no goiter no lymphadenopathy Chest exam reveals a few scattered crackles no wheezing Cardiac exam reveals regular heart sounds S1 and S2 no gallops no murmurs Abdomen is soft nontender no organomegaly with normal bowel sounds Extremity exam reveals minimal edema no cyanosis or clubbing Neurological examination reveals no gross focal deficit Results Labs: Abnormal Lab Results - Last 24 Hours (Table) 04/27/18 04/27/18 Range/Units 01:44 02:41 POC Glucose (mg/dL) 110 H (75-99) mg/dL Urine Appearance Turbid H (Clear) Urine Protein 1+ H (Negative) Urine Blood Small H (Negative) Urine Nitrite Positive H (Negative) Ur Leukocyte Esterase Large H (Negative) Urine RBC 17 H (0-5) /hpf Urine WBC >182 H (0-5) /hpf Urine WBC Clumps Moderate H (None) /hpf Urine Opiates Screen Detected H (NotDetected) U Benzodiazepines Scrn Detected H (NotDetected) Microbiology - Last 24 Hours (Table) 04/27/18 02:41 Urine Culture - Preliminary Urine,Catheterized Thrombosis Risk Factor Assmnt - Choose All That Apply Each Factor Represents 1 point: Medical pt on bed rest, Obesity (BMI >25), Swollen legs (current) Each Risk Factor Represents 2 Points: Patient confined to bed Each Risk Factor Represents 3 Points: Age 75 years or older Thrombosis Risk Factor Assessment Total Risk Factor Score: 8 Thrombosis Risk Factor Assessment Level: High Risk Assessment and Plan Plan: #1 urinary tract infection #2 bilateral basilar lung infiltrate suggestive of pneumonia #3 underlying history of atrial fibrillation, with borderline ventricular response #4 underlying history of diabetes mellitus #5 underlying history of depression maintained on Paxil #6 previous history of uterine cancer #7 generalized debility currently in [facility] At this time patient was started on IV antibiotics Zosyn and Levaquin Will discontinue Levaquin due to multiple drug interaction and continue with Zosyn at this time Awaiting lab results and culture results Will follow closely
[2018-04-27] MEDS: METOPROLOL TARTRATE 50 MG TAB PO SCH (16:10)
[2018-04-27] MEDS: GABAPENTIN 100 MG CAP PO SCH ×2 (16:11→21:38)
[2018-04-27] MEDS: FUROSEMIDE 40 MG TAB PO SCH (16:11)
[2018-04-27 16:26] LABS: Glucose,Whole Blood 120 mg/dL (75-99)
[2018-04-27 16:46] LABS: Basophils % (A) 1 %; Eosinophils # (A) 0.1 k/uL (0-0.7); Eosinophils % (A) 2 %; HGB 12.4 gm/dL (11.4-16.0); Hypochromasia Slight; Lymphocytes # (A) 1.1 k/uL (1.0-4.8); Lymphocytes % (A) 19 %; MCHC 31.8 g/dL (31.0-37.0); MCV 94.4 fL (80.0-100.0); Mean Platelet Volume 8.1; Monocytes # (A) 0.4 k/uL (0-1.0); Monocytes % (A) 7 %; Neutrophils # (A) 3.9 k/uL (1.3-7.7); Neutrophils % (A) 69 %; Platelet Count 131 k/uL (150-450); RBC 4.13 m/uL (3.80-5.40); RDW 13.8 % (11.5-15.5); WBC 5.7 k/uL (3.8-10.6)
[2018-04-27 17:01] LABS: Creatine Kinase <20 U/L (30-135)
[2018-04-27 17:07] LABS: D-Dimer 0.85 mg/L FEU (<0.60); INR 3.8 (<1.2); Partial Thromboplastin Time 31.8 sec (22.0-30.0); Prothrombin Time 36.5 sec (9.0-12.0)
[2018-04-27 17:14] LABS: Creatine Kinase MB 0.8 ng/mL (0.0-2.4); Troponin I <0.012 ng/mL (0.000-0.034)
[2018-04-27 17:29] LABS: ALT 26 U/L (9-52); AST 21 U/L (14-36); Albumin 3.1 g/dL (3.5-5.0); Alkaline Phosphatase 94 U/L (38-126); Anion Gap 4 mmol/L; Blood Urea Nitrogen 20 mg/dL (7-17); Calcium 8.9 mg/dL (8.4-10.2); Carbon Dioxide 35 mmol/L (22-30); Chloride 99 mmol/L (98-107); Glucose 142 mg/dL (74-99); Potassium 4.2 mmol/L (3.5-5.1); Sodium 138 mmol/L (137-145); Total Bilirubin 0.7 mg/dL (0.2-1.3); Total Protein 6.1 g/dL (6.3-8.2)
[2018-04-27 21:35] LABS: Glucose,Whole Blood 127 mg/dL (75-99)
[2018-04-28 06:09] LABS: Glucose,Whole Blood 117 mg/dL (75-99)
[2018-04-28] MEDS: PANTOPRAZOLE 40 MG TABLET PO SCH (06:57)
[2018-04-28 07:00] LABS: Basophils % (A) 0 %; Eosinophils # (A) 0.2 k/uL (0-0.7); Eosinophils % (A) 3 %; HCT 35.7 % (34.0-46.0); HGB 11.5 gm/dL (11.4-16.0); Hypochromasia Slight; Lymphocytes # (A) 1.5 k/uL (1.0-4.8); Lymphocytes % (A) 22 %; MCH 30.2 pg (25.0-35.0); MCHC 32.1 g/dL (31.0-37.0); MCV 94.2 fL (80.0-100.0); Mean Platelet Volume 8.1; Monocytes # (A) 0.6 k/uL (0-1.0); Monocytes % (A) 9 %; Neutrophils # (A) 4.3 k/uL (1.3-7.7); Neutrophils % (A) 64 %; Platelet Count 141 k/uL (150-450); RBC 3.79 m/uL (3.80-5.40); RDW 13.9 % (11.5-15.5); WBC 6.7 k/uL (3.8-10.6)
[2018-04-28 07:04] LABS: INR 3.3 (<1.2); Prothrombin Time 31.8 sec (9.0-12.0)
[2018-04-28 07:12] LABS: Albumin 2.9 g/dL (3.5-5.0); Calcium 8.6 mg/dL (8.4-10.2); Potassium 4.1 mmol/L (3.5-5.1); Total Bilirubin 0.9 mg/dL (0.2-1.3); Total Protein 5.4 g/dL (6.3-8.2)
--- NOTE | 2018-04-28 09:02 | CONS ---
CONSULTATION DATE OF SERVICE: 04/27/2018 REASON FOR CONSULTATION: UTI and pneumonia. HISTORY OF PRESENT ILLNESS: The patient is an 82-year-old female who is a resident of [facility]. The patient has been sent to the [facility] ER for evaluation of mental status changes, confusion and low O2 sats. Apparently the patient who is normally awake, alert, oriented x3, she was noted by nursing staff to more confused with low oxygen saturation, however, did not mention how low the O2 sats were and the patient apparently was complaining of some mild headache. With these symptoms, the patient was brought in to the [facility] ER. The patient has been evaluated by the ER physician. On arrival to the ER, the patient has been afebrile and no fever has been noted since admission to the hospital. The patient's white count has been normal at 5.7, BUN of 20, creatinine 0.68. The patient did have a UA which was large leukocyte esterase with more than 1-2 WBC. Urine was positive for benzos and opiates. Urine cultures currently pending. The patient did have a chest x-ray, bilateral lower lobe infiltrate or atelectasis. The patient has been started on Zosyn. Infectious disease was consulted for further recommendation regarding antibiotic therapy though the patient did receive a dose of Rocephin and Levaquin in the ER. REVIEW OF SYSTEMS: Positive points have been mentioned in HPI. Complete review could not be obtained because of underlying medical condition. PAST MEDICAL HISTORY: Diabetes mellitus, hypertension, osteoarthritis, atrial fibrillation, uterine cancer. PAST SURGICAL HISTORY: Back surgery, cardiac ablation, hysterectomy, bilateral hip replacement, pacemaker replacement. SOCIAL HISTORY: Remote history of smoking. No drinking or drug use. Currently a [facility] resident. FAMILY HISTORY: Father with history of prostate cancer. Son also history of prostrate cancer. Daughter with history of breast cancer. ALLERGIES: No known drug allergies. MEDICATION: Medications include the patient is currently on tramadol, Aldactone, Zosyn, Paxil, Protonix, Percocet and Zofran, Narcan, Lopressor, Milk of Magnesia, Motrin, Neurontin, Lasix, Colace, Xanax, DuoNeb, Tylenol. PHYSICAL EXAMINATION: Blood pressure is 125/75 with a pulse of 76, temperature is 97.7. She is 98% on 3 L nasal cannula. General description is an elderly female lying in bed in no distress. No tachypnea or accessory muscles of respiration use. HEENT: Shows no pallor. No scleral icterus. Oral mucosa membranes are dry. No pharyngeal erythema or thrush. Neck: Trachea central. No thyromegaly. Lungs unlabored breathing, decreased breath sounds at the bases. No wheeze or crackles. Heart S1, S2. Regular rate and rhythm. Abdomen soft. No tenderness. No guarding. No rigidity. No organomegaly. Extremities: No edema of feet. Skin examination: No rash or mass palpable. Neurological: Patient is awake, alert, oriented times two. Mood and affect normal. LABS: Hemoglobin is 12.4, white count 5.7 with a BUN of 20, creatinine 0.6. Electrolytes have been normal. Liver enzymes are normal. UA has been positive. DIAGNOSTIC IMPRESSION AND PLAN: Patient presents to the hospital with mental status changes, hypoxemia in this patient who did have evidence of basal infiltrate with question of possible versus pneumonia in this patient who is a [facility] resident. Will need to cover for the resistant gram-negative pathogen. The patient also has significantly positive UA and that could be more likely contributing to her mental status changes with urinary tract infection to be the likely diagnosis other than pneumonia. PLAN: 1. Will try to obtain sputum for Gram stain culture and sensitivity. 2. We will obtain the influenza A and B PCR. 3. Zosyn 3.375 g every 6 hours should provide adequate coverage both for pneumonia as well as UTI. 4. We will follow up on the clinical condition and culture to further adjust medication if needed. Thank you for this consultation. We will follow this patient along with you. MMODL / IJN: [id number] /
[2018-04-28] MEDS: FUROSEMIDE 40 MG TAB PO SCH ×2 (09:12→18:39)
[2018-04-28] MEDS: SPIRONOLACTONE 25 MG TAB PO SCH (09:12)
[2018-04-28] MEDS: GABAPENTIN 100 MG CAP PO SCH ×3 (09:13→23:33)
[2018-04-28] MEDS: PARoxetine 20 MG TAB PO SCH (09:13)
[2018-04-28] MEDS: traMADol 50 MG TAB PO PRN ×2 (09:25→18:38)
[2018-04-28] MEDS: PIPERACILLIN-TAZOBACTAM 3.375 GM in SODIUM CHLORIDE 0.9% 100 ML IVPB SCH ×3 (10:48→23:33)
[2018-04-28] MEDS: DOCUSATE 100 MG CAP PO PRN ×2 (11:12→12:32)
--- NOTE | 2018-04-28 11:37 | P.PN ---
Subjective Progress Note Date: 04/28/18 Nikki Lea is an 82-year-old female patient of Dr. Hills who is currently at [facility] and was noticed to have worsening mental status with confusion, she was sent to [facility] emergency room, she was evaluated by Dr. Samuel and was found to have evidence of urinary tract infection and evidence of bilateral basilar lung infiltrate suggestive of pneumonia, she was started on IV antibiotic and was admitted to telemetry floor. Urine analysis revealed more than 182 white blood cell in the high power field, CBC and CMP are still pending, lactic acid is still pending. On 04/28/2018 patient is alert and oriented 3 in no apparent distress she was complaining of constipation and abdominal discomfort otherwise she denies any complaints at this time there is no fever or chills no headache or dizziness no chest pain no shortness of breath that is occasional cough no nausea or vomiting no diarrhea and no urinary symptoms. Objective - Vital Signs Vital signs: Vital Signs Temp 98.3 F 04/28/18 11:30 Pulse 77 04/28/18 11:30 Resp 16 04/28/18 11:30 BP 99/51 04/28/18 11:30 Pulse Ox 98 04/28/18 11:30 Intake & Output 04/27/18 04/28/18 04/28/18 18:59 06:59 18:59 Intake Total 610 160 Output Total 400 Balance 610 -400 160 Weight 132 kg Intake: IV 250 160 Levofloxacin 750Mg-D5w 150 Pmx 750 mg In Dextrose/ Water 1 150ml.bag @ 100 mls/hr IVPB Q24H ISHA Rx#: [id number] Piperacillin-Tazobactam 3 100 .375 gm In Sodium Chloride 0.9% 100 ml @ 25 mls/hr IVPB Q8HR ISHA Rx# :[id number] Sodium Chloride 0.9% 1, 160 000 ml @ 20 mls/hr IV . Q24H ISHA Rx#:[id number] Oral 360 Output: Urine 400 Other: # Voids 2 2 # Bowel Movements 1 - Exam In general patient is alert slightly confused in no apparent distress HEENT head normocephalic and atraumatic Neck is supple no JVD no goiter no lymphadenopathy Chest exam reveals a few scattered crackles no wheezing Cardiac exam reveals regular heart sounds S1 and S2 no gallops no murmurs Abdomen is soft nontender no organomegaly with normal bowel sounds Extremity exam reveals minimal edema no cyanosis or clubbing Neurological examination reveals no gross focal deficit - Labs CBC & Chem 7: 04/28/18 06:31 04/28/18 06:31 Labs: Abnormal Lab Results - Last 24 Hours (Table) 04/27/18 04/27/18 04/27/18 Range/Units 16:22 16:31 16:31 RBC (3.80-5.40) m/uL Plt Count 131 L (150-450) k/uL PT 36.5 H (9.0-12.0) sec INR 3.8 H (<1.2) APTT 31.8 H (22.0-30.0) sec D-Dimer 0.85 H (<0.60) mg/L FEU Carbon Dioxide (22-30) mmol/L BUN (7-17) mg/dL Glucose (74-99) mg/dL POC Glucose (mg/dL) 120 H (75-99) mg/dL Total Creatine Kinase (30-135) U/L Total Protein (6.3-8.2) g/dL Albumin (3.5-5.0) g/dL 04/27/18 04/27/18 04/27/18 Range/Units 16:31 16:31 21:32 RBC (3.80-5.40) m/uL Plt Count (150-450) k/uL PT (9.0-12.0) sec INR (<1.2) APTT (22.0-30.0) sec D-Dimer (<0.60) mg/L FEU Carbon Dioxide 35 H (22-30) mmol/L BUN 20 H (7-17) mg/dL Glucose 142 H (74-99) mg/dL POC Glucose (mg/dL) 127 H (75-99) mg/dL Total Creatine Kinase <20 L (30-135) U/L Total Protein 6.1 L (6.3-8.2) g/dL Albumin 3.1 L (3.5-5.0) g/dL 04/28/18 04/28/18 04/28/18 Range/Units 05:44 06:31 06:31 RBC 3.79 L (3.80-5.40) m/uL Plt Count 141 L (150-450) k/uL PT (9.0-12.0) sec INR (<1.2) APTT (22.0-30.0) sec D-Dimer (<0.60) mg/L FEU Carbon Dioxide 34 H (22-30) mmol/L BUN 19 H (7-17) mg/dL Glucose 119 H (74-99) mg/dL POC Glucose (mg/dL) 117 H (75-99) mg/dL Total Creatine Kinase (30-135) U/L Total Protein 5.4 L (6.3-8.2) g/dL Albumin 2.9 L (3.5-5.0) g/dL 04/28/18 Range/Units 06:31 RBC (3.80-5.40) m/uL Plt Count (150-450) k/uL PT 31.8 H (9.0-12.0) sec INR 3.3 H (<1.2) APTT (22.0-30.0) sec D-Dimer (<0.60) mg/L FEU Carbon Dioxide (22-30) mmol/L BUN (7-17) mg/dL Glucose (74-99) mg/dL POC Glucose (mg/dL) (75-99) mg/dL Total Creatine Kinase (30-135) U/L Total Protein (6.3-8.2) g/dL Albumin (3.5-5.0) g/dL Microbiology - Last 24 Hours (Table) 04/27/18 01:55 Blood Culture - Preliminary Blood No Growth after 24 hours 04/27/18 02:41 Urine Culture - Preliminary Urine,Catheterized Assessment and Plan Plan: #1 urinary tract infection #2 bilateral basilar lung infiltrate suggestive of pneumonia #3 underlying history of atrial fibrillation, with borderline ventricular response #4 underlying history of diabetes mellitus #5 underlying history of depression maintained on Paxil #6 previous history of uterine cancer #7 generalized debility currently in [facility] At this time patient was started on IV antibiotics Zosyn, infectious disease following Awaiting lab results and culture results Will follow closely
[2018-04-28 11:57] LABS: Glucose,Whole Blood 173 mg/dL (75-99)
[2018-04-28] MEDS: VIT A,C & E-LUTEIN-MINERALS 1 EACH TAB PO SCH (12:32)
[2018-04-28] MEDS: METOPROLOL TARTRATE 50 MG TAB PO SCH (15:39)
[2018-04-28 16:43] LABS: Glucose,Whole Blood 123 mg/dL (75-99)
[2018-04-28] MEDS ORDERED: WARFARIN 2.5 MG TAB PO ONE (18:00)
[2018-04-28] MEDS: SODIUM CHLORIDE 0.9% 1,000 ML IV SCH (19:50)
[2018-04-28] MEDS: HYDROcodone/APAP 10-325MG 1 EACH TAB PO PRN (20:14)
[2018-04-28 20:40] LABS: Glucose,Whole Blood 137 mg/dL (75-99)
--- NOTE | 2018-04-28 23:55 | PN ---
PROGRESS NOTE DATE OF SERVICE: 04/28/2018. REASON FOR FOLLOW UP: Gram-negative urinary tract infection, question of pneumonia. INTERVAL HISTORY: The patient is currently afebrile. She is more awake and alert. She is breathing comfortably. Denies having any chest pain or shortness of breath. Occasional cough. No abdominal pain. No diarrhea. PHYSICAL EXAMINATION: Blood pressure is 133/97 with a pulse of 71, temperature 98.1. He is 97% on 2 L nasal cannula. General description is an elderly female lying in bed in no distress. Respiratory system: Unlabored breathing. Clear to auscultation anteriorly. Heart S1, S2. Regular rate and rhythm. ABDOMEN: Soft, no tenderness. Extremities: No edema of the feet. LABS: Hemoglobin 11.5, white count 6.7, BUN of 19, creatinine 0.75. Urine gram-negative bacilli. Blood culture has been negative. DIAGNOSTIC IMPRESSION AND PLAN: Patient with gram-negative urinary tract infection, also with a question of possible pneumonia. Patient currently covered with Zosyn to continue for now adjusting antibiotic further on the basis of the culture report and clinical response. Continue supportive care. MMODL / IJN: [id number] /
[2018-04-29] MEDS: traMADol 50 MG TAB PO PRN (03:12)
[2018-04-29 05:42] LABS: Glucose,Whole Blood 100 mg/dL (75-99)
[2018-04-29] MEDS: PANTOPRAZOLE 40 MG TABLET PO SCH (06:18)
[2018-04-29] MEDS: HYDROcodone/APAP 10-325MG 1 EACH TAB PO PRN ×2 (06:20→20:25)
[2018-04-29 07:58] LABS: Basophils # (A) 0.1 k/uL (0-0.2); Basophils % (A) 1 %; Eosinophils # (A) 0.2 k/uL (0-0.7); Eosinophils % (A) 3 %; HCT 38.2 % (34.0-46.0); HGB 11.7 gm/dL (11.4-16.0); Hypochromasia Slight; Lymphocytes # (A) 1.7 k/uL (1.0-4.8); Lymphocytes % (A) 31 %; MCH 29.3 pg (25.0-35.0); MCHC 30.7 g/dL (31.0-37.0); MCV 95.3 fL (80.0-100.0); Mean Platelet Volume 6.5; Monocytes # (A) 0.4 k/uL (0-1.0); Monocytes % (A) 8 %; Neutrophils % (A) 54 %; Platelet Count 167 k/uL (150-450); RDW 13.7 % (11.5-15.5); WBC 5.6 k/uL (3.8-10.6)
[2018-04-29 08:05] LABS: INR 2.5 (<1.2); Prothrombin Time 24.5 sec (9.0-12.0)
[2018-04-29 08:24] LABS: Albumin 2.9 g/dL (3.5-5.0); Calcium 8.9 mg/dL (8.4-10.2); Potassium 3.8 mmol/L (3.5-5.1); Total Bilirubin 1.1 mg/dL (0.2-1.3); Total Protein 5.6 g/dL (6.3-8.2)
[2018-04-29] MEDS: METOPROLOL TARTRATE 50 MG TAB PO SCH (09:15)
[2018-04-29] MEDS: PARoxetine 20 MG TAB PO SCH (09:15)
[2018-04-29] MEDS: GABAPENTIN 100 MG CAP PO SCH ×3 (09:15→20:26)
[2018-04-29] MEDS: FUROSEMIDE 40 MG TAB PO SCH ×2 (09:15→17:06)
[2018-04-29] MEDS: SPIRONOLACTONE 25 MG TAB PO SCH (09:16)
[2018-04-29] MEDS: PIPERACILLIN-TAZOBACTAM 3.375 GM in SODIUM CHLORIDE 0.9% 100 ML IVPB SCH ×3 (10:09→23:17)
--- NOTE | 2018-04-29 10:28 | P.PN ---
Subjective Progress Note Date: 04/29/18 Nikki Lea is an 82-year-old female patient of Dr. Hills who is currently at [facility] and was noticed to have worsening mental status with confusion, she was sent to [facility] emergency room, she was evaluated by Dr. Samuel and was found to have evidence of urinary tract infection and evidence of bilateral basilar lung infiltrate suggestive of pneumonia, she was started on IV antibiotic and was admitted to telemetry floor. Urine analysis revealed more than 182 white blood cell in the high power field, CBC and CMP are still pending, lactic acid is still pending. On 04/28/2018 patient is alert and oriented 3 in no apparent distress she was complaining of constipation and abdominal discomfort otherwise she denies any complaints at this time there is no fever or chills no headache or dizziness no chest pain no shortness of breath that is occasional cough no nausea or vomiting no diarrhea and no urinary symptoms. 04/29/2018 patient lying in bed comfortably. She is complaining of headache. She was given [place] earlier this morning. Patient does cry easily. Then stops and is able to answer questions appropriately. She has been working with physical therapy. Awaiting urine culture finalized. Currently on IV Zosyn. Denies any chest pain or shortness breath. Denies any nausea or vomiting. Reports having bowel movements. Denies any difficulty urinating. Objective - Vital Signs Vital signs: Vital Signs Temp 97.3 F L 04/29/18 03:35 Pulse 64 04/29/18 03:35 Resp 18 04/29/18 03:35 BP 118/74 04/29/18 03:35 Pulse Ox 94 L 04/29/18 03:35 Intake & Output 04/28/18 04/29/18 04/29/18 18:59 06:59 18:59 Intake Total 760 Output Total 250 1550 Balance 510 -1550 Weight 125.5 kg Intake: IV 520 Piperacillin-Tazobactam 3 200 .375 gm In Sodium Chloride 0.9% 100 ml @ 25 mls/hr IVPB Q8HR ISHA Rx# :[id number] Sodium Chloride 0.9% 1, 320 000 ml @ 20 mls/hr IV . Q24H ISHA Rx#:[id number] Oral 240 Output: Urine 250 1550 Other: # Voids 2 1 # Bowel Movements 1 - Exam Head normocephalic Neck supple Lungs clear to auscultation bilaterally no wheezing or crackles Heart regular rate and rhythm S1-S2, no rub or gallop Abdomen is soft nontender nondistended positive bowel sounds no hepatosplenomegaly Extremities no edema Neuro alert and orientated to 3 - Labs CBC & Chem 7: 04/29/18 07:18 04/29/18 07:18 Labs: Abnormal Lab Results - Last 24 Hours (Table) 04/28/18 04/28/18 04/28/18 Range/Units 11:27 16:25 20:38 MCHC (31.0-37.0) g/dL PT (9.0-12.0) sec INR (<1.2) Carbon Dioxide (22-30) mmol/L Glucose (74-99) mg/dL POC Glucose (mg/dL) 173 H 123 H 137 H (75-99) mg/dL Total Protein (6.3-8.2) g/dL Albumin (3.5-5.0) g/dL 04/29/18 04/29/18 04/29/18 Range/Units 05:35 07:18 07:18 MCHC 30.7 L (31.0-37.0) g/dL PT (9.0-12.0) sec INR (<1.2) Carbon Dioxide 32 H (22-30) mmol/L Glucose 102 H (74-99) mg/dL POC Glucose (mg/dL) 100 H (75-99) mg/dL Total Protein 5.6 L (6.3-8.2) g/dL Albumin 2.9 L (3.5-5.0) g/dL 04/29/18 Range/Units 07:18 MCHC (31.0-37.0) g/dL PT 24.5 H (9.0-12.0) sec INR 2.5 H (<1.2) Carbon Dioxide (22-30) mmol/L Glucose (74-99) mg/dL POC Glucose (mg/dL) (75-99) mg/dL Total Protein (6.3-8.2) g/dL Albumin (3.5-5.0) g/dL Microbiology - Last 24 Hours (Table) 04/27/18 01:55 Blood Culture - Preliminary Blood No Growth after 48 hours 04/27/18 02:41 Urine Culture - Preliminary Urine,Catheterized Gram Neg Bacilli Assessment and Plan Assessment: #1 urinary tract infection: Urine culture growing gram-negative bacilli. Continue IV Zosyn. Await urine culture finalized. Infectious disease following #2 bilateral basilar lung infiltrate suggestive of pneumonia #3 underlying history of chronic atrial fibrillation, with borderline ventricular response. Anticoagulated with Coumadin. INR is 2.5. Will give Coumadin 2.5 mg tonight. Check PT/INR in a.m. #4 underlying history of diabetes mellitus #5 underlying history of depression maintained on Paxil #6 previous history of uterine cancer #7 generalized debility currently in [facility] #8 acute metabolic encephalopathy secondary to UTI and possible pneumonia. Continue PT OT I performed an examination of the patient and discussed their management with the physician Louver Door Assembler. I have reviewed the Physician Louver Door Assembler's notes and agree with the documented findings and plan of care
[2018-04-29 11:34] LABS: Glucose,Whole Blood 113 mg/dL (75-99)
[2018-04-29] MEDS: VIT A,C & E-LUTEIN-MINERALS 1 EACH TAB PO SCH (12:01)
--- NOTE | 2018-04-29 16:08 | XR ---
EXAMINATION TYPE: XR chest 2V DATE OF EXAM: 04/29/2018 COMPARISON: 04/27/2018 HISTORY: 82-year-old female follow-up pneumonia TECHNIQUE: AP and lateral views FINDINGS: Left anterior chest wall pacemaker generator with right ventricular lead. Heart is enlarged. Diffuse interstitial and vascular prominence. No consolidation or pleural effusion. Improved aeration at the right base. Rotator cuff arthropathy on the right. IMPRESSION: 1. Cardiomegaly and interstitial changes, possible mild pulmonary vascular congestion. No pleural eff usion or candido pulmonary edema. 2. Improved aeration at the right base. 3. Rotator cuff arthropathy on the right.
[2018-04-29 16:29] LABS: Glucose,Whole Blood 138 mg/dL (75-99)
[2018-04-29] MEDS: SODIUM CHLORIDE 0.9% 1,000 ML IV SCH (17:05)
[2018-04-29] MEDS ORDERED: WARFARIN 2.5 MG TAB PO ONE (18:00)
[2018-04-29 21:01] LABS: Glucose,Whole Blood 149 mg/dL (75-99)
--- NOTE | 2018-04-29 22:27 | PN ---
PROGRESS NOTE DATE OF SERVICE: 04/29/2018. REASON FOR FOLLOWUP: UTI and possible pneumonia. INTERVAL HISTORY: The patient is currently afebrile. She is breathing comfortably. Denies significant chest pain. Occasional cough. No nausea or vomiting or abdominal pain and no diarrhea. PHYSICAL EXAMINATION: Blood pressure is 144/72 with a pulse 65, temperature 98.2. She is 92% on room air. General description is an elderly female lying in bed in no distress. RESPIRATORY SYSTEM: Unlabored breathing. Clear to auscultation anteriorly. HEART: S1, S2. Regular rate and rhythm. ABDOMEN: Soft. No tenderness. LABS: Hemoglobin is 11.7, white count 5.6, BUN of 15, creatinine 0.75. X-ray did show overall improvement today. DIAGNOSTIC IMPRESSION AND PLAN: Patient admitted to hospital with mental status changes, likely multifactorial, in this patient who has a component of Escherichia coli urinary tract infection that is a sensitive pathogen along with possible pneumonia, possibly community-acquired, as even the urine organism is very sensitive. Antibiotic will be transitioned to Rocephin 2 grams daily with a plan to finish therapy with oral Ceftin with careful monitoring of INR in the outpatient setting. Continue with supportive care. MMODL / IJN: [id number] /
[2018-04-30] MEDS: PANTOPRAZOLE 40 MG TABLET PO SCH ×2 (06:38→06:42)
[2018-04-30] MEDS: HYDROcodone/APAP 10-325MG 1 EACH TAB PO PRN (06:42)
[2018-04-30 06:43] LABS: Glucose,Whole Blood 119 mg/dL (75-99)
[2018-04-30 07:32] LABS: Basophils # (A) 0.1 k/uL (0-0.2); Basophils % (A) 1 %; Eosinophils # (A) 0.2 k/uL (0-0.7); Eosinophils % (A) 3 %; HCT 39.1 % (34.0-46.0); HGB 12.3 gm/dL (11.4-16.0); Hypochromasia Slight; Lymphocytes # (A) 2.3 k/uL (1.0-4.8); Lymphocytes % (A) 36 %; MCH 29.7 pg (25.0-35.0); MCHC 31.6 g/dL (31.0-37.0); MCV 94.1 fL (80.0-100.0); Monocytes # (A) 0.5 k/uL (0-1.0); Monocytes % (A) 7 %; Neutrophils # (A) 3.4 k/uL (1.3-7.7); Neutrophils % (A) 51 %; Platelet Count 184 k/uL (150-450); RBC 4.16 m/uL (3.80-5.40); RDW 13.7 % (11.5-15.5); WBC 6.6 k/uL (3.8-10.6)
[2018-04-30 07:41] LABS: INR 2.4 (<1.2); Prothrombin Time 23.8 sec (9.0-12.0)
[2018-04-30 07:49] LABS: Albumin 3.2 g/dL (3.5-5.0); Total Protein 5.9 g/dL (6.3-8.2)
[2018-04-30] MEDS: GABAPENTIN 100 MG CAP PO SCH (09:05)
[2018-04-30] MEDS: METOPROLOL TARTRATE 50 MG TAB PO SCH (09:05)
[2018-04-30] MEDS: SPIRONOLACTONE 25 MG TAB PO SCH (09:05)
[2018-04-30] MEDS: FUROSEMIDE 40 MG TAB PO SCH (09:05)
[2018-04-30] MEDS: PARoxetine 20 MG TAB PO SCH (09:05)
[2018-04-30] MEDS: PIPERACILLIN-TAZOBACTAM 3.375 GM in SODIUM CHLORIDE 0.9% 100 ML IVPB SCH (09:05)
[2018-04-30] MEDS: SODIUM CHLORIDE 0.9% 1,000 ML IV SCH (09:12)
--- NOTE | 2018-04-30 11:31 | P.DS ---
Providers Date of admission: 04/27/18 06:16 Expected date of discharge: 04/30/18 Attending physician: Citlalli Garcia Consults: 04/27/18 14:14 Consult Physician Routine Consulting Provider: Kobi Jackson Consult Reason/Comments: UTI, Pneumonia Do you want consulting provider notified?: Yes Primary care physician: Minh Hills [facility] Course: Discharge diagnosis #1 urinary tract infection: Culture growing E. coli. ID recommending 7 more days of Ceftin #2 bilateral basilar lung infiltrate suggestive of pneumonia. Continue Ceftin for 7 more days #3 underlying history of chronic atrial fibrillation, with borderline ventricular response. Anticoagulated with Coumadin. INR 2.4 at discharge. Patient did have an elevated INR on admission at 3.8. Coumadin dose has been adjusted to 5 mg Sunday and 2.5 mg Sunday #4 underlying history of diabetes mellitus #5 underlying history of depression maintained on Paxil #6 previous history of uterine cancer #7 generalized debility currently in [facility] #8 acute metabolic encephalopathy secondary to UTI and possible pneumonia. Hospital course Nikki Lea is an 82-year-old female patient of Dr. Hills who is currently at [facility] and was noticed to have worsening mental status with confusion, she was sent to [facility] emergency room, she was evaluated by Dr. Samuel and was found to have evidence of urinary tract infection and evidence of bilateral basilar lung infiltrate suggestive of pneumonia, she was started on IV antibiotic and was admitted to telemetry floor. Urine analysis revealed more than 182 white blood cell in the high power field, CBC and CMP are still pending, lactic acid is still pending. On 04/28/2018 patient is alert and oriented 3 in no apparent distress she was complaining of constipation and abdominal discomfort otherwise she denies any complaints at this time there is no fever or chills no headache or dizziness no chest pain no shortness of breath that is occasional cough no nausea or vomiting no diarrhea and no urinary symptoms. 04/29/2018 patient lying in bed comfortably. She is complaining of headache. She was given [place] earlier this morning. Patient does cry easily. Then stops and is able to answer questions appropriately. She has been working with physical therapy. Awaiting urine culture finalized. Currently on IV Zosyn. Denies any chest pain or shortness breath. Denies any nausea or vomiting. Reports having bowel movements. Denies any difficulty urinating. 04/30/2018 patient's symptoms have improved. Urine culture has finalized. Culture growing E. coli. Infectious disease is recommending Ceftin for 7 more days to complete treatment for her UTI and possible pneumonia. Patient's mentation has returned to baseline. She will be discharged back to [facility] for further rehabilitation. Also note that her chest x-ray had shown improvement as well. Patient is medical stable for discharge. Please refer to chart for any further details. I performed an examination of the patient and discussed their management with the physician Presto Log Operator. I have reviewed the Physician Presto Log Operator's notes and agree with the documented findings and plan of care Patient Condition at Discharge: Stable Plan - Discharge Summary New Discharge Prescriptions: New Cefuroxime Axetil [Ceftin] 500 mg PO BID #14 tab Continue Spironolactone [Aldactone] 25 mg PO DAILY Metoprolol Tartrate [Lopressor] 50 mg PO DAILY Vit C/E/Zn/Coppr/Lutein/Zeaxan [Preservision Areds 2 Softgel] 1 cap PO BID Magnesium Hydroxide [Milk of Magnesia Concentrate] 7,200 mg PO DAILY PRN PRN Reason: CONSTIPATION Na Phos,M-B/Na Phos,Di-Ba [Fleet Adult] 133 ml RECTAL ONCE PRN PRN Reason: Constipation Bisacodyl [Dulcolax] 10 mg RECTAL DAILY PRN PRN Reason: Constipation PARoxetine [Paxil] 20 mg PO DAILY Ondansetron HCl [Zofran] 4 mg PO Q6H PRN PRN Reason: Nausea Ipratropium-Albuterol Nebulize [Duoneb 0.5 mg-3 mg/3 ml Soln] 3 ml INHALATION RT-Q2H PRN ampul.neb PRN Reason: Shortness Of Breath Or Wheezing Benzocaine/Menthol Lozeng [Cepacol lozenge] 1 lozenge PO Q8H PRN PRN Reason: Sore Throat Acetaminophen [Tylenol 8 Hour] 650 mg PO Q4H PRN PRN Reason: GENERAL DISCOMFORT Gabapentin [Neurontin] 100 mg PO TID Docusate [Colace] 200 mg PO DAILY PRN PRN Reason: Constipation Furosemide [Lasix] 40 mg PO BID@0800,1700 Nystatin 1 applic TOPICAL DIRECTED PRN PRN Reason: GROIN RASH ALPRAZolam [Xanax] 0.5 mg PO BID PRN #6 tab PRN Reason: Anxiety fentaNYL 50MCG/HR PATCH [Duragesic 50MCG/HR] 50 mcg TRANSDERM Q72H #1 patch Hydrocodone/Acetaminophen [[place] 10-325] 1 tab PO Q8H PRN #9 tablet PRN Reason: Pain Changed Warfarin [Coumadin] 5 mg PO SUWETH #0 Warfarin [Coumadin] 2.5 mg PO MOTUFRSA #0 Discharge Medication List Spironolactone [Aldactone] 25 mg PO DAILY 01/04/15 [History] Metoprolol Tartrate [Lopressor] 50 mg PO DAILY 10/23/17 [History] Vit C/E/Zn/Coppr/Lutein/Zeaxan [Preservision Areds 2 Softgel] 1 cap PO BID 10/23 [History] Bisacodyl [Dulcolax] 10 mg RECTAL DAILY PRN 11/06/17 [History] Magnesium Hydroxide [Milk of Magnesia Concentrate] 7,200 mg PO DAILY PRN [History] Na Phos,M-B/Na Phos,Di-Ba [Fleet Adult] 133 ml RECTAL ONCE PRN 11/06/17 [History ] Ondansetron HCl [Zofran] 4 mg PO Q6H PRN 11/06/17 [History] PARoxetine [Paxil] 20 mg PO DAILY 11/06/17 [History] Ipratropium-Albuterol Nebulize [Duoneb 0.5 mg-3 mg/3 ml Soln] 3 ml INHALATION RT -Q2H PRN ampul.neb 11/14/17 [Rx] Acetaminophen [Tylenol 8 Hour] 650 mg PO Q4H PRN 04/27/18 [History] Benzocaine/Menthol Lozeng [Cepacol lozenge] 1 lozenge PO Q8H PRN 04/27/18 [ History] Docusate [Colace] 200 mg PO DAILY PRN 04/27/18 [History] Furosemide [Lasix] 40 mg PO BID@0800,1700 04/27/18 [History] Gabapentin [Neurontin] 100 mg PO TID 04/27/18 [History] Nystatin 1 applic TOPICAL DIRECTED PRN 04/27/18 [History] ALPRAZolam [Xanax] 0.5 mg PO BID PRN #6 tab 04/30/18 [Rx] Cefuroxime Axetil [Ceftin] 500 mg PO BID #14 tab 04/30/18 [Rx] Hydrocodone/Acetaminophen [[place] 10-325] 1 tab PO Q8H PRN #9 tablet 04/30/18 [Rx ] Warfarin [Coumadin] 2.5 mg PO MOTUFRSA #0 04/30/18 [Rx] Warfarin [Coumadin] 5 mg PO SUWETH #0 04/30/18 [Rx] fentaNYL 50MCG/HR PATCH [Duragesic 50MCG/HR] 50 mcg TRANSDERM Q72H #1 patch [Rx] Follow up Appointment(s)/Referral(s): Segundo Valdez, [NON-STAFF] - 1 Week Minh Hills MD [Primary Care Provider] - As Needed Citlalli Garcia MD [STAFF PHYSICIAN] - 1 Week Ambulatory/Diagnostic Orders: Prothrombin Time INR [LAB.AMB] Time Frame: 3 Days, Location: None Selected Activity/Diet/Wound Care/Special Instructions: Diet: regular Activity: as tolerated discharge to [facility]. Dr. Garcia to follow at [facility] Discharge Disposition: TRANSFER TO SNF/ECF
[2018-04-30] MEDS: VIT A,C & E-LUTEIN-MINERALS 1 EACH TAB PO SCH (11:35)
[2018-04-30 11:36] LABS: Glucose,Whole Blood 132 mg/dL (75-99)
[2018-04-30 11:55] VITALS: BP 121/73; PULSE 67; RESP 18; TEMP 97.4
--- NOTE | 2018-04-30 17:54 | PN ---
PROGRESS NOTE DATE OF SERVICE: 04/30/2018. REASON FOR FOLLOWUP: E coli urinary tract infection infection and possible pneumonia. INTERVAL HISTORY: The patient is seen on rounds early this afternoon. The patient has been afebrile. She is breathing comfortably on room air. No chest pain. No cough. No abdominal pain or any diarrhea. PHYSICAL EXAMINATION: Blood pressure 120/73 with a pulse of 87. Temp is 97.4. She is 92% on room air. General description is an elderly female lying in bed in no distress. Respiratory system: Unlabored breathing. Clear to auscultation anteriorly. Heart S1, S2. Regular rate and rhythm. Abdomen soft, no tenderness. LABS: Hemoglobin 12.2, white count 6.3 with a BUN of 15, creatinine 0.77. DIAGNOSTIC IMPRESSION AND PLAN: Patient admitted to the hospital with mental status changes likely multifactorial in this patient who did have a component of E coli urinary tract infection, component of pneumonia, could have been more likely community acquired. The patient has some overall improvement with culture negative for resistant pathogen. She will finish therapy with oral Ceftin 500 mg twice a day for about a week with close monitoring of her INR for the patient is on antibiotics. This was discussed with the nurse practitioner for the admitting team. Continue supportive care. MMODL / IJN: [id number] /
== END 2018-04-30 13:43 | DRG 193 ==
LOC: EC 23:40 → 3SCARD 04-27 06:16
PROVIDERS: ADMIT Internal Medicine; ATTEND Internal Medicine
DX: J18.9 Pneumonia, unspecified organism (principal); G93.41 Metabolic encephalopathy; N39.0 Urinary tract infection, site not specified; Z66 Do not resuscitate; E11.9 Type 2 diabetes mellitus without complications; I10 Essential (primary) hypertension; I48.2 Chronic atrial fibrillation; R09.02 Hypoxemia; B96.20 Unspecified Escherichia coli [E. coli] as the cause of diseases classified elsewhere; R53.81 Other malaise; B96.89 Other specified bacterial agents as the cause of diseases classified elsewhere; R79.1 Abnormal coagulation profile; Z96.653 Presence of artificial knee joint, bilateral; Z96.643 Presence of artificial hip joint, bilateral; Z79.899 Other long term (current) drug therapy; Z79.01 Long term (current) use of anticoagulants; Z87.891 Personal history of nicotine dependence; Z95.0 Presence of cardiac pacemaker; Z90.710 Acquired absence of both cervix and uterus; Z85.42 Personal history of malignant neoplasm of other parts of uterus; Z80.3 Family history of malignant neoplasm of breast
CPT/HCPCS: 36415; 36556; 70450; 71046; 80053; 80306; 81001; 82550; 82553; 83605; 83880; 84484; 85025; 85379; 85610; 85730; 87040; 87077; 87086; 87186; 87502; 93005; 94640; 96365; 96368; 99285

== ENCOUNTER 2018-11-23 20:41 | Inpatient (IN) | payer MEDICARE, BC ==
--- NOTE | 2018-11-23 21:07 | ED ---
Neuro HPI - General Chief Complaint: Neuro Symptoms/Deficit Stated Complaint: Neuro Symptoms Time Seen by Provider: 11/23/18 21:05 Source: patient Mode of arrival: EMS Limitations: no limitations - History of Present Illness Is the patient presenting with stroke symptoms?: No Initial Comments: Nikki is an 83 yo female with extensive past medical history who was recently admitted to [facility] and subsequently discharged to [facility]. Today was her second day the nursing facility, around no on today that her right pupil seem to be slightly larger than her left. Patient denied any vision changes or pain in the eye. She denied getting anything in the eye or having any scopolamine patches on her. Patient did not notice this changed however when a second staff member noticed it after dinner they decided to send her the ER for evaluation. Patient denies any acute complaints. - Related Data Home Medications: Home Medications Medication Instructions Recorded Confirmed Spironolactone [Aldactone] 25 mg PO DAILY 01/04/15 04/27/18 Metoprolol Tartrate [Lopressor] 50 mg PO DAILY 10/23/17 04/27/18 Vit C/E/Zn/Coppr/Lutein/Zeaxan 1 cap PO BID 10/23/17 04/27/18 [Preservision Areds 2 Softgel] Bisacodyl [Dulcolax] 10 mg RECTAL DAILY PRN 11/06/17 04/27/18 Magnesium Hydroxide [Milk of 7,200 mg PO DAILY PRN 11/06/17 04/27/18 Magnesia Concentrate] Na Phos,M-B/Na Phos,Di-Ba [Fleet 133 ml RECTAL ONCE PRN 11/06/17 04/27/18 Adult] Ondansetron HCl [Zofran] 4 mg PO Q6H PRN 11/06/17 04/27/18 PARoxetine [Paxil] 20 mg PO DAILY 11/06/17 04/27/18 Acetaminophen [Tylenol 8 Hour] 650 mg PO Q4H PRN 04/27/18 04/27/18 Benzocaine/Menthol Lozeng [Cepacol 1 lozenge PO Q8H PRN 04/27/18 04/27/18 lozenge] Docusate [Colace] 200 mg PO DAILY PRN 04/27/18 04/27/18 Furosemide [Lasix] 40 mg PO BID@0800,1700 04/27/18 04/27/18 Gabapentin [Neurontin] 100 mg PO TID 04/27/18 04/27/18 Nystatin 1 applic TOPICAL DIRECTED PRN 04/27/18 04/27/18 Previous Rx's Medication Instructions Recorded Ipratropium-Albuterol Nebulize 3 ml INHALATION RT-Q2H PRN 11/14/17 [Duoneb 0.5 mg-3 mg/3 ml Soln] ampul.neb ALPRAZolam [Xanax] 0.5 mg PO BID PRN #6 tab 04/30/18 Cefuroxime Axetil [Ceftin] 500 mg PO BID #14 tab 04/30/18 Hydrocodone/Acetaminophen [[place] 1 tab PO Q8H PRN #9 tablet 04/30/18 10-325] Warfarin [Coumadin] 2.5 mg PO MOTUFRSA #0 04/30/18 Warfarin [Coumadin] 5 mg PO SUWETH #0 04/30/18 fentaNYL 50MCG/HR PATCH [Duragesic 50 mcg TRANSDERM Q72H #1 patch 04/30/18 50MCG/HR] Allergies/Adverse Reactions: Allergies Allergy/AdvReac Type Severity Reaction Status Date / Time No Known Allergies Allergy Verified 04/27/18 08:39 Review of Systems ROS Statement: Those systems with pertinent positive or pertinent negative responses have been documented in the HPI. ROS Other: All systems not noted in ROS Statement are negative. General Exam - General Exam Comments Initial Comments: Physical Exam GENERAL: Obese, chronically ill-appearing No acute distress HENT: Normocephalic, Atraumatic. EYES: Right pupil approximately 4 mm slowly responsive Left pupil 3 mm responsive PULMONARY: Unlabored respirations Decreased breath sounds at bilateral bases likely secondary to obesity hypoventilation syndrome CARDIOVASCULAR: There is a regular rate and rhythm without any murmurs gallops or rubs. ABDOMEN: Soft and nontender with normal bowel sounds. SKIN: Skin is clear with no lesions or rashes and otherwise unremarkable. : Deferred NEUROLOGIC: Patient is alert and oriented x3. Cranial nerves II through XII are grossly intact Moving all extremities spontaneously Speech is fluent clear normal in volume NIH 0 MUSCULOSKELETAL: Normal extremities with adequate strength and full range of motion. No lower extremity swelling or edema. No calf tenderness. PSYCHIATRIC: Normal psychiatric evaluation. Limitations: no limitations Stroke MDM - Lab Data Result diagrams: 11/23/18 21:02 11/23/18 21:02 Lab Results 11/23/18 11/23/18 11/23/18 Range/Units 21:02 21:02 21:02 WBC 7.0 (3.8-10.6) k/uL RBC 3.90 (3.80-5.40) m/uL Hgb 11.3 L (11.4-16.0) gm/dL Hct 36.4 (34.0-46.0) % MCV 93.5 (80.0-100.0) fL MCH 29.1 (25.0-35.0) pg MCHC 31.1 (31.0-37.0) g/dL RDW 14.2 (11.5-15.5) % Plt Count 219 (150-450) k/uL Neutrophils % 59 % Lymphocytes % 26 % Monocytes % 9 % Eosinophils % 3 % Basophils % 1 % Neutrophils # 4.1 (1.3-7.7) k/uL Lymphocytes # 1.8 (1.0-4.8) k/uL Monocytes # 0.6 (0-1.0) k/uL Eosinophils # 0.2 (0-0.7) k/uL Basophils # 0.1 (0-0.2) k/uL PT 18.9 H (9.0-12.0) sec INR 1.9 H (<1.2) APTT 29.0 (22.0-30.0) sec Sample Site ABG pH (7.35-7.45) ABG pCO2 (35-45) mmHg ABG pO2 (83-108) mmHg ABG HCO3 (21-25) mmol/L ABG Total CO2 (19-24) mmol/L ABG O2 Saturation (94-97) % ABG Base Excess mmol/L Alfredo Test FiO2 % Sodium 136 L (137-145) mmol/L Potassium 4.1 (3.5-5.1) mmol/L Chloride 89 L (98-107) mmol/L Carbon Dioxide 41 H* (22-30) mmol/L Anion Gap 6 mmol/L BUN 37 H (7-17) mg/dL Creatinine 0.85 (0.52-1.04) mg/dL Est GFR (CKD-EPI)AfAm 73 (>60 ml/min/1.73 sqM) Est GFR (CKD-EPI)NonAf 63 (>60 ml/min/1.73 sqM) Glucose 136 H (74-99) mg/dL Calcium 9.0 (8.4-10.2) mg/dL Total Bilirubin 0.8 (0.2-1.3) mg/dL AST 25 (14-36) U/L ALT 18 (9-52) U/L Alkaline Phosphatase 141 H (38-126) U/L Total Protein 5.8 L (6.3-8.2) g/dL Albumin 3.0 L (3.5-5.0) g/dL 11/23/18 Range/Units 23:21 WBC (3.8-10.6) k/uL RBC (3.80-5.40) m/uL Hgb (11.4-16.0) gm/dL Hct (34.0-46.0) % MCV (80.0-100.0) fL MCH (25.0-35.0) pg MCHC (31.0-37.0) g/dL RDW (11.5-15.5) % Plt Count (150-450) k/uL Neutrophils % % Lymphocytes % % Monocytes % % Eosinophils % % Basophils % % Neutrophils # (1.3-7.7) k/uL Lymphocytes # (1.0-4.8) k/uL Monocytes # (0-1.0) k/uL Eosinophils # (0-0.7) k/uL Basophils # (0-0.2) k/uL PT (9.0-12.0) sec INR (<1.2) APTT (22.0-30.0) sec Sample Site rrad ABG pH 7.41 (7.35-7.45) ABG pCO2 66 H (35-45) mmHg ABG pO2 277 H (83-108) mmHg ABG HCO3 42 H* (21-25) mmol/L ABG Total CO2 44 H (19-24) mmol/L ABG O2 Saturation 99.5 H (94-97) % ABG Base Excess 17.4 mmol/L Alfredo Test Yes FiO2 75 % Sodium (137-145) mmol/L Potassium (3.5-5.1) mmol/L Chloride (98-107) mmol/L Carbon Dioxide (22-30) mmol/L Anion Gap mmol/L BUN (7-17) mg/dL Creatinine (0.52-1.04) mg/dL Est GFR (CKD-EPI)AfAm (>60 ml/min/1.73 sqM) Est GFR (CKD-EPI)NonAf (>60 ml/min/1.73 sqM) Glucose (74-99) mg/dL Calcium (8.4-10.2) mg/dL Total Bilirubin (0.2-1.3) mg/dL AST (14-36) U/L ALT (9-52) U/L Alkaline Phosphatase (38-126) U/L Total Protein (6.3-8.2) g/dL Albumin (3.5-5.0) g/dL - NIH Stroke Scale 1a. Level of Consciousness: (0) alert 1b. LOC Questions: (0) answers correctly 1c. LOC Commands: (0) performs tasks correctly 2. Best Gaze: (0) normal 3. Visual: (0) no visual loss 4. Facial Palsy: (0) normal symmetrical movement 5a. Motor Arm Left: (0) no drift 5b. Motor Arm Right: (0) no drift 6a. Motor Leg Left: (0) no drift 6b. Motor Leg Right: (0) no drift 7. Limb Ataxia: (0) absent 8. Sensory: (0) normal 9. Best Language: (0) no aphasia 10. Dysarthria: (0) normal 11. Extinction/Inattention: (0) no abnormality - Thrombolytic Inclusion/Exclusion Thrombolytic Exclusion Criteria: Symptom Onset > 3 Hours - Medical Decision Making The patient was seen and evaluated upon arrival to the emergency department, patient presented for evaluation of anisocoria. This is been present for a minimum of 8 hours Patient denies any vision change I pain headache or any acute complaints Labs and imaging ordered and head CT is normal Labs significant for an elevated CO2 level, I suspect the patient suffers from obesity hypoventilation syndrome, patient was also noted to be somewhat hypoxic when she was resting. Decision was made to place the patient on BiPAP to assist in correcting respiratory abnormalities. Labs and imaging were discussed with Dr. Garcia who agrees with plan for admission to the selective unit for patient with hypercapnic respiratory failure as well as new onset anisocoria - EKG Data -: EKG Interpreted by Me EKG was obtained at 2055, rate is 60s, rhythm is demand paced, intrinsic rhythm is a narrow complex bradycardia, rhythm was wide complex likely ventricularly paced. 11/24/18 02:01 Past Medical History Past Medical History: Atrial Fibrillation, Cancer, Diabetes Mellitus, Hypertension, Osteoarthritis (OA) Additional Past Medical History / Comment(s): PACEMAKER, DIABETES - DIET CONTROLLED, CHRONIC CONSTIPATION, NECK AND SHOULDER PAIN, LIMITED ROM SHOULDERS, HX OF UTERINE CANCER, USES WALKER AND W/C. History of Any Multi-Drug Resistant Organisms: None Reported Past Surgical History: Back Surgery, Cardiac Ablation, Hysterectomy, Joint Replacement, Pacemaker Additional Past Surgical History / Comment(s): JIE HIP REPLACEMENTS (2000 & 2005), JIE KNEE REPLACEMENT (1993), LEFT KNEE CAP (1994), PACEMAKER (2001), HYSTERECTOMY (1972), JIE CATARACTS (2004). Past Anesthesia/Blood Transfusion Reactions: Postoperative Nausea & Vomiting (PONV) Type of Cardiac Device: Permanent Pacemaker Device Placement Date:: 2001 Past Psychological History: Anxiety Smoking Status: Former smoker - Past Family History Father Family Medical History: Cancer Additional Family Medical History / Comment(s): PROSTATE CA Son(s) Family Medical History: Cancer Additional Family Medical History / Comment(s): 2 SONS -PROSTATE CA Daughter(s) Family Medical History: Cancer Additional Family Medical History / Comment(s): BREAST CA Course Vital Signs 11/23/18 11/23/18 11/23/18 20:47 21:51 21:54 Temperature 98.6 F Pulse Rate 61 63 Respiratory 19 13 Rate Blood Pressure 92/53 92/53 O2 Sat by Pulse 97 85 L 93 L Oximetry 11/23/18 11/23/18 11/23/18 21:55 22:00 22:10 Temperature Pulse Rate 64 62 Respiratory 13 23 Rate Blood Pressure 95/64 95/64 O2 Sat by Pulse 98 99 100 Oximetry 11/23/18 11/23/18 11/23/18 22:20 22:28 22:30 Temperature Pulse Rate 62 66 Respiratory 17 14 Rate Blood Pressure 95/64 105/50 O2 Sat by Pulse 100 88 L 97 Oximetry 11/23/18 11/23/18 11/23/18 22:40 22:50 23:10 Temperature Pulse Rate 62 61 62 Respiratory 15 18 27 H Rate Blood Pressure 101/56 104/51 104/54 O2 Sat by Pulse 98 98 98 Oximetry 11/23/18 11/23/18 11/23/18 23:20 23:40 23:50 Temperature Pulse Rate 64 64 61 Respiratory 13 18 31 H Rate Blood Pressure 108/66 106/47 108/63 O2 Sat by Pulse 96 96 Oximetry Critical Care Time Critical Care Time: Yes Total Critical Care Time: 30 Disposition Clinical Impression: Anisocoria, Hypercapnic respiratory failure, Obesity, Generalized weakness Disposition: ADMITTED IP TO THIS HOSP Condition: Stable
[2018-11-23] MEDS ORDERED: SODIUM CHLORIDE 0.9% 1,000 ML IV STA (21:10)
[2018-11-23 21:26] LABS: Basophils # (A) 0.1 k/uL (0-0.2); Basophils % (A) 1 %; Eosinophils # (A) 0.2 k/uL (0-0.7); Eosinophils % (A) 3 %; HCT 36.4 % (34.0-46.0); HGB 11.3 gm/dL (11.4-16.0); Lymphocytes # (A) 1.8 k/uL (1.0-4.8); Lymphocytes % (A) 26 %; MCH 29.1 pg (25.0-35.0); MCHC 31.1 g/dL (31.0-37.0); MCV 93.5 fL (80.0-100.0); Monocytes # (A) 0.6 k/uL (0-1.0); Monocytes % (A) 9 %; Neutrophils # (A) 4.1 k/uL (1.3-7.7); Neutrophils % (A) 59 %; Platelet Count 219 k/uL (150-450); RDW 14.2 % (11.5-15.5)
[2018-11-23 21:33] LABS: Potassium 4.1 mmol/L (3.5-5.1); Total Bilirubin 0.8 mg/dL (0.2-1.3); Total Protein 5.8 g/dL (6.3-8.2)
--- NOTE | 2018-11-23 21:35 | CT ---
EXAMINATION TYPE: CT brain wo con DATE OF EXAM: 11/23/2018 COMPARISON: 04/27/2018 HISTORY: Neuro Deficits. CT DLP: 1086.4 mGycm Automated exposure control for dose reduction was used. FINDINGS: There is cerebral cortical atrophy. There is no mass effect nor midline shift. There is no sign of in tracranial hemorrhage. The calvarium is intact. There is mucosal thickening and fluid level in the sp henoid sinus. IMPRESSION: CEREBRAL ATROPHY. NO ACUTE INTRACRANIAL ABNORMALITY. MILD SPHENOID SINUSITIS. NO CHANGE.
[2018-11-23 21:37] LABS: INR 1.9 (<1.2); Prothrombin Time 18.9 sec (9.0-12.0)
--- NOTE | 2018-11-23 21:38 | XR ---
EXAMINATION TYPE: XR chest 2V DATE OF EXAM: 11/23/2018 COMPARISON: 04/29/2018 HISTORY: Altered mental status TECHNIQUE: Frontal and lateral views of the chest are obtained. FINDINGS: Heart is enlarged. There is no gross heart failure. There is left axillary pacemaker. Ther e is right central venous catheter with tip in the superior vena cava. There are chest leads. There i s poor inspiration. IMPRESSION: Inspiration decreased compared to old exam. Cardiomegaly. No gross heart failure. 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
[2018-11-23 23:22] LABS: ABG Base Excess 17.4 mmol/L; ABG Oxygen Saturation 99.5 % (94-97); ABG PCO2 66 mmHg (35-45); ABG PH 7.41 (7.35-7.45); ABG PO2 277 mmHg (83-108); ABG TCO2 44 mmol/L (19-24); Allen Test Performed? Yes
[2018-11-23 23:35] LABS: ABG HCO3 42 mmol/L (21-25)
[2018-11-23] MEDS ORDERED: NALOXONE 0.4 MG/ML 1 ML VIAL IV PRN (23:41)
[2018-11-24 06:22] LABS: Glucose,Whole Blood 122 mg/dL (75-99)
[2018-11-24] MEDS: ACETAMINOPHEN TAB 325 MG TAB PO PRN ×2 (09:19→15:04)
[2018-11-24] MEDS ORDERED: DOCUSATE 100 MG CAP PO PRN (10:19)
[2018-11-24] MEDS ORDERED: ONDANSETRON 4 MG TAB PO PRN (10:19)
[2018-11-24] MEDS ORDERED: NA PHOS,M-B/NA PHOS,DI-BA 133 ML ENEMA RECTAL PRN (10:19)
[2018-11-24] MEDS ORDERED: IPRATROPIUM-ALBUTEROL 3 ML NEB INHALATION PRN (10:19)
[2018-11-24] MEDS ORDERED: ACETAMINOPHEN TAB 325 MG TAB PO PRN (10:19)
[2018-11-24] MEDS ORDERED: BISACODYL 10 MG SUPP RECTAL PRN (10:19)
[2018-11-24] MEDS ORDERED: ALPRAZolam 0.5 MG TAB PO PRN (10:19)
[2018-11-24] MEDS ORDERED: NON FORMULARY DRUG (Cefepime Hcl [Maxipime] 2 GM) IV SCH (10:30)
[2018-11-24] MEDS: CEFEPIME 2 GM in SODIUM CHLORIDE 0.9% 100 ML IVPB SCH ×2 (11:10→23:23)
[2018-11-24 12:11] LABS: Glucose,Whole Blood 111 mg/dL (75-99)
--- NOTE | 2018-11-24 12:50 | P.CNPUL ---
History of Present Illness Consult date: 11/24/18 Chief complaint: Altered mentation History of present illness: This is a 83-year-old here patient with multiple medical problems and comorbidities who was recently at [facility] and after being discharged [place] she got transferred back to us due to concern of acute neurologic impairment.. The patient was found to have some unequal pupil with the right pupil is being slightly larger than the left. No vision changes. No eye pain. No focal neurological deficit. The patient was brought into the emergency department. CAT scan of the brain was done and showed chronic findings with atrophy. No acute abnormalities was noted. The patient seemed to be chronically ill. The right pupil was 4 mm in size responsive and the left pupil was 3 mm in size, responsive. Her breathing was unlabored. A blood gas was done which showed compensated chronic hypercapnic respiratory failure. The patient was placed on BiPAP and subsequently she was taken off the BiPAP. At a time of my evaluation the patient seemed to be alert and oriented. She was communicating. She did not have any cranial nerve deficits. She was moving all 4 extremities. Speech was fluent and clear. I reviewed the records from [facility] and I did the patient has had history of for recurrent urinary tract infection currently and long term resident the patient was brought into the ER at [facility] by the EMS for the patient having a fever apparently the patient was recently diagnosed with UTI at the long term and has been started on antibiotic is not very clear with anybody she was taking patient was noticed to have decreasing level of consciousness and the patient also having difficulty breathing, the patient had denies having any cough or any chest pain no choking on the fourth none of some nausea but no vomiting and some abdominal discomfort which she is unable to quantify further and no diarrhea, patient on presentation to the hospital did have a fever of 101.4F patient also have elevated white count of 19,000 chest x-ray was stable finding with no acute consolidation. She also had bacteremia. Urine culture growing staph aureus. Blood cultures are Pseudomonas. Antibiotics were adjusted by infectious disease to cefepime 2 g IV every [address] Jackson he isrecommending midline or PICC line placement for 1 more week of IV antibiotics. INR is still elevated at 3.49. Coumadin remains on hold. We'll recheck in a.m. to assess is midline can be placed. CT scan of the abdomen showing right hydronephrosis that is unchanged. No evidence of any source of infection. White count has normaliz ed. Patient sitting up in bed. She wants to get out of bed. Physical therapy will be placed on consult. She denies any chest pain or shortness of breath. Denies any nausea or vomiting reports having bowel movements.Note that during her stay at [facility], CAT scan of the abdomen and pelvis was done that showed CARDIOMEGALY. BASILAR MILD ATELECTASIS. RIGHT-SIDED HYDRONEPHROSIS UNCHANGED. SUBCUTANEOUS FLUID CONSISTENT WITH ANASARCA. NO RENAL ATROPHY. The gallbladder has normal size and there is smaller gallbladder on today's exam compared to old exam. Review of Systems Constitutional: Reports fatigue, Reports weakness Eyes: denies as per HPI, denies blurred vision, denies bulging eye, denies decreased vision, denies diplopia Ears: deny: decreased hearing, ear discharge, earache, tinnitus Ears, nose, mouth and throat: Denies headache, Denies sore throat Cardiovascular: Denies chest pain, Denies shortness of breath Respiratory: Reports as per HPI Gastrointestinal: Reports as per HPI Genitourinary: Reports as per HPI Menstruation: Reports as per HPI Musculoskeletal: Reports as per HPI Musculoskeletal: absent: ankle pain, ankle stiffness, ankle swelling Integumentary: Reports as per HPI Neurological: Reports as per HPI Psychiatric: Reports as per HPI Endocrine: Reports as per HPI Hematologic/Lymphatic: Reports as per HPI Allergic/Immunologic: Reports as per HPI Past Medical History Past Medical History: Atrial Fibrillation, Cancer, Diabetes Mellitus, Hypertension, Osteoarthritis (OA) Additional Past Medical History / Comment(s): A-fib ([facility]/HCC). Anxiety. Cardiac pacemaker. CHF (congestive heart failure) (CMS/HCC). COPD (chronic obstructive pulmonary disease) (CMS/HCC). Coronary artery disease. Depression. Diabetes mellitus (CMS/HCC). Generalized weakness. Hypertension. Malignant neoplasm of uterus (CMS/HCC). Osteoarthritis. 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 Sick sinus syndrome ([facility]/HCC) History of Any Multi-Drug Resistant Organisms: None Reported Past Surgical History: Back Surgery, Cardiac Ablation, Hysterectomy, Joint Replacement, Pacemaker Additional Past Surgical History / Comment(s): JIE HIP REPLACEMENTS (2000 & 2005), JIE KNEE REPLACEMENT (1993), LEFT KNEE CAP (1994), PACEMAKER (2001), HYSTERECTOMY (1972), JIE CATARACTS (2004). Past Anesthesia/Blood Transfusion Reactions: Postoperative Nausea & Vomiting (PONV) Type of Cardiac Device: Permanent Pacemaker Device Placement Date:: 2001 Past Psychological History: Anxiety Smoking Status: Former smoker - Past Family History Father Family Medical History: Cancer Additional Family Medical History / Comment(s): PROSTATE CA Son(s) Family Medical History: Cancer Additional Family Medical History / Comment(s): 2 SONS -PROSTATE CA Daughter(s) Family Medical History: Cancer Additional Family Medical History / Comment(s): BREAST CA Medications and Allergies Home Medications Medication Instructions Recorded Confirmed Type Spironolactone [Aldactone] 25 mg PO DAILY 01/04/15 11/24/18 History Metoprolol Tartrate [Lopressor] 50 mg PO DAILY 10/23/17 11/24/18 History Bisacodyl [Dulcolax] 10 mg RECTAL DAILY PRN 11/06/17 11/24/18 History Magnesium Hydroxide [Milk of 7,200 mg PO DAILY PRN 11/06/17 11/24/18 History Magnesia Concentrate] Na Phos,M-B/Na Phos,Di-Ba [Fleet 133 ml RECTAL ONCE PRN 11/06/17 11/24/18 History Adult] Ondansetron HCl [Zofran] 4 mg PO Q6H PRN 11/06/17 11/24/18 History Ipratropium-Albuterol Nebulize 3 ml INHALATION RT-Q2H PRN 11/14/17 11/24/18 Rx [Duoneb 0.5 mg-3 mg/3 ml Soln] ampul.neb Acetaminophen [Tylenol 8 Hour] 650 mg PO Q4H PRN 04/27/18 11/24/18 History Benzocaine/Menthol Lozeng [Cepacol 1 lozenge PO Q8H PRN 04/27/18 11/24/18 History lozenge] Docusate [Colace] 200 mg PO DAILY PRN 04/27/18 11/24/18 History Gabapentin [Neurontin] 100 mg PO TID 04/27/18 11/24/18 History ALPRAZolam [Xanax] 0.5 mg PO BID PRN #6 tab 04/30/18 11/24/18 Rx Hydrocodone/Acetaminophen [[place] 1 tab PO Q8H PRN #9 tablet 04/30/18 11/24/18 Rx 10-325] fentaNYL 50MCG/HR PATCH [Duragesic 50 mcg TRANSDERM Q72H #1 patch 04/30/18 11/24/18 Rx 50MCG/HR] Alum, Mag, Hydroxide-Simeth 20 ml PO Q6H PRN 11/24/18 11/24/18 History Cefepime HCl [Maxipime] 2 gm IV Q12H 11/24/18 11/24/18 History Chlorthalidone 25 mg PO FR 11/24/18 11/24/18 History Furosemide [Lasix] 40 mg PO BID 11/24/18 11/24/18 History Memantine HCl [Namenda] 5 mg PO BID 11/24/18 11/24/18 History PARoxetine [Paxil] 10 mg PO DAILY 11/24/18 11/24/18 History Warfarin [Coumadin] 2.5 mg PO TH 11/24/18 11/24/18 History Warfarin [Coumadin] 5 mg PO SUMOTUWEFRSA 11/24/18 11/24/18 History Allergies Allergy/AdvReac Type Severity Reaction Status Date / Time No Known Allergies Allergy Verified 11/24/18 08:34 Physical Exam Vitals: Vital Signs Temp Pulse Pulse Resp BP BP Pulse Ox 11/24/18 08:00 97.7 F 67 14 112/74 98 11/24/18 04:00 97.5 F L 63 19 101/67 99 11/24/18 00:45 97 F L 63 18 97/63 99 11/23/18 23:50 61 31 H 108/63 96 11/23/18 23:40 64 18 106/47 96 11/23/18 23:20 64 13 108/66 11/23/18 23:10 62 27 H 104/54 98 11/23/18 22:50 61 18 104/51 98 11/23/18 22:40 62 15 101/56 98 11/23/18 22:30 66 14 105/50 97 11/23/18 22:28 88 L 11/23/18 22:20 62 17 95/64 100 11/23/18 22:10 62 23 95/64 100 11/23/18 22:00 64 13 95/64 99 11/23/18 21:55 98 11/23/18 21:54 63 13 92/53 93 L 11/23/18 21:51 85 L 11/23/18 20:47 98.6 F 61 19 92/53 97 Intake and Output 11/23/18 11/24/18 11/24/18 22:59 06:59 14:59 Output Total 450 Balance -450 Output: Urine 450 Other: Voiding Method Diaper Diaper Incontinent Incontinent # Voids 1 Weight 90.718 kg GENERAL: Obese, chronically ill-appearing, awake and alert and she's communicating and answering questions appropriately. No acute distress HENT: Normocephalic, Atraumatic. Head exam was generally normal. There was no scleral icterus or corneal arcus. Mucous membranes were moist.Neck was supple and without jugular venous distension, thyromegaly, or carotid bruits. Carotids were easily palpable bilaterally. There was no adenopathy. EYES: Right pupil approximately 4 mm slowly responsive Left pupil 3 mm responsive There is no nystagmus or clonus or any preferential gaze. The patient is able to move her eyes without any major difficulties. PULMONARY: Unlabored respirations Decreased breath sounds at bilateral bases likely secondary to obesity hypoventilation syndrome CARDIOVASCULAR: There is a regular rate and rhythm without any murmurs gallops or rubs. ABDOMEN: Soft and nontender with normal bowel sounds. SKIN: Skin is clear with no lesions or rashes and otherwise unremarkable. : Deferred NEUROLOGIC: Patient is alert and oriented x3. Cranial nerves II through XII are grossly intact Moving all extremities spontaneously Speech is fluent clear normal in volume NIH 0 MUSCULOSKELETAL: Normal extremities with adequate strength and full range of motion. No lower extremity swelling or edema. No calf tenderness. PSYCHIATRIC: Normal psychiatric evaluation. Results - Laboratory Findings CBC and BMP: 11/23/18 21:02 11/23/18 21:02 ABG ABG pH 7.41 (7.35-7.45) 11/23/18 23:21 ABG pCO2 66 mmHg (35-45) H 11/23/18 23:21 ABG pO2 277 mmHg (83-108) H 11/23/18 23:21 ABG O2 Saturation 99.5 % (94-97) H 11/23/18 23:21 PT/INR, D-dimer PT 18.9 sec (9.0-12.0) H 11/23/18 21:02 INR 1.9 (<1.2) H 11/23/18 21:02 Abnormal lab findings: Abnormal Labs 11/23/18 11/23/18 11/23/18 21:02 21:02 21:02 Hgb 11.3 L PT 18.9 H INR 1.9 H ABG pCO2 ABG pO2 ABG HCO3 ABG Total CO2 ABG O2 Saturation Sodium 136 L Chloride 89 L Carbon Dioxide 41 H* BUN 37 H Glucose 136 H POC Glucose (mg/dL) Alkaline Phosphatase 141 H Total Protein 5.8 L Albumin 3.0 L 11/23/18 11/24/18 23:21 06:20 Hgb PT INR ABG pCO2 66 H ABG pO2 277 H ABG HCO3 42 H* ABG Total CO2 44 H ABG O2 Saturation 99.5 H Sodium Chloride Carbon Dioxide BUN Glucose POC Glucose (mg/dL) 122 H Alkaline Phosphatase Total Protein Albumin - Diagnostic Findings Chest x-ray: image reviewed Assessment and Plan Plan: 1 anisocoria, likely chronic and not related to any acute neurologic event 2 chronic hypercapnic the story failure due to body habitus and probably COPD/CRICKET. The blood gas shows well compensated respiratory failure, chronic and the patient does not need noninvasive positive pressure ventilation at least f or now and she is currently on 4 L per minute nasal cannula. Avoid the use of narcotic medication excess including [place] and fentanyl. Chest x-ray shows no acute abnormalities. 3 recent bacteremia with pseudomonas aeruginosa currently on IV cefepime 4 chronic hydronephrosis 5 chronic atrial fibrillation 6 congestion heart failure, likely systolic 7 history of cardiac pacemaker insertion 8 coronary artery disease 9 hypertension 10 diabetes mellitus 11 malignant neoplasm of the uterus 12 sick sinus syndrome 13 depression 14 osteoarthritis 15 long term residen 16 dementia Plan Discontinue the BiPAP and put the patient 40s about 2 by nasal cannula. Restart and completed the course of IV cefepime. Avoid narcotic medications which can potentially cause hypoventilation for this patient. Blood gases was reviewed. The patient seems to be well compensated for now. May benefit from neurology evaluation regarding the unequal pupils. I think this is probably chronic.
--- NOTE | 2018-11-24 14:09 | P.HPIM ---
History of Present Illness H&P Date: 11/24/18 Nikki Lea is an 83-year-old female patient of Dr. Hills was recently admitted to [facility] and was discharged to [facility], patient was noticed to have an equal pupils at the care home with the right pupil larger than the left patient denied any symptoms there was no visual change she was sent to [facility] for evaluation computed tomography scan of the brain was done and revealed chronic atrophy without any acute findings however her blood gases revealed evidence of hypercapnia she was started on BiPAP and was admitted to telemetry floor pulmonary and neurology consultation were requested. Past Medical History Past Medical History: Atrial Fibrillation, Cancer, Diabetes Mellitus, Hypertension, Osteoarthritis (OA) Additional Past Medical History / Comment(s): A-fib ([facility]). Anxiety. Cardiac pacemaker. CHF (congestive heart failure) (CMS/HCC). COPD (chronic obstructive pulmonary disease) ([facility]/HCC). Coronary artery disease. Depression. Diabetes mellitus (CMS/HCC). Generalized weakness. Hypertension. Malignant neoplasm of uterus (CMS/HCC). Osteoarthritis. 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 Sick sinus syndrome ([facility]/HCC) History of Any Multi-Drug Resistant Organisms: None Reported Past Surgical History: Back Surgery, Cardiac Ablation, Hysterectomy, Joint Replacement, Pacemaker Additional Past Surgical History / Comment(s): JIE HIP REPLACEMENTS (2000 & 2005), JIE KNEE REPLACEMENT (1993), LEFT KNEE CAP (1994), PACEMAKER (2001), HYSTERECTOMY (1972), JIE CATARACTS (2004). Past Anesthesia/Blood Transfusion Reactions: Postoperative Nausea & Vomiting (PONV) Type of Cardiac Device: Permanent Pacemaker Device Placement Date:: 2001 Past Psychological History: Anxiety Smoking Status: Former smoker - Past Family History Father Family Medical History: Cancer Additional Family Medical History / Comment(s): PROSTATE CA Son(s) Family Medical History: Cancer Additional Family Medical History / Comment(s): 2 SONS -PROSTATE CA Daughter(s) Family Medical History: Cancer Additional Family Medical History / Comment(s): BREAST CA Medications and Allergies Home Medications Medication Instructions Recorded Confirmed Type Spironolactone [Aldactone] 25 mg PO DAILY 01/04/15 11/24/18 History Metoprolol Tartrate [Lopressor] 50 mg PO DAILY 10/23/17 11/24/18 History Bisacodyl [Dulcolax] 10 mg RECTAL DAILY PRN 11/06/17 11/24/18 History Magnesium Hydroxide [Milk of 7,200 mg PO DAILY PRN 11/06/17 11/24/18 History Magnesia Concentrate] Na Phos,M-B/Na Phos,Di-Ba [Fleet 133 ml RECTAL ONCE PRN 11/06/17 11/24/18 History Adult] Ondansetron HCl [Zofran] 4 mg PO Q6H PRN 11/06/17 11/24/18 History Ipratropium-Albuterol Nebulize 3 ml INHALATION RT-Q2H PRN 11/14/17 11/24/18 Rx [Duoneb 0.5 mg-3 mg/3 ml Soln] ampul.neb Acetaminophen [Tylenol 8 Hour] 650 mg PO Q4H PRN 04/27/18 11/24/18 History Benzocaine/Menthol Lozeng [Cepacol 1 lozenge PO Q8H PRN 04/27/18 11/24/18 History lozenge] Docusate [Colace] 200 mg PO DAILY PRN 04/27/18 11/24/18 History Gabapentin [Neurontin] 100 mg PO TID 04/27/18 11/24/18 History ALPRAZolam [Xanax] 0.5 mg PO BID PRN #6 tab 04/30/18 11/24/18 Rx Hydrocodone/Acetaminophen [Tar Heel 1 tab PO Q8H PRN #9 tablet 04/30/18 11/24/18 Rx 10-325] fentaNYL 50MCG/HR PATCH [Duragesic 50 mcg TRANSDERM Q72H #1 patch 04/30/18 11/24/18 Rx 50MCG/HR] Alum, Mag, Hydroxide-Simeth 20 ml PO Q6H PRN 11/24/18 11/24/18 History Cefepime HCl [Maxipime] 2 gm IV Q12H 11/24/18 11/24/18 History Chlorthalidone 25 mg PO FR 11/24/18 11/24/18 History Furosemide [Lasix] 40 mg PO BID 11/24/18 11/24/18 History Memantine HCl [Namenda] 5 mg PO BID 11/24/18 11/24/18 History PARoxetine [Paxil] 10 mg PO DAILY 11/24/18 11/24/18 History Warfarin [Coumadin] 2.5 mg PO TH 11/24/18 11/24/18 History Warfarin [Coumadin] 5 mg PO SUMOTUWEFRSA 11/24/18 11/24/18 History Allergies Allergy/AdvReac Type Severity Reaction Status Date / Time No Known Allergies Allergy Verified 11/24/18 08:34 Physical Exam Vitals: Vital Signs Temp Pulse Pulse Resp BP BP Pulse Ox 11/24/18 11:00 98.5 F 63 18 121/59 94 L 11/24/18 08:00 97.7 F 67 14 112/74 98 11/24/18 04:00 97.5 F L 63 19 101/67 99 11/24/18 00:45 97 F L 63 18 97/63 99 11/23/18 23:50 61 31 H 108/63 96 11/23/18 23:40 64 18 106/47 96 11/23/18 23:20 64 13 108/66 11/23/18 23:10 62 27 H 104/54 98 11/23/18 22:50 61 18 104/51 98 11/23/18 22:40 62 15 101/56 98 11/23/18 22:30 66 14 105/50 97 11/23/18 22:28 88 L 11/23/18 22:20 62 17 95/64 100 11/23/18 22:10 62 23 95/64 100 11/23/18 22:00 64 13 95/64 99 11/23/18 21:55 98 11/23/18 21:54 63 13 92/53 93 L 11/23/18 21:51 85 L 11/23/18 20:47 98.6 F 61 19 92/53 97 Intake and Output 11/23/18 11/24/18 11/24/18 22:59 06:59 14:59 Output Total 450 Balance -450 Output: Urine 450 Other: Voiding Method Diaper Diaper Incontinent Incontinent # Voids 1 Weight 90.718 kg In general patient is alert and oriented 3 in no apparent distress HEENT head normocephalic and atraumatic pupils are not equal with the right pupil slightly larger than the left Doppler is at the bedside and stating that the differential between the 2 pupils was even more obvious yesterday Neck is supple no JVD no goiter no lymphadenopathy no carotid bruit Chest exam reveals a few scattered rhonchi no crackles no wheezing Cardiac exam reveals regular heart sounds S1 and S2 no gallops no murmurs Abdomen is soft nontender no organomegaly with normal bowel sounds Extremity exam reveals no edema no cyanosis or clubbing Results CBC & Chem 7: 11/23/18 21:02 11/23/18 21:02 Labs: Abnormal Lab Results - Last 24 Hours (Table) 11/23/18 11/23/18 11/23/18 Range/Units 21:02 21:02 21:02 Hgb 11.3 L (11.4-16.0) gm/dL PT 18.9 H (9.0-12.0) sec INR 1.9 H (<1.2) ABG pCO2 (35-45) mmHg ABG pO2 (83-108) mmHg ABG HCO3 (21-25) mmol/L ABG Total CO2 (19-24) mmol/L ABG O2 Saturation (94-97) % Sodium 136 L (137-145) mmol/L Chloride 89 L (98-107) mmol/L Carbon Dioxide 41 H* (22-30) mmol/L BUN 37 H (7-17) mg/dL Glucose 136 H (74-99) mg/dL POC Glucose (mg/dL) (75-99) mg/dL Alkaline Phosphatase 141 H (38-126) U/L Total Protein 5.8 L (6.3-8.2) g/dL Albumin 3.0 L (3.5-5.0) g/dL 11/23/18 11/24/18 11/24/18 Range/Units 23:21 06:20 12:02 Hgb (11.4-16.0) gm/dL PT (9.0-12.0) sec INR (<1.2) ABG pCO2 66 H (35-45) mmHg ABG pO2 277 H (83-108) mmHg ABG HCO3 42 H* (21-25) mmol/L ABG Total CO2 44 H (19-24) mmol/L ABG O2 Saturation 99.5 H (94-97) % Sodium (137-145) mmol/L Chloride (98-107) mmol/L Carbon Dioxide (22-30) mmol/L BUN (7-17) mg/dL Glucose (74-99) mg/dL POC Glucose (mg/dL) 122 H 111 H (75-99) mg/dL Alkaline Phosphatase (38-126) U/L Total Protein (6.3-8.2) g/dL Albumin (3.5-5.0) g/dL Thrombosis Risk Factor Assmnt - Choose All That Apply Any of the Below Risk Factors Present?: Yes Each Factor Represents 1 point: Obesity (BMI >25) Other Risk Factors: Yes Each Risk Factor Represents 2 Points: Patient confined to bed Each Risk Factor Represents 3 Points: Age 75 years or older Other congenital or acquired thrombophilia - If yes, enter type in comment: No Thrombosis Risk Factor Assessment Total Risk Factor Score: 6 Thrombosis Risk Factor Assessment Level: High Risk Assessment and Plan Plan: #1 anisocoria, it's not clear whether this is acute or chronic, computed tomography scan is not revealing any significant findings, neurology consultation was requested to assess if any further evaluation with MRI is necessary #2 chronic hypercapnic respiratory failure with significantly elevated CO2 on presentation patient was maintained on BiPAP and improved significantly she is back on nasal cannula at this time #3 recent admission for sepsis with bacteremia with pseudomonas aeruginosa continue course of IV cefepime #4 underlying history of congestive heart failure chronic, no evidence of acute exacerbation #5 underlying history of cardiac arrhythmia with history of pacemaker placement due to sick sinus syndrome #6 underlying history of hypertension well-controlled on medications #7 previous history of uterus cancer #8 underlying history of depression #9 underlying history of dementia #10 underlying history of osteoarthritis #11 underlying history of diabetes mellitus At this time patient is stable continue oxygen supplement via nasal cannula continue IV antibiotics awaiting neurology opinion whether further investigation is warranted at this time
[2018-11-24] MEDS: GABAPENTIN 100 MG CAP PO SCH ×2 (15:04→20:49)
[2018-11-24] MEDS: FUROSEMIDE 40 MG TAB PO SCH (15:04)
[2018-11-24 17:08] LABS: Glucose,Whole Blood 118 mg/dL (75-99)
[2018-11-24] MEDS: WARFARIN 5 MG TAB PO SCH (17:34)
[2018-11-24 20:22] LABS: Glucose,Whole Blood 148 mg/dL (75-99)
[2018-11-24] MEDS: IBUPROFEN 400 MG TAB PO PRN (20:48)
[2018-11-24] MEDS: MEMANTINE 5 MG TAB PO SCH (20:49)
[2018-11-25] MEDS: IBUPROFEN 400 MG TAB PO PRN (03:44)
[2018-11-25 06:33] LABS: Glucose,Whole Blood 122 mg/dL (75-99)
[2018-11-25 07:17] LABS: Basophils # (A) 0.1 k/uL (0-0.2); Basophils % (A) 1 %; Eosinophils # (A) 0.2 k/uL (0-0.7); Eosinophils % (A) 3 %; HCT 34.4 % (34.0-46.0); Lymphocytes # (A) 1.8 k/uL (1.0-4.8); Lymphocytes % (A) 30 %; MCH 30.3 pg (25.0-35.0); MCHC 32.1 g/dL (31.0-37.0); MCV 94.4 fL (80.0-100.0); Mean Platelet Volume 7.5; Monocytes # (A) 0.5 k/uL (0-1.0); Monocytes % (A) 9 %; Neutrophils # (A) 3.3 k/uL (1.3-7.7); Neutrophils % (A) 55 %; Platelet Count 204 k/uL (150-450); RBC 3.64 m/uL (3.80-5.40)
[2018-11-25 07:23] LABS: Albumin 2.8 g/dL (3.5-5.0); Calcium 8.7 mg/dL (8.4-10.2); Potassium 4.5 mmol/L (3.5-5.1); Total Bilirubin 1.1 mg/dL (0.2-1.3); Total Protein 5.6 g/dL (6.3-8.2)
[2018-11-25 07:27] LABS: INR 2.1 (<1.2); Prothrombin Time 20.8 sec (9.0-12.0)
[2018-11-25] MEDS ORDERED: SPIRONOLACTONE 25 MG TAB PO SCH (09:00)
[2018-11-25] MEDS: METOPROLOL TARTRATE 50 MG TAB PO SCH (09:18)
[2018-11-25] MEDS: ACETAMINOPHEN TAB 325 MG TAB PO PRN ×2 (09:18→21:15)
[2018-11-25] MEDS: GABAPENTIN 100 MG CAP PO SCH ×3 (09:18→21:12)
[2018-11-25] MEDS: FUROSEMIDE 40 MG TAB PO SCH ×2 (09:18→17:15)
[2018-11-25] MEDS: PARoxetine 10 MG TAB PO SCH (09:19)
[2018-11-25] MEDS: MEMANTINE 5 MG TAB PO SCH ×2 (09:21→21:12)
--- NOTE | 2018-11-25 10:00 | P.PN ---
Subjective Progress Note Date: 11/25/18 Nikki Lea is an 83-year-old female patient of Dr. Hills was recently admitted to [facility] and was discharged to [facility], patient was noticed to have an equal pupils at the [facility] with the right pupil larger than the left patient denied any symptoms there was no visual change she was sent to [facility] for evaluation computed tomography scan of the brain was done and revealed chronic atrophy without any acute findings however her blood gases revealed evidence of hypercapnia she was started on BiPAP and was admitted to telemetry floor pulmonary and neurology consultation were requested. On 11/25/2018 patient is alert and following commands. Patient is eager to go home. Awaiting neurology consults. Patient remains on 3 L nasal cannula. At this time patient denies chest pain or shortness of breath. Patient denies nausea vomiting or diarrhea. Denies any urinary burning or frequency. Objective - Vital Signs Vital signs: Vital Signs Temp 97.0 F L 11/25/18 09:00 Pulse 66 11/25/18 09:00 Resp 18 11/25/18 09:00 BP 101/66 11/25/18 09:00 Pulse Ox 96 11/25/18 09:00 Intake & Output 11/24/18 11/25/18 11/25/18 18:59 06:59 18:59 Intake Total 600 420 100 Output Total 450 280 520 Balance 150 140 -420 Weight 135.5 kg Intake: Intake, IV Titration 100 Amount Cefepime 2 gm In Sodium 100 Chloride 0.9% 100 ml @ 200 mls/hr IVPB Q12H [facility] Rx#:[id number] Oral 600 320 100 Output: Urine 450 280 520 Other: Voiding Method Diaper Diaper Incontinent Incontinent # Voids 1 - Exam In general patient is alert and oriented 3 in no apparent distress HEENT head normocephalic and atraumatic pupils are not equal with the right pupil slightly larger than the left Doppler is at the bedside and stating that the differential between the 2 pupils was even more obvious yesterday Neck is supple no JVD no goiter no lymphadenopathy no carotid bruit Chest exam reveals a few scattered rhonchi no crackles no wheezing Cardiac exam reveals regular heart sounds S1 and S2 no gallops no murmurs Abdomen is soft nontender no organomegaly with normal bowel sounds Extremity exam reveals no edema no cyanosis or clubbing - Labs CBC & Chem 7: 11/25/18 06:29 11/25/18 06:29 Labs: Abnormal Lab Results - Last 24 Hours (Table) 11/24/18 11/24/18 11/24/18 Range/Units 12:02 17:00 20:21 RBC (3.80-5.40) m/uL Hgb (11.4-16.0) gm/dL PT (9.0-12.0) sec INR (<1.2) Chloride (98-107) mmol/L Carbon Dioxide (22-30) mmol/L BUN (7-17) mg/dL POC Glucose (mg/dL) 111 H 118 H 148 H (75-99) mg/dL Total Protein (6.3-8.2) g/dL Albumin (3.5-5.0) g/dL 11/25/18 11/25/18 11/25/18 Range/Units 06:29 06:29 06:29 RBC 3.64 L (3.80-5.40) m/uL Hgb 11.0 L (11.4-16.0) gm/dL PT 20.8 H (9.0-12.0) sec INR 2.1 H (<1.2) Chloride 92 L (98-107) mmol/L Carbon Dioxide 38 H (22-30) mmol/L BUN 38 H (7-17) mg/dL POC Glucose (mg/dL) (75-99) mg/dL Total Protein 5.6 L (6.3-8.2) g/dL Albumin 2.8 L (3.5-5.0) g/dL 11/25/18 Range/Units 06:32 RBC (3.80-5.40) m/uL Hgb (11.4-16.0) gm/dL PT (9.0-12.0) sec INR (<1.2) Chloride (98-107) mmol/L Carbon Dioxide (22-30) mmol/L BUN (7-17) mg/dL POC Glucose (mg/dL) 122 H (75-99) mg/dL Total Protein (6.3-8.2) g/dL Albumin (3.5-5.0) g/dL Assessment and Plan Assessment: #1 anisocoria, it's not clear whether this is acute or chronic, computed tomography scan is not revealing any significant findings, neurology consultation was requested to assess if any further evaluation with MRI is necessary. Per pulmonary chest x-ray shows no acute abnormalities advised to avoid narcotic medication of time #2 chronic hypercapnic respiratory failure with significantly elevated CO2 on presentation patient was maintained on BiPAP and improved significantly she is back on nasal cannula at this time #3 recent admission for sepsis with bacteremia with pseudomonas aeruginosa continue course of IV cefepime #4 underlying history of congestive heart failure chronic, no evidence of acute exacerbation #5 underlying history of cardiac arrhythmia with history of pacemaker placement due to sick sinus syndrome #6 underlying history of hypertension well-controlled on medications #7 previous history of uterus cancer #8 underlying history of depression #9 underlying history of dementia #10 underlying history of osteoarthritis #11 underlying history of diabetes mellitus DVT prophylaxis Coumadin. GI prophylaxis Pepcid At this time patient is stable continue oxygen supplement via nasal cannula continue IV antibiotics awaiting neurology opinion whether further investigation is warranted at this time I performed an examination of the patient and discussed their management with the Nurse Practitioner. I have reviewed the Nurse Practitioner's notes and agree with the documented findings and plan of care
[2018-11-25 12:15] LABS: Glucose,Whole Blood 102 mg/dL (75-99)
[2018-11-25] MEDS: CEFEPIME 2 GM in SODIUM CHLORIDE 0.9% 100 ML IVPB SCH ×2 (13:14→23:42)
--- NOTE | 2018-11-25 13:52 | P.PN ---
Subjective Progress Note Date: 11/25/18 Principal diagnosis: Anisocoria, likely chronic, chronic hypercapnic respiratory failure secondary to COPD/objective sleep apnea This is a 83-year-old here patient with multiple medical problems and comorbidities who was recently at [facility] and after being disc harged [place] she got transferred back to us due to concern of acute neurologic impairment.. The patient was found to have some unequal pupil with the right pupil is being slightly larger than the left. No vision changes. No eye pain. No focal neurological deficit. The patient was brought into the emergency department. CAT scan of the brain was done and showed chronic findings with atrophy. No acute abnormalities was noted. The patient seemed to be chronically ill. The right pupil was 4 mm in size responsive and the left pupil was 3 mm in size, responsive. Her breathing was unlabored. A blood gas was done which showed compensated chronic hypercapnic respiratory failure. The patient was placed on BiPAP and subsequently she was taken off the BiPAP. At a time of my evaluation the patient seemed to be alert and oriented. She was communicating. She did not have any cranial nerve deficits. She was moving all 4 extremities. Speech was fluent and clear. I reviewed the records from [facility] and I did the patient has had history of for recurrent urinary tract infection currently and retirement resident the patient was brought into the ER at [facility] by the EMS for the patient having a fever apparently the patient was recently diagnosed with UTI at the retirement and has been started on antibiotic is not very clear with anybody she was taking patient was noticed to have decreasing level of consciousness and the patient also having difficulty breathing, the patient had denies having any cough or any chest pain no choking on the fourth none of some nausea but no vomiting and some abdominal discomfort which she is unable to quantify further and no diarrhea, patient on presentation to the hospital did have a fever of 101.4F patient also have elevated white count of 19,000 chest x-ray was stable finding with no acute consolidation. She also had bacteremia. Urine culture growing staph aureus. Blood cultures are Pseudomonas. Antibiotics were adjusted by infectious disease to cefepime 2 g IV every [address] Jackson he isrecommending midline or PICC line placement for 1 more week of IV antibiotics. INR is still elevated at 3.49. Coumadin remains on hold. We'll recheck in a.m. to assess is midline can be placed. CT scan of the abdomen showing right hydronephrosis that is unchanged. No evidence of any source of infection. White count has normalized. Patient sitting up in bed. She wants to get out of bed. Physical therapy will be placed on consult. She denies any chest pain or shortness of breath. Denies any nausea or vomiting reports having bowel movements.Note that during her stay at [facility], CAT scan of the abdomen and pelvis was done that showed CARDIOMEGALY. BASILAR MILD ATELECTASIS. RIGHT-SIDED HYDRONEPHROSIS UNCHANGED. SUBCUTANEOUS FLUID CONSISTENT WITH ANASARCA. NO RENAL ATROPHY. The gallbladder has normal size and there is smaller gallbladder on today's exam compared to old exam. On 11/25/2018 patient seen in follow-up on selective care unit. Awake and alert, in no acute distress, denies any shortness of breath, currently on 3 L of oxygen with a pulse ox of 96%, afebrile, hemodynamically stable. No lethargy, no altered mentation, her only complaint today is decreased hearing out of the right ear, and she states she had received some eardrops for increased cerumen in the right ear at the retirement, no ear pain. did not require BiPAP support last night. todays labs showed no evidence of leukocytosis, renal profile is unremarkable, electrolytes are unremarkable, INR is 2.1. she remains on empiric antibiotics in the form of cefepime. lung sounds reveal some limited basilar rales, no wheezing or rhonchi. Denies any chest pain, denies any cough or congestion.no nausea, vomiting or diarrhea Objective - Vital Signs Vital signs: Vital Signs Temp 98.1 F 11/25/18 12:00 Pulse 66 11/25/18 12:00 Resp 18 11/25/18 12:00 BP 109/69 11/25/18 12:00 Pulse Ox 96 11/25/18 12:00 Intake & Output 11/24/18 11/25/18 11/25/18 18:59 06:59 18:59 Intake Total 600 420 100 Output Total 450 280 520 Balance 150 140 -420 Weight 135.5 kg Intake: Intake, IV Titration 100 Amount Cefepime 2 gm In Sodium 100 Chloride 0.9% 100 ml @ 200 mls/hr IVPB Q12H [facility] Rx#:[id number] Oral 600 320 100 Output: Urine 450 280 520 Other: Voiding Method Diaper Diaper Diaper Incontinent Incontinent Incontinent # Voids 1 - Exam GENERAL EXAM: Alert, pleasant, 83-year-old white female, on 3 L of oxygen with a pulse ox of 96%, comfortable in no apparent distress. HEAD: Normocephalic/atraumatic. EYES: Normal reaction of pupils, equal size. Conjunctiva pink, sclera white. NOSE: Clear with pink turbinates. THROAT: No erythema or exudates. NECK: No masses, no JVD, no thyroid enlargement, no adenopathy. CHEST: No chest wall deformity. Symmetrical expansion. LUNGS: Equal air entry with basilar crackles, wheeze, rhonchi or dullness. CVS: Regular rate and rhythm, normal S1 and S2, no gallops, no murmurs, no rubs ABDOMEN: Soft, nontender. No hepatosplenomegaly, normal bowel sounds, no guarding or rigidity. EXTREMITIES: No clubbing, no edema, no cyanosis, 2+ pulses and upper and lower extremities. MUSCULOSKELETAL: Muscle strength and tone normal. SPINE: No scoliosis or deformity SKIN: No rashes CENTRAL NERVOUS SYSTEM: Alert and oriented -3. No focal deficits, tone is normal in all 4 extremities. PSYCHIATRIC: Alert and oriented -3. Appropriate affect. Intact judgment and insight. - Labs CBC & Chem 7: 11/25/18 06:29 11/25/18 06:29 Labs: Abnormal Lab Results - Last 24 Hours (Table) 11/24/18 11/24/18 11/25/18 Range/Units 17:00 20:21 06:29 RBC 3.64 L (3.80-5.40) m/uL Hgb 11.0 L (11.4-16.0) gm/dL PT (9.0-12.0) sec INR (<1.2) Chloride (98-107) mmol/L Carbon Dioxide (22-30) mmol/L BUN (7-17) mg/dL POC Glucose (mg/dL) 118 H 148 H (75-99) mg/dL Total Protein (6.3-8.2) g/dL Albumin (3.5-5.0) g/dL 11/25/18 11/25/18 11/25/18 Range/Units 06:29 06:29 06:32 RBC (3.80-5.40) m/uL Hgb (11.4-16.0) gm/dL PT 20.8 H (9.0-12.0) sec INR 2.1 H (<1.2) Chloride 92 L (98-107) mmol/L Carbon Dioxide 38 H (22-30) mmol/L BUN 38 H (7-17) mg/dL POC Glucose (mg/dL) 122 H (75-99) mg/dL Total Protein 5.6 L (6.3-8.2) g/dL Albumin 2.8 L (3.5-5.0) g/dL 11/25/18 Range/Units 12:12 RBC (3.80-5.40) m/uL Hgb (11.4-16.0) gm/dL PT (9.0-12.0) sec INR (<1.2) Chloride (98-107) mmol/L Carbon Dioxide (22-30) mmol/L BUN (7-17) mg/dL POC Glucose (mg/dL) 102 H (75-99) mg/dL Total Protein (6.3-8.2) g/dL Albumin (3.5-5.0) g/dL Assessment and Plan Plan: 1 anisocoria, likely chronic and not related to any acute neurologic event 2 chronic hypercapnic the story failure due to body habitus and probably COPD/CRICKET. The blood gas shows well compensated respiratory failure, chronic and the patient does not need noninvasive positive pressure ventilation at least for now and she is currently on 4 L per minute nasal cannula. Avoid the use of narcotic medication excess including [place] and fentanyl. Chest x-ray shows no acute abnormalities. 3 recent bacteremia with pseudomonas aeruginosa currently on IV cefepime 4 chronic hydronephrosis 5 chronic atrial fibrillation 6 congestion heart failure, likely systolic 7 history of cardiac pacemaker insertion 8 coronary artery disease 9 hypertension 10 diabetes mellitus 11 malignant neoplasm of the uterus 12 sick sinus syndrome 13 depression 14 osteoarthritis 15 retirement residen 16 dementia Plan: Clinically patient is stable, vital signs are stable, she is awake and alert, no signs of neurologic deficits. Did not require BiPAP support last night, weaning FiO2, avoid sedatives and narcotics, no leukocytosis, no fevers. patient continues on cefepime for a recent history of urinary tract infection and bacteremia. Complete the course as previously recommended by ID service. Clinically patient is stable, increase activity as tolerated. Maintaining safety precautions. I performed a history & physical examination of the patient and discussed their management with my nurse practitioner, Dory Herndon. I reviewed the nurse practitioner's note and agree with the documented findings and plan of care. Lung sounds are positive for basilar rales. The findings and the impression was discussed with the patient. I attest to the documentation by the nurse practitioner. Time with Patient: Less than 30
[2018-11-25 17:03] LABS: Glucose,Whole Blood 123 mg/dL (75-99)
[2018-11-25] MEDS: WARFARIN 5 MG TAB PO SCH (17:15)
[2018-11-25 20:39] LABS: Glucose,Whole Blood 135 mg/dL (75-99)
[2018-11-26 06:12] LABS: Basophils # (A) 0.1 k/uL (0-0.2); Basophils % (A) 1 %; Eosinophils # (A) 0.2 k/uL (0-0.7); Eosinophils % (A) 3 %; HCT 35.6 % (34.0-46.0); HGB 10.8 gm/dL (11.4-16.0); Lymphocytes # (A) 1.7 k/uL (1.0-4.8); Lymphocytes % (A) 28 %; MCH 28.3 pg (25.0-35.0); MCHC 30.5 g/dL (31.0-37.0); Mean Platelet Volume 7.3; Monocytes # (A) 0.6 k/uL (0-1.0); Monocytes % (A) 9 %; Neutrophils # (A) 3.4 k/uL (1.3-7.7); Neutrophils % (A) 55 %; Platelet Count 190 k/uL (150-450); RBC 3.83 m/uL (3.80-5.40); RDW 14.1 % (11.5-15.5); WBC 6.1 k/uL (3.8-10.6)
[2018-11-26 06:16] LABS: INR 2.3 (<1.2); Prothrombin Time 22.6 sec (9.0-12.0)
[2018-11-26 06:24] LABS: Glucose,Whole Blood 102 mg/dL (75-99)
[2018-11-26 06:53] VITALS: RESP 16
[2018-11-26 06:59] LABS: Albumin 3.1 g/dL (3.5-5.0); Calcium 8.8 mg/dL (8.4-10.2); Potassium 4.5 mmol/L (3.5-5.1); Total Bilirubin 0.9 mg/dL (0.2-1.3); Total Protein 6.2 g/dL (6.3-8.2)
[2018-11-26] MEDS: MEMANTINE 5 MG TAB PO SCH (08:45)
[2018-11-26] MEDS: METOPROLOL TARTRATE 50 MG TAB PO SCH (08:45)
[2018-11-26] MEDS: FUROSEMIDE 40 MG TAB PO SCH ×2 (08:45→15:29)
[2018-11-26] MEDS: PARoxetine 10 MG TAB PO SCH (08:46)
[2018-11-26] MEDS: GABAPENTIN 100 MG CAP PO SCH ×2 (08:46→15:29)
[2018-11-26] MEDS ORDERED: FAMOTIDINE 20 MG TAB PO SCH (09:00)
--- NOTE | 2018-11-26 10:06 | P.PN ---
Subjective Progress Note Date: 11/26/18 Nikki Lea is an 83-year-old female patient of Dr. Hills was recently admitted to [facility] and was discharged to [facility], patient was noticed to have an equal pupils at the skilled nursing with the right pupil larger than the left patient denied any symptoms there was no visual change she was sent to [facility] for evaluation computed tomography scan of the brain was done and revealed chronic atrophy without any acute findings however her blood gases revealed evidence of hypercapnia she was started on BiPAP and was admitted to telemetry floor pulmonary and neurology consultation were requested. On 11/25/2018 patient is alert and following commands. Patient is eager to go home. Awaiting neurology consults. Patient remains on 3 L nasal cannula. At this time patient denies chest pain or shortness of breath. Patient denies nausea vomiting or diarrhea. Denies any urinary burning or frequency. On 11/26/2018 patient's alert and following commands. Neurology consult has been placed. Awaiting input. This time patient denies chest pain or shortness of breath. Patient denies nausea vomiting or diarrhea. Patient denies any urinary burning or frequency Objective - Vital Signs Vital signs: Vital Signs Temp 97.4 F L 11/26/18 08:00 Pulse 67 11/26/18 08:00 Resp 16 11/26/18 08:00 BP 112/58 11/26/18 08:00 Pulse Ox 97 11/26/18 08:00 Intake & Output 11/25/18 11/26/18 11/26/18 18:59 06:59 18:59 Intake Total 1000 900 Output Total 520 370 800 Balance 480 -370 100 Weight 137.5 kg Intake: Intake, IV Titration 100 100 Amount Cefepime 2 gm In Sodium 100 100 Chloride 0.9% 100 ml @ 200 mls/hr IVPB Q12H [facility] Rx#:[id number] Oral 900 800 Output: Urine 520 370 800 Other: Voiding Method Diaper Diaper Diaper Incontinent Incontinent Incontinent # Voids 1 - Exam In general patient is alert and oriented 3 in no apparent distress HEENT head normocephalic and atraumatic pupils are not equal with the right pupil slightly larger than the left Doppler is at the bedside and stating that the differential between the 2 pupils was even more obvious yesterday Neck is supple no JVD no goiter no lymphadenopathy no carotid bruit Chest exam reveals a few scattered rhonchi no crackles no wheezing Cardiac exam reveals regular heart sounds S1 and S2 no gallops no murmurs Abdomen is soft nontender no organomegaly with normal bowel sounds Extremity exam reveals no edema no cyanosis or clubbing - Labs CBC & Chem 7: 11/26/18 05:42 11/26/18 05:42 Labs: Abnormal Lab Results - Last 24 Hours (Table) 11/25/18 11/25/18 11/25/18 Range/Units 12:12 16:49 20:38 Hgb (11.4-16.0) gm/dL MCHC (31.0-37.0) g/dL PT (9.0-12.0) sec INR (<1.2) Chloride (98-107) mmol/L Carbon Dioxide (22-30) mmol/L BUN (7-17) mg/dL Creatinine (0.52-1.04) mg/dL POC Glucose (mg/dL) 102 H 123 H 135 H (75-99) mg/dL Total Protein (6.3-8.2) g/dL Albumin (3.5-5.0) g/dL 11/26/18 11/26/18 11/26/18 Range/Units 05:42 05:42 05:42 Hgb 10.8 L (11.4-16.0) gm/dL MCHC 30.5 L (31.0-37.0) g/dL PT 22.6 H (9.0-12.0) sec INR 2.3 H (<1.2) Chloride 92 L (98-107) mmol/L Carbon Dioxide 39 H (22-30) mmol/L BUN 46 H (7-17) mg/dL Creatinine 1.37 H (0.52-1.04) mg/dL POC Glucose (mg/dL) (75-99) mg/dL Total Protein 6.2 L (6.3-8.2) g/dL Albumin 3.1 L (3.5-5.0) g/dL 11/26/18 Range/Units 06:24 Hgb (11.4-16.0) gm/dL MCHC (31.0-37.0) g/dL PT (9.0-12.0) sec INR (<1.2) Chloride (98-107) mmol/L Carbon Dioxide (22-30) mmol/L BUN (7-17) mg/dL Creatinine (0.52-1.04) mg/dL POC Glucose (mg/dL) 102 H (75-99) mg/dL Total Protein (6.3-8.2) g/dL Albumin (3.5-5.0) g/dL Assessment and Plan Assessment: #1 anisocoria, it's not clear whether this is acute or chronic, computed tomography scan is not revealing any significant findings, neurology consultation was requested to assess if any further evaluation with MRI is necessary. Per pulmonary chest x-ray shows no acute abnormalities advised to avoid narcotic medication of time #2 chronic hypercapnic respiratory failure with significantly elevated CO2 on presentation patient was maintained on BiPAP and improved significantly she is back on nasal cannula at this time #3 recent admission for sepsis with bacteremia with pseudomonas aeruginosa continue course of IV cefepime #4 underlying history of congestive heart failure chronic, no evidence of acute exacerbation #5 underlying history of cardiac arrhythmia with history of pacemaker placement due to sick sinus syndrome #6 underlying history of hypertension well-controlled on medications #7 previous history of uterus cancer #8 underlying history of depression #9 underlying history of dementia #10 underlying history of osteoarthritis #11 underlying history of diabetes mellitus #12. Acute kidney injury. Creatinine elevated 1.37 and bun 46. Aldactone currently on hold DVT prophylaxis Coumadin. GI prophylaxis Pepcid At this time patient is stable continue oxygen supplement via nasal cannula continue IV antibiotics awaiting neurology opinion whether further investigation is warranted at this time I performed an examination of the patient and discussed their management with the Nurse Practitioner. I have reviewed the Nurse Practitioner's notes and agree with the documented findings and plan of care
--- NOTE | 2018-11-26 11:21 | P.CNNES ---
History of Present Illness Consult date: 11/26/18 Requesting physician: Jenae Stephen Reason for Consult: Anisocoria Chief complaint: Unequal pupil size History of Present Illness: This is an 83 RH female who was noted to have anisocoria R>L for which she was admitted for work-up. She was started on BiPAP due to hypercapnia on ABG with pulmonary involvement. She has no neurological or visual c/o. Uses glasses for reading and distance. Thinks she can see better out of the right eye than left, but this is not new. Denies diplopia, amaurosis, photopsias, graying or loss of vision, retrobulbar pain, headache, ptosis, facial numbness/droop, vertigo, dysarthria, dysphagia, aphasia, focal numbness/weakness (does have chronic LUE weakness due to shoulder injury), tremors or ataxia. Review of Systems I have performed a 14-point organ ROS with patient; pertinents are as per HPI. Past Medical History Past Medical History: Atrial Fibrillation, Cancer, Diabetes Mellitus, H ypertension, Osteoarthritis (OA) Additional Past Medical History / Comment(s): A-fib ([facility]/HCC). Anxiety. Cardiac pacemaker. CHF (congestive heart failure) (CMS/HCC). COPD (chronic obstructive pulmonary disease) ([facility]/HCC). Coronary artery disease. Depression. Diabetes mellitus ([facility]/HCC). Generalized weakness. Hypertension. Malignant neoplasm of uterus (CMS/HCC). Osteoarthritis. 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 Sick sinus syndrome ([facility]) History of Any Multi-Drug Resistant Organisms: None Reported Past Surgical History: Back Surgery, Cardiac Ablation, Hysterectomy, Joint Replacement, Pacemaker Additional Past Surgical History / Comment(s): JIE HIP REPLACEMENTS (2000 & 2005), JIE KNEE REPLACEMENT (1993), LEFT KNEE CAP (1994), PACEMAKER (2001), HYSTERECTOMY (1972), JIE CATARACTS (2004). Past Anesthesia/Blood Transfusion Reactions: Postoperative Nausea & Vomiting (PONV) Type of Cardiac Device: Permanent Pacemaker Device Placement Date:: 2001 Past Psychological History: Anxiety Smoking Status: Former smoker - Past Family History Father Family Medical History: Cancer Additional Family Medical History / Comment(s): PROSTATE CA Son(s) Family Medical History: Cancer Additional Family Medical History / Comment(s): 2 SONS -PROSTATE CA Daughter(s) Family Medical History: Cancer Additional Family Medical History / Comment(s): BREAST CA Medications and Allergies Home Medications Medication Instructions Recorded Confirmed Type Spironolactone [Aldactone] 25 mg PO DAILY 01/04/15 11/24/18 History Metoprolol Tartrate [Lopressor] 50 mg PO DAILY 10/23/17 11/24/18 History Bisacodyl [Dulcolax] 10 mg RECTAL DAILY PRN 11/06/17 11/24/18 History Magnesium Hydroxide [Milk of 7,200 mg PO DAILY PRN 11/06/17 11/24/18 History Magnesia Concentrate] Na Phos,M-B/Na Phos,Di-Ba [Fleet 133 ml RECTAL ONCE PRN 11/06/17 11/24/18 H istory Adult] Ondansetron HCl [Zofran] 4 mg PO Q6H PRN 11/06/17 11/24/18 History Ipratropium-Albuterol Nebulize 3 ml INHALATION RT-Q2H PRN 11/14/17 11/24/18 Rx [Duoneb 0.5 mg-3 mg/3 ml Soln] ampul.neb Acetaminophen [Tylenol 8 Hour] 650 mg PO Q4H PRN 04/27/18 11/24/18 History Benzocaine/Menthol Lozeng [Cepacol 1 lozenge PO Q8H PRN 04/27/18 11/24/18 History lozenge] Docusate [Colace] 200 mg PO DAILY PRN 04/27/18 11/24/18 History Gabapentin [Neurontin] 100 mg PO TID 04/27/18 11/24/18 History ALPRAZolam [Xanax] 0.5 mg PO BID PRN #6 tab 04/30/18 11/24/18 Rx Hydrocodone/Acetaminophen [[place] 1 tab PO Q8H PRN #9 tablet 04/30/18 11/24/18 Rx 10-325] fentaNYL 50MCG/HR PATCH [Duragesic 50 mcg TRANSDERM Q72H #1 patch 04/30/18 11/24/18 Rx 50MCG/HR] Alum, Mag, Hydroxide-Simeth 20 ml PO Q6H PRN 11/24/18 11/24/18 History Cefepime HCl [Maxipime] 2 gm IV Q12H 11/24/18 11/24/18 History Chlorthalidone 25 mg PO FR 11/24/18 11/24/18 History Furosemide [Lasix] 40 mg PO BID 11/24/18 11/24/18 History Memantine HCl [Namenda] 5 mg PO BID 11/24/18 11/24/18 History PARoxetine [Paxil] 10 mg PO DAILY 11/24/18 11/24/18 History Warfarin [Coumadin] 2.5 mg PO TH 11/24/18 11/24/18 History Warfarin [Coumadin] 5 mg PO SUMOTUWEFRSA 11/24/18 11/24/18 History Allergies Allergy/AdvReac Type Severity Reaction Status Date / Time No Known Allergies Allergy Verified 11/24/18 08:34 Physical Examination - Vital Signs Vital Signs: Vital Signs Temp Pulse Resp BP Pulse Ox 11/26/18 08:00 97.4 F L 67 14 112/58 97 11/26/18 04:00 98 F 64 16 106/66 95 11/26/18 00:00 98 F 86 17 96/62 98 11/25/18 19:45 98.4 F 71 16 120/76 96 11/25/18 16:00 98.0 F 64 16 105/67 95 11/25/18 15:04 66 18 96 11/25/18 12:00 98.1 F 56 L 16 109/69 96 Intake and Output 11/25/18 11/26/18 11/26/18 22:59 06:59 14:59 Intake Total 900 900 Output Total 370 800 Balance 900 -370 100 Intake: Intake, IV Titration 100 100 Amount Cefepime 2 gm In Sodium 100 100 Chloride 0.9% 100 ml @ 200 mls/hr IVPB Q12H [facility] Rx#:[id number] Oral 800 800 Output: Urine 370 800 Other: Voiding Method Diaper Diaper Diaper Incontinent Incontinent Incontinent # Voids 1 Weight 137.5 kg Gen NAD Pleasant and cooperative HEENT NCAT Sclera without icterus O/P clear Neck Supple No carotid bruit Cor RRR no m/r/g Lungs Scatter rhonchi Abd Soft NTND +BS Ext Warm to touch No edema Neuro MS A+Ox4 Normal fluency Able to follow all commands CN Bilateral surgical pupil s/p cataract surgery OU 3mm OD 2mm OS both reactive without APD VFF to confrontation EOMI no nystagmus or RAFFY No facial asymmetry No Fawad's Masseter's symmetric Hearing intact to normal voice bilaterally Speech not dysarthric Equal elevation of palate Tongue midline Sym shrug and SCM bilaterally Motor Normal bulk/tone No tremors Strength 5/5 sym throughout except 4-/5 in left deltoid Sens Intact to LT x4 No neglect Coord No dysmetria as she grabs my hand with each of hers DTRs 2+/4 sym throughout Toes downgoing bilaterally No clonus at achilles Gait Deferred Results - Laboratory Findings CBC and BMP: 11/26/18 05:42 11/26/18 05:42 Abnormal Lab Findings: Abnormal Labs 11/23/18 11/23/18 11/23/18 21:02 21:02 21:02 RBC Hgb 11.3 L MCHC PT 18.9 H INR 1.9 H ABG pCO2 ABG pO2 ABG HCO3 ABG Total CO2 ABG O2 Saturation Sodium 136 L Chloride 89 L Carbon Dioxide 41 H* BUN 37 H Creatinine Glucose 136 H POC Glucose (mg/dL) Alkaline Phosphatase 141 H Total Protein 5.8 L Albumin 3.0 L 11/23/18 11/24/18 11/24/18 23:21 06:20 12:02 RBC Hgb MCHC PT INR ABG pCO2 66 H ABG pO2 277 H ABG HCO3 42 H* ABG Total CO2 44 H ABG O2 Saturation 99.5 H Sodium Chloride Carbon Dioxide BUN Creatinine Glucose POC Glucose (mg/dL) 122 H 111 H Alkaline Phosphatase Total Protein Albumin 11/24/18 11/24/18 11/25/18 17:00 20:21 06:29 RBC 3.64 L Hgb 11.0 L MCHC PT INR ABG pCO2 ABG pO2 ABG HCO3 ABG Total CO2 ABG O2 Saturation Sodium Chloride Carbon Dioxide BUN Creatinine Glucose POC Glucose (mg/dL) 118 H 148 H Alkaline Phosphatase Total Protein Albumin 11/25/18 11/25/18 11/25/18 06:29 06:29 06:32 RBC Hgb MCHC PT 20.8 H INR 2.1 H ABG pCO2 ABG pO2 ABG HCO3 ABG Total CO2 ABG O2 Saturation Sodium Chloride 92 L Carbon Dioxide 38 H BUN 38 H Creatinine Glucose POC Glucose (mg/dL) 122 H Alkaline Phosphatase Total Protein 5.6 L Albumin 2.8 L 11/25/18 11/25/18 11/25/18 12:12 16:49 20:38 RBC Hgb MCHC PT INR ABG pCO2 ABG pO2 ABG HCO3 ABG Total CO2 ABG O2 Saturation Sodium Chloride Carbon Dioxide BUN Creatinine Glucose POC Glucose (mg/dL) 102 H 123 H 135 H Alkaline Phosphatase Total Protein Albumin 11/26/18 11/26/18 11/26/18 05:42 05:42 05:42 RBC Hgb 10.8 L MCHC 30.5 L PT 22.6 H INR 2.3 H ABG pCO2 ABG pO2 ABG HCO3 ABG Total CO2 ABG O2 Saturation Sodium Chloride 92 L Carbon Dioxide 39 H BUN 46 H Creatinine 1.37 H Glucose POC Glucose (mg/dL) Alkaline Phosphatase Total Protein 6.2 L Albumin 3.1 L 11/26/18 06:24 RBC Hgb MCHC PT INR ABG pCO2 ABG pO2 ABG HCO3 ABG Total CO2 ABG O2 Saturation Sodium Chloride Carbon Dioxide BUN Creatinine Glucose POC Glucose (mg/dL) 102 H Alkaline Phosphatase Total Protein Albumin - Diagnostic Findings Additional findings: CT Head wo cont 11/23/18. Cerebral atrophy. No ICH. Nil acute. I have reviewed neuroimages myself. Assessment and Plan Assessment: Anisocoria, most likely due to prior cataract surgery OU. Neuro exam non-focal. Plan: -Do not suggest further inpatient neuro work-up -Follow up with ophthalmology outpatient -OK for discharge from acute neuro standpoint -d/w patient in detail. All questions answered. Thank you for this consultation. Please call with ?. Time with Patient: Greater than 30 (Time spent in direct patient care, greater than 50% of which was spent in [id number] counseling and coordination of care: 70 minutes)
[2018-11-26 11:42] VITALS: BP 141/75; PULSE 68; TEMP 98.2
[2018-11-26 12:16] LABS: Glucose,Whole Blood 92 mg/dL (75-99)
--- NOTE | 2018-11-26 12:53 | P.DS ---
Providers Date of admission: 11/23/18 23:45 Expected date of discharge: 11/26/18 Attending physician: Citlalli Garcia Consults: 11/23/18 23:44 Consult Physician Urgent Consulting Provider: Poncho York Consult Reason/Comments: hypercapnic respiratory failure Do you want consulting provider notified?: Yes, Notify in am 11/26/18 08:08 Consult Physician Routine Consulting Provider: Yudy Acevedo Consult Reason/Comments: anisocoria Do you want consulting provider notified?: Yes Primary care physician: Minh Hills [facility] Course: Discharge diagnosis #1 anisocoria: Per neurology patient's anisocoria is likely related to prior cataract surgery. Neurology has cleared patient for discharge. No acute findings were noted on computed tomography scan of the brain. Neurology is also recommending that patient follows up with ophthalmology as outpatient #2 chronic hypercapnic respiratory failure with significantly elevated CO2 on presentation patient was maintained on BiPAP and improved significantly she is back on nasal cannula at this time. The chronic hypercapnia is secondary to patient's body habitus and probably underlying COPD or obstructive sleep apnea. No acute abnormalities noted on chest x-ray. Per pulmonary Avoid the use of narcotic medication excess including [place] and fentanyl. Therefore, final patch will be decreased to 25 g 1 patch every 72 hours #3 recent admission for sepsis with bacteremia with pseudomonas aeruginosa continue course of IV cefepime #4 underlying history of congestive heart failure chronic, no evidence of acute exacerbation #5 underlying history of cardiac arrhythmia with history of pacemaker placement due to sick sinus syndrome #6 underlying history of hypertension well-controlled on medications #7 previous history of uterus cancer #8 underlying history of depression #9 underlying history of dementia #10 underlying history of osteoarthritis #11 underlying history of diabetes mellitus #12. Acute kidney injury. Creatinine elevated 1.37 and bun 46. Aldactone held today. Resume Aldactone tomorrow Hospital course Nikki Lea is an 83-year-old female patient of Dr. Hills was recently adm itted to [facility] and was discharged to [facility], patient was noticed to have an equal pupils at the halfway with the right pupil larger than the left patient denied any symptoms there was no visual change she was sent to [facility] for evaluation computed tomography scan of the brain was done and revealed chronic atrophy without any acute findings however her blood gases revealed evidence of hypercapnia she was started on BiPAP and was admitted to telemetry floor pulmonary and neurology consultation were requested. On 11/25/2018 patient is alert and following commands. Patient is eager to go home. Awaiting neurology consults. Patient remains on 3 L nasal cannula. At this time patient denies chest pain or shortness of breath. Patient denies naus ea vomiting or diarrhea. Denies any urinary burning or frequency. On 11/26/2018 patient's alert and following commands. Neurology consult has been placed. Awaiting input. This time patient denies chest pain or shortness of breath. Patient denies nausea vomiting or diarrhea. Patient denies any urinary burning or frequency 11/26/2018 patient is medically stable for discharge. She has been cleared by consulting physicians. It is felt that her anisocoria was likely related to prior cataract surgery. Patient is to follow-up with ophthalmology outpatient. No acute findings on CAT scan. Patient was hypercapnic requiring BiPAP during this admission. She is now back to her 3 L of oxygen. She's been cleared by pulmonary service for discharge. Patient will return to [facility]. Notes the only medication change was that the fentanyl patch was decreased from 50 to 25 g daily I performed an examination of the patient and discussed their management with the physician Sound Art Instructor. I have reviewed the Physician Sound Art Instructor's notes and agree with the documented findings and plan of care Patient Condition at Discharge: Stable Plan - Discharge Summary New Discharge Prescriptions: New fentaNYL 25MCG/HR PATCH [Duragesic 25MCG/HR] 1 patch TRANSDERM Q72H 3 Days #1 patch Continue Spironolactone [Aldactone] 25 mg PO DAILY Metoprolol Tartrate [Lopressor] 50 mg PO DAILY Magnesium Hydroxide [Milk of Magnesia Concentrate] 7,200 mg PO DAILY PRN PRN Reason: CONSTIPATION Na Phos,M-B/Na Phos,Di-Ba [Fleet Adult] 133 ml RECTAL ONCE PRN PRN Reason: Constipation Bisacodyl [Dulcolax] 10 mg RECTAL DAILY PRN PRN Reason: Constipation Ondansetron HCl [Zofran] 4 mg PO Q6H PRN PRN Reason: Nausea Ipratropium-Albuterol Nebulize [Duoneb 0.5 mg-3 mg/3 ml Soln] 3 ml INHALATION RT-Q2H PRN ampul.neb PRN Reason: Shortness Of Breath Or Wheezing Benzocaine/Menthol Lozeng [Cepacol lozenge] 1 lozenge PO Q8H PRN PRN Reason: Sore Throat Acetaminophen [Tylenol 8 Hour] 650 mg PO Q4H PRN PRN Reason: GENERAL DISCOMFORT Docusate [Colace] 200 mg PO DAILY PRN PRN Reason: Constipation Alum, Mag, Hydroxide-Simeth 20 ml PO Q6H PRN PRN Reason: Heartburn Memantine HCl [Namenda] 5 mg PO BID Furosemide [Lasix] 40 mg PO BID Cefepime HCl [Maxipime] 2 gm IV Q12H PARoxetine [Paxil] 10 mg PO DAILY Warfarin [Coumadin] 5 mg PO SUMOTUWEFRSA Warfarin [Coumadin] 2.5 mg PO TH Chlorthalidone 25 mg PO FR Gabapentin [Neurontin] 100 mg PO TID #9 capsule Hydrocodone/Acetaminophen [[place] 10-325] 1 tab PO Q8H PRN #9 tablet PRN Reason: Pain ALPRAZolam [Xanax] 0.5 mg PO BID PRN #6 tab PRN Reason: Anxiety Discontinued fentaNYL 50MCG/HR PATCH [Duragesic 50MCG/HR] 50 mcg TRANSDERM Q72H #1 patch Discharge Medication List Spironolactone [Aldactone] 25 mg PO DAILY 01/04/15 [History] Metoprolol Tartrate [Lopressor] 50 mg PO DAILY 10/23/17 [History] Bisacodyl [Dulcolax] 10 mg RECTAL DAILY PRN 11/06/17 [History] Magnesium Hydroxide [Milk of Magnesia Concentrate] 7,200 mg PO DAILY PRN 11/06/17 [History] Na Phos,M-B/Na Phos,Di-Ba [Fleet Adult] 133 ml RECTAL ONCE PRN 11/06/17 [History] Ondansetron HCl [Zofran] 4 mg PO Q6H PRN 11/06/17 [History] Ipratropium-Albuterol Nebulize [Duoneb 0.5 mg-3 mg/3 ml Soln] 3 ml INHALATION RT-Q2H PRN ampul.neb 11/14/17 [Rx] Acetaminophen [Tylenol 8 Hour] 650 mg PO Q4H PRN 04/27/18 [History] Benzocaine/Menthol Lozeng [Cepacol lozenge] 1 lozenge PO Q8H PRN 04/27/18 [History] Docusate [Colace] 200 mg PO DAILY PRN 04/27/18 [History] Alum, Mag, Hydroxide-Simeth 20 ml PO Q6H PRN 11/24/18 [History] Cefepime HCl [Maxipime] 2 gm IV Q12H 11/24/18 [History] Chlorthalidone 25 mg PO FR 11/24/18 [History] Furosemide [Lasix] 40 mg PO BID 11/24/18 [History] Memantine HCl [Namenda] 5 mg PO BID 11/24/18 [History] PARoxetine [Paxil] 10 mg PO DAILY 11/24/18 [History] Warfarin [Coumadin] 2.5 mg PO TH 11/24/18 [History] Warfarin [Coumadin] 5 mg PO SUMOTUWEFRSA 11/24/18 [History] ALPRAZolam [Xanax] 0.5 mg PO BID PRN #6 tab 11/26/18 [Rx] Gabapentin [Neurontin] 100 mg PO TID #9 capsule 11/26/18 [Rx] Hydrocodone/Acetaminophen [[place] 10-325] 1 tab PO Q8H PRN #9 tablet 11/26/18 [Rx] fentaNYL 25MCG/HR PATCH [Duragesic 25MCG/HR] 1 patch TRANSDERM Q72H 3 Days #1 patch 11/26/18 [Rx] Follow up Appointment(s)/Referral(s): Minh Hills MD [Primary Care Provider] - 1 Week Ambulatory/Diagnostic Orders: Basic Metabolic Panel [LAB.AMB] Time Frame: 3 Days, Location: None Selected Activity/Diet/Wound Care/Special Instructions: Diet cardiac Activity: as tolerated Patient to follow up with her opthamologist Discharge Disposition: TRANSFER TO SNF/ECF
[2018-11-26] MEDS: CEFEPIME 2 GM in SODIUM CHLORIDE 0.9% 100 ML IVPB SCH (13:59)
--- NOTE | 2018-11-26 14:39 | P.PN ---
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 The patient was found to have some unequal pupil with the right pupil is being slightly larger than the left. No vision changes. No eye pain. No focal neurological deficit. The patient was brought into the emergency department. CAT scan of the brain was done and showed chronic findings with atrophy. No acute abnormalities was noted. The patient seemed to be chronically ill. The right pupil was 4 mm in size responsive and the left pupil was 3 mm in size, responsive. Her breathing was unlabored. A blood gas was done which showed compensated chronic hypercapnic respiratory failure. The patient was placed on BiPAP and subsequently she was taken off the BiPAP. At a time of my evaluation the patient seemed to be alert and oriented. She was communicating. She did not have any cranial nerve deficits. She was moving all 4 extremities. Speech was fluent and clear. I reviewed the records from [facility] and I did the patient has had history of for recurrent urinary tract infection currently and residential resident the patient was brought into the ER at [facility] by the EMS for the patient having a fever apparently the patient was recently diagnosed with UTI at the residential and has been started on antibiotic is not very clear with anybody she was taking patient was noticed to have decreasing level of consciousness and the patient also having difficulty breathing, the patient had denies having any cough or any chest pain no choking on the fourth none of some nausea but no vomiting and some abdominal discomfort which she is unable to quantify further and no diarrhea, patient on presentation to the hospital did have a fever of 101.4F patient also have elevated white count of 19,000 chest x-ray was stable finding with no acute consolidation. She also had bacteremia. Urine culture growing staph aureus. Blood cultures are Pseudomonas. Antibiotics were adjusted by infectious disease to cefepime 2 g IV every [address] Jackson he isrecommending midline or PICC line placement for 1 more week of IV antibiotics. INR is still elevated at 3.49. Coumadin remains on hold. We'll recheck in a.m. to assess is midline can be placed. CT scan of the abdomen showing right hydronephrosis that is unchanged. No evidence of any source of infection. White count has normalized. Patient sitting up in bed. She wants to get out of bed. Physical therapy will be placed on consult. She denies any chest pain or shortness of breath. Denies any nausea or vomiting reports having bowel movements.Note that during her stay at [facility], CAT scan of the abdomen and pelvis was done that showed CARDIOMEGALY. BASILAR MILD ATELECTASIS. RIGHT-SIDED HYDRONEPHROSIS UNCHANGED. SUBCUTANEOUS FLUID CONSISTENT WITH ANASARCA. NO RENAL ATROPHY. The gallbladder has normal size and there is smaller gallbladder on today's exam compared to old exam. On 11/25/2018 patient seen in follow-up on selective care unit. Awake and alert, in no acute distress, denies any shortness of breath, currently on 3 L of oxygen with a pulse ox of 96%, afebrile, hemodynamically stable. No lethargy, no altered mentation, her only complaint today is decreased hearing out of the right ear, and she states she had received some eardrops for increased cerumen in the right ear at the residential, no ear pain. did not require BiPAP support last night. todays labs showed no evidence of leukocytosis, renal profile is unremarkable, electrolytes are unremarkable, INR is 2.1. she remains on empiric antibiotics in the form of cefepime. lung sounds reveal some limited basilar rales, no wheezing or rhonchi. Denies any chest pain, denies any cough or congestion.no nausea, vomiting or diarrhea On 11/26/2018 patient seen in follow-up on selective care unit, with alert in no acute distress, no respiratory difficulty, 3 L of oxygen with a pulse ox of 97%, no dyspnea, no cough or congestion, afebrile, hemodynamically stable, awaiting neurologic evaluation. No acute events overnight, today's labs haven't reviewed, showing white blood cell count of 6.1, hemoglobin of 10.8, INR of 2.3, sodium of 137, potassium is 4.5, chloride is 92, CO2 was 39, BUN is 46, creatinine is 1.37, did not require BiPAP last night. Remains on antibiotics, no fever or chills. She considered for discharge home today, she's been cleared from neurology standpoint Objective - Vital Signs Vital signs: Vital Signs Temp 98.2 F 11/26/18 11:39 Pulse 68 11/26/18 11:39 Resp 16 11/26/18 11:39 BP 141/75 11/26/18 11:39 Pulse Ox 97 11/26/18 11:39 Intake & Output 11/25/18 11/26/18 11/26/18 18:59 06:59 18:59 Intake Total 1000 900 Output Total 520 370 800 Balance 480 -370 100 Weight 137.5 kg Intake: Intake, IV Titration 100 100 Amount Cefepime 2 gm In Sodium 100 100 Chloride 0.9% 100 ml @ 200 mls/hr IVPB Q12H [facility] Rx#:[id number] Oral 900 800 Output: Urine 520 370 800 Other: Voiding Method Diaper Diaper Diaper Incontinent Incontinent Incontinent # Voids 1 - Exam GENERAL EXAM: Alert, pleasant, 83-year-old white female, on 3 L of oxygen with a pulse ox of 96%, comfortable in no apparent distress. HEAD: Normocephalic/atraumatic. EYES: Normal reaction of pupils, equal size. Conjunctiva pink, sclera white. NOSE: Clear with pink turbinates. THROAT: No erythema or exudates. NECK: No masses, no JVD, no thyroid enlargement, no adenopathy. CHEST: No chest wall deformity. Symmetrical expansion. LUNGS: Equal air entry with basilar crackles, wheeze, rhonchi or dullness. CVS: Regular rate and rhythm, normal S1 and S2, no gallops, no murmurs, no rubs ABDOMEN: Soft, nontender. No hepatosplenomegaly, normal bowel sounds, no guarding or rigidity. EXTREMITIES: No clubbing, no edema, no cyanosis, 2+ pulses and upper and lower extremities. MUSCULOSKELETAL: Muscle strength and tone normal. SPINE: No scoliosis or deformity SKIN: No rashes CENTRAL NERVOUS SYSTEM: Alert and oriented -3. No focal deficits, tone is normal in all 4 extremities. PSYCHIATRIC: Alert and oriented -3. Appropriate affect. Intact judgment and insight. - Labs CBC & Chem 7: 11/26/18 05:42 11/26/18 05:42 Labs: Abnormal Lab Results - Last 24 Hours (Table) 11/25/18 11/25/18 11/26/18 Range/Units 16:49 20:38 05:42 Hgb 10.8 L (11.4-16.0) gm/dL MCHC 30.5 L (31.0-37.0) g/dL PT (9.0-12.0) sec INR (<1.2) Chloride (98-107) mmol/L Carbon Dioxide (22-30) mmol/L BUN (7-17) mg/dL Creatinine (0.52-1.04) mg/dL POC Glucose (mg/dL) 123 H 135 H (75-99) mg/dL Total Protein (6.3-8.2) g/dL Albumin (3.5-5.0) g/dL 11/26/18 11/26/18 11/26/18 Range/Units 05:42 05:42 06:24 Hgb (11.4-16.0) gm/dL MCHC (31.0-37.0) g/dL PT 22.6 H (9.0-12.0) sec INR 2.3 H (<1.2) Chloride 92 L (98-107) mmol/L Carbon Dioxide 39 H (22-30) mmol/L BUN 46 H (7-17) mg/dL Creatinine 1.37 H (0.52-1.04) mg/dL POC Glucose (mg/dL) 102 H (75-99) mg/dL Total Protein 6.2 L (6.3-8.2) g/dL Albumin 3.1 L (3.5-5.0) g/dL Assessment and Plan Plan: 1 anisocoria, likely chronic and not related to any acute neurologic event 2 chronic hypercapnic the story failure due to body habitus and probably COPD/CRICKET. The blood gas shows well compensated respiratory failure, chronic and the patient does not need noninvasive positive pressure ventilation at least for now and she is currently on 4 L per minute nasal cannula. Avoid the use of narcotic medication excess including [place] and fentanyl. Chest x-ray shows no acute abnormalities. 3 recent bacteremia with pseudomonas aeruginosa currently on IV cefepime 4 chronic hydronephrosis 5 chronic atrial fibrillation 6 congestion heart failure, likely systolic 7 history of cardiac pacemaker insertion 8 coronary artery disease 9 hypertension 10 diabetes mellitus 11 malignant neoplasm of the uterus 12 sick sinus syndrome 13 depression 14 osteoarthritis 15 residential residen 16 dementia Plan: Clinically patient is stable, vital signs are stable, no acute events overnight, no fever or chills, vital signs are stable, she has been cleared from neurology standpoint for discharge, she is clear from pulmonary perspective as well for discharge back to the residential. I performed a history & physical examination of the patient and discussed their management with my nurse practitioner, Dory Herndon. I reviewed the nurse practitioner's note and agree with the documented findings and plan of care. Lung sounds are positive for basilar rales. The findings and the impression was discussed with the patient. I attest to the documentation by the nurse practitioner. Time with Patient: Less than 30
[2018-11-26] MEDS: ACETAMINOPHEN TAB 325 MG TAB PO PRN (15:29)
[2018-11-26 17:11] LABS: Glucose,Whole Blood 144 mg/dL (75-99)
[2018-11-26] MEDS: WARFARIN 5 MG TAB PO SCH (17:50)
[2018-11-28] MEDS ORDERED: WARFARIN 2.5 MG TAB PO SCH (18:00)
[2018-11-29] MEDS ORDERED: CHLORTHALIDONE 25 MG TAB PO SCH (09:00)
== END 2018-11-26 17:57 | DRG 123 ==
LOC: SUPCPDRO 20:41 → EC 20:41 → 3SCARD 23:45
PROVIDERS: ADMIT Internal Medicine; ATTEND Internal Medicine
PROC: 5A09357 Assistance with Respiratory Ventilation, Less than 24 Consecutive Hours, Continuous Positive Airway Pressure (ICD-10-PCS; principal; 2018-11-23)
DX: H57.02 Anisocoria (principal); E66.2 Morbid (severe) obesity with alveolar hypoventilation; Z68.43 Body mass index [BMI] 50.0-59.9, adult; I50.22 Chronic systolic (congestive) heart failure; J96.12 Chronic respiratory failure with hypercapnia; N13.30 Unspecified hydronephrosis; N17.9 Acute kidney failure, unspecified; J96.11 Chronic respiratory failure with hypoxia; R78.81 Bacteremia; E11.9 Type 2 diabetes mellitus without complications; F03.90 Unspecified dementia, unspecified severity, without behavioral disturbance, psychotic disturbance, mood disturbance, and anxiety; F41.9 Anxiety disorder, unspecified; I11.0 Hypertensive heart disease with heart failure; I25.10 Atherosclerotic heart disease of native coronary artery without angina pectoris; I48.2 Chronic atrial fibrillation; Z79.01 Long term (current) use of anticoagulants; J44.9 Chronic obstructive pulmonary disease, unspecified; Z79.899 Other long term (current) drug therapy; Z80.3 Family history of malignant neoplasm of breast; Z85.42 Personal history of malignant neoplasm of other parts of uterus; Z87.440 Personal history of urinary (tract) infections; Z87.891 Personal history of nicotine dependence; Z90.710 Acquired absence of both cervix and uterus; Z95.0 Presence of cardiac pacemaker; Z96.653 Presence of artificial knee joint, bilateral; Z96.643 Presence of artificial hip joint, bilateral; Y83.8 Other surgical procedures as the cause of abnormal reaction of the patient, or of later complication, without mention of misadventure at the time of the procedure; Z79.891 Long term (current) use of opiate analgesic; M19.90 Unspecified osteoarthritis, unspecified site; Z98.42 Cataract extraction status, left eye; Z98.41 Cataract extraction status, right eye
CPT/HCPCS: 36415; 36600; 70450; 71046; 80048; 80053; 82805; 85025; 85027; 85610; 85730; 93005; 94660; 94760; 96360; 96361; 99291

== ENCOUNTER 2019-02-05 18:49 | Inpatient (IN) | payer MEDICARE, BC ==
[2019-02-05] MEDS ORDERED: SODIUM CHLORIDE 0.9% 500 ML 500 ML IV ONE (19:10)
--- NOTE | 2019-02-05 19:46 | ED ---
Altered Mental Status HPI - General Chief Complaint: Altered Mental Status Stated Complaint: altered mental status Time Seen by Provider: 02/05/19 18:58 Source: EMS Mode of arrival: EMS Limitations: altered mental status - History of Present Illness Initial Comments: The patient is an 83-year-old female who presents emergency department from [facility] for altered mental status. History is provided by the patient's daughter who does present to bedside as well as EMS. EMS states that the patient was noted to be altered for the past several hours. She was minimally responsive to painful stimuli. She does have a history of A. fib and is on Coumadin. She also has a history of urinary tract infections and hypercapnic respiratory failure. She was recently hospitalized at our facility for respiratory failure. Staff at [facility] did not state that the patient was having any issues with her vital signs. No fevers. No hypoxia noted. The patient had this progressive altered mental status and therefore transported the patient to the hospital for further evaluation. Daughter states that she was recently treated for a urinary tract infection and did present to the hospital similar when she had this. She does have a PICC line placed in her right upper extremity which they were going to take out today as the patient has finished the course of her antibiotics. The remainder of the HPI is limited as the patient is completely unresponsive upon presentation to the ED. - Related Data Home Medications Medication Instructions Recorded Confirmed Spironolactone [Aldactone] 25 mg PO DAILY@0800 01/04/15 02/05/19 Metoprolol Tartrate [Lopressor] 50 mg PO DAILY@0810/23/17 02/05/19 Bisacodyl [Dulcolax] 10 mg RECTAL DAILY PRN 11/06/17 02/05/19 Na Phos,M-B/Na Phos,Di-Ba [Fleet 133 ml RECTAL ONCE PRN 11/06/17 02/05/19 Adult] Ondansetron HCl [Zofran] 4 mg PO Q6H PRN 11/06/17 02/05/19 Acetaminophen [Tylenol 8 Hour] 650 mg PO Q4H PRN 04/27/18 02/05/19 Benzocaine/Menthol Lozeng [Cepacol 1 lozenge PO Q8H PRN 04/27/18 02/05/19 lozenge] Docusate [Colace] 200 mg PO DAILY@0800 04/27/18 02/05/19 Chlorthalidone 25 mg PO FR@0800 11/24/18 02/05/19 Furosemide [Lasix] 40 mg PO BID@0800,1700 11/24/18 02/05/19 Memantine HCl [Namenda] 5 mg PO BID@0800,1700 11/24/18 02/05/19 PARoxetine [Paxil] 10 mg PO DAILY@0800 11/24/18 02/05/19 Warfarin [Coumadin] 2.5 mg PO TUTHSA@1700 11/24/18 02/05/19 Warfarin [Coumadin] 5 mg PO SUMOWEFR@1700 11/24/18 02/05/19 ALPRAZolam [Xanax] 0.5 mg PO BID 02/05/19 02/05/19 Ferrous Sulfate [Iron (65 MG 325 mg PO BID@0800,1700 02/05/19 02/05/19 Elemental)] Loperamide HCl [Imodium A-D] 2 - 4 mg PO QID PRN 02/05/19 02/05/19 Mag Hydrox/Al Hydrox/Simeth 20 ml PO Q6H PRN 02/05/19 02/05/19 [Maalox] Magnesium Hydroxide [Milk of 2,400 mg PO DAILY PRN 02/05/19 02/05/19 Magnesia] Previous Rx's Medication Instructions Recorded Ipratropium-Albuterol Nebulize 3 ml INHALATION RT-Q2H PRN 11/14/17 [Duoneb 0.5 mg-3 mg/3 ml Soln] ampul.neb Gabapentin [Neurontin] 100 mg PO TID #9 capsule 11/26/18 Hydrocodone/Acetaminophen [[place] 1 tab PO Q8H PRN #9 tablet 11/26/18 10-325] fentaNYL 25MCG/HR PATCH [Duragesic 1 patch TRANSDERM Q72H 3 Days #1 11/26/18 25MCG/HR] patch Allergies Allergy/AdvReac Type Severity Reaction Status Date / Time No Known Allergies Allergy Verified 02/05/19 20:03 Review of Systems ROS Statement: Those systems with pertinent positive or pertinent negative responses have been documented in the HPI. ROS Other: All systems not noted in ROS Statement are negative. Past Medical History Past Medical History: Atrial Fibrillation, Cancer, Diabetes Mellitus, Hypertension, Osteoarthritis (OA) Additional Past Medical History / Comment(s): A-fib ([facility]). Anxiety. Cardiac pacemaker. CHF (congestive heart failure) ([facility]). COPD (chronic obstructive pulmonary disease) ([facility]). Coronary artery disease. Depression. Diabetes mellitus ([facility]). Generalized weakness. Hypertension. Malignant neoplasm of uterus ([facility]). Osteoarthritis. 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 Sick sinus syndrome ([facility]) History of Any Multi-Drug Resistant Organisms: None Reported Past Surgical History: Back Surgery, Cardiac Ablation, Hysterectomy, Joint Replacement, Pacemaker Additional Past Surgical History / Comment(s): JIE HIP REPLACEMENTS (2000 & 2005), JIE KNEE REPLACEMENT (1993), LEFT KNEE CAP (1994), PACEMAKER (2001), HYSTERECTOMY (1972), JIE CATARACTS (2004). Past Anesthesia/Blood Transfusion Reactions: Postoperative Nausea & Vomiting (PONV) Type of Cardiac Device: Permanent Pacemaker Device Placement Date:: 2001 Past Psychological History: Anxiety Smoking Status: Former smoker Past Alcohol Use History: Unable to Obtain Past Drug Use History: Unable to Obtain - Past Family History Father Family Medical History: Cancer Additional Family Medical History / Comment(s): PROSTATE CA Son(s) Family Medical History: Cancer Additional Family Medical History / Comment(s): 2 SONS -PROSTATE CA Daughter(s) Family Medical History: Cancer Additional Family Medical History / Comment(s): BREAST CA General Exam Limitations: altered mental status General appearance: obtunded Head exam: Present: atraumatic, normocephalic Eye exam: Present: PERRL ENT exam: Present: mucous membranes dry Neck exam: Present: normal inspection. Absent: tenderness, meningismus Respiratory exam: Present: normal lung sounds bilaterally. Absent: respiratory distress Cardiovascular Exam: Present: regular rate, irregular rhythm GI/Abdominal exam: Present: soft, tenderness Neurological exam: Present: other (unable to perform cranial nerve testing as the patient is not responsive to testing) Skin exam: Present: warm, dry, intact Course Vital Signs 02/05/19 02/05/19 02/05/19 18:59 20:00 21:16 Temperature 97.6 F Pulse Rate 60 61 64 Respiratory 18 18 18 Rate Blood Pressure 102/56 103/38 105/49 O2 Sat by Pulse 94 L 95 98 Oximetry 02/05/19 22:00 Temperature 98.0 F Pulse Rate 67 Respiratory 18 Rate Blood Pressure 104/54 O2 Sat by Pulse 96 Oximetry Medical Decision Making - Medical Decision Making Upon arrival the patient was placed in room 10. A thorough history and physical exam is attempted. The patient is completely unresponsive and does not follow commands. She will not open her eyes. She does have spontaneous respirations and is satting well. Daughter is at bedside which provides a better history. I did recommend a full workup to include laboratory studies and a CT of the patient's brain. I will x-ray studies demonstrates I did request a arterial blood gas. PH is 7.4, CO2 62, O2, 117, bicarbonate 39, O2 sat 97.1. CMP shows an elevated carbon dioxide of 37. BUN 30. Glucose 103. Alk phos 145. TSH 4.8. Urinalysis is positive for nitrates, moderate blood, large leukocyte esterase, greater than 182 white blood cells, many white blood cell clumps and many bacteria. UDS is positive for benzos. I did review the patient's cultures. There were a few anabiotic that she was susceptible to include Linezolid. Blood cultures were obtained and I did initiate antibiotics. I do go into the room to reevaluate the patient. She is awake and alert at this time. She is answering questions appropriately. I do believe the patient's may have been unresponsive secondary to her medications. I will hold all sedating medications include gabapentin, fentanyl, [place] and Xanax at this time. Family is requesting that the patient go off of some of the sedating medications. I call discuss case with Dr. Jose diaz who accepted admission of the patient. She was transported to the floor in stable condition - Lab Data Result diagrams: 02/07/19 09:11 02/07/19 09:11 Lab Results 02/05/19 02/05/19 02/05/19 Range/Units 19:41 19:41 19:41 WBC (3.8-10.6) k/uL RBC (3.80-5.40) m/uL Hgb (11.4-16.0) gm/dL Hct (34.0-46.0) % MCV (80.0-100.0) fL MCH (25.0-35.0) pg MCHC (31.0-37.0) g/dL RDW (11.5-15.5) % Plt Count (150-450) k/uL Neutrophils % % Lymphocytes % % Monocytes % % Eosinophils % % Basophils % % Neutrophils # (1.3-7.7) k/uL Lymphocytes # (1.0-4.8) k/uL Monocytes # (0-1.0) k/uL Eosinophils # (0-0.7) k/uL Basophils # (0-0.2) k/uL PT (9.0-12.0) sec INR (<1.2) APTT (22.0-30.0) sec Sample Site ABG pH (7.35-7.45) ABG pCO2 (35-45) mmHg ABG pO2 (83-108) mmHg ABG HCO3 (21-25) mmol/L ABG Total CO2 (19-24) mmol/L ABG O2 Saturation (94-97) % ABG Base Excess mmol/L Alfredo Test FiO2 % Sodium 136 L (137-145) mmol/L Potassium 4.7 (3.5-5.1) mmol/L Chloride 94 L (98-107) mmol/L Carbon Dioxide 37 H (22-30) mmol/L Anion Gap 5 mmol/L BUN 30 H (7-17) mg/dL Creatinine 0.89 (0.52-1.04) mg/dL Est GFR (CKD-EPI)AfAm 68 (>60 ml/min/1.73 sqM) Est GFR (CKD-EPI)NonAf 59 (>60 ml/min/1.73 sqM) Glucose 103 H (74-99) mg/dL Plasma Lactic Acid Daniel 1.3 (0.7-2.0) mmol/L Calcium 9.2 (8.4-10.2) mg/dL Total Bilirubin 0.8 (0.2-1.3) mg/dL AST 40 H (14-36) U/L ALT 24 (9-52) U/L Alkaline Phosphatase 145 H (38-126) U/L Ammonia 22 (<30) umol/L Creatine Kinase <20 L (30-135) U/L Troponin I (0.000-0.034) ng/mL Total Protein 6.9 (6.3-8.2) g/dL Albumin 3.6 (3.5-5.0) g/dL TSH 4.870 H (0.465-4.680) mIU/L Free T4 1.33 (0.78-2.19) ng/dL Urine Color Yellow Urine Appearance Turbid H (Clear) Urine pH 6.5 (5.0-8.0) Ur Specific Margie 1.013 (1.001-1.035) Urine Protein Trace H (Negative) Urine Glucose (UA) Negative (Negative) Urine Ketones Negative (Negative) Urine Blood Moderate H (Negative) Urine Nitrite Positive H (Negative) Urine Bilirubin Negative (Negative) Urine Urobilinogen 2.0 (<2.0) mg/dL Ur Leukocyte Esterase Large H (Negative) Urine RBC 3 (0-5) /hpf Urine WBC >182 H (0-5) /hpf Urine WBC Clumps Many H (None) /hpf Ur Squamous Epith Cells 1 (0-4) /hpf Urine Bacteria Many H (None) /hpf Salicylates <1.0 mg/dL Urine Opiates Screen Not Detected (NotDetected) Ur Oxycodone Screen Not Detected (NotDetected) Urine Methadone Screen Not Detected (NotDetected) Ur Propoxyphene Screen Not Detected (NotDetected) Acetaminophen <10.0 ug/mL Ur Barbiturates Screen Not Detected (NotDetected) U Tricyclic Antidepress Not Detected (NotDetected) Ur Phencyclidine Scrn Not Detected (NotDetected) Ur Amphetamines Screen Not Detected (NotDetected) U Methamphetamines Scrn Not Detected (NotDetected) U Benzodiazepines Scrn Detected H (NotDetected) Urine Cocaine Screen Not Detected (NotDetected) U Marijuana (THC) Screen Not Detected (NotDetected) Serum Alcohol <10 mg/dL 02/05/19 02/05/19 02/05/19 Range/Units 19:41 19:41 20:32 WBC 7.7 (3.8-10.6) k/uL RBC 4.69 (3.80-5.40) m/uL Hgb 14.5 (11.4-16.0) gm/dL Hct 44.9 (34.0-46.0) % MCV 95.7 (80.0-100.0) fL MCH 30.9 (25.0-35.0) pg MCHC 32.3 (31.0-37.0) g/dL RDW 13.1 (11.5-15.5) % Plt Count 196 (150-450) k/uL Neutrophils % 54 % Lymphocytes % 31 % Monocytes % 6 % Eosinophils % 4 % Basophils % 3 % Neutrophils # 4.1 (1.3-7.7) k/uL Lymphocytes # 2.4 (1.0-4.8) k/uL Monocytes # 0.5 (0-1.0) k/uL Eosinophils # 0.3 (0-0.7) k/uL Basophils # 0.3 H (0-0.2) k/uL PT (9.0-12.0) sec INR (<1.2) APTT (22.0-30.0) sec Sample Site RAD ABG pH 7.41 (7.35-7.45) ABG pCO2 62 H (35-45) mmHg ABG pO2 117 H (83-108) mmHg ABG HCO3 39 H (21-25) mmol/L ABG Total CO2 41 H (19-24) mmol/L ABG O2 Saturation 97.1 H (94-97) % ABG Base Excess 14.0 mmol/L Alfredo Test Yes FiO2 28 % Sodium (137-145) mmol/L Potassium (3.5-5.1) mmol/L Chloride (98-107) mmol/L Carbon Dioxide (22-30) mmol/L Anion Gap mmol/L BUN (7-17) mg/dL Creatinine (0.52-1.04) mg/dL Est GFR (CKD-EPI)AfAm (>60 ml/min/1.73 sqM) Est GFR (CKD-EPI)NonAf (>60 ml/min/1.73 sqM) Glucose (74-99) mg/dL Plasma Lactic Acid Daniel (0.7-2.0) mmol/L Calcium (8.4-10.2) mg/dL Total Bilirubin (0.2-1.3) mg/dL AST (14-36) U/L ALT (9-52) U/L Alkaline Phosphatase (38-126) U/L Ammonia (<30) umol/L Creatine Kinase (30-135) U/L Troponin I <0.012 (0.000-0.034) ng/mL Total Protein (6.3-8.2) g/dL Albumin (3.5-5.0) g/dL TSH (0.465-4.680) mIU/L Free T4 (0.78-2.19) ng/dL Urine Color Urine Appearance (Clear) Urine pH (5.0-8.0) Ur Specific Margie (1.001-1.035) Urine Protein (Negative) Urine Glucose (UA) (Negative) Urine Ketones (Negative) Urine Blood (Negative) Urine Nitrite (Negative) Urine Bilirubin (Negative) Urine Urobilinogen (<2.0) mg/dL Ur Leukocyte Esterase (Negative) Urine RBC (0-5) /hpf Urine WBC (0-5) /hpf Urine WBC Clumps (None) /hpf Ur Squamous Epith Cells (0-4) /hpf Urine Bacteria (None) /hpf Salicylates mg/dL Urine Opiates Screen (NotDetected) Ur Oxycodone Screen (NotDetected) Urine Methadone Screen (NotDetected) Ur Propoxyphene Screen (NotDetected) Acetaminophen ug/mL Ur Barbiturates Screen (NotDetected) U Tricyclic Antidepress (NotDetected) Ur Phencyclidine Scrn (NotDetected) Ur Amphetamines Screen (NotDetected) U Methamphetamines Scrn (NotDetected) U Benzodiazepines Scrn (NotDetected) Urine Cocaine Screen (NotDetected) U Marijuana (THC) Screen (NotDetected) Serum Alcohol mg/dL 02/05/19 02/06/19 02/06/19 Range/Units 20:42 07:52 07:52 WBC 6.5 (3.8-10.6) k/uL RBC 4.33 (3.80-5.40) m/uL Hgb 13.1 (11.4-16.0) gm/dL Hct 41.5 (34.0-46.0) % MCV 95.9 (80.0-100.0) fL MCH 30.3 (25.0-35.0) pg MCHC 31.6 (31.0-37.0) g/dL RDW 13.0 (11.5-15.5) % Plt Count 149 L (150-450) k/uL Neutrophils % 52 % Lymphocytes % 33 % Monocytes % 7 % Eosinophils % 4 % Basophils % 1 % Neutrophils # 3.4 (1.3-7.7) k/uL Lymphocytes # 2.2 (1.0-4.8) k/uL Monocytes # 0.4 (0-1.0) k/uL Eosinophils # 0.3 (0-0.7) k/uL Basophils # 0.1 (0-0.2) k/uL PT 30.5 H (9.0-12.0) sec INR 3.2 H (<1.2) APTT 32.1 H (22.0-30.0) sec Sample Site ABG pH (7.35-7.45) ABG pCO2 (35-45) mmHg ABG pO2 (83-108) mmHg ABG HCO3 (21-25) mmol/L ABG Total CO2 (19-24) mmol/L ABG O2 Saturation (94-97) % ABG Base Excess mmol/L Alfredo Test FiO2 % Sodium 138 (137-145) mmol/L Potassium 3.9 (3.5-5.1) mmol/L Chloride 98 (98-107) mmol/L Carbon Dioxide 35 H (22-30) mmol/L Anion Gap 5 mmol/L BUN 26 H (7-17) mg/dL Creatinine 0.72 (0.52-1.04) mg/dL Est GFR (CKD-EPI)AfAm 89 (>60 ml/min/1.73 sqM) Est GFR (CKD-EPI)NonAf 77 (>60 ml/min/1.73 sqM) Glucose 99 (74-99) mg/dL Plasma Lactic Acid Daniel (0.7-2.0) mmol/L Calcium 8.8 (8.4-10.2) mg/dL Total Bilirubin (0.2-1.3) mg/dL AST (14-36) U/L ALT (9-52) U/L Alkaline Phosphatase (38-126) U/L Ammonia (<30) umol/L Creatine Kinase (30-135) U/L Troponin I (0.000-0.034) ng/mL Total Protein (6.3-8.2) g/dL Albumin (3.5-5.0) g/dL TSH (0.465-4.680) mIU/L Free T4 (0.78-2.19) ng/dL Urine Color Urine Appearance (Clear) Urine pH (5.0-8.0) Ur Specific Margie (1.001-1.035) Urine Protein (Negative) Urine Glucose (UA) (Negative) Urine Ketones (Negative) Urine Blood (Negative) Urine Nitrite (Negative) Urine Bilirubin (Negative) Urine Urobilinogen (<2.0) mg/dL Ur Leukocyte Esterase (Negative) Urine RBC (0-5) /hpf Urine WBC (0-5) /hpf Urine WBC Clumps (None) /hpf Ur Squamous Epith Cells (0-4) /hpf Urine Bacteria (None) /hpf Salicylates mg/dL Urine Opiates Screen (NotDetected) Ur Oxycodone Screen (NotDetected) Urine Methadone Screen (NotDetected) Ur Propoxyphene Screen (NotDetected) Acetaminophen ug/mL Ur Barbiturates Screen (NotDetected) U Tricyclic Antidepress (NotDetected) Ur Phencyclidine Scrn (NotDetected) Ur Amphetamines Screen (NotDetected) U Methamphetamines Scrn (NotDetected) U Benzodiazepines Scrn (NotDetected) Urine Cocaine Screen (NotDetected) U Marijuana (THC) Screen (NotDetected) Serum Alcohol mg/dL 02/06/19 02/06/19 02/06/19 Range/Units 09:02 09:02 09:02 WBC 6.8 (3.8-10.6) k/uL RBC 4.47 (3.80-5.40) m/uL Hgb 14.0 (11.4-16.0) gm/dL Hct 43.4 (34.0-46.0) % MCV 97.1 (80.0-100.0) fL MCH 31.3 (25.0-35.0) pg MCHC 32.2 (31.0-37.0) g/dL RDW 13.0 (11.5-15.5) % Plt Count 167 (150-450) k/uL Neutrophils % 49 % Lymphocytes % 37 % Monocytes % 7 % Eosinophils % 4 % Basophils % 1 % Neutrophils # 3.3 (1.3-7.7) k/uL Lymphocytes # 2.6 (1.0-4.8) k/uL Monocytes # 0.4 (0-1.0) k/uL Eosinophils # 0.3 (0-0.7) k/uL Basophils # 0.1 (0-0.2) k/uL PT 30.2 H (9.0-12.0) sec INR 3.1 H (<1.2) APTT (22.0-30.0) sec Sample Site ABG pH (7.35-7.45) ABG pCO2 (35-45) mmHg ABG pO2 (83-108) mmHg ABG HCO3 (21-25) mmol/L ABG Total CO2 (19-24) mmol/L ABG O2 Saturation (94-97) % ABG Base Excess mmol/L Alfredo Test FiO2 % Sodium 138 (137-145) mmol/L Potassium 3.9 (3.5-5.1) mmol/L Chloride 96 L (98-107) mmol/L Carbon Dioxide 37 H (22-30) mmol/L Anion Gap 5 mmol/L BUN 25 H (7-17) mg/dL Creatinine 0.74 (0.52-1.04) mg/dL Est GFR (CKD-EPI)AfAm 86 (>60 ml/min/1.73 sqM) Est GFR (CKD-EPI)NonAf 75 (>60 ml/min/1.73 sqM) Glucose 99 (74-99) mg/dL Plasma Lactic Acid Daniel (0.7-2.0) mmol/L Calcium 8.9 (8.4-10.2) mg/dL Total Bilirubin 1.0 (0.2-1.3) mg/dL AST 32 (14-36) U/L ALT 29 (9-52) U/L Alkaline Phosphatase 126 (38-126) U/L Ammonia (<30) umol/L Creatine Kinase (30-135) U/L Troponin I (0.000-0.034) ng/mL Total Protein 6.4 (6.3-8.2) g/dL Albumin 3.3 L (3.5-5.0) g/dL TSH (0.465-4.680) mIU/L Free T4 (0.78-2.19) ng/dL Urine Color Urine Appearance (Clear) Urine pH (5.0-8.0) Ur Specific Margie (1.001-1.035) Urine Protein (Negative) Urine Glucose (UA) (Negative) Urine Ketones (Negative) Urine Blood (Negative) Urine Nitrite (Negative) Urine Bilirubin (Negative) Urine Urobilinogen (<2.0) mg/dL Ur Leukocyte Esterase (Negative) Urine RBC (0-5) /hpf Urine WBC (0-5) /hpf Urine WBC Clumps (None) /hpf Ur Squamous Epith Cells (0-4) /hpf Urine Bacteria (None) /hpf Salicylates mg/dL Urine Opiates Screen (NotDetected) Ur Oxycodone Screen (NotDetected) Urine Methadone Screen (NotDetected) Ur Propoxyphene Screen (NotDetected) Acetaminophen ug/mL Ur Barbiturates Screen (NotDetected) U Tricyclic Antidepress (NotDetected) Ur Phencyclidine Scrn (NotDetected) Ur Amphetamines Screen (NotDetected) U Methamphetamines Scrn (NotDetected) U Benzodiazepines Scrn (NotDetected) Urine Cocaine Screen (NotDetected) U Marijuana (THC) Screen (NotDetected) Serum Alcohol mg/dL 02/07/19 02/07/19 02/07/19 Range/Units 09:11 09:11 09:11 WBC 6.1 (3.8-10.6) k/uL RBC 4.18 (3.80-5.40) m/uL Hgb 13.1 (11.4-16.0) gm/dL Hct 40.2 (34.0-46.0) % MCV 96.2 (80.0-100.0) fL MCH 31.4 (25.0-35.0) pg MCHC 32.7 (31.0-37.0) g/dL RDW 13.0 (11.5-15.5) % Plt Count 146 L (150-450) k/uL Neutrophils % 42 % Lymphocytes % 44 % Monocytes % 7 % Eosinophils % 4 % Basophils % 1 % Neutrophils # 2.5 (1.3-7.7) k/uL Lymphocytes # 2.7 (1.0-4.8) k/uL Monocytes # 0.4 (0-1.0) k/uL Eosinophils # 0.2 (0-0.7) k/uL Basophils # 0.0 (0-0.2) k/uL PT 22.4 H (9.0-12.0) sec INR 2.3 H (<1.2) APTT (22.0-30.0) sec Sample Site ABG pH (7.35-7.45) ABG pCO2 (35-45) mmHg ABG pO2 (83-108) mmHg ABG HCO3 (21-25) mmol/L ABG Total CO2 (19-24) mmol/L ABG O2 Saturation (94-97) % ABG Base Excess mmol/L Alfredo Test FiO2 % Sodium 139 (137-145) mmol/L Potassium 3.8 (3.5-5.1) mmol/L Chloride 99 (98-107) mmol/L Carbon Dioxide 35 H (22-30) mmol/L Anion Gap 5 mmol/L BUN 19 H (7-17) mg/dL Creatinine 0.82 (0.52-1.04) mg/dL Est GFR (CKD-EPI)AfAm 76 (>60 ml/min/1.73 sqM) Est GFR (CKD-EPI)NonAf 66 (>60 ml/min/1.73 sqM) Glucose 107 H (74-99) mg/dL Plasma Lactic Acid Daniel (0.7-2.0) mmol/L Calcium 8.8 (8.4-10.2) mg/dL Total Bilirubin 1.1 (0.2-1.3) mg/dL AST 28 (14-36) U/L ALT 29 (9-52) U/L Alkaline Phosphatase 104 (38-126) U/L Ammonia (<30) umol/L Creatine Kinase (30-135) U/L Troponin I (0.000-0.034) ng/mL Total Protein 5.8 L (6.3-8.2) g/dL Albumin 2.9 L (3.5-5.0) g/dL TSH (0.465-4.680) mIU/L Free T4 (0.78-2.19) ng/dL Urine Color Urine Appearance (Clear) Urine pH (5.0-8.0) Ur Specific Margie (1.001-1.035) Urine Protein (Negative) Urine Glucose (UA) (Negative) Urine Ketones (Negative) Urine Blood (Negative) Urine Nitrite (Negative) Urine Bilirubin (Negative) Urine Urobilinogen (<2.0) mg/dL Ur Leukocyte Esterase (Negative) Urine RBC (0-5) /hpf Urine WBC (0-5) /hpf Urine WBC Clumps (None) /hpf Ur Squamous Epith Cells (0-4) /hpf Urine Bacteria (None) /hpf Salicylates mg/dL Urine Opiates Screen (NotDetected) Ur Oxycodone Screen (NotDetected) Urine Methadone Screen (NotDetected) Ur Propoxyphene Screen (NotDetected) Acetaminophen ug/mL Ur Barbiturates Screen (NotDetected) U Tricyclic Antidepress (NotDetected) Ur Phencyclidine Scrn (NotDetected) Ur Amphetamines Screen (NotDetected) U Methamphetamines Scrn (NotDetected) U Benzodiazepines Scrn (NotDetected) Urine Cocaine Screen (NotDetected) U Marijuana (THC) Screen (NotDetected) Serum Alcohol mg/dL - EKG Data EKG Comments: EKG demonstrates atrial fibrillation with a rate of 66. QRS 102. QTC 446. Inverted T-wave in leads 2, 3 and aVF Disposition Clinical Impression: Altered mental status, UTI (urinary tract infection), Afib, Hypercapnic respiratory failure Disposition: ADMITTED IP TO THIS HOSP Condition: Serious Is patient prescribed a controlled substance at d/c from ED?: No Decision to Admit Reason: Admit from EC Decision Date: 02/05/19 Decision Time: 21:42
[2019-02-05 19:52] LABS: Basophils # (A) 0.3 k/uL (0-0.2); Basophils % (A) 3 %; Eosinophils # (A) 0.3 k/uL (0-0.7); Eosinophils % (A) 4 %; HCT 44.9 % (34.0-46.0); HGB 14.5 gm/dL (11.4-16.0); Lymphocytes # (A) 2.4 k/uL (1.0-4.8); Lymphocytes % (A) 31 %; MCH 30.9 pg (25.0-35.0); MCHC 32.3 g/dL (31.0-37.0); MCV 95.7 fL (80.0-100.0); Mean Platelet Volume 7.4; Monocytes # (A) 0.5 k/uL (0-1.0); Monocytes % (A) 6 %; Neutrophils # (A) 4.1 k/uL (1.3-7.7); Neutrophils % (A) 54 %; Platelet Count 196 k/uL (150-450); RBC 4.69 m/uL (3.80-5.40); RDW 13.1 % (11.5-15.5); WBC 7.7 k/uL (3.8-10.6)
--- NOTE | 2019-02-05 20:02 | CT ---
EXAMINATION TYPE: CT brain wo con DATE OF EXAM: 02/05/2019 COMPARISON: 11/23/2018 HISTORY: Altered mental status CT DLP: 1111.4 mGycm Automated exposure control for dose reduction was used. FINDINGS: There is diffuse cerebral cortical atrophy. There is no mass effect nor midline shift. There is no si gn of intracranial hemorrhage. The calvarium is intact. IMPRESSION: CEREBRAL ATROPHY. NO ACUTE INTRACRANIAL ABNORMALITY. NO CHANGE.
[2019-02-05 20:03] LABS: Appearance,Urine Turbid (Clear); Bacteria,Urine Many /hpf; Bilirubin,Urine Negative (Negative); Blood,Urine Moderate (Negative); Color,Urine Yellow; Glucose,Urine (UA) Negative (Negative); Ketones,Urine Negative (Negative); Leukocyte Esterase,Urine Large (Negative); Nitrite,Urine Positive (Negative); PH, Urine 6.5 (5.0-8.0); Protein,Urine Trace (Negative); RBC,Urine 3 /hpf (0-5); Specific Gravity,Urine 1.013 (1.001-1.035); Squamous Epithelial Cell,Urine 1 /hpf (0-4)
[2019-02-05 20:06] LABS: Lactic Acid, Venous 1.3 mmol/L (0.7-2.0)
[2019-02-05 20:07] LABS: ALT 24 U/L (9-52); AST 40 U/L (14-36); Acetaminophen <10.0 ug/mL; African American GFR (CKD) 68 (>60 ml/min/1.73 sqM); Albumin 3.6 g/dL (3.5-5.0); Alcohol <10 mg/dL; Alkaline Phosphatase 145 U/L (38-126); Anion Gap 5 mmol/L; Blood Urea Nitrogen 30 mg/dL (7-17); Calcium 9.2 mg/dL (8.4-10.2); Carbon Dioxide 37 mmol/L (22-30); Chloride 94 mmol/L (98-107); Creatine Kinase <20 U/L (30-135); Glucose 103 mg/dL (74-99); Potassium 4.7 mmol/L (3.5-5.1); Salicylate <1.0 mg/dL; Sodium 136 mmol/L (137-145); Total Bilirubin 0.8 mg/dL (0.2-1.3); Total Protein 6.9 g/dL (6.3-8.2)
--- NOTE | 2019-02-05 20:15 | XR ---
EXAMINATION TYPE: XR chest 2V DATE OF EXAM: 02/05/2019 COMPARISON: 11/23/2018 HISTORY: Altered mental status TECHNIQUE: Frontal and lateral views of the chest are obtained. FINDINGS: Heart is enlarged. There is no heart failure. There is left axillary pacemaker. There are chest leads. Costophrenic angles are clear. There is significant arthritic disease in both shoulder j oints. IMPRESSION: Cardiomegaly. No active cardiopulmonary disease. No adverse change compared to old exam.
[2019-02-05 20:17] LABS: Amphetamine Screen,Urine Not Detected (NotDetected); Barbiturate Screen,Urine Not Detected (NotDetected); Benzodiazepines Screen,Urine Detected (NotDetected); Cocaine Screen,Urine Not Detected (NotDetected); Methadone Screen, Urine Not Detected (NotDetected); Opiate Screen,Urine Not Detected (NotDetected); Oxycodone Screen, Urine Not Detected (NotDetected); Phencyclidine Screen,Urine Not Detected (NotDetected); Tricyclic Antidepressant,Urine Not Detected (NotDetected); Urn Cannabinoid Scrn Not Detected (NotDetected)
[2019-02-05 20:35] LABS: ABG HCO3 39 mmol/L (21-25); ABG Oxygen Saturation 97.1 % (94-97); ABG PCO2 62 mmHg (35-45); ABG PH 7.41 (7.35-7.45); ABG PO2 117 mmHg (83-108); ABG TCO2 41 mmol/L (19-24); Allen Test Performed? Yes
[2019-02-05] MEDS ORDERED: LINEZOLID 600 MG in DEXTROSE/WATER 1 300ML.BAG IVPB ONE (21:30)
[2019-02-05 21:37] LABS: INR 3.2 (<1.2); Partial Thromboplastin Time 32.1 sec (22.0-30.0); Prothrombin Time 30.5 sec (9.0-12.0)
[2019-02-05] MEDS ORDERED: NALOXONE 0.4 MG/ML 1 ML VIAL IV PRN (21:43)
[2019-02-05] MEDS ORDERED: MAG HYDROX/AL HYDROX/SIMETH 30 ML CUP PO PRN (21:44)
[2019-02-05] MEDS ORDERED: BISACODYL 10 MG SUPP RECTAL PRN (22:00)
[2019-02-05] MEDS: SODIUM CHLORIDE 0.9% 1,000 ML IV SCH (22:03)
[2019-02-05 22:34] LABS: T4, Free (Free Thyroxine) 1.33 ng/dL (0.78-2.19)
[2019-02-05 23:35] VITALS: BMI 41.5
[2019-02-06 08:18] LABS: Basophils # (A) 0.1 k/uL (0-0.2); Basophils % (A) 1 %; Eosinophils # (A) 0.3 k/uL (0-0.7); Eosinophils % (A) 4 %; HCT 41.5 % (34.0-46.0); HGB 13.1 gm/dL (11.4-16.0); Lymphocytes # (A) 2.2 k/uL (1.0-4.8); Lymphocytes % (A) 33 %; MCH 30.3 pg (25.0-35.0); MCHC 31.6 g/dL (31.0-37.0); MCV 95.9 fL (80.0-100.0); Mean Platelet Volume 7.4; Monocytes # (A) 0.4 k/uL (0-1.0); Monocytes % (A) 7 %; Neutrophils # (A) 3.4 k/uL (1.3-7.7); Neutrophils % (A) 52 %; Platelet Count 149 k/uL (150-450); RBC 4.33 m/uL (3.80-5.40); WBC 6.5 k/uL (3.8-10.6)
[2019-02-06] MEDS: MEMANTINE 5 MG TAB PO SCH ×2 (08:23→16:59)
[2019-02-06] MEDS: DOCUSATE 100 MG CAP PO SCH (08:23)
[2019-02-06] MEDS: FERROUS SULFATE 325 MG TAB PO SCH ×2 (08:23→16:59)
[2019-02-06] MEDS: FUROSEMIDE 40 MG TAB PO SCH ×2 (08:23→16:59)
[2019-02-06] MEDS: SPIRONOLACTONE 25 MG TAB PO SCH (08:23)
[2019-02-06] MEDS: METOPROLOL TARTRATE 50 MG TAB PO SCH (08:23)
[2019-02-06 08:38] LABS: Calcium 8.8 mg/dL (8.4-10.2); Potassium 3.9 mmol/L (3.5-5.1)
[2019-02-06 09:32] LABS: Basophils # (A) 0.1 k/uL (0-0.2); Basophils % (A) 1 %; Eosinophils # (A) 0.3 k/uL (0-0.7); Eosinophils % (A) 4 %; HCT 43.4 % (34.0-46.0); Lymphocytes # (A) 2.6 k/uL (1.0-4.8); Lymphocytes % (A) 37 %; MCH 31.3 pg (25.0-35.0); MCHC 32.2 g/dL (31.0-37.0); MCV 97.1 fL (80.0-100.0); Monocytes # (A) 0.4 k/uL (0-1.0); Monocytes % (A) 7 %; Neutrophils # (A) 3.3 k/uL (1.3-7.7); Neutrophils % (A) 49 %; Platelet Count 167 k/uL (150-450); RBC 4.47 m/uL (3.80-5.40); WBC 6.8 k/uL (3.8-10.6)
[2019-02-06 09:38] LABS: INR 3.1 (<1.2); Prothrombin Time 30.2 sec (9.0-12.0)
[2019-02-06 10:20] LABS: Albumin 3.3 g/dL (3.5-5.0); Calcium 8.9 mg/dL (8.4-10.2); Potassium 3.9 mmol/L (3.5-5.1); Total Protein 6.4 g/dL (6.3-8.2)
[2019-02-06] MEDS: LINEZOLID 600 MG in DEXTROSE/WATER 1 300ML.BAG IVPB SCH ×2 (10:20→22:33)
--- NOTE | 2019-02-06 11:29 | P.HPIM ---
History of Present Illness H&P Date: 02/06/19 Chief Complaint: Altered mental status This is an 83-year-old patient of Dr. Hills. Patient presented with complaints of altered mental status. Patient currently resides at [facility] for prison care. ER reports that she was minimally responsive to painful stimuli. Patient does have a past medical history of atrial fibrillation which she is maintained on Coumadin, diabetes mellitus, hypertension, osteoarthritis, pacemaker, CHF, COPD, CAD, depression and anxiety. Patient also has PICC line in place which she has been receiving IV antibiotics for possible bacteremia. Head CT completed showing cerebral atrophy no acute intracranial abnormality. No change. Chest x-ray completed showing cardiomegaly no active cardiopulmonary disease no adverse change compared to old exam. Urinary analysis showing large amount of leukocyte Estrace. Urine culture ordered. Blood culture ordered. Patient started on IV antibiotics. Infectious disease consulted. Patient is awake following commands. Patient denies any specific complaints. Patient denies chest pain or shortness of breath. Patient denies nausea vomiting or diarrhea. Patient denies any urinary burning or frequency. Review of Systems Please refer to HPI otherwise unremarkable Past Medical History Past Medical History: Atrial Fibrillation, Cancer, Diabetes Mellitus, Hypertension, Osteoarthritis (OA) Additional Past Medical History / Comment(s): A-fib ([facility]). Anxiety. Cardiac pacemaker. CHF (congestive heart failure) ([facility]). COPD (chronic obstructive pulmonary disease) ([facility]). Coronary artery disease. Depression. Diabetes mellitus ([facility]/HCC). Generalized weakness. Hyp ertension. Malignant neoplasm of uterus ([facility]/HCC). Osteoarthritis. 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 Sick sinus syndrome ([facility]) History of Any Multi-Drug Resistant Organisms: None Reported Past Surgical History: Back Surgery, Cardiac Ablation, Hysterectomy, Joint Replacement, Pacemaker Additional Past Surgical History / Comment(s): JIE HIP REPLACEMENTS (2000 & 2005), JIE KNEE REPLACEMENT (1993), LEFT KNEE CAP (1994), PACEMAKER (2001), HYSTERECTOMY (1972), JIE CATARACTS (2004). Past Anesthesia/Blood Transfusion Reactions: Postoperative Nausea & Vomiting (PONV) Type of Cardiac Device: Permanent Pacemaker Device Placement Date:: 2001 Past Psychological History: Anxiety Smoking Status: Former smoker Past Alcohol Use History: Unable to Obtain Past Drug Use History: Unable to Obtain - Past Family History Father Family Medical History: Cancer Additional Family Medical History / Comment(s): PROSTATE CA Son(s) Family Medical History: Cancer Additional Family Medical History / Comment(s): 2 SONS -PROSTATE CA Daughter(s) Family Medical History: Cancer Additional Family Medical History / Comment(s): BREAST CA Medications and Allergies Home Medications Medication Instructions Recorded Confirmed Type Spironolactone [Aldactone] 25 mg PO DAILY@0801/04/15 02/05/19 History Metoprolol Tartrate [Lopressor] 50 mg PO DAILY@0810/23/17 02/05/19 History Bisacodyl [Dulcolax] 10 mg RECTAL DAILY PRN 11/06/17 02/05/19 History Na Phos,M-B/Na Phos,Di-Ba [Fleet 133 ml RECTAL ONCE PRN 11/06/17 02/05/19 History Adult] Ondansetron HCl [Zofran] 4 mg PO Q6H PRN 11/06/17 02/05/19 History Ipratropium-Albuterol Nebulize 3 ml INHALATION RT-Q2H PRN 11/14/17 02/05/19 Rx [Duoneb 0.5 mg-3 mg/3 ml Soln] ampul.neb Acetaminophen [Tylenol 8 Hour] 650 mg PO Q4H PRN 04/27/18 02/05/19 History Benzocaine/Menthol Lozeng [Cepacol 1 lozenge PO Q8H PRN 04/27/18 02/05/19 History lozenge] Docusate [Colace] 200 mg PO DAILY@0804/27/18 02/05/19 History Chlorthalidone 25 mg PO FR@79911/24/18 02/05/19 History Furosemide [Lasix] 40 mg PO BID@0800,1700 11/24/18 02/05/19 History Memantine HCl [Namenda] 5 mg PO BID@0800,0 11/24/18 02/05/19 History PARoxetine [Paxil] 10 mg PO DAILY@0800 11/24/18 02/05/19 History Warfarin [Coumadin] 2.5 mg PO TUTHSA@17011/24/18 02/05/19 History Warfarin [Coumadin] 5 mg PO SUMOWEFR@1700 11/24/18 02/05/19 History Gabapentin [Neurontin] 100 mg PO TID #9 capsule 11/26/18 02/05/19 Rx Hydrocodone/Acetaminophen [[place] 1 tab PO Q8H PRN #9 tablet 11/26/18 02/05/19 Rx 10-325] fentaNYL 25MCG/HR PATCH [Duragesic 1 patch TRANSDERM Q72H 3 Days #1 11/26/18 02/05/19 Rx 25MCG/HR] patch ALPRAZolam [Xanax] 0.5 mg PO BID 02/05/19 02/05/19 History Ferrous Sulfate [Iron (65 MG 325 mg PO BID@0800,1700 02/05/19 02/05/19 History Elemental)] Loperamide HCl [Imodium A-D] 2 - 4 mg PO QID PRN 02/05/19 02/05/19 History Mag Hydrox/Al Hydrox/Simeth 20 ml PO Q6H PRN 02/05/19 02/05/19 History [Maalox] Magnesium Hydroxide [Milk of 2,400 mg PO DAILY PRN 02/05/19 02/05/19 History Magnesia] Allergies Allergy/AdvReac Type Severity Reaction Status Date / Time No Known Allergies Allergy Verified 02/05/19 20:03 Physical Exam Vitals: Vital Signs Temp Pulse Pulse Resp BP BP Pulse Ox 02/06/19 09:00 71 16 02/06/19 08:15 97.8 F 71 16 100/63 93 L 02/06/19 08:00 65 16 02/06/19 04:50 98.1 F 65 16 110/77 97 02/05/19 23:30 97.9 F 64 14 106/69 95 02/05/19 22:00 98.0 F 67 18 104/54 96 02/05/19 21:16 64 18 105/49 98 02/05/19 20:00 61 18 103/38 95 02/05/19 18:59 97.6 F 60 18 102/56 94 L Intake and Output 02/05/19 02/06/19 02/06/19 22:59 06:59 14:59 Output Total 550 Balance -550 Output: Urine 550 Other: Voiding Method Indwelling Catheter Weight 120.656 kg Head normocephalic Neck supple Lungs clear to auscultation bilaterally no wheezing or crackles Heart irregular rate and rhythm S1-S2, no rub or gallop Abdomen is soft nontender nondistended positive bowel sounds no hepatosplenomegaly Extremities no edema Neuro alert and orientated to 2. Remote memory impairment Results CBC & Chem 7: 02/06/19 09:02 02/06/19 09:02 Labs: Abnormal Lab Results - Last 24 Hours (Table) 02/05/19 02/05/19 02/05/19 Range/Units 19:41 19:41 19:41 Plt Count (150-450) k/uL Basophils # 0.3 H (0-0.2) k/uL PT (9.0-12.0) sec INR (<1.2) APTT (22.0-30.0) sec ABG pCO2 (35-45) mmHg ABG pO2 (83-108) mmHg ABG HCO3 (21-25) mmol/L ABG Total CO2 (19-24) mmol/L ABG O2 Saturation (94-97) % Sodium 136 L (137-145) mmol/L Chloride 94 L (98-107) mmol/L Carbon Dioxide 37 H (22-30) mmol/L BUN 30 H (7-17) mg/dL Glucose 103 H (74-99) mg/dL AST 40 H (14-36) U/L Alkaline Phosphatase 145 H (38-126) U/L Creatine Kinase <20 L (30-135) U/L Albumin (3.5-5.0) g/dL TSH 4.870 H (0.465-4.680) mIU/L Urine Appearance Turbid H (Clear) Urine Protein Trace H (Negative) Urine Blood Moderate H (Negative) Urine Nitrite Positive H (Negative) Ur Leukocyte Esterase Large H (Negative) Urine WBC >182 H (0-5) /hpf Urine WBC Clumps Many H (None) /hpf Urine Bacteria Many H (None) /hpf U Benzodiazepines Scrn Detected H (NotDetected) 02/05/19 02/05/19 02/06/19 Range/Units 20:32 20:42 07:52 Plt Count 149 L (150-450) k/uL Basophils # (0-0.2) k/uL PT 30.5 H (9.0-12.0) sec INR 3.2 H (<1.2) APTT 32.1 H (22.0-30.0) sec ABG pCO2 62 H (35-45) mmHg ABG pO2 117 H (83-108) mmHg ABG HCO3 39 H (21-25) mmol/L ABG Total CO2 41 H (19-24) mmol/L ABG O2 Saturation 97.1 H (94-97) % Sodium (137-145) mmol/L Chloride (98-107) mmol/L Carbon Dioxide (22-30) mmol/L BUN (7-17) mg/dL Glucose (74-99) mg/dL AST (14-36) U/L Alkaline Phosphatase (38-126) U/L Creatine Kinase (30-135) U/L Albumin (3.5-5.0) g/dL TSH (0.465-4.680) mIU/L Urine Appearance (Clear) Urine Protein (Negative) Urine Blood (Negative) Urine Nitrite (Negative) Ur Leukocyte Esterase (Negative) Urine WBC (0-5) /hpf Urine WBC Clumps (None) /hpf Urine Bacteria (None) /hpf U Benzodiazepines Scrn (NotDetected) 02/06/19 02/06/19 02/06/19 Range/Units 07:52 09:02 09:02 Plt Count (150-450) k/uL Basophils # (0-0.2) k/uL PT 30.2 H (9.0-12.0) sec INR 3.1 H (<1.2) APTT (22.0-30.0) sec ABG pCO2 (35-45) mmHg ABG pO2 (83-108) mmHg ABG HCO3 (21-25) mmol/L ABG Total CO2 (19-24) mmol/L ABG O2 Saturation (94-97) % Sodium (137-145) mmol/L Chloride 96 L (98-107) mmol/L Carbon Dioxide 35 H 37 H (22-30) mmol/L BUN 26 H 25 H (7-17) mg/dL Glucose (74-99) mg/dL AST (14-36) U/L Alkaline Phosphatase (38-126) U/L Creatine Kinase (30-135) U/L Albumin 3.3 L (3.5-5.0) g/dL TSH (0.465-4.680) mIU/L Urine Appearance (Clear) Urine Protein (Negative) Urine Blood (Negative) Urine Nitrite (Negative) Ur Leukocyte Esterase (Negative) Urine WBC (0-5) /hpf Urine WBC Clumps (None) /hpf Urine Bacteria (None) /hpf U Benzodiazepines Scrn (NotDetected) Microbiology - Last 24 Hours (Table) 02/05/19 19:41 Urine Culture - Preliminary Urine,Catheterized Thrombosis Risk Factor Assmnt - Choose All That Apply Any of the Below Risk Factors Present?: Yes Each Factor Represents 1 point: Medical pt on bed rest, Obesity (BMI >25) Other Risk Factors: Yes Each Risk Factor Represents 3 Points: Age 75 years or older Thrombosis Risk Factor Assessment Total Risk Factor Score: 5 Thrombosis Risk Factor Assessment Level: High Risk Assessment and Plan Assessment: 1. Altered mental status changes likely secondary to urinary tract infection. Head CT completed showing cerebral atrophy. No acute intracranial abnormality. No change. Urine culture ordered. Patient currently on Zyvox. Infectious disease consulted 2. History of bacteremia requiring IV antibiotics outpatient. Infectious disease consulted 3. History of chronic hypercapnic respiratory failure with chronically elevated CO2. Chest x-ray was completed showing cardiomegaly. No active cardiopulmonary disease. No adverse change compared to old exam 4. History of sick sinus syndrome and cardiac pacemaker placement 5. History of chronic atrial fibrillation. Patient maintained on Coumadin. INR on admission 3.2 Coumadin currently on hold 6. History of diabetes mellitus type 2. Diet controlled 7. History of depression 8. History of uterine cancer 9. History of generalized debility currently a resident at [facility] 10. History of essential hypertension 11. Chronic diastolic congestive heart failure. Patient maintained on Lasix 12. Iron deficiency anemia. Patient maintained on ferrous sulfate 13. History of dementia. Patient maintained on Namenda DVT prophylaxis Coumadin. GI prophylaxis Pepcid Time with Patient: Greater than 30 (Greater than 60% of the total time spent in counseling and coordination of care. I performed an examination of the patient and discussed their management with the Nurse Practitioner. I have reviewed the Nurse Practitioner's notes and agree with the documented findings and plan of care)
[2019-02-06] MEDS: IPRATROPIUM-ALBUTEROL 3 ML NEB INHALATION PRN (11:50)
[2019-02-06] MEDS: GABAPENTIN 100 MG CAP PO SCH ×2 (16:59→22:33)
[2019-02-06] MEDS: SODIUM CHLORIDE 0.9% 1,000 ML IV SCH (17:02)
[2019-02-06] MEDS: HYDROcodone/APAP 10-325MG 1 EACH TAB PO PRN (19:30)
[2019-02-06] MEDS: ALPRAZolam 0.5 MG TAB PO SCH (20:06)
--- NOTE | 2019-02-06 23:54 | P.CONS ---
History of Present Illness - Reason for Consult Consult date: 02/06/19 Urinary tract infection Requesting physician: Citlalli Garcia - Chief Complaint Mental status changes x one daily - History of Present Illness Patient is 83-year-old female with a past medical history significant for recurrent urinary tract infection patient is a resident of a local shelter and apparently she was recently treated for UTI and bacteremia for the patient did have a PICC line which was supposed to be discontinued at the end of antibiotic therapy, however she still has the PICC line, the patient has been sent to the ER at [facility] yesterday for evaluation of acute change in her mental status patient noticed to be less responsive and hardly arousable. history of any fever or any chills no nausea no vomiting no abdominal pain or any diarrhea on arrival to the ER the patient has been in her white count has been normal and she did have a positive UA patient has been started on Zyvox on the basis of for recent urine culture at this facility that was done on 12/24/2018 which it shows enterococcus species that was sensitive to vancomycin, as of this morning the patient is afebrile patient is more awake, she know she is in the hospital has been coming of feeling weak and tired denies having any chest pain or cough no nausea no vomiting no count pain no diarrhea Review of Systems Positive point has been mentioned in the HPI rest of the systems are negative Past Medical History Past Medical History: Atrial Fibrillation, Cancer, Diabetes Mellitus, Hypertension, Osteoarthritis (OA) Additional Past Medical History / Comment(s): A-fib (CMS/HCC). Anxiety. Cardiac pacemaker. CHF (congestive heart failure) (CMS/HCC). COPD (chronic obstructive pulmonary disease) (CMS/HCC). Coronary artery disease. Depression. Diabetes mellitus (CMS/HCC). Generalized weakness. Hypertension. Malignant neoplasm of uterus (CMS/HCC). Osteoarthritis. 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 Sick sinus syndrome (CMS/HCC) History of Any Multi-Drug Resistant Organisms: None Reported Past Surgical History: Back Surgery, Cardiac Ablation, Hysterectomy, Joint Replacement, Pacemaker Additional Past Surgical History / Comment(s): JIE HIP REPLACEMENTS (2000 & 2005), JIE KNEE REPLACEMENT (1993), LEFT KNEE CAP (1994), PACEMAKER (2001), HYSTERECTOMY (1972), JIE CATARACTS (2004). Past Anesthesia/Blood Transfusion Reactions: Postoperative Nausea & Vomiting (PO NV) Type of Cardiac Device: Permanent Pacemaker Device Placement Date:: 2001 Past Psychological History: Anxiety Smoking Status: Former smoker Past Alcohol Use History: Unable to Obtain Past Drug Use History: Unable to Obtain - Past Family History Father Family Medical History: Cancer Additional Family Medical History / Comment(s): PROSTATE CA Son(s) Family Medical History: Cancer Additional Family Medical History / Comment(s): 2 SONS -PROSTATE CA Daughter(s) Family Medical History: Cancer Additional Family Medical History / Comment(s): BREAST CA Medications and Allergies Home Medications Medication Instructions Recorded Confirmed Type Spironolactone [Aldactone] 25 mg PO DAILY@0800 01/04/15 02/05/19 History Metoprolol Tartrate [Lopressor] 50 mg PO DAILY@0800 10/23/17 02/05/19 History Bisacodyl [Dulcolax] 10 mg RECTAL DAILY PRN 11/06/17 02/05/19 History Na Phos,M-B/Na Phos,Di-Ba [Fleet 133 ml RECTAL ONCE PRN 11/06/17 02/05/19 History Adult] Ondansetron HCl [Zofran] 4 mg PO Q6H PRN 11/06/17 02/05/19 History Ipratropium-Albuterol Nebulize 3 ml INHALATION RT-Q2H PRN 11/14/17 02/05/19 Rx [Duoneb 0.5 mg-3 mg/3 ml Soln] ampul.neb Acetaminophen [Tylenol 8 Hour] 650 mg PO Q4H PRN 04/27/18 02/05/19 History Benzocaine/Menthol Lozeng [Cepacol 1 lozenge PO Q8H PRN 04/27/18 02/05/19 History lozenge] Docusate [Colace] 200 mg PO DAILY@0800 04/27/18 02/05/19 History Chlorthalidone 25 mg PO FR@0800 11/24/18 02/05/19 History Furosemide [Lasix] 40 mg PO BID@0800,1700 11/24/18 02/05/19 History Memantine HCl [Namenda] 5 mg PO BID@0800,1700 11/24/18 02/05/19 History PARoxetine [Paxil] 10 mg PO DAILY@0800 11/24/18 02/05/19 History Warfarin [Coumadin] 2.5 mg PO TUTHSA@1700 11/24/18 02/05/19 History Warfarin [Coumadin] 5 mg PO SUMOWEFR@1700 11/24/18 02/05/19 History Gabapentin [Neurontin] 100 mg PO TID #9 capsule 11/26/18 02/05/19 Rx Hydrocodone/Acetaminophen [[place] 1 tab PO Q8H PRN #9 tablet 11/26/18 02/05/19 Rx 10-325] fentaNYL 25MCG/HR PATCH [Duragesic 1 patch TRANSDERM Q72H 3 Days #1 11/26/18 02/05/19 Rx 25MCG/HR] patch ALPRAZolam [Xanax] 0.5 mg PO BID 02/05/19 02/05/19 History Ferrous Sulfate [Iron (65 MG 325 mg PO BID@0800,1700 02/05/19 02/05/19 History Elemental)] Loperamide HCl [Imodium A-D] 2 - 4 mg PO QID PRN 02/05/19 02/05/19 History Mag Hydrox/Al Hydrox/Simeth 20 ml PO Q6H PRN 02/05/19 02/05/19 History [Maalox] Magnesium Hydroxide [Milk of 2,400 mg PO DAILY PRN 02/05/19 02/05/19 History Magnesia] Allergies Allergy/AdvReac Type Severity Reaction Status Date / Time No Known Allergies Allergy Verified 02/05/19 20:03 Physical Exam Vitals: Vital Signs Temp Pulse Pulse Resp BP BP Pulse Ox 02/06/19 09:00 71 16 02/06/19 08:15 97.8 F 71 16 100/63 93 L 02/06/19 08:00 65 16 02/06/19 04:50 98.1 F 65 16 110/77 97 02/05/19 23:30 97.9 F 64 14 106/69 95 02/05/19 22:00 98.0 F 67 18 104/54 96 02/05/19 21:16 64 18 105/49 98 02/05/19 20:00 61 18 103/38 95 02/05/19 18:59 97.6 F 60 18 102/56 94 L Intake and Output 02/05/19 02/06/19 02/06/19 22:59 06:59 14:59 Output Total 550 Balance -550 Output: Urine 550 Other: Voiding Method Indwelling Catheter Weight 120.656 kg GENERAL DESCRIPTION: An elderly female lying in bed, no distress. No tachypnea or accessory muscle of respiration use. HEENT: Shows Pallor , no scleral icterus. Oral mucous membrane is dry. No pharyngeal erythema or thrush NECK: Trachea central, no thyromegaly. LUNGS: Unlabored breathing. Clear to auscultation anteriorly. No wheeze or crackle. HEART: S1, S2, regular rate and rhythm. No loud murmur ABDOMEN: Soft, no tenderness , guarding or rigidity, no organomegaly EXTREMITIES: No edema of feet. SKIN: No rash, no masses palpable. NEUROLOGICAL: The patient is awake, alert, oriented x2, mood and affect normal. Results CBC & Chem 7: 02/06/19 09:02 02/06/19 09:02 Labs: Abnormal Lab Results - Last 24 Hours (Table) 02/05/19 02/05/19 02/05/19 Range/Units 19:41 19:41 19:41 Plt Count (150-450) k/uL Basophils # 0.3 H (0-0.2) k/uL PT (9.0-12.0) sec INR (<1.2) APTT (22.0-30.0) sec ABG pCO2 (35-45) mmHg ABG pO2 (83-108) mmHg ABG HCO3 (21-25) mmol/L ABG Total CO2 (19-24) mmol/L ABG O2 Saturation (94-97) % Sodium 136 L (137-145) mmol/L Chloride 94 L (98-107) mmol/L Carbon Dioxide 37 H (22-30) mmol/L BUN 30 H (7-17) mg/dL Glucose 103 H (74-99) mg/dL AST 40 H (14-36) U/L Alkaline Phosphatase 145 H (38-126) U/L Creatine Kinase <20 L (30-135) U/L Albumin (3.5-5.0) g/dL TSH 4.870 H (0.465-4.680) mIU/L Urine Appearance Turbid H (Clear) Urine Protein Trace H (Negative) Urine Blood Moderate H (Negative) Urine Nitrite Positive H (Negative) Ur Leukocyte Esterase Large H (Negative) Urine WBC >182 H (0-5) /hpf Urine WBC Clumps Many H (None) /hpf Urine Bacteria Many H (None) /hpf U Benzodiazepines Scrn Detected H (NotDetected) 02/05/19 02/05/19 02/06/19 Range/Units 20:32 20:42 07:52 Plt Count 149 L (150-450) k/uL Basophils # (0-0.2) k/uL PT 30.5 H (9.0-12.0) sec INR 3.2 H (<1.2) APTT 32.1 H (22.0-30.0) sec ABG pCO2 62 H (35-45) mmHg ABG pO2 117 H (83-108) mmHg ABG HCO3 39 H (21-25) mmol/L ABG Total CO2 41 H (19-24) mmol/L ABG O2 Saturation 97.1 H (94-97) % Sodium (137-145) mmol/L Chloride (98-107) mmol/L Carbon Dioxide (22-30) mmol/L BUN (7-17) mg/dL Glucose (74-99) mg/dL AST (14-36) U/L Alkaline Phosphatase (38-126) U/L Creatine Kinase (30-135) U/L Albumin (3.5-5.0) g/dL TSH (0.465-4.680) mIU/L Urine Appearance (Clear) Urine Protein (Negative) Urine Blood (Negative) Urine Nitrite (Negative) Ur Leukocyte Esterase (Negative) Urine WBC (0-5) /hpf Urine WBC Clumps (None) /hpf Urine Bacteria (None) /hpf U Benzodiazepines Scrn (NotDetected) 02/06/19 02/06/19 02/06/19 Range/Units 07:52 09:02 09:02 Plt Count (150-450) k/uL Basophils # (0-0.2) k/uL PT 30.2 H (9.0-12.0) sec INR 3.1 H (<1.2) APTT (22.0-30.0) sec ABG pCO2 (35-45) mmHg ABG pO2 (83-108) mmHg ABG HCO3 (21-25) mmol/L ABG Total CO2 (19-24) mmol/L ABG O2 Saturation (94-97) % Sodium (137-145) mmol/L Chloride 96 L (98-107) mmol/L Carbon Dioxide 35 H 37 H (22-30) mmol/L BUN 26 H 25 H (7-17) mg/dL Glucose (74-99) mg/dL AST (14-36) U/L Alkaline Phosphatase (38-126) U/L Creatine Kinase (30-135) U/L Albumin 3.3 L (3.5-5.0) g/dL TSH (0.465-4.680) mIU/L Urine Appearance (Clear) Urine Protein (Negative) Urine Blood (Negative) Urine Nitrite (Negative) Ur Leukocyte Esterase (Negative) Urine WBC (0-5) /hpf Urine WBC Clumps (None) /hpf Urine Bacteria (None) /hpf U Benzodiazepines Scrn (NotDetected) Microbiology - Last 24 Hours (Table) 02/05/19 19:41 Urine Culture - Preliminary Urine,Catheterized Assessment and Plan Assessment: 1-patient presented to hospital with mental status changes in this patient who d id have a history of recurrent UTI and the patient currently has been positive in this patient with no fever or elevated white count and has gone multiple pathogen in the past recent one has been enterococcus patient could be the same pathogen is currently no other clinical focus of infection (1) UTI (urinary tract infection) Current Visit: Yes Status: Acute Code(s): N39.0 - URINARY TRACT INFECTION, SITE NOT SPECIFIED SNOMED Code(s): 51323079 Plan: 1-Zyvox 600 mg every 12 hours which can be switched over to by mouth in view of clinical response while waiting for the culture finalized 2-gentle IV fluid We will follow on clinical condition and cultures to further adjust medication if needed Thank you for this consultation will follow this patient with you Time with Patient: Greater than 30
[2019-02-07] MEDS: SODIUM CHLORIDE 0.9% 1,000 ML IV SCH ×2 (00:50→13:51)
[2019-02-07] MEDS ORDERED: CHLORTHALIDONE 25 MG TAB PO SCH (08:00)
[2019-02-07] MEDS: FERROUS SULFATE 325 MG TAB PO SCH ×2 (09:12→16:40)
[2019-02-07] MEDS: DOCUSATE 100 MG CAP PO SCH (09:12)
[2019-02-07] MEDS: MEMANTINE 5 MG TAB PO SCH ×2 (09:12→16:40)
[2019-02-07] MEDS: FUROSEMIDE 40 MG TAB PO SCH ×2 (09:12→16:40)
[2019-02-07] MEDS: SPIRONOLACTONE 25 MG TAB PO SCH (09:12)
[2019-02-07] MEDS: METOPROLOL TARTRATE 50 MG TAB PO SCH (09:12)
[2019-02-07] MEDS: GABAPENTIN 100 MG CAP PO SCH ×3 (09:12→21:43)
[2019-02-07] MEDS: FAMOTIDINE 20 MG TAB PO SCH (09:12)
[2019-02-07] MEDS: ALPRAZolam 0.5 MG TAB PO SCH ×2 (09:12→21:43)
[2019-02-07 09:35] LABS: Basophils % (A) 1 %; Eosinophils # (A) 0.2 k/uL (0-0.7); Eosinophils % (A) 4 %; HCT 40.2 % (34.0-46.0); HGB 13.1 gm/dL (11.4-16.0); Lymphocytes # (A) 2.7 k/uL (1.0-4.8); Lymphocytes % (A) 44 %; MCH 31.4 pg (25.0-35.0); MCHC 32.7 g/dL (31.0-37.0); MCV 96.2 fL (80.0-100.0); Mean Platelet Volume 7.2; Monocytes # (A) 0.4 k/uL (0-1.0); Monocytes % (A) 7 %; Neutrophils # (A) 2.5 k/uL (1.3-7.7); Neutrophils % (A) 42 %; Platelet Count 146 k/uL (150-450); RBC 4.18 m/uL (3.80-5.40); WBC 6.1 k/uL (3.8-10.6)
[2019-02-07 09:47] LABS: INR 2.3 (<1.2); Prothrombin Time 22.4 sec (9.0-12.0)
[2019-02-07 09:50] LABS: Albumin 2.9 g/dL (3.5-5.0); Calcium 8.8 mg/dL (8.4-10.2); Potassium 3.8 mmol/L (3.5-5.1); Total Bilirubin 1.1 mg/dL (0.2-1.3); Total Protein 5.8 g/dL (6.3-8.2)
--- NOTE | 2019-02-07 10:42 | P.PN ---
Subjective Progress Note Date: 02/07/19 This is an 83-year-old patient of Dr. Hills. Patient presented with complaints of altered mental status. Patient currently resides at [facility] [place] [facility]. ER reports that she was minimally responsive to painful stimuli. Patient does have a past medical history of atrial fibrillation which she is maintained on Coumadin, diabetes mellitus, hypertension, osteoarthritis, pacemaker, CHF, COPD, CAD, depression and anxiety. Patient also has PICC line in place which she has been receiving IV antibiotics for possible bacteremia. Head CT completed showing cerebral atrophy no acute intracranial abnormality. No change. Chest x-ray completed showing cardiomegaly no active cardiopulmonary disease no adverse change compared to old exam. Urinary analysis showing large amount of leukocyte Estrace. Urine culture ordered. Blood culture ordered. Patient started on IV antibiotics. Infectious disease consulted. Patient is awake following commands. Patient denies any specific complaints. Patient denies chest pain or shortness of breath. Patient denies nausea vomiting or diarrhea. Patient denies any urinary burning or frequency. On 02/07/2019 patient is currently resting comfortably in bed. Urine culture currently growing gram-negative bacilli. Infectious disease is following. Patient remains on Zyvox for antibiotic. Home Coumadin dose reordered. INR 2.3. Patient denies chest pain or shortness of breath. Patient denies nausea vomiting or diarrhea. Patient denies any urinary burning or frequency Objective - Vital Signs Vital signs: Vital Signs Temp 97.7 F 02/07/19 08:21 Pulse 64 02/07/19 08:21 Resp 15 02/07/19 08:21 BP 105/68 02/07/19 08:21 Pulse Ox 91 L 02/07/19 08:21 Intake & Output 02/06/19 02/07/19 02/07/19 18:59 06:59 18:59 Intake Total 200 Output Total 750 400 Balance -750 200 -400 Intake: Oral 200 Output: Urine 750 400 Other: Voiding Method Indwelling Catheter Indwelling Catheter Indwelling Catheter - Exam Head normocephalic Neck supple Lungs clear to auscultation bilaterally no wheezing or crackles Heart irregular rate and rhythm S1-S2, no rub or gallop Abdomen is soft nontender nondistended positive bowel sounds no hepatosplenomegaly Extremities no edema Neuro alert and orientated to 2. Remote memory impairment - Labs CBC & Chem 7: 02/07/19 09:11 02/07/19 09:11 Labs: Abnormal Lab Results - Last 24 Hours (Table) 02/07/19 02/07/19 02/07/19 Range/Units 09:11 09:11 09:11 Plt Count 146 L (150-450) k/uL PT 22.4 H (9.0-12.0) sec INR 2.3 H (<1.2) Carbon Dioxide 35 H (22-30) mmol/L BUN 19 H (7-17) mg/dL Glucose 107 H (74-99) mg/dL Total Protein 5.8 L (6.3-8.2) g/dL Albumin 2.9 L (3.5-5.0) g/dL Microbiology - Last 24 Hours (Table) 02/05/19 19:41 Urine Culture - Preliminary Urine,Catheterized Gram Neg Bacilli 02/05/19 21:20 Blood Culture - Preliminary Blood No Growth after 24 hours Assessment and Plan Assessment: 1. Altered mental status changes likely secondary to urinary tract infection. Head CT completed showing cerebral atrophy. No acute intracranial abnormality. No change. Urine culture ordered. Patient currently on Zyvox. Infectious disease following. Urine culture currently growing and negative bacilli 2. History of bacteremia requiring IV antibiotics outpatient. Infectious disease consulted 3. History of chronic hypercapnic respiratory failure with chronically elevated CO2. Chest x-ray was completed showing cardiomegaly. No active cardiopulmonary disease. No adverse change compared to old exam 4. History of sick sinus syndrome and cardiac pacemaker placement 5. History of chronic atrial fibrillation. Patient maintained on Coumadin. INR on admission 3.2. Repeat INR 2.3 home dose of Coumadin ordered daily PT/INRs ordered 6. History of diabetes mellitus type 2. Diet controlled 7. History of depression. paxil on hold due to interaction with antibiotic 8. History of uterine cancer 9. History of generalized debility currently a resident at [facility] 10. History of essential hypertension 11. Chronic diastolic congestive heart failure. Patient maintained on Lasix 12. Iron deficiency anemia. Patient maintained on ferrous sulfate 13. History of dementia. Patient maintained on Namenda DVT prophylaxis Coumadin. GI prophylaxis Pepcid I performed an examination of the patient and discussed their management with the Nurse Practitioner. I have reviewed the Nurse Practitioner's notes and agree with the documented findings and plan of care
[2019-02-07] MEDS: LINEZOLID 600 MG in DEXTROSE/WATER 1 300ML.BAG IVPB SCH (10:49)
--- NOTE | 2019-02-07 15:04 | P.CRDCN ---
History of Present Illness History of present illness: This is a pleasant 83-year-old female past medical history significant for chronic persistent atrial fibrillation on correction anti-coagulation, sick sinus syndrome s/p permanent pacemaker implantation, diabetes mellitus, pulmonary hypertension, cor pulmonale and hypertension. He follows with Dr. Soto in the office. We have been asked to see her in consultation secondary to abnormal EKG. She presented to the hospital from [facility] with her daughter for altered mental status that has been getting progressively worse. EKG on arrival revealed atrial fibrillation with T-wave inversion inferiorly with conduction delay heart rate of 66. Repeat today is the same. Consistent with previous EKG's. No changes appreciated. She is seen and examined laying in bed in no acute distress. She denies chest pain, shortness of breath, dizziness or palpitations. 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 Chest x-ray is negative for an acute cardiopulmonary process. CT of the brain reveals cerebral atrophy with no acute intracranial abnormality. Laboratory data reviewed, WBC 6.1, hemoglobin 13.1, platelets 146, INR 2.3, pCO2 62, pO2 117, bicarb 39, sodium 139, potassium 3.8, creatinine 0.8 to and troponin negative 1 on admission. Current daily cardiac medications include Coumadin, Aldactone 25 mg daily, Lopressor 50 mg daily, Lasix 40 mg twice a day, chlorthalidone 25 mg daily on Fridays. Most recent echocardiogram obtained October 2017 reveals preserved LV systolic function with ejection fraction 55-60%, severe tricuspid regurgitation and severe pulmonary hypertension with an RVSP of 81 mmHg. At the time of my exam: CONSTITUTIONAL: Denies fever. Denies chills. EYES: Denies blurred vision. Denies vision changes. Denies eye pain. EARS, NOSE, MOUTH & THROAT: Denies headache. Denies sore throat. Denies ear pain. CARDIOVASCULAR: Denies chest pain. Denies shortness of breath. Denies orthopnea. Denies PND. Denies palpitations. RESPIRATORY: Denies cough. GASTROINTESTINAL: Denies abdominal pain. Denies diarrhea. Denies constipation. Denies nausea. Denies vomiting. MUSCULOSKELETAL: Denies myalgias. INTEGUMENTARY: Denies pruitis. Denies rash. NEUROLOGIC: Denies numbness. Denies tingling. Denies weakness. PSYCHIATRIC: Denies anxiety. Denies depression. ENDOCRINE: Denies fatigue. Denies weight change. Denies polydipsia. Denies polyurina. GENITOURINARY: Denies burning, hematuria or urgency with micturation. HEMATOLOGIC: Denies history of anemia. Denies bleeding. Blood pressure 95/64 heart rate 73 afebrile maintaining oxygen saturation on room air GENERAL: This is a 83-year-old female in no apparent distress at the time of my examination. Morbidly obese. HEENT: Head is atraumatic, normocephalic. Pupils are equal, round. Sclerae anicteric. Conjunctivae are clear. Mucous membranes of the mouth are moist. Neck is supple. There is mild bilateral jugular venous distention. No carotid bruit is heard. LUNGS: Clear to auscultation no wheezes, rales or rhonchi. No chest wall tenderness is noted on palpation or with deep breathing. Diminished bilaterally. HEART: Irregular rate and rhythm with systolic ejection murmur at the left sternal border, no rubs or gallops. S1 and S2 heard. ABDOMEN: Soft, nontender. Bowel sounds are heard. No organomegaly noted. EXTREMITIES: No evidence of peripheral edema and no calf tenderness noted. VASCULAR: Radial and dorsalis pedis pulses palpated, no evidence of clubbing. NEUROLOGIC: Patient is awake, alert and oriented x3. ASSESSMENT Urinary tract infection Chronic persistent atrial fibrillation on long-term anticoagulation with controlled ventricular rates with intraventricular conduction delay Thrombocytopenia Sick sinus syndrome status post permanent pacemaker implantation Pulmonary hypertension, RVSP 81 mmHg Cor pulmonale Hypertension Diabetes mellitus PLAN EKG is chronic a-fib. Computer interpretation of pacemaker failure is inaccurate as her heart seems to be maintaining conduction on its own at this time. However, she has not had an interrogation since 03/2018 so we will contact [facility] for interrogation while she is here. Continue current medical regimen. No further work-up at this time. Thank you kindly for this consultation. Nurse Practitioner note has been reviewed, I agree with a documented findings and plan of care. Patient was seen and examined. Past Medical History Past Medical History: Atrial Fibrillation, Cancer, Diabetes Mellitus, Hypertension, Osteoarthritis (OA) Additional Past Medical History / Comment(s): A-fib (CMS/HCC). Anxiety. Cardiac pacemaker. CHF (congestive heart failure) (CMS/HCC). COPD (chronic obstructive pulmonary disease) (CMS/HCC). Coronary artery disease. Depression. Diabetes mellitus (CMS/HCC). Generalized weakness. Hypertension. Malignant neoplasm of uterus (CMS/HCC). Osteoarthritis. 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 Sick sinus syndrome (CMS/HCC) History of Any Multi-Drug Resistant Organisms: None Reported Past Surgical History: Back Surgery, Cardiac Ablation, Hysterectomy, Joint Replacement, Pacemaker Additional Past Surgical History / Comment(s): JIE HIP REPLACEMENTS (2000 & 2005), JIE KNEE REPLACEMENT (1993), LEFT KNEE CAP (1994), PACEMAKER (2001), HYSTERECTOMY (1972), JIE CATARACTS (2004). Past Anesthesia/Blood Transfusion Reactions: Postoperative Nausea & Vomiting (PONV) Type of Cardiac Device: Permanent Pacemaker Device Placement Date:: 2001 Past Psychological History: Anxiety Smoking Status: Former smoker Past Alcohol Use History: Unable to Obtain Past Drug Use History: Unable to Obtain - Past Family History Father Family Medical History: Cancer Additional Family Medical History / Comment(s): PROSTATE CA Son(s) Family Medical History: Cancer Additional Family Medical History / Comment(s): 2 SONS -PROSTATE CA Daughter(s) Family Medical History: Cancer Additional Family Medical History / Comment(s): BREAST CA Medications and Allergies Home Medications Medication Instructions Recorded Confirmed Type Spironolactone [Aldactone] 25 mg PO DAILY@0800 01/04/15 02/05/19 History Metoprolol Tartrate [Lopressor] 50 mg PO DAILY@0800 10/23/17 02/05/19 History Bisacodyl [Dulcolax] 10 mg RECTAL DAILY PRN 11/06/17 02/05/19 History Na Phos,M-B/Na Phos,Di-Ba [Fleet 133 ml RECTAL ONCE PRN 11/06/17 02/05/19 History Adult] Ondansetron HCl [Zofran] 4 mg PO Q6H PRN 11/06/17 02/05/19 History Ipratropium-Albuterol Nebulize 3 ml INHALATION RT-Q2H PRN 11/14/17 02/05/19 Rx [Duoneb 0.5 mg-3 mg/3 ml Soln] ampul.neb Acetaminophen [Tylenol 8 Hour] 650 mg PO Q4H PRN 04/27/18 02/05/19 History Benzocaine/Menthol Lozeng [Cepacol 1 lozenge PO Q8H PRN 04/27/18 02/05/19 History lozenge] Docusate [Colace] 200 mg PO DAILY@0800 04/27/18 02/05/19 History Chlorthalidone 25 mg PO FR@0800 11/24/18 02/05/19 History Furosemide [Lasix] 40 mg PO BID@0800,1700 11/24/18 02/05/19 History Memantine HCl [Namenda] 5 mg PO BID@0800,1700 11/24/18 02/05/19 History PARoxetine [Paxil] 10 mg PO DAILY@0800 11/24/18 02/05/19 History Warfarin [Coumadin] 2.5 mg PO TUTHSA@1700 11/24/18 02/05/19 History Warfarin [Coumadin] 5 mg PO SUMOWEFR@1700 11/24/18 02/05/19 History Gabapentin [Neurontin] 100 mg PO TID #9 capsule 11/26/18 02/05/19 Rx Hydrocodone/Acetaminophen [Marydel 1 tab PO Q8H PRN #9 tablet 11/26/18 02/05/19 Rx 10-325] fentaNYL 25MCG/HR PATCH [Duragesic 1 patch TRANSDERM Q72H 3 Days #1 11/26/18 02/05/19 Rx 25MCG/HR] patch ALPRAZolam [Xanax] 0.5 mg PO BID 02/05/19 02/05/19 History Ferrous Sulfate [Iron (65 MG 325 mg PO BID@0800,1700 02/05/19 02/05/19 History Elemental)] Loperamide HCl [Imodium A-D] 2 - 4 mg PO QID PRN 02/05/19 02/05/19 History Mag Hydrox/Al Hydrox/Simeth 20 ml PO Q6H PRN 02/05/19 02/05/19 History [Maalox] Magnesium Hydroxide [Milk of 2,400 mg PO DAILY PRN 02/05/19 02/05/19 History Magnesia] Allergies Allergy/AdvReac Type Severity Reaction Status Date / Time No Known Allergies Allergy Verified 02/05/19 20:03 Physical Exam Vitals: Vital Signs Temp Pulse Resp BP Pulse Ox 02/07/19 12:25 98.0 F 73 95/64 95 02/07/19 08:21 97.7 F 64 15 105/68 91 L 02/07/19 08:00 64 16 02/07/19 04:38 97.6 F 63 20 94/64 91 L 02/06/19 23:45 98 F 63 20 98/63 92 L 02/06/19 20:11 92 L 02/06/19 15:18 16 02/06/19 15:00 98.2 F 74 16 109/70 94 L Intake and Output 02/06/19 02/07/19 02/07/19 22:59 06:59 14:59 Intake Total 200 125 Output Total 400 400 Balance -200 -275 Intake: Oral 200 125 Output: Urine 400 400 Other: Voiding Method Indwelling Catheter Indwelling Catheter Results 02/07/19 09:11 02/07/19 09:11 Cardiac Enzymes 02/07/19 Range/Units 09:11 AST 28 (14-36) U/L Coagulation 02/07/19 Range/Units 09:11 PT 22.4 H (9.0-12.0) sec CBC 02/07/19 Range/Units 09:11 WBC 6.1 (3.8-10.6) k/uL RBC 4.18 (3.80-5.40) m/uL Hgb 13.1 (11.4-16.0) gm/dL Hct 40.2 (34.0-46.0) % Plt Count 146 L (150-450) k/uL Comprehensive Metabolic Panel 02/07/19 Range/Units 09:11 Sodium 139 (137-145) mmol/L Potassium 3.8 (3.5-5.1) mmol/L Chloride 99 (98-107) mmol/L Carbon Dioxide 35 H (22-30) mmol/L BUN 19 H (7-17) mg/dL Creatinine 0.82 (0.52-1.04) mg/dL Glucose 107 H (74-99) mg/dL Calcium 8.8 (8.4-10.2) mg/dL AST 28 (14-36) U/L ALT 29 (9-52) U/L Alkaline Phosphatase 104 (38-126) U/L Total Protein 5.8 L (6.3-8.2) g/dL Albumin 2.9 L (3.5-5.0) g/dL Current Medications Generic Name Dose Route Start Last Admin Trade Name Freq PRN Reason Stop Dose Admin Acetaminophen 650 mg 02/06/19 11:09 Tylenol Tab PO Q4H PRN GENERAL DISCOMFORT Hydrocodone Bitart/Acetaminophen 1 each 02/06/19 14:27 02/06/19 19:30 Marydel 10 PO 1 each Q8H PRN Administration Pain Al Hydroxide/Mg Hydroxide 20 ml 02/05/19 21:44 Maalox PO Q6H PRN Heartburn Albuterol/Ipratropium 3 ml 02/05/19 21:44 02/06/19 11:50 Duoneb 0.5 Mg-3 Mg/3 Ml Soln INHALATION 3 ml RT-Q2H PRN Administration Shortness Of Breath Or Wheezing Alprazolam 0.5 mg 02/06/19 21:00 02/07/19 09:12 Xanax PO 0.5 mg BID ISHA Administration Bisacodyl 10 mg 02/05/19 22:00 Dulcolax RECTAL DAILY PRN Constipation Chlorthalidone 25 mg 02/07/19 08:00 02/07/19 09:12 Hygroton PO 25 mg FR@0800 ISHA Administration Docusate Sodium 200 mg 02/06/19 08:00 02/07/19 09:12 Colace PO 200 mg DAILY@0800 ISHA Administration Famotidine 20 mg 02/07/19 09:00 02/07/19 09:12 Pepcid PO 20 mg DAILY ISHA Administration Ferrous Sulfate 325 mg 02/06/19 08:00 02/07/19 09:12 Feosol PO 325 mg BID@0800,1700 ISHA Administration Furosemide 40 mg 02/06/19 08:00 02/07/19 09:12 Lasix PO 40 mg BID@0800,1700 ISHA Administration Gabapentin 100 mg 02/06/19 16:00 02/07/19 09:12 Neurontin PO 100 mg TID ISHA Administration Linezolid 600 mg 02/07/19 21:00 Zyvox PO Q12HR ISHA Memantine 5 mg 02/06/19 08:00 02/07/19 09:12 Namenda PO 5 mg BID@0800,1700 ISHA Administration Metoprolol Tartrate 50 mg 02/06/19 08:00 02/07/19 09:12 Lopressor PO 50 mg DAILY@0800 [facility] Administration Miscellaneous Information 0 each 02/07/19 10:41 Coumadin Per Pharmacy MISCELLANE DIRECTED PRN Per protocol Naloxone HCl 0.2 mg 02/05/19 21:43 Narcan IV Q2M PRN Opioid Reversal Spironolactone 25 mg 02/06/19 08:00 02/07/19 09:12 Aldactone PO 25 mg DAILY@0800 [facility] Administration Warfarin Sodium 4 mg 02/07/19 18:00 Coumadin PO 02/07/19 18:01 ONCE@1800 ONE Intake and Output 02/06/19 02/07/19 02/07/19 22:59 06:59 14:59 Intake Total 200 125 Output Total 400 400 Balance -200 -275 Intake: Oral 200 125 Output: Urine 400 400 Other: Voiding Method Indwelling Catheter Indwelling Catheter 02/07/19 09:11 02/07/19 09:11
--- NOTE | 2019-02-07 16:39 | CDI ---
Documentation Clarification Form Date: 02/07/2019 4:27:00 PM From: Eryn Simpson RN, CCDS Phone: [phone] Admit Date: 02/07/2019 1:46:00 PM Patient Name: Nikki Lea Visit Number: [id number] Discharge Date: ATTENTION: The Clinical Documentation Specialists (CDI) and [facility] Coding Staff appreciate your assistance in clarifying documentation. Please respond to the clarification below the line at the bottom and electronically sign. The CDI & [facility] Coding staff will review the response and follow-up if needed. Please note: Queries are made part of the Legal Health Record. If you have any questions, please contact the author of this message via ITS. Dr. Citlalli Garcia Altered Mental Status was documented in the Emergency evaluation and in your history and physical and further clarification is needed. History/Risk Factors: Persistent Atrial Fibrillation, Diabetes mellitus, Dementia, Congestive heart failure, Urinary tract infection, Chronic hydronephrosis probably due to previous uterine cancer. Clinical Indicators: 83-year-old female present from [facility] with altered mental status Labs: WBC 7.7, Sodium 136, UA Moderate blood, Ur nitrite positive, Ur Leukocyte Esterase large WBC >182 CT Brain: Cerebral atrophy, no acute intracranial abnormality Chest X-ray: Cardiomegaly Treatment: Neurological assessment per protocol Monitor CBC, Lytes Rocephin IV In your professional opinion, please clarify the etiology of the Altered Mental Status, if known. Metabolic encephalopathy due to UTI Dementia (if know, specify Type and if with/without Behavioral Disturbance) Other condition (please specify) Unable to determine (Last Revision: July 2017) metobolic encephalopathy due to UTI MTDD
[2019-02-07] MEDS ORDERED: WARFARIN 5 MG TAB PO SCH (17:00)
[2019-02-07] MEDS ORDERED: WARFARIN 2 MG TAB PO ONE (18:00)
--- NOTE | 2019-02-07 18:05 | PN ---
PROGRESS NOTE DATE OF SERVICE: 02/07/2019 REASON FOR FOLLOWUP: Urinary tract infection. INTERVAL HISTORY: The patient is currently afebrile. The patient is more awake and alert. She is breathing comfortably. Has been complaining of aches and pains, but no worsening. No nausea, no vomiting. No abdominal pain or diarrhea. PHYSICAL EXAMINATION: Blood pressure 99/64 with a pulse of 64, temperature 98. She is 93% on room air. General description is an elderly female lying in bed in no distress. RESPIRATORY SYSTEM: Unlabored breathing. Clear to auscultation anteriorly. HEART: S1, S2. Regular rate and rhythm. ABDOMEN: Soft. No tenderness. LABS: Hemoglobin is 13.1, white count 6.1. Urine now showing gram-negative. Blood culture has been negative. DIAGNOSTIC IMPRESSION AND PLAN: Patient admitted to history of with mental status changes with concern for urinary tract infection. Previous culture with enterococcus; however, culture now showing a gram-negative. We will discontinue Zyvox, start the patient on Rocephin 2 grams daily pending the final ID sensitivity on this gram-negative. Continue with supportive care. MMODL / IJN: [id number] /
[2019-02-07] MEDS ORDERED: LINEZOLID 600 MG TAB PO SCH (21:00)
[2019-02-08 07:34] LABS: Basophils # (A) 0.1 k/uL (0-0.2); Basophils % (A) 1 %; Eosinophils # (A) 0.3 k/uL (0-0.7); Eosinophils % (A) 4 %; HCT 43.5 % (34.0-46.0); HGB 13.8 gm/dL (11.4-16.0); Lymphocytes # (A) 2.5 k/uL (1.0-4.8); Lymphocytes % (A) 37 %; MCH 30.8 pg (25.0-35.0); MCHC 31.8 g/dL (31.0-37.0); MCV 96.7 fL (80.0-100.0); Monocytes # (A) 0.4 k/uL (0-1.0); Monocytes % (A) 6 %; Neutrophils # (A) 3.4 k/uL (1.3-7.7); Neutrophils % (A) 50 %; Platelet Count 144 k/uL (150-450); RDW 13.2 % (11.5-15.5); WBC 6.8 k/uL (3.8-10.6)
[2019-02-08 07:40] LABS: INR 2.1 (<1.2); Prothrombin Time 20.5 sec (9.0-12.0)
[2019-02-08 07:53] LABS: Albumin 3.1 g/dL (3.5-5.0); Calcium 8.9 mg/dL (8.4-10.2); Potassium 3.8 mmol/L (3.5-5.1); Total Bilirubin 0.9 mg/dL (0.2-1.3)
[2019-02-08] MEDS: ALPRAZolam 0.5 MG TAB PO SCH ×2 (09:50→20:32)
[2019-02-08] MEDS: METOPROLOL TARTRATE 50 MG TAB PO SCH (09:50)
[2019-02-08] MEDS: SPIRONOLACTONE 25 MG TAB PO SCH (09:50)
[2019-02-08] MEDS: MEMANTINE 5 MG TAB PO SCH ×2 (09:50→17:49)
[2019-02-08] MEDS: FAMOTIDINE 20 MG TAB PO SCH (09:50)
[2019-02-08] MEDS: GABAPENTIN 100 MG CAP PO SCH ×3 (09:50→21:08)
[2019-02-08] MEDS: DOCUSATE 100 MG CAP PO SCH (09:50)
[2019-02-08] MEDS: FERROUS SULFATE 325 MG TAB PO SCH ×2 (09:51→17:47)
[2019-02-08] MEDS: FUROSEMIDE 40 MG TAB PO SCH ×2 (09:51→17:48)
[2019-02-08] MEDS: ACETAMINOPHEN TAB 325 MG TAB PO PRN (12:54)
--- NOTE | 2019-02-08 13:57 | P.PN ---
Subjective Progress Note Date: 02/08/19 This is a pleasant 83-year-old female past medical history significant for chronic persistent atrial fibrillation on detention anti-coagulation, sick sinus syndrome s/p permanent pacemaker implantation, diabetes mellitus, pulmonary hypertension, cor pulmonale and hypertension. He follows with Dr. Soto in the office. We have been asked to see her in consultation secondary to abnormal EKG. She presented to the hospital from [facility] with her daughter for altered mental status that has been getting progressively worse. EKG on arrival revealed atrial fibrillation with T-wave inversion inferiorly with conduction delay heart rate of 66. Repeat today is the same. Consistent with previous EKG's. No changes appreciated. She is seen and examined laying in bed in no acute distress. She denies chest pain, shortness of breath, dizziness or palpitations. She is quite alert and able to tell me who her wood filler is however she cannot recall why she was brought to the hospital. Chest x-ray is negative for an acute cardiopulmonary process. CT of the brain reveals cerebral atrophy with no acute intracranial abnormality. Laboratory data reviewed, WBC 6.1, hemoglobin 13.1, platelets 146, INR 2.3, pCO2 62, pO2 117, bicarb 39, sodium 139, potassium 3.8, creatinine 0.8 to and troponin negative 1 on admission. Current daily cardiac medications include Coumadin, Aldactone 25 mg daily, Lopressor 50 mg daily, Lasix 40 mg twice a day, chlorthalidone 25 mg daily on Fridays. Most recent echocardiogram obtained October 2017 reveals preserved LV systolic function with ejection fraction 55-60%, severe tricuspid regurgitation and severe pulmonary hypertension with an RVSP of 81 mmHg. 02/08: She does seem a she is eating breakfast. She denies any chest pain or shortness of breath. Pacemaker was interrogated yesterday by [employer]. All the values were okay. One 75 was a high ventricular rate episodes stored since last reset on 03/28/2018. Episodes appeared to be A. fib with RVR due to irregularity. Most recent stored was on 02/05/2019 lasting 10 seconds with an average ventricular rate of 178 bpm. Longest episodes stored 12/28/2018 lasting 44 seconds with an average ventricular rate of 179. Hemoglobin 13.8, INR 2.1. Blood pressure and 22/73, heart rate 60, afebrile, maintaining oxygen saturation on room air GENERAL: This is a 83-year-old female in no apparent distress at the time of my examination. Morbidly obese. HEENT: Head is atraumatic, normocephalic. Pupils are equal, round. Sclerae anicteric. Conjunctivae are clear. Mucous membranes of the mouth are moist. Neck is supple. There is mild bilateral jugular venous distention. No carotid bruit is heard. LUNGS: Clear to auscultation no wheezes, rales or rhonchi. No chest wall tenderness is noted on palpation or with deep breathing. Diminished bilaterally. HEART: Irregular rate and rhythm with systolic ejection murmur at the left sternal border, no rubs or gallops. S1 and S2 heard. ABDOMEN: Soft, nontender. Bowel sounds are heard. No organomegaly noted. EXTREMITIES: No evidence of peripheral edema and no calf tenderness noted. VASCULAR: Radial and dorsalis pedis pulses palpated, no evidence of clubbing. NEUROLOGIC: Patient is awake, alert and oriented x3. ASSESSMENT Urinary tract infection Chronic persistent atrial fibrillation on long-term anticoagulation with controlled ventricular rates with intraventricular conduction delay Thrombocytopenia Sick sinus syndrome status post permanent pacemaker implantation Pulmonary hypertension, RVSP 81 mmHg Cor pulmonale Hypertension Diabetes mellitus PLAN EKG is chronic a-fib. Computer interpretation of pacemaker failure is inaccurate as her heart seems to be maintaining conduction on its own at this time. Single-chamber pacemaker is functioning well Continue Lopressor 50 mg daily and add 25 mg at bedtime Continue current dose of Coumadin Continue current medical regimen. No further work-up at this time. Follow-up with Dr. Soto in 4 weeks. Cardiology will sign off and follow on an as-needed basis. Please reconsult for any concerns. Thank you kindly for this consultation. Nurse Practitioner note has been reviewed, I agree with a documented findings and plan of care. Patient was seen and examined. Objective - Vital Signs Vital signs: Vital Signs Temp 98.7 F 02/08/19 05:00 Pulse 60 02/08/19 05:00 Resp 20 02/08/19 05:00 BP 122/73 02/08/19 05:00 Pulse Ox 94 L 02/08/19 05:00 Intake & Output 02/07/19 02/08/19 02/08/19 18:59 06:59 18:59 Intake Total 125 700 Output Total 1200 2800 Balance -1075 -2100 Intake: Oral 125 700 Output: Urine 1200 2800 Other: Voiding Method Indwelling Catheter Indwelling Catheter - Labs CBC & Chem 7: 02/08/19 07:10 02/08/19 07:10 Labs: Abnormal Lab Results - Last 24 Hours (Table) 02/08/19 02/08/19 02/08/19 Range/Units 07:10 07:10 07:10 Plt Count 144 L (150-450) k/uL PT 20.5 H (9.0-12.0) sec INR 2.1 H (<1.2) Carbon Dioxide 38 H (22-30) mmol/L BUN 18 H (7-17) mg/dL Glucose 101 H (74-99) mg/dL Total Protein 6.0 L (6.3-8.2) g/dL Albumin 3.1 L (3.5-5.0) g/dL Microbiology - Last 24 Hours (Table) 02/05/19 21:20 Blood Culture - Preliminary Blood No Growth after 48 hours 02/05/19 19:41 Urine Culture - Final Urine,Catheterized Escherichia coli
--- NOTE | 2019-02-08 15:05 | P.PN ---
Subjective Progress Note Date: 02/08/19 This is an 83-year-old patient of Dr. Hills. Patient presented with complaints of altered mental status. Patient currently resides at [facility] for snf care. ER reports that she was minimally responsive to painful stimuli. Patient does have a past medical history of atrial fibrillation which she is maintained on Coumadin, diabetes mellitus, hypertension, osteoarthritis, pacemaker, CHF, COPD, CAD, depression and anxiety. Patient also has PICC line in place which she has been receiving IV antibiotics for possible bacteremia. Head CT completed showing cerebral atrophy no acute intracranial abnormality. No change. Chest x-ray completed showing cardiomegaly no active cardiopulmonary disease no adverse change compared to old exam. Urinary analysis showing large amount of leukocyte Estrace. Urine culture ordered. Blood culture ordered. Patient started on IV antibiotics. Infectious disease consulted. Patient is awake following commands. Patient denies any specific complaints. Patient denies chest pain or shortness of breath. Patient denies nausea vomiting or diarrhea. Patient denies any urinary burning or frequency. On 02/07/2019 patient is currently resting comfortably in bed. Urine culture currently growing gram-negative bacilli. Infectious disease is following. Patient remains on Zyvox for antibiotic. Home Coumadin dose reordered. INR 2.3. Patient denies chest pain or shortness of breath. Patient denies nausea vomiting or diarrhea. Patient denies any urinary burning or frequency Objective - Vital Signs Vital signs: Vital Signs Temp 97.8 F 02/08/19 14:46 Pulse 62 02/08/19 14:46 Resp 20 02/08/19 14:46 BP 107/74 02/08/19 14:46 Pulse Ox 99 02/08/19 14:46 Intake & Output 02/07/19 02/08/19 02/08/19 18:59 06:59 18:59 Intake Total 125 700 Output Total 1200 2800 700 Balance -3445 -2100 -700 Intake: Oral 125 700 Output: Urine 1200 2800 700 Other: Voiding Method Indwelling Catheter Indwelling Catheter Indwelling Catheter - Exam In general patient is alert and oriented 2 in no apparent distress Head normocephalic and atraumatic Neck supple no JVD no goiter Lungs clear to auscultation bilaterally no wheezing or crackles Heart irregular rate and rhythm S1-S2, no rub or gallop Abdomen is soft nontender nondistended positive bowel sounds no hepatosplenomegaly Extremities no edema no cyanosis or clubbing Neuro Remote memory impairment, otherwise no gross focal neurological deficit - Labs CBC & Chem 7: 02/08/19 07:10 02/08/19 07:10 Labs: Abnormal Lab Results - Last 24 Hours (Table) 02/08/19 02/08/19 02/08/19 Range/Units 07:10 07:10 07:10 Plt Count 144 L (150-450) k/uL PT 20.5 H (9.0-12.0) sec INR 2.1 H (<1.2) Carbon Dioxide 38 H (22-30) mmol/L BUN 18 H (7-17) mg/dL Glucose 101 H (74-99) mg/dL Total Protein 6.0 L (6.3-8.2) g/dL Albumin 3.1 L (3.5-5.0) g/dL Microbiology - Last 24 Hours (Table) 02/05/19 21:20 Blood Culture - Preliminary Blood No Growth after 48 hours 02/05/19 19:41 Urine Culture - Final Urine,Catheterized Escherichia coli Assessment and Plan Plan: 1. Altered mental status changes likely secondary to urinary tract infection. Head CT completed showing cerebral atrophy. No acute intracranial abnormality. No change. Urine culture ordered. Patient currently on Zyvox. Infectious disease following. Urine culture currently growing and negative bacilli 2. History of bacteremia requiring IV antibiotics outpatient. Infectious disease consulted 3. History of chronic hypercapnic respiratory failure with chronically elevated CO2. Chest x-ray was completed showing cardiomegaly. No active cardiopulmonary disease. No adverse change compared to old exam 4. History of sick sinus syndrome and cardiac pacemaker placement 5. History of chronic atrial fibrillation. Patient maintained on Coumadin. INR on admission 3.2. Repeat INR 2.3 home dose of Coumadin ordered daily PT/INRs ordered 6. History of diabetes mellitus type 2. Diet controlled 7. History of depression. paxil on hold due to interaction with antibiotic 8. History of uterine cancer 9. History of generalized debility currently a resident at [facility] 10. History of essential hypertension 11. Chronic diastolic congestive heart failure. Patient maintained on Lasix 12. Iron deficiency anemia. Patient maintained on ferrous sulfate 13. History of dementia. Patient maintained on Namenda DVT prophylaxis Coumadin. GI prophylaxis Pepcid Continue current management possible transfer to group home on Sunday
[2019-02-08] MEDS ORDERED: WARFARIN 5 MG TAB PO SCH (17:00)
[2019-02-08] MEDS: WARFARIN 2 MG TAB PO ONE ×2 (17:48→18:03)
[2019-02-08] MEDS: IPRATROPIUM-ALBUTEROL 3 ML NEB INHALATION PRN (19:47)
[2019-02-08] MEDS: METOPROLOL TARTRATE 25 MG TAB PO SCH (20:32)
[2019-02-08] MEDS: HYDROcodone/APAP 10-325MG 1 EACH TAB PO PRN (23:22)
[2019-02-09 07:56] LABS: Basophils # (A) 0.1 k/uL (0-0.2); Basophils % (A) 1 %; Eosinophils # (A) 0.3 k/uL (0-0.7); Eosinophils % (A) 4 %; HCT 41.1 % (34.0-46.0); HGB 13.3 gm/dL (11.4-16.0); Lymphocytes # (A) 2.6 k/uL (1.0-4.8); Lymphocytes % (A) 43 %; MCH 31.2 pg (25.0-35.0); MCHC 32.4 g/dL (31.0-37.0); MCV 96.2 fL (80.0-100.0); Mean Platelet Volume 6.3; Monocytes # (A) 0.4 k/uL (0-1.0); Monocytes % (A) 7 %; Neutrophils # (A) 2.6 k/uL (1.3-7.7); Neutrophils % (A) 43 %; Platelet Count 148 k/uL (150-450); RBC 4.27 m/uL (3.80-5.40); WBC 6.1 k/uL (3.8-10.6)
[2019-02-09 08:01] LABS: INR 2.6 (<1.2); Prothrombin Time 24.8 sec (9.0-12.0)
[2019-02-09 08:17] LABS: Albumin 2.9 g/dL (3.5-5.0); Calcium 8.8 mg/dL (8.4-10.2); Potassium 3.7 mmol/L (3.5-5.1); Total Bilirubin 0.9 mg/dL (0.2-1.3); Total Protein 5.7 g/dL (6.3-8.2)
[2019-02-09] MEDS: METOPROLOL TARTRATE 50 MG TAB PO SCH (08:59)
[2019-02-09] MEDS: MEMANTINE 5 MG TAB PO SCH ×2 (08:59→16:13)
[2019-02-09] MEDS: FAMOTIDINE 20 MG TAB PO SCH (08:59)
[2019-02-09] MEDS: SPIRONOLACTONE 25 MG TAB PO SCH (08:59)
[2019-02-09] MEDS: ALPRAZolam 0.5 MG TAB PO SCH ×2 (08:59→21:48)
[2019-02-09] MEDS: DOCUSATE 100 MG CAP PO SCH (08:59)
[2019-02-09] MEDS: HYDROcodone/APAP 10-325MG 1 EACH TAB PO PRN (09:00)
[2019-02-09] MEDS: GABAPENTIN 100 MG CAP PO SCH ×3 (09:00→21:48)
[2019-02-09] MEDS: FERROUS SULFATE 325 MG TAB PO SCH ×2 (09:00→16:14)
[2019-02-09] MEDS: FUROSEMIDE 40 MG TAB PO SCH ×2 (09:00→16:13)
--- NOTE | 2019-02-09 09:21 | P.PN ---
Subjective Progress Note Date: 02/09/19 This is an 83-year-old patient of Dr. Hills. Patient presented with complaints of altered mental status. Patient currently resides at [facility] for mcc care. ER reports that she was minimally responsive to painful stimuli. Patient does have a past medical history of atrial fibrillation which she is maintained on Coumadin, diabetes mellitus, hypertension, osteoarthritis, pacemaker, CHF, COPD, CAD, depression and anxiety. Patient also has PICC line in place which she has been receiving IV antibiotics for possible bacteremia. Head CT completed showing cerebral atrophy no acute intracranial abnormality. No change. Chest x-ray completed showing cardiomegaly no active cardiopulmonary disease no adverse change compared to old exam. Urinary analysis showing large amount of leukocyte Estrace. Urine culture ordered. Blood culture ordered. Patient started on IV antibiotics. Infectious disease consulted. Patient is awake following commands. Patient denies any specific complaints. Patient denies chest pain or shortness of breath. Patient denies nausea vomiting or diarrhea. Patient denies any urinary burning or frequency. On 02/07/2019 patient is currently resting comfortably in bed. Urine culture currently growing gram-negative bacilli. Infectious disease is following. Patient remains on Zyvox for antibiotic. Home Coumadin dose reordered. INR 2.3. Patient denies chest pain or shortness of breath. Patient denies nausea vomiting or diarrhea. Patient denies any urinary burning or frequency. On 02/09/2019 patient was seen and examined on the medical floor she is alert and oriented 3 in no apparent distress she is complaining of severe pounding headache otherwise she denies any complaints there is no fever or chills no headache or dizziness no chest pain no shortness of breath no cough no nausea or vomiting no abdominal pain no diarrhea and no urinary symptoms Objective - Vital Signs Vital signs: Vital Signs Temp 97.9 F 02/09/19 05:00 Pulse 61 02/09/19 05:00 Resp 20 02/09/19 05:00 BP 112/55 02/09/19 05:00 Pulse Ox 92 L 02/09/19 05:00 Intake & Output 02/08/19 02/09/19 02/09/19 19:59 06:59 18:59 Intake Total Output Total Balance Intake: Oral Output: Urine Other: Voiding Method - Exam In general patient is alert and oriented 2 in no apparent distress Head normocephalic and atraumatic Neck supple no JVD no goiter Lungs clear to auscultation bilaterally no wheezing or crackles Heart irregular rate and rhythm S1-S2, no rub or gallop Abdomen is soft nontender nondistended positive bowel sounds no hepatosplenomegaly Extremities no edema no cyanosis or clubbing Neuro Remote memory impairment, otherwise no gross focal neurological deficit - Labs CBC & Chem 7: 02/09/19 07:33 02/09/19 07:33 Labs: Abnormal Lab Results - Last 24 Hours (Table) 02/09/19 02/09/19 02/09/19 Range/Units 07:33 07:33 07:33 Plt Count 148 L (150-450) k/uL PT 24.8 H (9.0-12.0) sec INR 2.6 H (<1.2) Carbon Dioxide 33 H (22-30) mmol/L BUN 18 H (7-17) mg/dL Total Protein 5.7 L (6.3-8.2) g/dL Albumin 2.9 L (3.5-5.0) g/dL Microbiology - Last 24 Hours (Table) 02/05/19 21:20 Blood Culture - Preliminary Blood No Growth after 72 hours Assessment and Plan Plan: 1. Altered mental status changes likely secondary to urinary tract infection. Head CT completed showing cerebral atrophy. No acute intracranial abnormality. No change. Urine culture ordered. Patient currently on Zyvox. Infectious disease following. Urine culture currently growing and negative bacilli 2. History of bacteremia requiring IV antibiotics outpatient. Infectious disease consulted 3. History of chronic hypercapnic respiratory failure with chronically elevated CO2. Chest x-ray was completed showing cardiomegaly. No active cardiopulmonary disease. No adverse change compared to old exam 4. History of sick sinus syndrome and cardiac pacemaker placement 5. History of chronic atrial fibrillation. Patient maintained on Coumadin. INR on admission 3.2. Repeat INR 2.3 home dose of Coumadin ordered daily PT/INRs ordered 6. History of diabetes mellitus type 2. Diet controlled 7. History of depression. paxil on hold due to interaction with antibiotic 8. History of uterine cancer 9. History of generalized debility currently a resident at [facility] 10. History of essential hypertension 11. Chronic diastolic congestive heart failure. Patient maintained on Lasix 12. Iron deficiency anemia. Patient maintained on ferrous sulfate 13. History of dementia. Patient maintained on Namenda 14. Complaining of severe headache today at this time will resume fentanyl pa tch at 25 g every 72 hours continue with [place] for breakthrough pain as needed DVT prophylaxis Coumadin. GI prophylaxis Pepcid Continue current management possible transfer to longterm tomorrow.
[2019-02-09] MEDS ORDERED: WARFARIN 3 MG TAB PO ONE (18:00)
[2019-02-09] MEDS: METOPROLOL TARTRATE 25 MG TAB PO SCH (21:47)
--- NOTE | 2019-02-09 23:05 | PN ---
PROGRESS NOTE DATE OF SERVICE: 02/09/2019. REASON FOR FOLLOWUP: Urinary tract infection. INTERVAL HISTORY: The patient is currently afebrile. The patient has been breathing comfortably. The patient denies having any chest pain. No shortness of breath or cough. No nausea or vomiting. No abdominal pain. No diarrhea. PHYSICAL EXAMINATION: Blood pressure 109/53 with a pulse of 84, temperature 98.2, she is 94% on room air. General description is an elderly female lying in bed in no distress. Respiratory system: Unlabored breathing. Clear to auscultation anteriorly. Heart S1, S2. Regular rate and rhythm. Abdomen soft. No tenderness. Extremities: No edema of the feet. LABS: Hemoglobin is 13.8, white count 6.1. BUN of 18, creatinine 0.82. Urine has been finalized with an E coli that is sensitive pathogen. DIAGNOSTIC IMPRESSION AND PLAN: Patient with E coli urinary tract infection. Patient currently covered with Rocephin, received about 3 doses with 1 dose tomorrow. Afterwards the patient can be discharged to the residential on oral amoxicillin 500 mg t.i.d. for another 5 days. MMODL / IJN: [id number] /
[2019-02-10] MEDS: HYDROcodone/APAP 10-325MG 1 EACH TAB PO PRN (01:56)
[2019-02-10] MEDS: DOCUSATE 100 MG CAP PO SCH ×2 (07:51→07:57)
[2019-02-10] MEDS: METOPROLOL TARTRATE 50 MG TAB PO SCH (07:51)
[2019-02-10] MEDS: SPIRONOLACTONE 25 MG TAB PO SCH (07:52)
[2019-02-10] MEDS: MEMANTINE 5 MG TAB PO SCH (07:52)
[2019-02-10] MEDS: FAMOTIDINE 20 MG TAB PO SCH (07:52)
[2019-02-10] MEDS: FUROSEMIDE 40 MG TAB PO SCH (07:52)
[2019-02-10] MEDS: FERROUS SULFATE 325 MG TAB PO SCH (07:52)
[2019-02-10] MEDS: ALPRAZolam 0.5 MG TAB PO SCH (07:55)
[2019-02-10] MEDS: GABAPENTIN 100 MG CAP PO SCH ×2 (07:55→15:30)
[2019-02-10 09:02] LABS: Basophils # (A) 0.1 k/uL (0-0.2); Basophils % (A) 1 %; Eosinophils # (A) 0.3 k/uL (0-0.7); Eosinophils % (A) 5 %; HCT 45.4 % (34.0-46.0); HGB 14.6 gm/dL (11.4-16.0); Lymphocytes # (A) 2.8 k/uL (1.0-4.8); Lymphocytes % (A) 43 %; MCH 30.9 pg (25.0-35.0); MCHC 32.2 g/dL (31.0-37.0); MCV 96.1 fL (80.0-100.0); Mean Platelet Volume 6.4; Monocytes # (A) 0.4 k/uL (0-1.0); Monocytes % (A) 6 %; Neutrophils # (A) 2.8 k/uL (1.3-7.7); Neutrophils % (A) 42 %; Platelet Count 177 k/uL (150-450); RBC 4.73 m/uL (3.80-5.40); RDW 12.9 % (11.5-15.5); WBC 6.6 k/uL (3.8-10.6)
[2019-02-10 09:06] LABS: INR 2.7 (<1.2); Prothrombin Time 26.5 sec (9.0-12.0)
[2019-02-10 09:23] LABS: Albumin 3.4 g/dL (3.5-5.0); Calcium 9.2 mg/dL (8.4-10.2); Potassium 3.6 mmol/L (3.5-5.1); Total Bilirubin 0.9 mg/dL (0.2-1.3); Total Protein 6.7 g/dL (6.3-8.2)
[2019-02-10] MEDS: ACETAMINOPHEN TAB 325 MG TAB PO PRN (12:36)
--- NOTE | 2019-02-10 13:42 | P.DS ---
Providers Date of admission: 02/07/19 13:46 Expected date of discharge: 02/10/19 Attending physician: Citlalli Garcia Consults: 02/06/19 11:06 Consult Physician Routine Consulting Provider: Kobi Jackson Consult Reason/Comments: Urine tract infection currently maintained on IV antibiotics for bacteremia Do you want consulting provider notified?: Yes 02/07/19 12:44 Consult Physician Routine Consulting Provider: Umer Landaverde Consult Reason/Comments: abdnormal EKG Do you want consulting provider notified?: Yes Primary care physician: Minh Hills [facility] Course: Discharge diagnosis 1. Altered mental status changes likely secondary to urinary tract infection. Head CT completed showing cerebral atrophy. No acute intracranial abnormality. No change. Urine culture ordered. Patient currently on Zyvox. Infectious disease following. Urine culture positive for E. coli. Per infectious disease patient to receive final dose of Rocephin today and afterwards can be discharged back to [facility] on amoxicillin 500 3 times a day for 5 days. 2. History of bacteremia requiring IV antibiotics outpatient. Infectious disease consulted 3. History of chronic hypercapnic respiratory failure with chronically elevated CO2. Chest x-ray was completed showing cardiomegaly. No active cardiopulmonary disease. No adverse change compared to old exam 4. History of sick sinus syndrome and cardiac pacemaker placement 5. History of chronic atrial fibrillation. Patient maintained on Coumadin. I NR on admission 3.2. Repeat INR 2.3 home dose of Coumadin ordered daily PT/INRs ordered 6. History of diabetes mellitus type 2. Diet controlled 7. History of depression. 8. History of uterine cancer 9. History of generalized debility currently a resident at [facility] 10. History of essential hypertension 11. Chronic diastolic congestive heart failure. Patient maintained on Lasix 12. Iron deficiency anemia. Patient maintained on ferrous sulfate 13. History of dementia. Patient maintained on Namenda 14. Complaining of severe headache today at this time will resume fentanyl patch at 25 g every 72 hours continue with [place] for breakthrough pain as needed Hospital course This is an 83-year-old patient of Dr. Hills. Patient presented with complaints of altered mental status. Patient currently resides at [facility] for intermediate care. ER reports that she was minimally responsive to painful stimuli. Patient does have a past medical history of atrial fibrillation which she is maintained on Coumadin, diabetes mellitus, hypertension, osteoarthritis, pacemaker, CHF, COPD, CAD, depression and anxiety. Patient also has PICC line in place which she has been receiving IV antibiotics for possible bacteremia. Head CT completed showing cerebral atrophy no acute intracranial abnormality. No change. Chest x-ray completed showing cardiomegaly no active cardiopulmonary disease no adverse change compared to old exam. Urinary analysis showing large amount of leukocyte Estrace. Urine culture ordered. Blood culture ordered. Patient started on IV antibiotics. Infectious disease consulted. Patient is awake following commands. Patient denies any specific complaints. Patient denies chest pain or shortness of breath. Patient denies nausea vomiting or diarrhea. Patient denies any urinary burning or frequency. On 02/07/2019 patient is currently resting comfortably in bed. Urine culture currently growing gram-negative bacilli. Infectious disease is following. Patient remains on Zyvox for antibiotic. Home Coumadin dose reordered. INR 2.3. Patient denies chest pain or shortness of breath. Patient denies nausea vomiting or diarrhea. Patient denies any urinary burning or frequency. On 02/09/2019 patient was seen and examined on the medical floor she is alert and oriented 3 in no apparent distress she is complaining of severe pounding headache otherwise she denies any complaints there is no fever or chills no headache or dizziness no chest pain no shortness of breath no cough no nausea or vomiting no abdominal pain no diarrhea and no urinary symptoms 02/10/2019 patient is alert and oriented 3. Patient to receive last dose of Rocephin today and has been cleared for discharge back to [facility] per infectious disease. Patient will be discharged on amoxicillin 500 3 times a day for 5 days. Patient denies chest pain or shortness of breath. Patient denies nausea vomiting or diarrhea. Patient denies any urinary burning or frequency. I performed an examination of the patient and discussed their management with the Nurse Practitioner. I have reviewed the Nurse Practitioner's notes and agree with the documented findings and plan of care Patient Condition at Discharge: Stable Plan - Discharge Summary Discharge Rx Participant: No New Discharge Prescriptions: No Action Spironolactone [Aldactone] 25 mg PO DAILY@0800 Metoprolol Tartrate [Lopressor] 50 mg PO DAILY@0800 Na Phos,M-B/Na Phos,Di-Ba [Fleet Adult] 133 ml RECTAL ONCE PRN PRN Reason: Constipation Bisacodyl [Dulcolax] 10 mg RECTAL DAILY PRN PRN Reason: Constipation Ondansetron HCl [Zofran] 4 mg PO Q6H PRN PRN Reason: Nausea Ipratropium-Albuterol Nebulize [Duoneb 0.5 mg-3 mg/3 ml Soln] 3 ml INHALATION RT-Q2H PRN ampul.neb PRN Reason: Shortness Of Breath Or Wheezing Benzocaine/Menthol Lozeng [Cepacol lozenge] 1 lozenge PO Q8H PRN PRN Reason: Sore Throat Acetaminophen [Tylenol 8 Hour] 650 mg PO Q4H PRN PRN Reason: GENERAL DISCOMFORT Docusate [Colace] 200 mg PO DAILY@0800 Memantine HCl [Namenda] 5 mg PO BID@0800,1700 Furosemide [Lasix] 40 mg PO BID@0800,1700 PARoxetine [Paxil] 10 mg PO DAILY@0800 Warfarin [Coumadin] 5 mg PO SUMOWEFR@1700 Warfarin [Coumadin] 2.5 mg PO TUTHSA@1700 Chlorthalidone 25 mg PO FR@0800 fentaNYL 25MCG/HR PATCH [Duragesic 25MCG/HR] 1 patch TRANSDERM Q72H 3 Days #1 patch Gabapentin [Neurontin] 100 mg PO TID #9 capsule Hydrocodone/Acetaminophen [Spring 10-325] 1 tab PO Q8H PRN #9 tablet PRN Reason: Pain ALPRAZolam [Xanax] 0.5 mg PO BID Ferrous Sulfate [Iron (65 MG Elemental)] 325 mg PO BID@0800,1700 Loperamide HCl [Imodium A-D] 2 - 4 mg PO QID PRN PRN Reason: Diarrhea Mag Hydrox/Al Hydrox/Simeth [Maalox] 20 ml PO Q6H PRN PRN Reason: Heartburn Magnesium Hydroxide [Milk of Magnesia] 2,400 mg PO DAILY PRN PRN Reason: Constipation Discharge Medication List Spironolactone [Aldactone] 25 mg PO DAILY@0800 01/04/15 [History] Metoprolol Tartrate [Lopressor] 50 mg PO DAILY@0800 10/23/17 [History] Bisacodyl [Dulcolax] 10 mg RECTAL DAILY PRN 11/06/17 [History] Na Phos,M-B/Na Phos,Di-Ba [Fleet Adult] 133 ml RECTAL ONCE PRN 11/06/17 [History] Ondansetron HCl [Zofran] 4 mg PO Q6H PRN 11/06/17 [History] Ipratropium-Albuterol Nebulize [Duoneb 0.5 mg-3 mg/3 ml Soln] 3 ml INHALATION RT-Q2H PRN ampul.neb 11/14/17 [Rx] Acetaminophen [Tylenol 8 Hour] 650 mg PO Q4H PRN 04/27/18 [History] Benzocaine/Menthol Lozeng [Cepacol lozenge] 1 lozenge PO Q8H PRN 04/27/18 [History] Docusate [Colace] 200 mg PO DAILY@0800 04/27/18 [History] Chlorthalidone 25 mg PO FR@0800 11/24/18 [History] Furosemide [Lasix] 40 mg PO BID@0800,1700 11/24/18 [History] Memantine HCl [Namenda] 5 mg PO BID@0800,1700 11/24/18 [History] PARoxetine [Paxil] 10 mg PO DAILY@0800 11/24/18 [History] Warfarin [Coumadin] 2.5 mg PO TUTHSA@1700 11/24/18 [History] Warfarin [Coumadin] 5 mg PO SUMOWEFR@1700 11/24/18 [History] Gabapentin [Neurontin] 100 mg PO TID #9 capsule 11/26/18 [Rx] Hydrocodone/Acetaminophen [Spring 10-325] 1 tab PO Q8H PRN #9 tablet 11/26/18 [Rx] fentaNYL 25MCG/HR PATCH [Duragesic 25MCG/HR] 1 patch TRANSDERM Q72H 3 Days #1 patch 11/26/18 [Rx] ALPRAZolam [Xanax] 0.5 mg PO BID 02/05/19 [History] Ferrous Sulfate [Iron (65 MG Elemental)] 325 mg PO BID@0800,1700 02/05/19 [History] Loperamide HCl [Imodium A-D] 2 - 4 mg PO QID PRN 02/05/19 [History] Mag Hydrox/Al Hydrox/Simeth [Maalox] 20 ml PO Q6H PRN 02/05/19 [History] Magnesium Hydroxide [Milk of Magnesia] 2,400 mg PO DAILY PRN 02/05/19 [History] Follow up Appointment(s)/Referral(s): Minh Hills MD [Primary Care Provider] - 1-2 days
[2019-02-10 14:55] VITALS: BP 92/60; PULSE 65; RESP 18; TEMP 98.2
[2019-02-10] MEDS ORDERED: WARFARIN 2.5 MG TAB PO ONE (18:00)
--- NOTE | 2019-02-10 22:45 | PN ---
PROGRESS NOTE DATE OF SERVICE: 02/10/2019 REASON FOR FOLLOWUP: E coli urinary tract infection. INTERVAL HISTORY: The patient was seen on rounds this morning. The patient has been afebrile. The patient was breathing comfortably. Patient denies having any chest pain. No shortness of breath or cough. No nausea, no vomiting. No abdominal pain. No diarrhea. PHYSICAL EXAMINATION: Blood pressure is 92/60 with a pulse of 55, temp 98.2. She is 93% on room air. General description is an elderly female lying in bed in no distress. Respiratory system: Unlabored breathing, clear to auscultation anteriorly. Heart S1, S2. Regular rate and rhythm. Abdomen soft, no tenderness. LABS: Hemoglobin is 14.8, white count 6.6, BUN of 20, creatinine 0.80. DIAGNOSTIC IMPRESSION AND PLAN: Patient with E coli urinary tract infection. The patient did have a history of recurrent UTI, has been sensitive pathogen. She has received few days of IV Rocephin. Antibiotic was switched over to oral amoxicillin 500 mg 3 times a day for 5 days to finish a course of therapy. Continue supportive care. MMODL / IJN: [id number] /
[2019-02-11] MEDS ORDERED: PARoxetine 10 MG TAB PO SCH (08:00)
== END 2019-02-10 16:59 | DRG 689 ==
LOC: EC 18:49 → 4MS4W 21:43 → OBSVTOIN 02-07 13:46
PROVIDERS: ADMIT Internal Medicine; ATTEND Internal Medicine
DX: N39.0 Urinary tract infection, site not specified (principal); G93.41 Metabolic encephalopathy; I48.19 Other persistent atrial fibrillation; I50.32 Chronic diastolic (congestive) heart failure; J96.12 Chronic respiratory failure with hypercapnia; D69.6 Thrombocytopenia, unspecified; I11.0 Hypertensive heart disease with heart failure; I27.29 Other secondary pulmonary hypertension; N13.30 Unspecified hydronephrosis; I49.5 Sick sinus syndrome; J44.9 Chronic obstructive pulmonary disease, unspecified; E66.01 Morbid (severe) obesity due to excess calories; I07.1 Rheumatic tricuspid insufficiency; E11.9 Type 2 diabetes mellitus without complications; F03.90 Unspecified dementia, unspecified severity, without behavioral disturbance, psychotic disturbance, mood disturbance, and anxiety; B96.20 Unspecified Escherichia coli [E. coli] as the cause of diseases classified elsewhere; D50.9 Iron deficiency anemia, unspecified; F41.9 Anxiety disorder, unspecified; I25.10 Atherosclerotic heart disease of native coronary artery without angina pectoris; F32.9 Major depressive disorder, single episode, unspecified; M19.90 Unspecified osteoarthritis, unspecified site; R51 Headache; Z79.01 Long term (current) use of anticoagulants; Z79.899 Other long term (current) drug therapy; Z96.653 Presence of artificial knee joint, bilateral; Z95.0 Presence of cardiac pacemaker; Z90.710 Acquired absence of both cervix and uterus; Z87.891 Personal history of nicotine dependence; Z87.440 Personal history of urinary (tract) infections; Z85.42 Personal history of malignant neoplasm of other parts of uterus; Z96.643 Presence of artificial hip joint, bilateral; Z98.42 Cataract extraction status, left eye; Z98.41 Cataract extraction status, right eye; Z96.1 Presence of intraocular lens; Z80.3 Family history of malignant neoplasm of breast
CPT/HCPCS: 36415; 36600; 70450; 71046; 80048; 80053; 80306; 80320; 80329; 81001; 82140; 82550; 82805; 83520; 83605; 84439; 84443; 84484; 85025; 85610; 85730; 87040; 87077; 87086; 87186; 93005; 94640; 96361; 96365; 99285